=== PATIENT | male | born 1955 | race Caucasian/White ===

== ENCOUNTER 2016-08-28 22:38 | Inpatient (IN) | payer MEDICAID, MEDICARE, OTHER ==
[2016-08-28 22:38] VITALS: BMI 21.5
[2016-08-28] MEDS ORDERED: Sodium Chloride 0.9% 1,000 ML IV STA (23:05)
--- NOTE | 2016-08-28 23:21 | ED PDOC ---
HPI:Nausea, Vomiting, Diarrhea Time Seen by Provider: 08/28/16 22:46 Chief Complaint (Nursing): GI Problem Chief Complaint (Provider): vomiting History Per: Patient History/Exam Limitations: no limitations Onset/Duration Of Symptoms: Hrs Current Symptoms Are (Timing): Still Present Have you had recent travel within the past 21 days to any of the following countries: [place], [place], [place] or [place]?: No Additional Complaint(s): 61yo male with PMHx including liver cirrhosis, alcohol abuse presents to the ED with c/o vomiting since last night that was initially dark in color, but today noticed blood. Patient reports he has had black stools since last week that have increased in last 24 hours. Notes nausea, cold sweats, lightheadedness, and pallor. Patient had similar symptoms last in May 2016 when he had GI bleed and required transfusions. PCP: Dr. Sheikh Past Medical History Reviewed: Historical Data, Nursing Documentation, Vital Signs Vital Signs: Last Vital Signs Temp 97 F L 08/28/16 22:41 Pulse 97 H 08/28/16 22:41 Resp 18 08/28/16 22:41 BP 138/107 H 08/28/16 22:41 Pulse Ox 100 08/28/16 22:41 - Medical History PMH: Anemia, Anxiety, Depression, Fractures (Left Toe fracture, forklift accident), Hepatitis (C), HTN Denies: Alzheimer's Disease, Arthritis, Asthma, Atrial Fibrillation, Bipolar Disorder, Bronchitis, CAD, Cardia Arrhythmia, CHF, COPD, Crohn's Disease, Dementia, Diverticulitis, Emphysema, Gastritis, Gall Bladder Disease, HIV, Hypercholesterolemia, Hyperthyroidism, Hypothyroidism, Kidney Stones, Migraine, Mitral Valve Prolapse, Multiple Sclerosis, Osteoporosis, Pancreatitis, Paranoia , Parkinson's Disease, Peripheral Edema, Pneumonia, Post Traumatic Stress Disorder, Pulmonary Embolism, Chronic Kidney Disease, Rheumatoid Arthritis, Schizophrenia, Sickle Cell Disease, Sexually Transmitted Disease, Sleep Apnea Other PMH: liver cirrhosis - Surgical History Surgical History: Endoscopy (with banding x5 for esophageal varices) Denies: Appendectomy, CABG, Carotid Endarterectomy, Cholecystectomy, Coronary Stent, Pacemaker, Tonsillectomy - Family History Family History: States: Unknown Family Hx, Diabetes - Social History Alcohol: Other (alcohol abuse) - Immunization History Hx Tetanus Toxoid Vaccination: Yes Hx Influenza Vaccination: Yes Hx Pneumococcal Vaccination: Yes - Home Medications Home Medications: Ambulatory Orders Medication Instructions Recorded Furosemide [Lasix] 20 mg PO BID #0 tab 07/31/15 Sucralfate [Carafate Tab] 1 gm PO QID 08/16/15 Cholecalciferol (Vitamin D3) 1,000 unit PO DAILY 01/01/16 [Vitamin D3] Eplerenone 50 mg PO DAILY 02/10/16 - Allergies Allergies/Adverse Reactions: Allergies Allergy/AdvReac Type Severity Reaction Status Date / Time acetaminophen [From Tylenol] Allergy RASH Verified 08/29/16 03:16 oxycodone HCl [From Percocet] Allergy RASH Verified 08/29/16 03:16 Corticosteroids AdvReac bleeding Verified 08/29/16 03:16 (Glucocorticoids) morphine AdvReac VOMITING Verified 08/29/16 03:16 Review of Systems ROS Statement: Except As Marked, All Systems Reviewed And Found Negative Constitutional: Positive for: Sweats, Other (lightheadedness ). Negative for: Fever ENT: Negative for: Nose Discharge Cardiovascular: Negative for: Chest Pain Respiratory: Positive for: Shortness of Breath. Negative for: Cough Gastrointestinal: Positive for: Nausea, Vomiting, Melena, Hematochezia, Hematemesis. Negative for: Abdominal Pain Skin: Positive for: Other (pallor ) Neurological: Positive for: Dizziness Physical Exam - Reviewed Nursing Documentation Reviewed: Yes Vital Signs Reviewed: Yes - Physical Exam Appears: Positive for: No Acute Distress. Negative for: Well (ill appearing, cachectic ) Head Exam: Positive for: ATRAUMATIC, NORMAL INSPECTION, NORMOCEPHALIC Skin: Positive for: Warm, Dry, Pallor Eye Exam: Positive for: Normal appearance, EOMI, PERRL ENT: Positive for: Other (tacky mucous membranes ). Negative for: Pharyngeal Erythema, Tonsillar Exudate, Tonsillar Swelling Neck: Positive for: Normal, Painless ROM, Supple Cardiovascular/Chest: Positive for: Regular Rate, Rhythm. Negative for: Murmur , Tachycardia Respiratory: Positive for: Normal Breath Sounds. Negative for: Wheezing, Respiratory Distress Gastrointestinal/Abdominal: Positive for: Bowel Sounds, Soft, Tenderness ( diffuse mild tenderness to palpation ), Distended, Asicites. Negative for: Mass , Guarding, Rebound Back: Positive for: Normal Inspection. 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 Negative for: Deformity, Swelling Lymphatic: Negative for: Adenopathy, Inguinal Node Tenderness Neurologic/Psych: Positive for: Alert, Oriented. Negative for: Motor/Sensory Deficits - Laboratory Results Result Diagrams: 08/29/16 13:56 08/29/16 08:05 Interpretation Of Abn Labs: PLEASE NOTE: LABS ABOVE ARE NOT THE LAB RESULTS AT THE TIME OF ER EVALUATION AND TREATMENT. - ECG O2 Sat by Pulse Oximetry: 100 Pulse Ox Interpretation: Normal (RA) - Radiology X-Ray: Interpreted by Me X-Ray Interpretation: No Acute Disease - Critical Care Total Time (In Min): 30 Documented Critical Care: Time excludes all time spent performint seperately billable procedures Medical Decision Making Medical Decision Makin: Impression: GI bleed Plan: Labs type and screen EKG IVF, Protonix 80mg IVP, Zofran 8mg IV accucheck CXR Plan for admission pending ED workup Tranfusion ordered for hgb 6.[address] Welsh S GI protonix and octreotide drip ordered as per discussion NETTA Waldrop for ICU placement NETTA Sheikh PMD Scribe Attestation: Documented by Tyree Anne acting as a scribe for Miriam Phelan MD. Provider Scribe Attestation: All medical record entries made by the Scribe were at my direction and personally dictated by me. I have reviewed the chart and agree that the record accurately reflects my personal performance of the history, physical exam, medical decision making, and the department course for this patient. I have also personally directed, reviewed, and agree with the discharge instructions and disposition. Disposition - Clinical Impression Clinical Impression: Anemia, Esophageal varices, Liver cirrhosis, alcoholic, Gastrointestinal hemorrhage - Patient ED Disposition Is Patient to be Admitted: Yes Counseled Patient/Family Regarding: Studies Performed, Diagnosis - Disposition Disposition Time: 23:00 Condition: CRITICAL - Pt Status Changed To: Hospital Disposition Of: Inpatient - Admit Certification Admit to Inpatient:: After my assessment, the patient will require hospitalization for at least two midnights. This is because of the severity of symptoms shown, intensity of services needed, and/or the medical risk in this patient being treated as an outpatient. - POA Present On Arrival: None
[2016-08-28 23:47] LABS: BASO # 0.1 K/uL (0.0-0.2); BASO % 0.6 % (0.0-2.0); EOS # 0.2 K/uL (0.0-0.7); EOS % 2.1 % (0.0-4.0); HEMATOCRIT 20.2 % (35.0-51.0); LYMPH # 1.1 K/uL (1.0-4.3); LYMPH % 12.4 % (20.0-40.0); MEAN CELL VOLUME 82.3 fl (80.0-94.0); MEAN CORPUSCULAR HEMOGLOBIN 25.4 pg (27.0-31.0); MEAN CORPUSCULAR HGB CONC 30.8 g/dL (33.0-37.0); MEAN PLATELET VOLUME 10.5 fl (7.2-11.7); MONO # 0.8 K/uL (0.0-0.8); MONO % 9.2 % (0.0-10.0); NEUT # 6.8 K/uL (1.8-7.0); NEUT % 75.7 % (50.0-75.0); WHITE BLOOD COUNT 8.9 K/uL (4.8-10.8)
[2016-08-28 23:59] LABS: ALCOHOL SERUM < 10 mg/dl (0-10); ALKALINE PHOSPHATASE 101 U/L (38-126); ALT/SGPT 37 U/L (21-72); AST/SGOT 55 U/L (17-59); BILIRUBIN,TOTAL 1.5 mg/dl (0.2-1.3); BLOOD UREA NITROGEN 26 mg/dl (9-20); CALCIUM 8.2 mg/dL (8.4-10.2); CARBON DIOXIDE 19 mmol/L (22-30); CHLORIDE 108 mmol/L (98-107); GFR AFRICAN-AMERICAN > 60; GLUCOSE,RANDOM 125 mg/dL (75-110); LIPASE 58 U/L (23-300); MAGNESIUM 1.9 MG/DL (1.6-2.3); PARTIAL THROMBOPLASTIN TIME 26.4 SECONDS (23.3-32.5); PHOSPHOROUS 3.2 mg/dl (2.5-4.5); POTASSIUM 4.1 MMOL/L (3.6-5.0); SODIUM 142 mmol/l (132-148); TOTAL PROTEIN 5.7 G/DL (6.3-8.2)
[2016-08-29 00:01] LABS: ALB/GLOB RATIO 0.8 (1.0-2.1)
[2016-08-29] MEDS ORDERED: Octreotide 500 mcg/ml Inj IV STA (00:03)
--- NOTE | 2016-08-29 00:35 | CP.PCM.CON ---
History of Present Illness - History of Present Illness History of Present Illness: PCP: Sanford Sheikh MD Reason for Consult: Critical care management Chief complaint: Vomiting of Blood HPI: 61 years old male with hx of Alcohol abuse, Liver Cirrhosis, Esophageal varices, GI bleed, last admitted on 06/13/16 for Gastro Intestinal bleed and having to receive blood transfusion. He Comes with one day of vomiting dark colored fluid initially , which later changed to blood. He was given Naprosyn one day ago for pain and he took one tablet when he began vomiting associated with pain at the back of hei head and neck. Associated with nausea Cold sweats and lightheadedness. He also referred black stool for the previous week along with his chronic LLQ abdominal pain. PMH: Anemia, Anxiety, Depression, Fractures (Left Toe fracture, forklift accident), Hepatitis (C), HTN, Liver cirrhosis, Esophageal Varices, GI Bleed, Ascites, Chronic chest and abdominal pains [facility]: Endoscopy (with banding x5 for esophageal varices), Paracentesis, Colonoscopy SH: Alcohol Abuse;, Substance abuse; No Smoking of Cigarettes FH: Unknown Family Hx Allergies: Acetaminophen; Oxycodone; Morphine; Corticosteroid, Naprosyn Review of Systems - Constitutional Constitutional: Weakness. absent: Anorexia, Chills, Fatigue, Fever, Headache, Lethargy - EENT Eyes: Requires Corrective Lenses. absent: Blurred Vision, Diplopia, Floaters, Photophobia Ears: absent: Decreased Hearing, Ear Pain, Tinnitus, Dizziness Nose/Mouth/Throat: absent: Epistaxis, Nasal Congestion, Sinus Pain, Sinus Pressure, Sore Throat - Cardiovascular Cardiovascular: Chest Pain. absent: Edema, Orthopnea, Palpitations - Respiratory Respiratory: Dyspnea. absent: Cough, Wheezing, Chest Congestion - Gastrointestinal Gastrointestinal: Abdominal Pain, Hematemesis, Melena, Nausea, Vomiting - Musculoskeletal Musculoskeletal: Muscle Cramps, Muscle Weakness. absent: Arthralgias, Back Pain , Joint Swelling - Integumentary Integumentary: absent: Pruritus, Rash, Skin Ulcer, Sores, Striae, Swelling - Neurological Neurological: absent: Confusion, Convulsions, Dizziness, Focal Weakness, Headaches, Memory Loss - Psychiatric Psychiatric: Anxiety. absent: Confusion, Depression, Memory Loss, Panic Attacks - Endocrine Endocrine: absent: Palpitations, Polydipsia, Polyphagia, Polyuria - Hematologic/Lymphatic Hematologic: absent: Easy Bleeding, Easy Bruising Past Patient History - Infectious Disease Hx of Infectious Diseases: None - Past Medical History & Family History Past Medical History?: Yes - Past Social History Smoking Status: Never Smoked Chewing Tobacco Use: No Cigar Use: No Alcohol: > 2 Drinks/Day (alcohol abuse) Drugs: Cocaine Home Situation {Lives}: With Family - CARDIAC Hx Atrial Fibrillation: No Hx Cardia Arrhythmia: No Hx Congestive Heart Failure: No Hx Hypercholesterolemia: No Hx Hypertension: Yes Hx Mitral Valve Prolapse: No Hx Pacemaker: No Hx Peripheral Edema: No - PULMONARY Hx Asthma: No Hx Bronchitis: No Hx Chronic Obstructive Pulmonary Disease (COPD): No Hx Emphysema: No Hx Pneumonia: No Hx Pulmonary Embolism: No Hx Sleep Apnea: No - NEUROLOGICAL Hx Alzheimer's Disease: No Hx Dementia: No Hx Migraine: No Hx Multiple Sclerosis: No Hx Parkinson's Disease: No - HEENT Hx HEENT Problems: No Hx Blind: No Hx Cataracts: No Hx Deafness: No Hx Difficulty Chewing: No Hx Epistaxis: No Hx Glaucoma: No Hx Macular Degeneration: No - RENAL Hx Chronic Kidney Disease: No Hx Kidney Stones: No - ENDOCRINE/METABOLIC Hx Hyperthyroidism: No Hx Hypothyroidism: No - HEMATOLOGICAL/ONCOLOGICAL Hx Anemia: Yes Hx Human Immunodeficiency Virus (HIV): No Hx Sickle Cell Disease: No - INTEGUMENTARY Hx Dermatological Problems: No Hx Basil Cell: No Hx Terrell: No Hx Cellulitis: No Hx Eczema: No Hx Melanoma: No Hx Psoriasis: No Hx Squamous Cell: No - MUSCULOSKELETAL/RHEUMATOLOGICAL Hx Arthritis: No Hx Fractures: Yes (Left Toe fracture, forklift accident) Hx Osteoporosis: No Hx Rheumatoid Arthritis: No - GASTROINTESTINAL Hx Crohn's Disease: No Hx Diverticulitis: No Hx Esophageal Varices: Yes Hx Gall Bladder Disease: No Hx Gastritis: No Hx Liver Failure: Yes Hx Pancreatitis: No Other/Comment: GI Bleed; Ascites - GENITOURINARY/GYNECOLOGICAL Hx Sexually Transmitted Disorders: No - PSYCHIATRIC Hx Anxiety: Yes Hx Bipolar Disorder: No Hx Depression: Yes Hx Paranoia: No Hx Post Traumatic Stress Disorder: No Hx Schizophrenia: No - SURGICAL HISTORY Hx Appendectomy: No Hx Carotid Endarterectomy: No Hx Cholecystectomy: No Hx Coronary Artery Bypass Graft: No Hx Coronary Stent: No Hx Tonsillectomy: No Other/Comment: Paracentesis; Colonoscopy; EGD - ANESTHESIA Hx Anesthesia: Yes Hx Anesthesia Reactions: No Hx Malignant Hyperthermia: No Meds Allergies/Adverse Reactions: Allergies Allergy/AdvReac Type Severity Reaction Status Date / Time acetaminophen [From Tylenol] Allergy RASH Verified 06/19/16 06:33 oxycodone HCl [From Percocet] Allergy RASH Verified 06/19/16 06:33 Corticosteroids AdvReac bleeding Verified 06/19/16 06:33 (Glucocorticoids) morphine AdvReac VOMITING Verified 06/19/16 06:33 - Medications Medications: Current Medications Octreotide Acetate 1,250 mcg/ (Sodium Chloride) 252.5 mls @ 10.1 mls/hr IV .Q24H BEATA; 50 MCG/HR PRN Reason: Protocol Pantoprazole Sodium 40 mg/ (Sodium Chloride) 100 mls @ 20 mls/hr IVPB Q5H BEATA PRN Reason: 8 MG/HR Physical Exam - Constitutional Appears: No Acute Distress - Head Exam Head Exam: ATRAUMATIC, NORMAL INSPECTION, NORMOCEPHALIC - Eye Exam Eye Exam: EOMI, Normal appearance Pupil Exam: NORMAL ACCOMODATION, PERRL - ENT Exam ENT Exam: Mucous Membranes Moist, Normal Exam, Normal External Ear Exam, Normal Oropharynx - Neck Exam Neck exam: Positive for: Full Rom, Normal Inspection. Negative for: Lymphadenopathy, Tenderness - Respiratory Exam Respiratory Exam: Clear to Auscultation Bilateral. absent: Rales, Rhonchi, Wheezes - Cardiovascular Exam Cardiovascular Exam: REGULAR RHYTHM, RRR, +S1, +S2. absent: Gallop, JVD - GI/Abdominal Exam Additional comments: Flat, Soft, tenderness at the LLQ on palpation, no guarding, no rebound tenderness - Rectal Exam Rectal Exam: Deferred - Extremities Exam Extremities exam: Positive for: full ROM, normal inspection. Negative for: calf tenderness, joint swelling, pedal edema - Back Exam Back exam: NORMAL INSPECTION. absent: CVA tenderness (L), CVA tenderness (R) - Neurological Exam Neurological exam: Alert, CN II-XII Intact, Oriented x3, Reflexes Normal - Psychiatric Exam Psychiatric exam: Normal Affect, Normal Mood - Skin Skin Exam: Dry, Intact, Pallor, Warm Results - Vital Signs Recent Vital Signs: Last Vital Signs Temp 97 F L 08/28/16 22:41 Pulse 97 H 08/28/16 22:41 Resp 18 08/28/16 22:41 BP 138/107 H 08/28/16 22:41 Pulse Ox 100 08/29/16 00:23 - Labs Result Diagrams: 08/28/16 23:44 08/28/16 23:44 Labs: Laboratory Results - last 24 hr 08/28/16 08/28/16 23:44 23:49 WBC 8.9 D RBC 2.46 L Hgb 6.2 L* D Hct 20.2 L MCV 82.3 D MCH 25.4 L MCHC 30.8 L RDW 17.0 H Plt Count 143 MPV 10.5 Neut % (Auto) 75.7 H Lymph % (Auto) 12.4 L Pepin % (Auto) 9.2 Eos % (Auto) 2.1 Baso % (Auto) 0.6 Neut # 6.8 Lymph # 1.1 Pepin # 0.8 Eos # 0.2 Baso # 0.1 PT 13.4 H INR 1.29 H APTT 26.4 Sodium 142 Potassium 4.1 Chloride 108 H Carbon Dioxide 19 L Anion Gap 19 BUN 26 H Creatinine 0.8 Est GFR ( Amer) > 60 Est GFR (Non-Af Amer) > 60 Random Glucose 125 H Lactic Acid 4.5 H* Calcium 8.2 L Phosphorus 3.2 Magnesium 1.9 Total Bilirubin 1.5 H AST 55 ALT 37 Alkaline Phosphatase 101 Ammonia < 9 L Troponin I < 0.0120 Total Protein 5.7 L Albumin 2.6 L Globulin 3.1 Albumin/Globulin Ratio 0.8 L Lipase 58 Alcohol, Quantitative < 10 Crossmatch See Detail BBK History Checked Patient has bt - Imaging and Cardiology Chest x-ray Status: Image reviewed by me Additional comment: No Infiltrate. Assessment & Plan - Assessment and Plan (Free Text) Assessment: #. GI Bleed #. Anemia #. Liver Cirrhosis #. Esop[hageal Varices #. Anxiety #. Chronic abdominal Pain Plan: 61 years old male with hx of Alcohol abuse, Liver Cirrhosis, Esophageal varices , GI bleed, last admitted on 06/13/16 for Gastro Intestinal bleed and having to receive blood transfusion. He Comes with one day of vomiting dark colored fluid initially , which later changed to blood. He also referres Melena for one week. #. GI Bleed most likely upper GI and secondary to bleeding varices - Consult Dr Welsh GI - Pantoprazole IV Drip - Octreotide IV Drip #. Anemia due to blood loss - Transfuse 2 units of PRBC - Follow Hb #. Liver Cirrhosis with Esophageal varices - GI on Consult - Pte trying to get new appointment at [facility] liver clinic #. Anxiety - Ativan IV prn #. Chronic abdominal Pain - Patient is allergic to multiple analgesics - Suggest Ultram when Oral via is started #. DVT prophylaxis with SCD - Date & Time Date: 08/29/16 Time: 00:35
[2016-08-29] MEDS: Pantoprazole 40 MG in Sodium Chloride 0.9% 100 ML IVPB SCH ×5 (01:10→19:38)
[2016-08-29] MEDS: HYDROmorphone 0.5 mg/0.5 ml ISec IVP PRN ×3 (04:57→20:51)
--- NOTE | 2016-08-29 08:09 | CARD ---
APPROVED REPORT EKG Measurement Heart [id number] NM [id number] <Conclusion> Sinus tachycardia with premature atrial complexes with aberrant conduction Nonspecific ST abnormality Abnormal ECG
[2016-08-29 08:36] LABS: ALB/GLOB RATIO 0.8 (1.0-2.1); ALKALINE PHOSPHATASE 83 U/L (38-126); ALT/SGPT 43 U/L (21-72); AST/SGOT 69 U/L (17-59); BILIRUBIN,TOTAL 1.8 mg/dl (0.2-1.3); BLOOD UREA NITROGEN 27 mg/dl (9-20); CALCIUM 7.5 mg/dL (8.4-10.2); CARBON DIOXIDE 19 mmol/L (22-30); CHLORIDE 113 mmol/L (98-107); GFR AFRICAN-AMERICAN > 60; GLUCOSE,RANDOM 108 mg/dL (75-110); POTASSIUM 4.7 MMOL/L (3.6-5.0); SODIUM 143 mmol/l (132-148); TOTAL PROTEIN 5.1 G/DL (6.3-8.2)
[2016-08-29] MEDS ORDERED: Thiamine 100 mg/ml Inj IM SCH (09:30)
--- NOTE | 2016-08-29 09:37 | CP.PCM.HP ---
History of Present Illness - History of Present Illness History of Present Illness: Patient is 61 y/o gentleman presented in ER with several episodes of hematemesis , with each episode the ammount of f blood was variable.Patient with hx of liver cirrhosis with ascites, esophageal varices, he had similar episodes in the past. He still drinks alcohol. As per patient he is not c/o with f/u at the liver clinic. On 08/18 he was seen in the office for cervicalgia Naprosyn was prescribed, as per the patient he took only one pill. his last alcoholic beverage was few days ago. At admission his Hb level was around 6 and he is receiving blood transfusion. At present he is in agitated with possible DT. Will start on thiamine and Ativan as needed for EGD today. Will follow with GI. Present on Admission - Present on Admission Any Indicators Present on Admission: No Review of Systems - Constitutional Constitutional: As Per HPI, Anorexia - EENT Eyes: As Per HPI Nose/Mouth/Throat: As Per HPI - Cardiovascular Cardiovascular: As Per HPI - Respiratory Respiratory: As Per HPI - Gastrointestinal Gastrointestinal: As Per HPI - Musculoskeletal Musculoskeletal: As Per HPI - Integumentary Integumentary: Change in Nails - Neurological Neurological: As Per HPI Past Patient History - Infectious Disease Hx of Infectious Diseases: None - Past Medical History & Family History Past Medical History?: Yes - Past Social History Smoking Status: Never Smoked Chewing Tobacco Use: No Cigar Use: No Alcohol: > 2 Drinks/Day (alcohol abuse) Drugs: Cocaine Home Situation {Lives}: With Family - CARDIAC Hx Cardiac Disorders: Yes - PULMONARY Hx Respiratory Disorders: Yes - NEUROLOGICAL Hx Alzheimer's Disease: No Hx Dementia: No Hx Migraine: No Hx Multiple Sclerosis: No Hx Parkinson's Disease: No - HEENT Hx HEENT Problems: No - RENAL Hx Chronic Kidney Disease: No - ENDOCRINE/METABOLIC Hx Hyperthyroidism: No Hx Hypothyroidism: No - HEMATOLOGICAL/ONCOLOGICAL Hx Blood Disorders: Yes - INTEGUMENTARY Hx Dermatological Problems: No - MUSCULOSKELETAL/RHEUMATOLOGICAL Hx Arthritis: No Hx Fractures: Yes (Left Toe fracture, forklift accident) Hx Osteoporosis: No Hx Rheumatoid Arthritis: No - GASTROINTESTINAL Hx Crohn's Disease: No Hx Diverticulitis: No Hx Esophageal Varices: Yes Hx Gall Bladder Disease: No Hx Gastritis: No Hx Liver Failure: Yes Hx Pancreatitis: No Other/Comment: GI Bleed; Ascites - GENITOURINARY/GYNECOLOGICAL Hx Sexually Transmitted Disorders: No - PSYCHIATRIC Hx Anxiety: Yes Hx Bipolar Disorder: No Hx Depression: Yes Hx Paranoia: No Hx Post Traumatic Stress Disorder: No Hx Schizophrenia: No - SURGICAL HISTORY Hx Appendectomy: No Hx Carotid Endarterectomy: No Hx Cholecystectomy: No Hx Coronary Artery Bypass Graft: No Hx Coronary Stent: No Hx Tonsillectomy: No Other/Comment: Paracentesis; Colonoscopy; EGD - ANESTHESIA Hx Anesthesia: Yes Hx Anesthesia Reactions: No Hx Malignant Hyperthermia: No Meds Allergies/Adverse Reactions: Allergies Allergy/AdvReac Type Severity Reaction Status Date / Time acetaminophen [From Tylenol] Allergy RASH Verified 08/29/16 03:16 oxycodone HCl [From Percocet] Allergy RASH Verified 08/29/16 03:16 Corticosteroids AdvReac bleeding Verified 08/29/16 03:16 (Glucocorticoids) morphine AdvReac VOMITING Verified 08/29/16 03:16 Physical Exam - Constitutional Appears: Cachectic, Chronically Ill - Head Exam Head Exam: ATRAUMATIC, NORMAL INSPECTION, NORMOCEPHALIC - Eye Exam Eye Exam: Normal appearance - ENT Exam ENT Exam: Mucous Membranes Dry - Neck Exam Neck exam: Positive for: Full Rom - Respiratory Exam Respiratory Exam: Clear to Auscultation Bilateral - Cardiovascular Exam Cardiovascular Exam: REGULAR RHYTHM, +S1, +S2 - GI/Abdominal Exam GI & Abdominal Exam: Normal Bowel Sounds, Soft Additional comments: ascites - Neurological Exam Neurological exam: Alert, CN II-XII Intact, Oriented x3 - Psychiatric Exam Psychiatric exam: Anxious - Skin Skin Exam: Pallor Results - Vital Signs Recent Vital Signs: Last Vital Signs Temp 98.2 F 08/29/16 08:00 Pulse 87 08/29/16 08:00 Resp 22 08/29/16 08:00 BP 114/63 08/29/16 08:00 Pulse Ox 100 08/29/16 08:00 - Labs Result Diagrams: 08/28/16 23:44 08/29/16 08:05 Labs: Laboratory Results - last 24 hr 08/29/16 08:05 Sodium 143 Potassium 4.7 Chloride 113 H Carbon Dioxide 19 L Anion Gap 16 BUN 27 H Creatinine 0.9 Est GFR ( Amer) > 60 Est GFR (Non-Af Amer) > 60 Random Glucose 108 Lactic Acid 2.4 H Calcium 7.5 L Total Bilirubin 1.8 H AST 69 H D ALT 43 Alkaline Phosphatase 83 Total Protein 5.1 L Albumin 2.3 L Globulin 2.8 Albumin/Globulin Ratio 0.8 L Assessment & Plan (1) Acute blood loss anemia Status: Acute (2) Ascites of liver Status: Acute (3) Chronic abdominal pain Status: Acute (4) Cocaine abuse Status: Acute (5) Gastrointestinal hemorrhage Status: Acute (6) Upper GI bleed Status: Acute (7) Alcohol abuse Status: Chronic (8) Ascites Status: Chronic (9) Ascites due to alcoholic cirrhosis Status: Chronic (10) Cachexia Status: Chronic (11) Coagulopathy Status: Chronic (12) Debility Status: Chronic (13) Esophageal varices determined by endoscopy Status: Chronic (14) Esophageal varices in cirrhosis Status: Chronic (15) Liver cirrhosis Status: Chronic
[2016-08-29] MEDS ORDERED: Phytonadione 10 mg/ml Inj (Adult) IM ONE (09:49)
--- NOTE | 2016-08-29 09:59 | RAD ---
HISTORY: gi bleed COMPARISON: Comparison chest dated 06/19/2016. FINDINGS: LUNGS: Poor inspiration with low lung volumes, crowded bronchovascular markings and mild bibasilar atelectasis. PLEURA: No significant pleural effusion identified, no pneumothorax apparent. CARDIOVASCULAR: Normal. OSSEOUS STRUCTURES: Mild degenerative changes both shoulder girdles right greater than left. VISUALIZED UPPER ABDOMEN: Normal. OTHER FINDINGS: None. IMPRESSION: Poor inspiration with low lung volumes, crowded bronchovascular markings and mild bibasilar atelectasis.
--- NOTE | 2016-08-29 10:05 | CP.CCUPN ---
CCU Subjective - Physician Review Subjective (Free Text): Pt seen and examined at his bedside in the ICU. Earlier in this morning he had been witnessed spitting up bright red blood and producing tar-black stool. However, later during re-examination, he was seen comfortably sleeping. Upon waking up, he stated feeling much improved as he was experiencing only minimal RUQ pain. He denies fevers/chills, lightheadedness, current nausea, vomiting, diarrhea, hemoptysis, melena, or hematochezia. Also denies chest pain, SOB, dyspnea, or other myalgias. CCU Objective - Vital Signs / Intake & Output Vital Signs (Last 4 hours): Vital Signs Temp Pulse Resp BP Pulse Ox 08/29/16 08:00 98.2 F 87 22 114/63 100 Intake and Output (Last 8hrs): Intake & Output 08/28/16 08/29/16 08/29/16 22:59 06:59 14:59 Weight 148 lb Other: # Bowel Movements 1 - Physical Exam Head: Positive for: Atraumatic, Normocephalic. Negative for: Tenderness Pupils: Positive for: PERRL Extroacular Muscles: Positive for: EOMI Mouth: Positive for: Dry Pharnyx: Positive for: Normal Neck: Positive for: Normal Range of Motion. Negative for: MIDLINE TENDERNESS, JVD, Trachea Midline Respiratory/Chest: Positive for: Clear to Auscultation, Good Air Exchange. Negative for: Wheezes Cardiovascular: Positive for: Regular Rate and Rhythm, Normal S1, S2 Abdomen: Positive for: Tenderness, Normal Bowel Sounds, Guarding (voluntary; also examined when asleep and abd is soft). Negative for: McBurney's Point Tender Upper Extremity: Positive for: Normal Inspection, Normal ROM. Negative for: Cyanosis Lower Extremity: Positive for: Normal Inspection. Negative for: Edema, CALF TENDERNESS Neurological: Positive for: GCS=15, CN II-XII Intact, Speech Normal Skin: Positive for: Warm, Dry, Rashes, Normal Color - Medications Active Medications: Active Medications Generic Name Dose Route Start Last Admin Trade Name Freq PRN Reason Stop Dose Admin Hydromorphone HCl 0.5 mg 08/29/16 04:29 08/29/16 04:57 Dilaudid IVP 0.5 mg Q4 PRN Administration Other Octreotide Acetate 1,250 mcg/ 252.5 mls @ 10.1 mls/hr 08/29/16 00:15 08/29/16 01:10 Sodium Chloride IV 10.1 mls/hr .Q24H BEATA Administration Protocol 50 MCG/HR Pantoprazole Sodium 40 mg/ 100 mls @ 20 mls/hr 08/29/16 00:15 08/29/16 09:36 Sodium Chloride IVPB 20 mls/hr Q5H BEATA Administration 8 MG/HR Lorazepam 1 mg 08/29/16 03:12 08/29/16 09:36 Ativan IVP 1 mg Q6 PRN Administration Anxiety Ondansetron HCl 4 mg 08/29/16 03:11 Zofran Inj IVP Q4 PRN Nausea/Vomiting Phytonadione 5 mg 08/29/16 09:49 Vitamin K IM 08/29/16 09:50 ONCE ONE Thiamine HCl 100 mg 08/29/16 09:30 Vitamin B1 Inj IM DAILY BEATA - Patient Studies Lab Studies: Lab Studies 08/29/16 Range/Units 08:05 Sodium 143 (132-148) mmol/l Potassium 4.7 (3.6-5.0) MMOL/L Chloride 113 H (98-107) mmol/L Carbon Dioxide 19 L (22-30) mmol/L Anion Gap 16 (10-20) BUN 27 H (9-20) mg/dl Creatinine 0.9 (0.8-1.5) mg/dL Est GFR ( Amer) > 60 Est GFR (Non-Af Amer) > 60 Random Glucose 108 (75-110) mg/dL Lactic Acid 2.4 H (0.7-2.1) MMOL/L Calcium 7.5 L (8.4-10.2) mg/dL Total Bilirubin 1.8 H (0.2-1.3) mg/dl AST 69 H D (17-59) U/L ALT 43 (21-72) U/L Alkaline Phosphatase 83 (38-126) U/L Total Protein 5.1 L (6.3-8.2) G/DL Albumin 2.3 L (3.5-5.0) g/dL Globulin 2.8 (2.2-3.9) gm/dL Albumin/Globulin Ratio 0.8 L (1.0-2.1) Laboratory Results - last 24 hr 08/29/16 08:05 Sodium 143 Potassium 4.7 Chloride 113 H Carbon Dioxide 19 L Anion Gap 16 BUN 27 H Creatinine 0.9 Est GFR ( Amer) > 60 Est GFR (Non-Af Amer) > 60 Random Glucose 108 Lactic Acid 2.4 H Calcium 7.5 L Total Bilirubin 1.8 H AST 69 H D ALT 43 Alkaline Phosphatase 83 Total Protein 5.1 L Albumin 2.3 L Globulin 2.8 Albumin/Globulin Ratio 0.8 L Review of Systems - Review of Systems Review of Systems: see HPI Critical Care Progress Note - Ventilator Checklist Head of Bed 30 Degrees: Yes PUD Prophalyxis: Yes DVT Prophylaxis: Yes - Nutrition Nutrition: Nutrition Category Date Time Status NPO Diet [DIET] Diets 08/29/16 Breakfast Active Assessment/Plan - Assessment and Plan (Free Text) Plan: 61 yo M w PMHx of GI bleed in may, liver cirrhosis and esophageal varices likely from etoh abuse, is admitted for hemoptysis and h/o melena. 1) Hemoptysis and melena, likely secondary to bleeding varices -Pantoprazole 40mg IVPB Q5H -Octreotide 1250mcg IVPB @ 50mcg/hr -2u FFP -f/u GI Consult 2) Anemia -Likely due to blood loss from active bleed -Has already been transfused w 2u of pRBC --Will transfuse additional 4u pRBC if needed -f/u CBC -f/u BMP -f/u Vitals -f/u Symptoms -f/u GI Consult 3) Liver Cirrhosis with Esophageal varices -Octreotide 1250mcg IVPB @ 50mcg/hr -f/u GI Consult 4) etoh abuse -Pt states last drink was few days prior to visit -Banana Bag 84cc/hr IV Daily -Ativan 1mg IVP Q6H PRN -f/u s/s of etoh withdrawal 5) Anxiety -Ativan 1mg IVP Q6H PRN 5) DVT prophylaxis -SCDs; cannot tolerate medication due to active bleed
[2016-08-29] MEDS ORDERED: Midazolam 2 MG/2 ML VIAL ONE (13:11)
[2016-08-29] MEDS ORDERED: Propofol 10 mg/ml Inj (20 ML) ONE (13:11)
[2016-08-29] MEDS ORDERED: Succinylcholine 200 mg/10 ml Inj IV ONE (13:12)
[2016-08-29] MEDS ORDERED: ePHEDrine 50 mg/ml Inj ONE (13:19)
[2016-08-29] MEDS ORDERED: Multivitamin (MVI) 10 ML, Thiamine 100 MG, Folic Acid 1 MG in Sodium Chloride 0.9% 1,00... IV ONE (13:50)
[2016-08-29 14:10] LABS: MEAN CELL VOLUME 85.5 fl (80.0-94.0); MEAN CORPUSCULAR HEMOGLOBIN 27.6 pg (27.0-31.0); MEAN CORPUSCULAR HGB CONC 32.3 g/dL (33.0-37.0); RED CELL DISTRIBUTION WIDTH 16.1 % (11.5-14.5); WHITE BLOOD COUNT 5.6 K/uL (4.8-10.8)
[2016-08-29] MEDS ORDERED: EPINEPHrine 1 mg/ml (1:1000) Inj ONE (14:15)
[2016-08-29] MEDS ORDERED: Sodium Chloride 0.9% 1,000 ML IV ONE ×2 (14:40→14:43)
[2016-08-29 14:44] LABS: HEMATOCRIT 18.7 % (35.0-51.0)
--- NOTE | 2016-08-29 15:10 | CP.PCM.CON ---
History of Present Illness - History of Present Illness History of Present Illness: 61 yo yo male who continues to drink alcohol heavily despite being aware of his diagnosis of liver cirrhosis admitted for weakness, GI bleed, and anemia. This episode started after taking naprosyn for neck pain. In the past he was found to have varices and had undergone banding. Review of Systems - Constitutional Constitutional: absent: Chills - EENT Eyes: absent: Blurred Vision Ears: absent: Decreased Hearing - Cardiovascular Cardiovascular: absent: Chest Pain - Respiratory Respiratory: absent: Cough - Gastrointestinal Gastrointestinal: absent: Abdominal Pain - Genitourinary Genitourinary: absent: Change in Urinary Stream Past Patient History - Infectious Disease Hx of Infectious Diseases: None - Past Medical History & Family History Past Medical History?: Yes - Past Social History Smoking Status: Never Smoked - CARDIAC Hx Cardiac Disorders: Yes - PULMONARY Hx Respiratory Disorders: Yes - NEUROLOGICAL Hx Alzheimer's Disease: No Hx Dementia: No Hx Migraine: No Hx Multiple Sclerosis: No Hx Parkinson's Disease: No - HEENT Hx HEENT Problems: No - RENAL Hx Chronic Kidney Disease: No - ENDOCRINE/METABOLIC Hx Hyperthyroidism: No Hx Hypothyroidism: No - HEMATOLOGICAL/ONCOLOGICAL Hx Blood Disorders: Yes - INTEGUMENTARY Hx Dermatological Problems: No - MUSCULOSKELETAL/RHEUMATOLOGICAL Hx Arthritis: No Hx Fractures: Yes (Left Toe fracture, forklift accident) Hx Osteoporosis: No Hx Rheumatoid Arthritis: No - GASTROINTESTINAL Hx Crohn's Disease: No Hx Diverticulitis: No Hx Esophageal Varices: Yes Hx Gall Bladder Disease: No Hx Gastritis: No Hx Liver Failure: Yes Hx Pancreatitis: No Other/Comment: GI Bleed; Ascites - GENITOURINARY/GYNECOLOGICAL Hx Sexually Transmitted Disorders: No - PSYCHIATRIC Hx Emotional Abuse: No Hx Physical Abuse: No - SURGICAL HISTORY Hx Appendectomy: No Hx Carotid Endarterectomy: No Hx Cholecystectomy: No Hx Coronary Artery Bypass Graft: No Hx Coronary Stent: No Hx Tonsillectomy: No Other/Comment: Paracentesis; Colonoscopy; EGD - ANESTHESIA Hx Anesthesia: Yes Hx Anesthesia Reactions: No Hx Malignant Hyperthermia: No Meds Allergies/Adverse Reactions: Allergies Allergy/AdvReac Type Severity Reaction Status Date / Time acetaminophen [From Tylenol] Allergy RASH Verified 08/29/16 03:16 oxycodone HCl [From Percocet] Allergy RASH Verified 08/29/16 03:16 Corticosteroids AdvReac bleeding Verified 08/29/16 03:16 (Glucocorticoids) morphine AdvReac VOMITING Verified 08/29/16 03:16 - Medications Medications: Current Medications Hydromorphone HCl (Dilaudid) 0.5 mg IVP Q4 PRN PRN Reason: Other Last Admin: 08/29/16 11:03 Dose: 0.5 mg Octreotide Acetate 1,250 mcg/ (Sodium Chloride) 252.5 mls @ 10.1 mls/hr IV .Q24H BEATA; 50 MCG/HR PRN Reason: Protocol Last Admin: 08/29/16 01:10 Dose: 10.1 mls/hr Pantoprazole Sodium 40 mg/ (Sodium Chloride) 100 mls @ 20 mls/hr IVPB Q5H BEATA PRN Reason: 8 MG/HR Last Admin: 08/29/16 14:50 Dose: 20 mls/hr Multivitamins/Vitamin C 10 ml/Thiamine HCl 100 mg/ Folic Acid 1 mg/ Sodium Chloride 1,011.2 mls @ 84 mls/hr IV .Q12H3M ONE Stop: 08/30/16 01:52 Multivitamins/Vitamin C 10 ml/Thiamine HCl 100 mg/ Folic Acid 1 mg/ Sodium Chloride 1,011.2 mls @ 84 mls/hr IV .Q12H3M ONE Stop: 08/30/16 18:02 Multivitamins/Vitamin C 10 ml/Thiamine HCl 100 mg/ Folic Acid 1 mg/ Sodium Chloride 1,011.2 mls @ 84 mls/hr IV .Q12H3M ONE Stop: 08/31/16 18:02 Lorazepam (Ativan) 1 mg IVP Q6 PRN PRN Reason: Anxiety Last Admin: 08/29/16 09:36 Dose: 1 mg Ondansetron HCl (Zofran Inj) 4 mg IVP Q4 PRN PRN Reason: Nausea/Vomiting Physical Exam - Head Exam Head Exam: ATRAUMATIC - Eye Exam Eye Exam: Normal appearance - ENT Exam ENT Exam: Mucous Membranes Moist - Respiratory Exam Respiratory Exam: Clear to Auscultation Bilateral - Cardiovascular Exam Cardiovascular Exam: REGULAR RHYTHM, +S1, +S2 - GI/Abdominal Exam GI & Abdominal Exam: Normal Bowel Sounds. absent: Tenderness Results - Vital Signs Recent Vital Signs: Last Vital Signs Temp 97.9 F 08/29/16 14:44 Pulse 94 H 08/29/16 14:44 Resp 84 H 08/29/16 14:44 BP 114/68 08/29/16 14:00 Pulse Ox 21 L 08/29/16 14:44 - Labs Result Diagrams: 08/29/16 13:56 08/29/16 08:05 Labs: Laboratory Results - last 24 hr 08/29/16 08/29/16 08:05 13:56 WBC 5.6 RBC 2.19 L Hgb 6.1 L* Hct 18.7 L MCV 85.5 D MCH 27.6 MCHC 32.3 L RDW 16.1 H Plt Count 79 L D Sodium 143 Potassium 4.7 Chloride 113 H Carbon Dioxide 19 L Anion Gap 16 BUN 27 H Creatinine 0.9 Est GFR ( Amer) > 60 Est GFR (Non-Af Amer) > 60 Random Glucose 108 Lactic Acid 2.4 H Calcium 7.5 L Total Bilirubin 1.8 H AST 69 H D ALT 43 Alkaline Phosphatase 83 Total Protein 5.1 L Albumin 2.3 L Globulin 2.8 Albumin/Globulin Ratio 0.8 L Assessment & Plan (1) Acute blood loss anemia Assessment and Plan: Upper GI bleed in patient with cirrhosis. IV pantoprazole, octreotide, and transfuse above 8 . Upper endoscopy. Status: Acute
[2016-08-30] MEDS: Pantoprazole 40 MG in Sodium Chloride 0.9% 100 ML IVPB SCH ×5 (00:20→21:23)
[2016-08-30] MEDS: HYDROmorphone 0.5 mg/0.5 ml ISec IVP PRN ×3 (02:46→18:20)
[2016-08-30] MEDS ORDERED: Multivitamin (MVI) 10 ML, Thiamine 100 MG, Folic Acid 1 MG in Sodium Chloride 0.9% 1,00... IV ONE (06:00)
[2016-08-30 07:17] LABS: HEMATOCRIT 25.2 % (35.0-51.0); MEAN CELL VOLUME 85.2 fl (80.0-94.0); MEAN CORPUSCULAR HEMOGLOBIN 28.9 pg (27.0-31.0); MEAN CORPUSCULAR HGB CONC 33.9 g/dL (33.0-37.0); RED CELL DISTRIBUTION WIDTH 16.2 % (11.5-14.5); WHITE BLOOD COUNT 5.3 K/uL (4.8-10.8)
[2016-08-30 07:25] LABS: ALB/GLOB RATIO 0.9 (1.0-2.1); ALKALINE PHOSPHATASE 79 U/L (38-126); ALT/SGPT 65 U/L (21-72); AST/SGOT 98 U/L (17-59); BILIRUBIN,TOTAL 4.2 mg/dl (0.2-1.3); BLOOD UREA NITROGEN 24 mg/dl (9-20); CALCIUM 7.5 mg/dL (8.4-10.2); CARBON DIOXIDE 24 mmol/L (22-30); CHLORIDE 111 mmol/L (98-107); GFR AFRICAN-AMERICAN > 60; GLUCOSE,RANDOM 82 mg/dL (75-110); POTASSIUM 4.1 MMOL/L (3.6-5.0); SODIUM 144 mmol/l (132-148); TOTAL PROTEIN 5.5 G/DL (6.3-8.2)
--- NOTE | 2016-08-30 14:34 | CP.PCM.CON ---
History of Present Illness - History of Present Illness History of Present Illness: 61 year old male with a history of ETOH induced liver cirrhosis with varices s/ p banding, admitted with GI bleeding. The patient reports to taking NSAIDs for neck pain. Shortly after this, he began to experience hematemesis and hematochezia. He is currently s/p PRBC and FFP transfusions, as well as vitamin K. He has had 2 episodes of hematochezia today and feels weak. Past medical history: ETOH abuse, liver cirrhosis Past surgical history: None Family history: Denies hematologic and oncologic problems Social history: Former tobacco abuse, cont. to drink alcohol, denies illicit drug use. Allergies: Acetaminophen, oxycodone Review of systems: All remaining review of systems including HEENT, cardiovascular, respiratory, gastrointestinal, genitourinary, musculoskeletal, dermatologic, neurologic, and psychiatric are negative unless mentioned in the HPI. Past Patient History - Infectious Disease Hx of Infectious Diseases: None - Past Medical History & Family History Past Medical History?: Yes - Past Social History Alcohol: Other (alcohol abuse) - CARDIAC Hx Atrial Fibrillation: No Hx Cardia Arrhythmia: No Hx Congestive Heart Failure: No Hx Hypercholesterolemia: No Hx Hypertension: Yes Hx Mitral Valve Prolapse: No Hx Pacemaker: No Hx Peripheral Edema: No - PULMONARY Hx Asthma: No Hx Bronchitis: No Hx Chronic Obstructive Pulmonary Disease (COPD): No Hx Emphysema: No Hx Pneumonia: No Hx Pulmonary Embolism: No Hx Sleep Apnea: No - NEUROLOGICAL Hx Alzheimer's Disease: No Hx Dementia: No Hx Migraine: No Hx Multiple Sclerosis: No Hx Parkinson's Disease: No - HEENT Hx HEENT Problems: No - RENAL Hx Chronic Kidney Disease: No Hx Kidney Stones: No - ENDOCRINE/METABOLIC Hx Hyperthyroidism: No Hx Hypothyroidism: No - HEMATOLOGICAL/ONCOLOGICAL Hx Anemia: Yes Hx Human Immunodeficiency Virus (HIV): No Hx Sickle Cell Disease: No - INTEGUMENTARY Hx Dermatological Problems: No - MUSCULOSKELETAL/RHEUMATOLOGICAL Hx Arthritis: No Hx Fractures: Yes (Left Toe fracture, forklift accident) Hx Osteoporosis: No Hx Rheumatoid Arthritis: No - GASTROINTESTINAL Hx Crohn's Disease: No Hx Diverticulitis: No Hx Gall Bladder Disease: No Hx Gastritis: No Hx Pancreatitis: No - GENITOURINARY/GYNECOLOGICAL Hx Sexually Transmitted Disorders: No - PSYCHIATRIC Hx Anxiety: Yes Hx Bipolar Disorder: No Hx Depression: Yes Hx Paranoia: No Hx Post Traumatic Stress Disorder: No Hx Schizophrenia: No - SURGICAL HISTORY Hx Appendectomy: No Hx Carotid Endarterectomy: No Hx Cholecystectomy: No Hx Coronary Artery Bypass Graft: No Hx Coronary Stent: No Hx Tonsillectomy: No - ANESTHESIA Hx Anesthesia: Yes Hx Anesthesia Reactions: No Hx Malignant Hyperthermia: No Meds Allergies/Adverse Reactions: Allergies Allergy/AdvReac Type Severity Reaction Status Date / Time acetaminophen [From Tylenol] Allergy RASH Verified 08/29/16 03:16 oxycodone HCl [From Percocet] Allergy RASH Verified 08/29/16 03:16 Corticosteroids AdvReac bleeding Verified 08/29/16 03:16 (Glucocorticoids) morphine AdvReac VOMITING Verified 08/29/16 03:16 - Medications Medications: Current Medications Hydromorphone HCl (Dilaudid) 0.5 mg IVP Q4 PRN PRN Reason: Other Last Admin: 08/30/16 08:49 Dose: 0.5 mg Octreotide Acetate 1,250 mcg/ (Sodium Chloride) 252.5 mls @ 10.1 mls/hr IV .Q24H BEATA; 50 MCG/HR PRN Reason: Protocol Last Admin: 08/30/16 02:11 Dose: 10.1 mls/hr Pantoprazole Sodium 40 mg/ (Sodium Chloride) 100 mls @ 20 mls/hr IVPB Q5H BEATA PRN Reason: 8 MG/HR Last Admin: 08/30/16 11:07 Dose: 20 mls/hr Multivitamins/Vitamin C 10 ml/Thiamine HCl 100 mg/ Folic Acid 1 mg/ Sodium Chloride 1,011.2 mls @ 84 mls/hr IV .Q12H3M ONE Stop: 08/30/16 18:02 Last Admin: 08/30/16 11:08 Dose: 84 mls/hr Multivitamins/Vitamin C 10 ml/Thiamine HCl 100 mg/ Folic Acid 1 mg/ Sodium Chloride 1,011.2 mls @ 84 mls/hr IV .Q12H3M ONE Stop: 08/31/16 18:02 Lorazepam (Ativan) 1 mg IVP Q6 PRN PRN Reason: Anxiety Last Admin: 08/29/16 09:36 Dose: 1 mg Ondansetron HCl (Zofran Inj) 4 mg IVP Q4 PRN PRN Reason: Nausea/Vomiting Last Admin: 08/30/16 09:09 Dose: 4 mg Physical Exam - Head Exam Head Exam: ATRAUMATIC - Eye Exam Eye Exam: Normal appearance - ENT Exam ENT Exam: Mucous Membranes Dry - Respiratory Exam Respiratory Exam: NORMAL BREATHING PATTERN - Cardiovascular Exam Cardiovascular Exam: +S1, +S2 - GI/Abdominal Exam GI & Abdominal Exam: Normal Bowel Sounds - Extremities Exam Extremities exam: Positive for: normal inspection - Neurological Exam Neurological exam: Oriented x3 - Psychiatric Exam Psychiatric exam: Normal Affect, Normal Mood - Skin Skin Exam: Warm Results - Vital Signs Recent Vital Signs: Last Vital Signs Temp 98.2 F 08/30/16 12:04 Pulse 82 08/30/16 12:04 Resp 14 08/30/16 12:04 BP 105/70 08/30/16 12:04 Pulse Ox 100 08/30/16 12:04 - Labs Result Diagrams: 08/30/16 20:30 08/30/16 05:30 Labs: Laboratory Results - last 24 hr 08/29/16 08/29/16 08/30/16 13:56 22:21 05:30 WBC 5.6 5.3 RBC 2.19 L 2.96 L Hgb 6.1 L* 8.6 L D Hct 18.7 L 25.2 L MCV 85.5 D 85.2 MCH 27.6 28.9 MCHC 32.3 L 33.9 RDW 16.1 H 16.2 H Plt Count 79 L D 69 L Sodium 144 Potassium 4.1 Chloride 111 H Carbon Dioxide 24 Anion Gap 13 BUN 24 H Creatinine 0.9 Est GFR ( Amer) > 60 Est GFR (Non-Af Amer) > 60 Random Glucose 82 Calcium 7.5 L Total Bilirubin 4.2 H AST 98 H D ALT 65 Alkaline Phosphatase 79 Total Protein 5.5 L Albumin 2.6 L Globulin 2.9 Albumin/Globulin Ratio 0.9 L Urine Opiates Screen Positive H Urine Methadone Screen Negative Ur Barbiturates Screen Negative Ur Phencyclidine Scrn Negative Ur Amphetamines Screen Negative U Benzodiazepines Scrn Negative U Oth Cocaine Metabols Positive H U Cannabinoids Screen Negative Assessment & Plan (1) Anemia Assessment and Plan: acute GI blood loss transfusion support GI evaluation will evaluate iron stores and replete if needed Status: Acute (2) Coagulopathy Assessment and Plan: liver disease s/p 2U FFP Status: Chronic (3) Thrombocytopenia Assessment and Plan: liver cirrhosis, splenic sequestration Thank you for this interesting consult. Status: Acute
--- NOTE | 2016-08-30 15:54 | PN ---
DATE: 08/30/2016 The patient in ICU, bed 422. Time spent: 35 minutes. The patient is seen and evaluated at the bed side. A 61-year-old male admitted with hematemesis seco ndary to upper gastrointestinal bleeding, status post EGD, showed esophageal varices, chronic inflamm atory change in the stomach, status post transfusion 4 units of packed red blood cells and 2 units of fresh frozen plasma. Repeat hemoglobin 8.6 this morning. Alert, awake, oriented to name, place and time. No further nausea or vomiting noted. Later on noted to have burgundy colored stool, status p ost Zofran and morphine. Complaining of pain, right side of the neck: PHYSICAL EXAMINATION: VITAL SIGNS: Temperature 97.4, heart rate 77 and regular, respiratory rate 19. Thoracoabdominal blo od pressure 138/86, pulse oximetry 100% on oxygen 2 liters nasal cannula. Intake 4036, output 600, p ositive 3436. Weight 148 pounds. HEAD, EYES, EARS, NOSE AND THROAT: Pupils reactive. Conjunctivae pale. Sclerae mildly icteric. CHEST: Bilateral breath sounds, clear to auscultation. HEART: Rhythm regular. S1, S2 normal. No audible murmur or rub. ABDOMEN: Soft. Bowel sounds present. Mild tenderness in the right upper quadrant as well as in the epigastric area. EXTREMITIES: Without clubbing or cyanosis. Dorsalis pedis palpable, equal in intensity. NEUROLOGIC: Grossly normal. No focal motor or sensory impairment. Plantars are flexor. Deep tendo n reflexes 2+. CURRENT MEDICATIONS: Include Protonix 40 mg in 100 mL at 8 mg per hour, Zofran 4 mg IV q. 4 p.r.n., octreotide acetate 1250 mcg in 10.1 mL at 50 mcg per hour, folic acid 1 mg daily, thiamine 100 mg aroldo ly, multivitamin daily in a banana bag at 84 mL per hour, lorazepam 1 mg IV q. 6 p.r.n. for anxiety a nd for withdrawal, Dilaudid 0.5 IV q. 4 p.r.n. LABORATORY DATA: WBC 5.3, hemoglobin 8.6, hematocrit 25.2, platelet count 69. SMA-7: Sodium 144, p otassium 4.1, chloride 111, CO2 24, blood urea nitrogen 24, creatinine 0.9, calcium 7.5, total biliru bin 4.2, AST 98, ALT 65, alkaline phosphatase 79, total protein 5.5, albumin 2.6, lipase 58. Drug sc reen positive for cocaine. Alcohol level less than 10, opiates positive. IMPRESSION: Hemetemesis and melena, likely secondary to gastrointestinal bleeding, status post endos copy shows esophageal varices without bleeding. Chronic gastritis. Continue Protonix and Sandostati n drip. Anemia, likely due to blood loss, status post transfusion of 4 units of packed red blood [place] ls, 2 units of fresh frozen plasma. Follow further bleeding. Transfuse as needed. Liver cirrhosis with esophageal varices, continue Sandostatin. Appreciate GI consult. History of ETOH dependence on banana bag. Closely monitor for withdrawal symptoms. Deep vein thrombosis and gastrointestinal pro phylaxis. Continue to hold anticoagulation secondary to gastrointestinal bleeding. SCDs in place. Lacho Byrne MD cc: [id number] TT: 08/30/2016 15:53:33 Confirmation # [id number] Dictation # [id number]
[2016-08-30 20:57] LABS: HEMATOCRIT 19.7 % (35.0-51.0); MEAN CELL VOLUME 85.6 fl (80.0-94.0); MEAN CORPUSCULAR HEMOGLOBIN 28.4 pg (27.0-31.0); MEAN CORPUSCULAR HGB CONC 33.1 g/dL (33.0-37.0); RED CELL DISTRIBUTION WIDTH 16.3 % (11.5-14.5); WHITE BLOOD COUNT 5.2 K/uL (4.8-10.8)
--- NOTE | 2016-08-30 22:21 | CP.PCM.PN ---
Subjective - Date & Time of Evaluation Date of Evaluation: 08/30/16 Time of Evaluation: 22:23 - Subjective Subjective: Patient less agitated, Hb drop 2 gm since this morning. Patient actively bleeding . At present receiving transfusion. Mild congestion will give Lasix. Continue present rx. Prognosis guarded. Patient positive for cocaine. The DT resolving but still anxious. Objective - Vital Signs/Intake and Output Vital Signs (last 24 hours): Temp Pulse Resp BP Pulse Ox 97.2 F L 84 18 105/65 98 08/30/16 20:00 08/30/16 20:00 08/30/16 20:00 08/30/16 20:00 08/30/16 20:00 Intake and Output: 08/30/16 08/30/16 11:59 23:59 Intake Total 1942 1464 Output Total 350 600 Balance 1592 864 - Medications Medications: Current Medications Furosemide (Lasix) 20 mg IV ONCE ONE Stop: 08/31/16 09:01 Hydromorphone HCl (Dilaudid) 0.5 mg IVP Q4 PRN PRN Reason: Other Last Admin: 08/30/16 18:20 Dose: 0.5 mg Octreotide Acetate 1,250 mcg/ (Sodium Chloride) 252.5 mls @ 10.1 mls/hr IV .Q24H BEATA; 50 MCG/HR PRN Reason: Protocol Last Admin: 08/30/16 02:11 Dose: 10.1 mls/hr Pantoprazole Sodium 40 mg/ (Sodium Chloride) 100 mls @ 20 mls/hr IVPB Q5H BEATA PRN Reason: 8 MG/HR Last Admin: 08/30/16 21:23 Dose: 20 mls/hr Multivitamins/Vitamin C 10 ml/Thiamine HCl 100 mg/ Folic Acid 1 mg/ Sodium Chloride 1,011.2 mls @ 84 mls/hr IV .Q12H3M ONE Stop: 08/31/16 18:02 Lorazepam (Ativan) 1 mg IVP Q6 PRN PRN Reason: Anxiety Last Admin: 08/29/16 09:36 Dose: 1 mg Ondansetron HCl (Zofran Inj) 4 mg IVP Q4 PRN PRN Reason: Nausea/Vomiting Last Admin: 08/30/16 09:09 Dose: 4 mg - Labs Labs: 08/30/16 20:30 08/30/16 05:30 PT 13.4 SECONDS (9.6-11.2) H 08/28/16 23:44 INR 1.29 (0.92-1.08) H 08/28/16 23:44 APTT 26.4 SECONDS (23.3-32.5) 08/28/16 23:44 - Constitutional Appears: Cachectic, Chronically Ill - Head Exam Head Exam: ATRAUMATIC, NORMAL INSPECTION, NORMOCEPHALIC - Eye Exam Eye Exam: EOMI - ENT Exam ENT Exam: Mucous Membranes Moist - Neck Exam Neck Exam: Full ROM - Respiratory Exam Respiratory Exam: Decreased Breath Sounds, Clear to Ausculation Bilateral - Cardiovascular Exam Cardiovascular Exam: REGULAR RHYTHM, +S1, +S2 - GI/Abdominal Exam Additional comments: ascites - Extremities Exam Extremities Exam: Normal Inspection - Neurological Exam Neurological Exam: Alert, Awake, CN II-XII Intact, Oriented x3 - Psychiatric Exam Psychiatric exam: Anxious Assessment and Plan (1) Acute blood loss anemia Status: Acute (2) Ascites of liver Status: Chronic (3) Chronic abdominal pain Status: Chronic (4) Cocaine abuse Status: Acute (5) Gastrointestinal hemorrhage Status: Acute (6) Upper GI bleed Status: Acute (7) Alcohol abuse Status: Chronic (8) Ascites Status: Chronic (9) Ascites due to alcoholic cirrhosis Status: Chronic (10) Cachexia Status: Chronic (11) Coagulopathy Status: Chronic (12) Debility Status: Chronic (13) Esophageal varices determined by endoscopy Status: Chronic (14) Esophageal varices in cirrhosis Status: Chronic (15) Liver cirrhosis Status: Chronic - Assessment and Plan (Free Text) Plan: Continue present rx.
[2016-08-31] MEDS: Pantoprazole 40 MG in Sodium Chloride 0.9% 100 ML IVPB SCH ×5 (01:25→21:19)
[2016-08-31] MEDS: HYDROmorphone 0.5 mg/0.5 ml ISec IVP PRN ×3 (03:21→21:23)
[2016-08-31] MEDS ORDERED: Multivitamin (MVI) 10 ML, Thiamine 100 MG, Folic Acid 1 MG in Sodium Chloride 0.9% 1,00... IV ONE (06:00)
[2016-08-31 07:03] LABS: MEAN CELL VOLUME 87.9 fl (80.0-94.0); MEAN CORPUSCULAR HEMOGLOBIN 29.1 pg (27.0-31.0); MEAN CORPUSCULAR HGB CONC 33.1 g/dL (33.0-37.0); WHITE BLOOD COUNT 11.3 K/uL (4.8-10.8)
[2016-08-31 07:17] LABS: BLOOD UREA NITROGEN 18 mg/dl (9-20); CALCIUM 7.1 mg/dL (8.4-10.2); CARBON DIOXIDE 24 mmol/L (22-30); CHLORIDE 109 mmol/L (98-107); GFR AFRICAN-AMERICAN > 60; GLUCOSE,RANDOM 111 mg/dL (75-110); SODIUM 141 mmol/l (132-148)
--- NOTE | 2016-08-31 10:45 | CP.PCM.PN ---
Subjective - Date & Time of Evaluation Date of Evaluation: 08/31/16 Time of Evaluation: 10:46 - Subjective Subjective: Still hematochesia, still same tremor less agitated. Patient in DT and positive for cocaine. Discussed the findings with the patient he asks if still can have same beer. Evidently i advice to stop drinking . He c/o same abdominal pain will follow ctscan and cbc. Continue present rx will follow. Objective - Vital Signs/Intake and Output Vital Signs (last 24 hours): Temp Pulse Resp BP Pulse Ox 98.4 F 91 H 19 121/70 99 08/31/16 08:00 08/31/16 08:00 08/31/16 08:00 08/31/16 08:00 08/31/16 08:00 Intake and Output: 08/30/16 08/31/16 23:59 11:59 Intake Total 1724 1265 Output Total 600 1050 Balance 1124 215 - Medications Medications: Current Medications Hydromorphone HCl (Dilaudid) 0.5 mg IVP Q4 PRN PRN Reason: Other Last Admin: 08/31/16 03:21 Dose: 0.5 mg Octreotide Acetate 1,250 mcg/ (Sodium Chloride) 252.5 mls @ 10.1 mls/hr IV .Q24H BEATA; 50 MCG/HR PRN Reason: Protocol Last Admin: 08/31/16 03:28 Dose: 10.1 mls/hr Pantoprazole Sodium 40 mg/ (Sodium Chloride) 100 mls @ 20 mls/hr IVPB Q5H BETAA PRN Reason: 8 MG/HR Last Admin: 08/31/16 05:34 Dose: 20 mls/hr Multivitamins/Vitamin C 10 ml/Thiamine HCl 100 mg/ Folic Acid 1 mg/ Sodium Chloride 1,011.2 mls @ 84 mls/hr IV .Q12H3M ONE Stop: 08/31/16 18:02 Ceftriaxone Sodium 1 gm/ (Sodium Chloride) 100 mls @ 100 mls/hr IVPB DAILY BEATA Lorazepam (Ativan) 1 mg IVP Q6 PRN PRN Reason: Anxiety Last Admin: 08/29/16 09:36 Dose: 1 mg Ondansetron HCl (Zofran Inj) 4 mg IVP Q4 PRN PRN Reason: Nausea/Vomiting Last Admin: 08/30/16 09:09 Dose: 4 mg - Labs Labs: 08/31/16 05:30 08/31/16 05:30 PT 13.4 SECONDS (9.6-11.2) H 08/28/16 23:44 INR 1.29 (0.92-1.08) H 08/28/16 23:44 APTT 26.4 SECONDS (23.3-32.5) 08/28/16 23:44 - Constitutional Appears: Cachectic, Chronically Ill - Head Exam Head Exam: ATRAUMATIC, NORMAL INSPECTION, NORMOCEPHALIC - Eye Exam Eye Exam: Normal appearance - Neck Exam Neck Exam: Full ROM - Respiratory Exam Respiratory Exam: Clear to Ausculation Bilateral - Cardiovascular Exam Cardiovascular Exam: REGULAR RHYTHM, +S1, +S2 - GI/Abdominal Exam GI & Abdominal Exam: Tenderness - Neurological Exam Neurological Exam: Alert, Awake, CN II-XII Intact, Oriented x3 Additional comments: tremors Assessment and Plan (1) Acute blood loss anemia Status: Acute (2) Ascites of liver Status: Chronic (3) Chronic abdominal pain Status: Chronic (4) Cocaine abuse Status: Acute (5) Gastrointestinal hemorrhage Status: Acute (6) Upper GI bleed Status: Acute (7) Alcohol abuse Status: Chronic (8) Ascites Status: Chronic (9) Ascites due to alcoholic cirrhosis Status: Chronic (10) Cachexia Status: Chronic (11) Coagulopathy Status: Chronic (12) Debility Status: Chronic (13) Esophageal varices determined by endoscopy Status: Chronic (14) Esophageal varices in cirrhosis Status: Chronic (15) Liver cirrhosis Status: Chronic
[2016-08-31] MEDS ORDERED: Iohexol 240 (50 ml) PO ONE (10:49)
[2016-08-31 12:33] LABS: HEMATOCRIT 20.5 % (35.0-51.0); MEAN CELL VOLUME 86.6 fl (80.0-94.0); MEAN CORPUSCULAR HGB CONC 33.5 g/dL (33.0-37.0); RED CELL DISTRIBUTION WIDTH 16.1 % (11.5-14.5); WHITE BLOOD COUNT 14.7 K/uL (4.8-10.8)
[2016-08-31 12:39] LABS: BLOOD UREA NITROGEN 18 mg/dl (9-20); CALCIUM 6.9 mg/dL (8.4-10.2); CARBON DIOXIDE 23 mmol/L (22-30); CHLORIDE 109 mmol/L (98-107); GFR AFRICAN-AMERICAN > 60; GLUCOSE,RANDOM 124 mg/dL (75-110); POTASSIUM 4.2 MMOL/L (3.6-5.0); SODIUM 139 mmol/l (132-148)
--- NOTE | 2016-08-31 14:25 | PN ---
DATE: 08/31/2016 The patient in ICU, bed 422. TIME SPENT: 35 minutes. The patient is seen and evaluated at the bedside. Past medical, surgical, social history all reviewed. A 61-year-old male admitted with hemetemesis secondary to upper gastrointestinal bleeding, status post EGD, consistent with esophageal varices, chronic inflammatory change in the stomach secondary to liver cirrhosis, portal hypertension, status post transfusion of 4 units of packed red blood cells and 2 units of fresh frozen plasma. Repeat hemoglobin is 8. Still with burgundy stool, occasional nausea, vomiting, some abdominal discomfort, more towards the right upper quadrant. PHYSICAL EXAMINATION: VITAL SIGNS: Temperature 98.4, heart rate 84, regular, respiratory rate 19, thoracoabdominal, blood pressure 121/76, pulse oximetry 100%. Intake 3709, output 1850, positive 1859. HEENT: Pupils reactive. Conjunctivae pale. Sclerae muddy. NECK: Supple. CHEST: Bilateral breath sounds, diminished intensity. Clear to auscultation. HEART: Rhythm regular. S1, S2 normal. ABDOMEN: Bowel sounds present, soft. Tenderness in the epigastric as well as in the right upper quadrant area. No rebound tenderness. NEUROLOGIC: Oriented to name, place and time. Moves all 4 extremities. No flapping tremor. CURRENT MEDICATIONS: Ceftriaxone 1 gram IV daily, Dilaudid 0.5 mg IV q. 4 p.r.n., lorazepam 1 mg IV q. 6 p.r.n., thiamine, multivitamin, vitamin C in the banana bag at 84 mL per hour, Sandostatin drip at 10.1 mL per hour, Protonix drip. IMPRESSION: Hemetemesis and melena, gastrointestinal bleeding, status post endoscopy, esophageal varices, not bleeding actively, gastritis with gastropathy , liver cirrhosis with ascites and portal hypertension, alcohol dependence, cocaine abuse, anemia secondary to acute blood loss superimposed on chronic disease, thrombocytopenia secondary to alcohol use, improved from baseline of 79 to 90 currently. BUN and creatinine remains stable. Continue current medications. Closely monitor for further hemetemesis or melena., Hemoglobin, hematocrit. Transfuse as needed. Follow up GI consult recommendation. Lacho Byrne MD cc: 170 TT: 08/31/2016 14:24:50 Confirmation # [id number] Dictation # [id number] en MTDD
--- NOTE | 2016-08-31 16:32 | CT ---
PROCEDURE: CT Abdomen and Pelvis without intravenous contrast HISTORY: abd. pain COMPARISON: 06/23/2016. TECHNIQUE: Technique. Contrast Dose: Radiation dose: Total exam DLP = mGy-cm. FINDINGS: LOWER THORAX: Unremarkable. LIVER: Cirrhotic liver. GALLBLADDER AND BILE DUCTS: Cholelithiasis.. PANCREAS: Unremarkable. No gross lesion or ductal dilatation. SPLEEN: Unremarkable. ADRENALS: Unremarkable. No mass. KIDNEYS AND URETERS: Unremarkable. No hydronephrosis. No solid mass. VASCULATURE: Unremarkable. No aortic aneurysm. BOWEL: Unremarkable. No obstruction. No gross mural thickening. APPENDIX: Unremarkable. Normal appendix. PERITONEUM: Abdominal pelvic ascites. LYMPH NODES: Unremarkable. No enlarged lymph nodes. BLADDER: Unremarkable. REPRODUCTIVE: Unremarkable. BONES: No acute fracture. OTHER FINDINGS: Multiple varices particularly in the umbilical region protruding into the anterior abdominal wall subcutaneous fat. IMPRESSION: No significant interval change.
--- NOTE | 2016-08-31 17:37 | CP.PCM.PN ---
Subjective - Date & Time of Evaluation Date of Evaluation: 08/31/16 Time of Evaluation: 17:33 - Subjective Subjective: Patient had small amount vomiting yestereday but not today. Having maroon stool. Hgb was 8 earlier and at noon was 6.9 Objective - Vital Signs/Intake and Output Vital Signs (last 24 hours): Temp Pulse Resp BP Pulse Ox 98.9 F 90 18 132/86 99 08/31/16 15:55 08/31/16 15:55 08/31/16 15:55 08/31/16 15:55 08/31/16 15:55 Intake and Output: 08/31/16 08/31/16 06:59 18:59 Intake Total 1639 1636 Output Total 1000 50 Balance 639 1586 - Medications Medications: Current Medications Hydromorphone HCl (Dilaudid) 0.5 mg IVP Q4 PRN PRN Reason: Other Last Admin: 08/31/16 13:15 Dose: 0.5 mg Octreotide Acetate 1,250 mcg/ (Sodium Chloride) 252.5 mls @ 10.1 mls/hr IV .Q24H BEATA; 50 MCG/HR PRN Reason: Protocol Last Admin: 08/31/16 03:28 Dose: 10.1 mls/hr Pantoprazole Sodium 40 mg/ (Sodium Chloride) 100 mls @ 20 mls/hr IVPB Q5H BEATA PRN Reason: 8 MG/HR Last Admin: 08/31/16 16:41 Dose: 20 mls/hr Multivitamins/Vitamin C 10 ml/Thiamine HCl 100 mg/ Folic Acid 1 mg/ Sodium Chloride 1,011.2 mls @ 84 mls/hr IV .Q12H3M ONE Stop: 08/31/16 18:02 Ceftriaxone Sodium 1 gm/ (Sodium Chloride) 100 mls @ 100 mls/hr IVPB DAILY BEATA Last Admin: 08/31/16 11:04 Dose: 100 mls/hr Lorazepam (Ativan) 1 mg IVP Q6 PRN PRN Reason: Anxiety Last Admin: 08/29/16 09:36 Dose: 1 mg Ondansetron HCl (Zofran Inj) 4 mg IVP Q4 PRN PRN Reason: Nausea/Vomiting Last Admin: 08/30/16 09:09 Dose: 4 mg - Labs Labs: 08/31/16 12:20 08/31/16 12:20 PT 13.4 SECONDS (9.6-11.2) H 08/28/16 23:44 INR 1.29 (0.92-1.08) H 08/28/16 23:44 APTT 26.4 SECONDS (23.3-32.5) 08/28/16 23:44 - Head Exam Head Exam: ATRAUMATIC - Eye Exam Eye Exam: EOMI - ENT Exam ENT Exam: Mucous Membranes Moist - Neck Exam Neck Exam: Normal Inspection - Respiratory Exam Respiratory Exam: Clear to Ausculation Bilateral - Cardiovascular Exam Cardiovascular Exam: REGULAR RHYTHM, +S1, +S2 - GI/Abdominal Exam GI & Abdominal Exam: Distended, Normal Bowel Sounds Assessment and Plan (1) Acute blood loss anemia Assessment & Plan: Still with intermittent bleeding though BP and pulse have remained stable. Abdominal CT shows varices and ascites. Agree with IV antibiotics. Repeat endoscopy . Transfuse to Hgb above 8 prior to repeat endoscopy. Repeat endoscopy Thursday. Continue IV protonix and sandostatin. Status: Acute
--- NOTE | 2016-08-31 18:14 | CP.PCM.PN ---
Subjective - Date & Time of Evaluation Date of Evaluation: 08/31/16 Time of Evaluation: 18:00 - Subjective Subjective: No complaints. s/p 2U PRBC overnight Objective - Vital Signs/Intake and Output Vital Signs (last 24 hours): Temp Pulse Resp BP Pulse Ox 98.9 F 95 H 25 H 119/66 100 08/31/16 15:55 08/31/16 17:58 08/31/16 17:58 08/31/16 17:58 08/31/16 17:58 Intake and Output: 08/31/16 08/31/16 06:59 18:59 Intake Total 1639 1636 Output Total 1000 50 Balance 639 1586 - Medications Medications: Current Medications Hydromorphone HCl (Dilaudid) 0.5 mg IVP Q4 PRN PRN Reason: Other Last Admin: 08/31/16 13:15 Dose: 0.5 mg Octreotide Acetate 1,250 mcg/ (Sodium Chloride) 252.5 mls @ 10.1 mls/hr IV .Q24H BEATA; 50 MCG/HR PRN Reason: Protocol Last Admin: 08/31/16 03:28 Dose: 10.1 mls/hr Pantoprazole Sodium 40 mg/ (Sodium Chloride) 100 mls @ 20 mls/hr IVPB Q5H BEATA PRN Reason: 8 MG/HR Last Admin: 08/31/16 16:41 Dose: 20 mls/hr Ceftriaxone Sodium 1 gm/ (Sodium Chloride) 100 mls @ 100 mls/hr IVPB DAILY BEATA Last Admin: 08/31/16 11:04 Dose: 100 mls/hr Lorazepam (Ativan) 1 mg IVP Q6 PRN PRN Reason: Anxiety Last Admin: 08/29/16 09:36 Dose: 1 mg Ondansetron HCl (Zofran Inj) 4 mg IVP Q4 PRN PRN Reason: Nausea/Vomiting Last Admin: 08/30/16 09:09 Dose: 4 mg - Labs Labs: 08/31/16 12:20 08/31/16 12:20 PT 13.4 SECONDS (9.6-11.2) H 08/28/16 23:44 INR 1.29 (0.92-1.08) H 08/28/16 23:44 APTT 26.4 SECONDS (23.3-32.5) 08/28/16 23:44 - Head Exam Head Exam: ATRAUMATIC - Eye Exam Eye Exam: Normal appearance - ENT Exam ENT Exam: Mucous Membranes Dry - Respiratory Exam Respiratory Exam: NORMAL BREATHING PATTERN - Cardiovascular Exam Cardiovascular Exam: +S1, +S2 - GI/Abdominal Exam GI & Abdominal Exam: Normal Bowel Sounds - Extremities Exam Extremities Exam: Normal Inspection Assessment and Plan (1) Anemia Assessment & Plan: GI blood loss transfusion support repeat endoscopy tomorrow Status: Acute (2) Coagulopathy Assessment & Plan: liver disease repeat coags tomorrow Status: Chronic (3) Thrombocytopenia Assessment & Plan: liver cirrhosis, splenic sequestration Status: Acute
[2016-08-31 20:44] LABS: HEMATOCRIT 26.2 % (35.0-51.0); MEAN CELL VOLUME 87.4 fl (80.0-94.0); MEAN CORPUSCULAR HEMOGLOBIN 28.8 pg (27.0-31.0); MEAN CORPUSCULAR HGB CONC 32.9 g/dL (33.0-37.0); RED CELL DISTRIBUTION WIDTH 15.3 % (11.5-14.5); WHITE BLOOD COUNT 21.3 K/uL (4.8-10.8)
[2016-09-01] MEDS: Pantoprazole 40 MG in Sodium Chloride 0.9% 100 ML IVPB SCH ×4 (02:00→23:16)
[2016-09-01] MEDS: HYDROmorphone 0.5 mg/0.5 ml ISec IVP PRN (04:02)
[2016-09-01 05:41] LABS: PARTIAL THROMBOPLASTIN TIME 29.3 SECONDS (23.3-32.5)
[2016-09-01 05:47] LABS: MEAN CELL VOLUME 86.1 fl (80.0-94.0); MEAN CORPUSCULAR HEMOGLOBIN 29.8 pg (27.0-31.0); MEAN CORPUSCULAR HGB CONC 34.6 g/dL (33.0-37.0); RED CELL DISTRIBUTION WIDTH 15.5 % (11.5-14.5); WHITE BLOOD COUNT 17.7 K/uL (4.8-10.8)
[2016-09-01 06:41] LABS: BLOOD UREA NITROGEN 17 mg/dl (9-20); CALCIUM 7.2 mg/dL (8.4-10.2); CARBON DIOXIDE 23 mmol/L (22-30); CHLORIDE 107 mmol/L (98-107); GFR AFRICAN-AMERICAN > 60; GLUCOSE,RANDOM 100 mg/dL (75-110); POTASSIUM 3.9 MMOL/L (3.6-5.0); SODIUM 137 mmol/l (132-148)
--- NOTE | 2016-09-01 11:19 | CP.PCM.PN ---
Subjective - Date & Time of Evaluation Date of Evaluation: 09/01/16 Time of Evaluation: 11:20 - Subjective Subjective: No new changes. At present no sign of bleeding. Objective - Vital Signs/Intake and Output Vital Signs (last 24 hours): Temp Pulse Resp BP Pulse Ox 98.5 F 67 15 114/72 98 09/01/16 08:00 09/01/16 10:00 09/01/16 10:00 09/01/16 10:00 09/01/16 10:00 Intake and Output: 08/31/16 09/01/16 23:59 11:59 Intake Total 1356 370 Output Total 600 Balance 1356 -230 - Medications Medications: Current Medications Octreotide Acetate 1,250 mcg/ (Sodium Chloride) 252.5 mls @ 10.1 mls/hr IV .Q24H BEATA; 50 MCG/HR PRN Reason: Protocol Last Admin: 09/01/16 02:31 Dose: 10.1 mls/hr Pantoprazole Sodium 40 mg/ (Sodium Chloride) 100 mls @ 20 mls/hr IVPB Q5H BEATA PRN Reason: 8 MG/HR Last Admin: 09/01/16 06:22 Dose: 20 mls/hr Ceftriaxone Sodium 1 gm/ (Sodium Chloride) 100 mls @ 100 mls/hr IVPB DAILY BEATA Last Admin: 09/01/16 08:31 Dose: 100 mls/hr Ondansetron HCl (Zofran Inj) 4 mg IVP Q4 PRN PRN Reason: Nausea/Vomiting Last Admin: 08/30/16 09:09 Dose: 4 mg - Labs Labs: 09/01/16 04:30 09/01/16 04:30 PT 14.0 SECONDS (9.6-11.2) H 09/01/16 04:30 INR 1.35 (0.92-1.08) H 09/01/16 04:30 APTT 29.3 SECONDS (23.3-32.5) 09/01/16 04:30 - Constitutional Appears: Cachectic, Chronically Ill - Head Exam Head Exam: ATRAUMATIC, NORMAL INSPECTION, NORMOCEPHALIC - Eye Exam Eye Exam: Normal appearance - ENT Exam ENT Exam: Mucous Membranes Dry - Neck Exam Neck Exam: Full ROM - Respiratory Exam Respiratory Exam: Clear to Ausculation Bilateral - Cardiovascular Exam Cardiovascular Exam: REGULAR RHYTHM, +S1, +S2 - Extremities Exam Extremities Exam: Normal Inspection - Neurological Exam Neurological Exam: Alert, Awake, CN II-XII Intact, Oriented x3 - Psychiatric Exam Psychiatric exam: Normal Affect - Skin Skin Exam: Pallor Assessment and Plan (1) Acute blood loss anemia Status: Acute (2) Ascites of liver Status: Chronic (3) Chronic abdominal pain Status: Chronic (4) Cocaine abuse Status: Acute (5) Gastrointestinal hemorrhage Status: Acute (6) Upper GI bleed Status: Acute (7) Alcohol abuse Status: Chronic (8) Ascites Status: Chronic (9) Ascites due to alcoholic cirrhosis Status: Chronic (10) Cachexia Status: Chronic (11) Coagulopathy Status: Chronic (12) Debility Status: Chronic (13) Esophageal varices determined by endoscopy Status: Chronic (14) Esophageal varices in cirrhosis Status: Chronic (15) Liver cirrhosis Status: Chronic - Assessment and Plan (Free Text) Plan: Continue present rx . Monitor CBC. Will follow
[2016-09-01 12:23] LABS: MEAN CELL VOLUME 87.3 fl (80.0-94.0); MEAN CORPUSCULAR HEMOGLOBIN 29.8 pg (27.0-31.0); MEAN CORPUSCULAR HGB CONC 34.1 g/dL (33.0-37.0); RED CELL DISTRIBUTION WIDTH 15.8 % (11.5-14.5); WHITE BLOOD COUNT 10.4 K/uL (4.8-10.8)
[2016-09-01] MEDS ORDERED: Lactated Ringer's 500 ML IV ONE (12:46)
[2016-09-01] MEDS ORDERED: Propofol 10 mg/ml Inj (20 ML) ONE (12:47)
[2016-09-01] MEDS ORDERED: Midazolam 2 MG/2 ML VIAL ONE ×2 (13:23→15:24)
--- NOTE | 2016-09-01 13:59 | CARD ---
APPROVED REPORT EKG Measurement Heart [id number] <Conclusion> Normal sinus rhythm Nonspecific ST and T wave abnormality Abnormal ECG
[2016-09-01 14:41] LABS: ABG ALLEN TEST YES; ABG MECHANICAL RATE 12; ARTERIAL BLOOD GAS HCO3 22.7 mmol/L (21-28); ARTERIAL BLOOD GAS O2 CAPACITY 12.3 mL/dL (16-24); ARTERIAL BLOOD GAS O2 CONTENT 12.3 ML/dL (15-23); ARTERIAL BLOOD GAS PH 7.38 (7.35-7.45); ARTERIAL BLOOD GAS PO2 266 mm/Hg (80-100); ARTERIAL BLOOD HGB O2 SAT 97.9 % (95.0-98.0); ATERIAL BLOOD GAS PEEP 5; CARBOXYHEMOGLOBIN 1.9 % (0.5-1.5); HHB -0.4 % (0.0-5.0); METHEMOGLOBIN 0.6 % (0.0-3.0)
--- NOTE | 2016-09-01 14:56 | RAD ---
PROCEDURE: CHEST RADIOGRAPH, 1 VIEW HISTORY: placement COMPARISON: 08/28/2016 FINDINGS: LUNGS: Atelectasis at the lung bases a new finding. PLEURA: No pneumothorax or pleural fluid seen. CARDIOVASCULAR: No radiographic findings to suggest acute or significant cardiovascular disease. OSSEOUS STRUCTURES: No significant abnormalities. VISUALIZED UPPER ABDOMEN: Normal. OTHER FINDINGS: Satisfactory position recently placed endotracheal tube and nasogastric tube. IMPRESSION: New atelectatic changes at the lung bases. Satisfactory position of recently placed support apparatus.
[2016-09-01] MEDS ORDERED: Lorazepam 100 MG in Sodium Chloride 0.9% 50 ML IVPB SCH (15:00)
[2016-09-01] MEDS ORDERED: Midazolam 2 MG/2 ML VIAL IV ONE (15:32)
[2016-09-01] MEDS: Midazolam 5 MG/ML 50 MG in Dextrose 5% In Water 90 ML IV ONE ×2 (16:16→23:57)
[2016-09-01] MEDS: Piperacillin/Tazobact 3.375 GM in Sodium Chloride 0.9% 100 ML IVPB SCH ×2 (16:39→21:02)
--- NOTE | 2016-09-01 18:31 | PN ---
DATE: 09/01/2016 LOCATION: The patient in ICU, bed 42. TIME SPENT: 35 minutes. The patient is seen and evaluated at the bedside. PAST MEDICAL, SURGICAL AND SOCIAL HISTORY: All are reviewed. A 61-year-old male admitted with hemetemesis secondary to upper gastrointestinal bleeding, status pos t EGD consistent with the esophageal varices, gastritis secondary to liver cirrhosis, portal hyperten daryn, status post transfusion initially of 4 units of packed red blood cells and 2 units of fresh fro nayana plasma. Noted to have a large melena yesterday with a drop in hemoglobin, transfused 2 units of packed red blood cells. The patient underwent EGD this morning. Noted to have profuse bleeding in t he esophageal varices, could not be banded as patient was noted to desaturate. Intubated, placed on mechanical ventilation and brought to ICU. Remains intubated, currently on AC/PRVC 12, tidal volume of 500, FiO2 60%, PEEP 5, ____ rate 21, exhaled tidal volume of 520, minute ventilations 6 liters, pe ak airway pressure 29, mean airway pressure ____, remains sedated on midazolam drip, sedated on Dipri van drip, transfusion of packed red blood cells.in progress. PHYSICAL EXAMINATION: VITAL SIGNS: Temperature 98.1, heart rate 83, blood pressure 116/79, respiratory rate 17, oxygen sat uration 100. Intake output 2126/650 with a positive 1476. HEENT: Pupils reactive. Sclerae muddy. Endotracheal tube in place. Blood tinge secretions noted. NECK: No JVD endotracheal tube. CHEST: Bilateral breath sounds diminished intensity. HEART: Rhythm regular. S1, S2 normal. No audible murmur. ABDOMEN: Distended, mild tenderness in the epigastric right upper quadrant, prominent umbilicus. EXTREMITIES: With edema. NEUROLOGIC: Sedated on Versed drip. CURRENT MEDICATIONS: Sandostatin drip, Protonix drip, Zosyn 3.375 grams IV q. 6, Rocephin 1 gram IV daily. IMPRESSION: Upper gastrointestinal bleeding, esophageal varices, chronic gastritis, attempted endosc opy noted visible bleeding. Continue transfusion. Keep hemoglobin close to 8-10. Discussed with GI stable for repeat endoscopy in the morning. Leukocytosis, suspected spontaneous bacterial peritonit is on Rocephin and Zosyn. Continue vent support until patient is hemodynamically stable and when to wean off the ventilator. Lacho Byrne MD cc: 170 TT: 09/01/2016 18:30:41 Confirmation # [id number] Dictation # [id number]
--- NOTE | 2016-09-01 21:04 | CP.PCM.PN ---
Subjective - Date & Time of Evaluation Date of Evaluation: 09/01/16 Time of Evaluation: 18:30 - Subjective Subjective: Vented EGD aborted due to bleeding and hemodynamic decline Objective - Vital Signs/Intake and Output Vital Signs (last 24 hours): Temp Pulse Resp BP Pulse Ox 98.1 F 60 15 86/51 L 100 09/01/16 17:00 09/01/16 18:00 09/01/16 18:00 09/01/16 18:00 09/01/16 18:00 Intake and Output: 09/01/16 09/02/16 18:59 06:59 Intake Total 1020 Balance 1020 - Medications Medications: Current Medications Octreotide Acetate 1,250 mcg/ (Sodium Chloride) 252.5 mls @ 10.1 mls/hr IV .Q24H BEATA; 50 MCG/HR PRN Reason: Protocol Last Admin: 09/01/16 02:31 Dose: 10.1 mls/hr Pantoprazole Sodium 40 mg/ (Sodium Chloride) 100 mls @ 20 mls/hr IVPB Q5H BEATA PRN Reason: 8 MG/HR Last Admin: 09/01/16 12:44 Dose: 20 mls/hr Ceftriaxone Sodium 1 gm/ (Sodium Chloride) 100 mls @ 100 mls/hr IVPB DAILY BEATA Last Admin: 09/01/16 08:31 Dose: 100 mls/hr Midazolam HCl 50 mg/ Dextrose 100 mls @ 4 mls/hr IV .Q24H ONE; 2 MG/HR PRN Reason: Protocol Stop: 09/02/16 15:44 Last Titration: 09/01/16 17:47 Dose: 6 mg/hr Piperacillin Sod/Tazobactam (Sod 3.375 gm/ Sodium Chloride) 100 mls @ 100 mls/ hr IVPB Q6 BEATA Last Admin: 09/01/16 21:02 Dose: 100 mls/hr Ondansetron HCl (Zofran Inj) 4 mg IVP Q4 PRN PRN Reason: Nausea/Vomiting Last Admin: 08/30/16 09:09 Dose: 4 mg - Labs Labs: 09/01/16 12:10 09/01/16 04:30 PT 14.0 SECONDS (9.6-11.2) H 09/01/16 04:30 INR 1.35 (0.92-1.08) H 09/01/16 04:30 APTT 29.3 SECONDS (23.3-32.5) 09/01/16 04:30 - Head Exam Head Exam: ATRAUMATIC - Eye Exam Eye Exam: Scleral icterus - ENT Exam ENT Exam: Mucous Membranes Dry - Respiratory Exam Respiratory Exam: NORMAL BREATHING PATTERN - Cardiovascular Exam Cardiovascular Exam: +S1, +S2 - GI/Abdominal Exam GI & Abdominal Exam: Normal Bowel Sounds - Extremities Exam Extremities Exam: Pedal Edema Assessment and Plan (1) Anemia Assessment & Plan: GI blood loss transfusion support Status: Acute (2) Coagulopathy Assessment & Plan: liver disease s/p FFP Status: Chronic (3) Thrombocytopenia Assessment & Plan: liver cirrhosis and splenic sequestration Status: Acute
[2016-09-01] MEDS ORDERED: Sodium Chloride 0.9% 500 ML IV ONE (23:09)
[2016-09-02] MEDS ORDERED: Dexmedetomidine Hydrochloride 400 MCG in Sodium Chloride 0.9% 96 ML IV ONE (01:13)
--- NOTE | 2016-09-02 01:17 | CP.PCM.PCO ---
Physician Communication Note - Physician Communication Note Physician Communication Note: Precedex iv drip started because the Pte was still agitated with the Versed
[2016-09-02 02:32] LABS: HEMATOCRIT 29.4 % (35.0-51.0); MEAN CELL VOLUME 89.2 fl (80.0-94.0); MEAN CORPUSCULAR HGB CONC 32.5 g/dL (33.0-37.0); RED CELL DISTRIBUTION WIDTH 15.7 % (11.5-14.5); WHITE BLOOD COUNT 13.2 K/uL (4.8-10.8)
[2016-09-02] MEDS: Pantoprazole 40 MG in Sodium Chloride 0.9% 100 ML IVPB SCH ×4 (03:42→21:40)
[2016-09-02] MEDS: Piperacillin/Tazobact 3.375 GM in Sodium Chloride 0.9% 100 ML IVPB SCH ×4 (03:43→21:06)
[2016-09-02 04:52] LABS: ABG ALLEN TEST YES; ABG MECHANICAL RATE 12; ARTERIAL BLOOD GAS HCO3 23.4 mmol/L (21-28); ARTERIAL BLOOD GAS MODE A/C; ARTERIAL BLOOD GAS O2 CAPACITY 13.3 mL/dL (16-24); ARTERIAL BLOOD GAS O2 CONTENT 13.3 ML/dL (15-23); ARTERIAL BLOOD GAS PH 7.42 (7.35-7.45); ARTERIAL BLOOD GAS PO2 147 mm/Hg (80-100); CARBOXYHEMOGLOBIN 1.6 % (0.5-1.5); HHB 0.3 % (0.0-5.0); METHEMOGLOBIN 1.1 % (0.0-3.0)
[2016-09-02] MEDS: Midazolam 5 MG/ML 50 MG in Dextrose 5% In Water 90 ML IV ONE ×3 (06:36→17:46)
[2016-09-02 06:39] LABS: HEMATOCRIT 26.6 % (35.0-51.0); MEAN CELL VOLUME 89.6 fl (80.0-94.0); MEAN CORPUSCULAR HEMOGLOBIN 29.6 pg (27.0-31.0); RED CELL DISTRIBUTION WIDTH 15.9 % (11.5-14.5); WHITE BLOOD COUNT 9.7 K/uL (4.8-10.8)
[2016-09-02 06:50] LABS: BLOOD UREA NITROGEN 16 mg/dl (9-20); CALCIUM 6.6 mg/dL (8.4-10.2); CARBON DIOXIDE 20 mmol/L (22-30); CHLORIDE 109 mmol/L (98-107); GFR AFRICAN-AMERICAN > 60; GLUCOSE,RANDOM 153 mg/dL (75-110); POTASSIUM 3.6 MMOL/L (3.6-5.0); SODIUM 137 mmol/l (132-148)
--- NOTE | 2016-09-02 07:38 | CP.CCUPN ---
CCU Subjective - Physician Review Events Since Last Encounter (Free Text): 09/02/16 07:38 Received another 2U Packed RBC, Hgb dropped again this mornig to 8.8 CCU Objective - Vital Signs / Intake & Output Vital Signs (Last 4 hours): Vital Signs Temp Pulse Resp BP Pulse Ox 09/02/16 06:00 63 13 98/59 L 100 09/02/16 05:00 97.9 F 61 13 100/63 100 09/02/16 04:00 97.7 F 61 12 105/65 100 Intake and Output (Last 8hrs): Intake & Output 09/01/16 09/02/16 09/02/16 22:59 06:59 14:59 Intake Total 1135 700 Output Total 600 Balance 1135 100 Intake: IV 385 600 Intake, Piggyback 100 100 Blood Product 650 Output: Urine 600 Urine, Voided 600 Other: # Bowel Movements 2 - Physical Exam Head: Positive for: Atraumatic, Normocephalic. Negative for: Tenderness Pupils: Positive for: PERRL Extroacular Muscles: Positive for: EOMI Mouth: Positive for: Dry Pharnyx: Positive for: Normal Neck: Positive for: Normal Range of Motion. Negative for: MIDLINE TENDERNESS, JVD, Trachea Midline Respiratory/Chest: Positive for: Clear to Auscultation, Good Air Exchange. Negative for: Wheezes Cardiovascular: Positive for: Regular Rate and Rhythm, Normal S1, S2 Abdomen: Positive for: Tenderness, Normal Bowel Sounds, Guarding (voluntary; also examined when asleep and abd is soft). Negative for: McBurney's Point Tender Upper Extremity: Positive for: Normal Inspection, Normal ROM. Negative for: Cyanosis Lower Extremity: Positive for: Normal Inspection. Negative for: Edema, CALF TENDERNESS Neurological: Positive for: GCS=15, CN II-XII Intact, Speech Normal Skin: Positive for: Warm, Dry, Rashes, Normal Color - Medications Active Medications: Active Medications Generic Name Dose Route Start Last Admin Trade Name Freq PRN Reason Stop Dose Admin Octreotide Acetate 1,250 mcg/ 252.5 mls @ 10.1 mls/hr 08/29/16 00:15 09/02/16 03:41 Sodium Chloride IV 10.1 mls/hr .Q24H BEATA Administration Protocol 50 MCG/HR Pantoprazole Sodium 40 mg/ 100 mls @ 20 mls/hr 08/29/16 00:15 09/02/16 03:42 Sodium Chloride IVPB 20 mls/hr Q5H BEATA Administration 8 MG/HR Ceftriaxone Sodium 1 gm/ 100 mls @ 100 mls/hr 08/31/16 09:45 09/01/16 08:31 Sodium Chloride IVPB 100 mls/hr DAILY BEATA Administration Midazolam HCl 50 mg/ Dextrose 100 mls @ 4 mls/hr 09/01/16 15:45 09/02/16 06:36 IV 09/02/16 15:44 20 mls/hr .Q24H ONE Administration Protocol 2 MG/HR Piperacillin Sod/Tazobactam 100 mls @ 100 mls/hr 09/01/16 16:00 09/02/16 03:43 Sod 3.375 gm/ Sodium Chloride IVPB 100 mls/hr Q6 BEATA Administration Ondansetron HCl 4 mg 08/29/16 03:11 08/30/16 09:09 Zofran Inj IVP 4 mg Q4 PRN Administration Nausea/Vomiting - Patient Studies Lab Studies: Lab Studies 09/02/16 09/02/16 09/02/16 Range/Units 06:00 04:49 01:49 WBC 9.7 13.2 H (4.8-10.8) K/uL RBC 2.97 L 3.30 L (4.40-5.90) Mil/uL Hgb 8.8 L 9.6 L (12.0-18.0) g/dL Hct 26.6 L 29.4 L (35.0-51.0) % MCV 89.6 89.2 (80.0-94.0) fl MCH 29.6 29.0 (27.0-31.0) pg MCHC 33.0 32.5 L (33.0-37.0) g/dL RDW 15.9 H 15.7 H (11.5-14.5) % Plt Count 49 L 54 L (130-400) K/uL pCO2 34 L (35-45) mm/Hg pO2 147 H (80-100) mm/Hg HCO3 23.4 (21-28) mmol/L ABG pH 7.42 (7.35-7.45) ABG Total CO2 23.1 (22-28) mmol/L ABG O2 Saturation 99.7 H (95-98) % ABG O2 Content 13.3 L (15-23) ML/dL ABG Base Excess -2.0 (-2.0-3.0) mmol/L ABG Hemoglobin 9.5 L (11.7-17.4) g/dL ABG Carboxyhemoglobin 1.6 H (0.5-1.5) % POC ABG HHb (Measured) 0.3 (0.0-5.0) % ABG Methemoglobin 1.1 (0.0-3.0) % ABG O2 Capacity 13.3 L (16-24) mL/dL Anil Test Yes A-a O2 Difference 238.0 mm/Hg Hgb O2 Saturation 97.0 (95.0-98.0) % Vent Mode A/c Mechanical Rate 12 FiO2 60.0 % Tidal Volume 500 PEEP Blood Gas Notified Time 500 Sodium 137 (132-148) mmol/l Potassium 3.6 (3.6-5.0) MMOL/L Chloride 109 H (98-107) mmol/L Carbon Dioxide 20 L (22-30) mmol/L Anion Gap 12 (10-20) BUN 16 (9-20) mg/dl Creatinine 0.8 (0.8-1.5) mg/dL Est GFR ( Amer) > 60 Est GFR (Non-Af Amer) > 60 Random Glucose 153 H (75-110) mg/dL Calcium 6.6 L (8.4-10.2) mg/dL Blood Type Antibody Screen Crossmatch BBK History Checked 09/01/16 09/01/16 09/01/16 Range/Units 14:45 13:55 12:10 WBC 10.4 (4.8-10.8) K/uL RBC 2.75 L (4.40-5.90) Mil/uL Hgb 8.2 L (12.0-18.0) g/dL Hct 24.0 L (35.0-51.0) % MCV 87.3 (80.0-94.0) fl MCH 29.8 (27.0-31.0) pg MCHC 34.1 (33.0-37.0) g/dL RDW 15.8 H (11.5-14.5) % Plt Count 66 L (130-400) K/uL pCO2 37 (35-45) mm/Hg pO2 266 H (80-100) mm/Hg HCO3 22.7 (21-28) mmol/L ABG pH 7.38 (7.35-7.45) ABG Total CO2 23.0 (22-28) mmol/L ABG O2 Saturation 100.4 H (95-98) % ABG O2 Content 12.3 L (15-23) ML/dL ABG Base Excess -2.9 L (-2.0-3.0) mmol/L ABG Hemoglobin 8.4 L (11.7-17.4) g/dL ABG Carboxyhemoglobin 1.9 H (0.5-1.5) % POC ABG HHb (Measured) -0.4 L (0.0-5.0) % ABG Methemoglobin 0.6 (0.0-3.0) % ABG O2 Capacity 12.3 L (16-24) mL/dL Anil Test Yes A-a O2 Difference 401.0 mm/Hg Hgb O2 Saturation 97.9 (95.0-98.0) % Vent Mode Mechanical Rate 12 FiO2 100.0 % Tidal Volume 500 PEEP 5 Blood Gas Notified Time Sodium (132-148) mmol/l Potassium (3.6-5.0) MMOL/L Chloride (98-107) mmol/L Carbon Dioxide (22-30) mmol/L Anion Gap (10-20) BUN (9-20) mg/dl Creatinine (0.8-1.5) mg/dL Est GFR ( Amer) Est GFR (Non-Af Amer) Random Glucose (75-110) mg/dL Calcium (8.4-10.2) mg/dL Blood Type A NEGATIVE Antibody Screen Negative Crossmatch See Detail BBK History Checked Patient has bt Laboratory Results - last 24 hr 09/01/16 09/01/16 09/01/16 12:10 13:55 14:45 WBC 10.4 RBC 2.75 L Hgb 8.2 L Hct 24.0 L MCV 87.3 MCH 29.8 MCHC 34.1 RDW 15.8 H Plt Count 66 L pCO2 37 pO2 266 H HCO3 22.7 ABG pH 7.38 ABG Total CO2 23.0 ABG O2 Saturation 100.4 H ABG O2 Content 12.3 L ABG Base Excess -2.9 L ABG Hemoglobin 8.4 L ABG Carboxyhemoglobin 1.9 H POC ABG HHb (Measured) -0.4 L ABG Methemoglobin 0.6 ABG O2 Capacity 12.3 L Anil Test Yes A-a O2 Difference 401.0 Hgb O2 Saturation 97.9 Vent Mode Mechanical Rate 12 FiO2 100.0 Tidal Volume 500 PEEP 5 Blood Gas Notified Time Sodium Potassium Chloride Carbon Dioxide Anion Gap BUN Creatinine Est GFR ( Amer) Est GFR (Non-Af Amer) Random Glucose Calcium Blood Type A NEGATIVE Antibody Screen Negative Crossmatch See Detail BBK History Checked Patient has bt 09/02/16 09/02/16 09/02/16 01:49 04:49 06:00 WBC 13.2 H 9.7 RBC 3.30 L 2.97 L Hgb 9.6 L 8.8 L Hct 29.4 L 26.6 L MCV 89.2 89.6 MCH 29.0 29.6 MCHC 32.5 L 33.0 RDW 15.7 H 15.9 H Plt Count 54 L 49 L pCO2 34 L pO2 147 H HCO3 23.4 ABG pH 7.42 ABG Total CO2 23.1 ABG O2 Saturation 99.7 H ABG O2 Content 13.3 L ABG Base Excess -2.0 ABG Hemoglobin 9.5 L ABG Carboxyhemoglobin 1.6 H POC ABG HHb (Measured) 0.3 ABG Methemoglobin 1.1 ABG O2 Capacity 13.3 L Anil Test Yes A-a O2 Difference 238.0 Hgb O2 Saturation 97.0 Vent Mode A/c Mechanical Rate 12 FiO2 60.0 Tidal Volume 500 PEEP Blood Gas Notified Time 500 Sodium 137 Potassium 3.6 Chloride 109 H Carbon Dioxide 20 L Anion Gap 12 BUN 16 Creatinine 0.8 Est GFR ( Amer) > 60 Est GFR (Non-Af Amer) > 60 Random Glucose 153 H Calcium 6.6 L Blood Type Antibody Screen Crossmatch BBK History Checked EKG/Cardiology Studies: Cardiology / EKG Studies 09/01/16 13:53 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
--- NOTE | 2016-09-02 09:34 | CP.CCUPN ---
<Dmitry Lopez T - Last Filed: 09/02/16 09:35> CCU Subjective - Physician Review Subjective (Free Text): Pt is seen and examined at bedside in the ICU. Pt is intubated following yesterday's code blue and is currently sedated due to agitation. Pt unable to properly answer series of ROS questions. CCU Objective - Vital Signs / Intake & Output Vital Signs (Last 4 hours): Vital Signs Temp Pulse Resp BP Pulse Ox 09/02/16 09:00 64 12 91/57 L 99 09/02/16 08:00 98.9 F 67 12 93/54 L 100 09/02/16 06:00 63 13 98/59 L 100 Intake and Output (Last 8hrs): Intake & Output 09/01/16 09/02/16 09/02/16 22:59 06:59 14:59 Intake Total 1135 700 100 Output Total 600 Balance 1135 100 100 Intake: IV 385 600 Intake, Piggyback 100 100 100 Blood Product 650 Output: Urine 600 Urine, Voided 600 Other: # Bowel Movements 2 - Physical Exam Head: Positive for: Atraumatic, Normocephalic. Negative for: Tenderness Pupils: Positive for: PERRL Extroacular Muscles: Positive for: EOMI Mouth: Positive for: Dry Pharnyx: Positive for: Normal, Other (intubated) Neck: Negative for: MIDLINE TENDERNESS, JVD, Trachea Midline Respiratory/Chest: Positive for: Clear to Auscultation, Good Air Exchange. Negative for: Wheezes Cardiovascular: Positive for: Regular Rate and Rhythm, Normal S1, S2 Abdomen: Positive for: Normal Bowel Sounds. Negative for: Tenderness (sedated) , Guarding (sedated), McBurney's Point Tender Upper Extremity: Positive for: Normal Inspection, Normal ROM. Negative for: Cyanosis Lower Extremity: Positive for: Normal Inspection. Negative for: Edema, CALF TENDERNESS Neurological: Positive for: GCS=15, CN II-XII Intact, Speech Normal Skin: Positive for: Warm, Dry, Rashes, Normal Color - Medications Active Medications: Active Medications Generic Name Dose Route Start Last Admin Trade Name Freq PRN Reason Stop Dose Admin Octreotide Acetate 1,250 mcg/ 252.5 mls @ 10.1 mls/hr 08/29/16 00:15 09/02/16 03:41 Sodium Chloride IV 10.1 mls/hr .Q24H BEATA Administration Protocol 50 MCG/HR Pantoprazole Sodium 40 mg/ 100 mls @ 20 mls/hr 08/29/16 00:15 09/02/16 09:24 Sodium Chloride IVPB 20 mls/hr Q5H BEATA Administration 8 MG/HR Ceftriaxone Sodium 1 gm/ 100 mls @ 100 mls/hr 08/31/16 09:45 09/01/16 08:31 Sodium Chloride IVPB 100 mls/hr DAILY BEATA Administration Midazolam HCl 50 mg/ Dextrose 100 mls @ 4 mls/hr 09/01/16 15:45 09/02/16 09:22 IV 09/02/16 15:44 9 mg/hr .Q24H ONE Titration Protocol 2 MG/HR Piperacillin Sod/Tazobactam 100 mls @ 100 mls/hr 09/01/16 16:00 09/02/16 09:25 Sod 3.375 gm/ Sodium Chloride IVPB 100 mls/hr Q6 BEATA Administration Ondansetron HCl 4 mg 08/29/16 03:11 08/30/16 09:09 Zofran Inj IVP 4 mg Q4 PRN Administration Nausea/Vomiting - Patient Studies Lab Studies: Lab Studies 09/02/16 09/02/16 09/02/16 Range/Units 06:00 04:49 01:49 WBC 9.7 13.2 H (4.8-10.8) K/uL RBC 2.97 L 3.30 L (4.40-5.90) Mil/uL Hgb 8.8 L 9.6 L (12.0-18.0) g/dL Hct 26.6 L 29.4 L (35.0-51.0) % MCV 89.6 89.2 (80.0-94.0) fl MCH 29.6 29.0 (27.0-31.0) pg MCHC 33.0 32.5 L (33.0-37.0) g/dL RDW 15.9 H 15.7 H (11.5-14.5) % Plt Count 49 L 54 L (130-400) K/uL pCO2 34 L (35-45) mm/Hg pO2 147 H (80-100) mm/Hg HCO3 23.4 (21-28) mmol/L ABG pH 7.42 (7.35-7.45) ABG Total CO2 23.1 (22-28) mmol/L ABG O2 Saturation 99.7 H (95-98) % ABG O2 Content 13.3 L (15-23) ML/dL ABG Base Excess -2.0 (-2.0-3.0) mmol/L ABG Hemoglobin 9.5 L (11.7-17.4) g/dL ABG Carboxyhemoglobin 1.6 H (0.5-1.5) % POC ABG HHb (Measured) 0.3 (0.0-5.0) % ABG Methemoglobin 1.1 (0.0-3.0) % ABG O2 Capacity 13.3 L (16-24) mL/dL Anil Test Yes A-a O2 Difference 238.0 mm/Hg Hgb O2 Saturation 97.0 (95.0-98.0) % Vent Mode A/c Mechanical Rate 12 FiO2 60.0 % Tidal Volume 500 PEEP Blood Gas Notified Time 500 Sodium 137 (132-148) mmol/l Potassium 3.6 (3.6-5.0) MMOL/L Chloride 109 H (98-107) mmol/L Carbon Dioxide 20 L (22-30) mmol/L Anion Gap 12 (10-20) BUN 16 (9-20) mg/dl Creatinine 0.8 (0.8-1.5) mg/dL Est GFR ( Amer) > 60 Est GFR (Non-Af Amer) > 60 Random Glucose 153 H (75-110) mg/dL Calcium 6.6 L (8.4-10.2) mg/dL Blood Type Antibody Screen Crossmatch BBK History Checked 09/01/16 09/01/16 09/01/16 Range/Units 14:45 13:55 12:10 WBC 10.4 (4.8-10.8) K/uL RBC 2.75 L (4.40-5.90) Mil/uL Hgb 8.2 L (12.0-18.0) g/dL Hct 24.0 L (35.0-51.0) % MCV 87.3 (80.0-94.0) fl MCH 29.8 (27.0-31.0) pg MCHC 34.1 (33.0-37.0) g/dL RDW 15.8 H (11.5-14.5) % Plt Count 66 L (130-400) K/uL pCO2 37 (35-45) mm/Hg pO2 266 H (80-100) mm/Hg HCO3 22.7 (21-28) mmol/L ABG pH 7.38 (7.35-7.45) ABG Total CO2 23.0 (22-28) mmol/L ABG O2 Saturation 100.4 H (95-98) % ABG O2 Content 12.3 L (15-23) ML/dL ABG Base Excess -2.9 L (-2.0-3.0) mmol/L ABG Hemoglobin 8.4 L (11.7-17.4) g/dL ABG Carboxyhemoglobin 1.9 H (0.5-1.5) % POC ABG HHb (Measured) -0.4 L (0.0-5.0) % ABG Methemoglobin 0.6 (0.0-3.0) % ABG O2 Capacity 12.3 L (16-24) mL/dL Anil Test Yes A-a O2 Difference 401.0 mm/Hg Hgb O2 Saturation 97.9 (95.0-98.0) % Vent Mode Mechanical Rate 12 FiO2 100.0 % Tidal Volume 500 PEEP 5 Blood Gas Notified Time Sodium (132-148) mmol/l Potassium (3.6-5.0) MMOL/L Chloride (98-107) mmol/L Carbon Dioxide (22-30) mmol/L Anion Gap (10-20) BUN (9-20) mg/dl Creatinine (0.8-1.5) mg/dL Est GFR ( Amer) Est GFR (Non-Af Amer) Random Glucose (75-110) mg/dL Calcium (8.4-10.2) mg/dL Blood Type A NEGATIVE Antibody Screen Negative Crossmatch See Detail BBK History Checked Patient has bt Laboratory Results - last 24 hr 09/01/16 09/01/16 09/01/16 12:10 13:55 14:45 WBC 10.4 RBC 2.75 L Hgb 8.2 L Hct 24.0 L MCV 87.3 MCH 29.8 MCHC 34.1 RDW 15.8 H Plt Count 66 L pCO2 37 pO2 266 H HCO3 22.7 ABG pH 7.38 ABG Total CO2 23.0 ABG O2 Saturation 100.4 H ABG O2 Content 12.3 L ABG Base Excess -2.9 L ABG Hemoglobin 8.4 L ABG Carboxyhemoglobin 1.9 H POC ABG HHb (Measured) -0.4 L ABG Methemoglobin 0.6 ABG O2 Capacity 12.3 L Anil Test Yes A-a O2 Difference 401.0 Hgb O2 Saturation 97.9 Vent Mode Mechanical Rate 12 FiO2 100.0 Tidal Volume 500 PEEP 5 Blood Gas Notified Time Sodium Potassium Chloride Carbon Dioxide Anion Gap BUN Creatinine Est GFR ( Amer) Est GFR (Non-Af Amer) Random Glucose Calcium Blood Type A NEGATIVE Antibody Screen Negative Crossmatch See Detail BBK History Checked Patient has bt 09/02/16 09/02/16 09/02/16 01:49 04:49 06:00 WBC 13.2 H 9.7 RBC 3.30 L 2.97 L Hgb 9.6 L 8.8 L Hct 29.4 L 26.6 L MCV 89.2 89.6 MCH 29.0 29.6 MCHC 32.5 L 33.0 RDW 15.7 H 15.9 H Plt Count 54 L 49 L pCO2 34 L pO2 147 H HCO3 23.4 ABG pH 7.42 ABG Total CO2 23.1 ABG O2 Saturation 99.7 H ABG O2 Content 13.3 L ABG Base Excess -2.0 ABG Hemoglobin 9.5 L ABG Carboxyhemoglobin 1.6 H POC ABG HHb (Measured) 0.3 ABG Methemoglobin 1.1 ABG O2 Capacity 13.3 L Anil Test Yes A-a O2 Difference 238.0 Hgb O2 Saturation 97.0 Vent Mode A/c Mechanical Rate 12 FiO2 60.0 Tidal Volume 500 PEEP Blood Gas Notified Time 500 Sodium 137 Potassium 3.6 Chloride 109 H Carbon Dioxide 20 L Anion Gap 12 BUN 16 Creatinine 0.8 Est GFR ( Amer) > 60 Est GFR (Non-Af Amer) > 60 Random Glucose 153 H Calcium 6.6 L Blood Type Antibody Screen Crossmatch BBK History Checked EKG/Cardiology Studies: Cardiology / EKG Studies 09/01/16 13:53 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 - Review of Systems Review of Systems: see HPI Critical Care Progress Note - Ventilator Checklist Head of Bed 30 Degrees: Yes Daily Sedation Vacation: Yes Daily Assessment of Readiness to Learn: Yes Daily Spontaneous Breathing Trial: Yes PUD Prophalyxis: Yes DVT Prophylaxis: Yes Oral Care with Chlorhexidine Gluconate {CHG}: Yes - Vent Settings MODE:: ASSIST CONTROL TIDAL VOLUME:: 500 RESP RATE:: 12 FIO2:: 50 - Nutrition Nutrition: Nutrition Category Date Time Status Liquid Diet [DIET] Diets 08/29/16 Lunch Active Assessment/Plan - Assessment and Plan (Free Text) Plan: 61 yo M w PMHx of GI bleed in may, liver cirrhosis and esophageal varices likely from etoh abuse, is admitted for hemoptysis and h/o melena. 1) Hemoptysis and melena, likely secondary to bleeding varices -Had seemingly resolved, however, Hgb began precipitously dropping previous couple of days requiring 2 additional units yesterday -Hgb was brought to 9.6 and is currently at 8.8 -Pantoprazole 40mg IVPB Q5H -Octreotide 1250mcg IVPB @ 50mcg/hr -Will administer 1u ffp and 1u platelets -GI onboard, is planning on scoping again in order to find possible source of bleeding 2) Anemia -Blood loss likely due to from reactivation of bleed -Has already been transfused w 10u of pRBC -Hgb was brought to 9.6 and is currently at 8.8 -GI onboard -f/u Hgb, Vitals, and GI recommendations 3) Liver Cirrhosis with Esophageal varices -Octreotide 1250mcg IVPB @ 50mcg/hr -GI onboard 4) etoh withdrawal / Agitation -Ativan 1mg IVP Q4H PRN -Precedex d/c'ed -Will begin to wean off of Versed 5) DVT prophylaxis -SCDs; cannot tolerate medication due to active bleed <Raoul Duarte - Last Filed: 09/02/16 11:44> CCU Objective - Vital Signs / Intake & Output Vital Signs (Last 4 hours): Vital Signs Temp Pulse Resp BP Pulse Ox 09/02/16 11:00 58 L 12 97/66 L 100 09/02/16 10:00 64 12 86/47 L 99 09/02/16 09:00 64 12 91/57 L 99 09/02/16 08:00 98.9 F 67 12 93/54 L 100 Intake and Output (Last 8hrs): Intake & Output 09/01/16 09/02/16 09/02/16 22:59 06:59 14:59 Intake Total 1135 700 100 Output Total 600 Balance 1135 100 100 Intake: IV 385 600 Intake, Piggyback 100 100 100 Blood Product 650 Output: Urine 600 Urine, Voided 600 Other: # Bowel Movements 2 - Medications Active Medications: Active Medications Generic Name Dose Route Start Last Admin Trade Name Freq PRN Reason Stop Dose Admin Octreotide Acetate 1,250 mcg/ 252.5 mls @ 10.1 mls/hr 08/29/16 00:15 09/02/16 03:41 Sodium Chloride IV 10.1 mls/hr .Q24H BEATA Administration Protocol 50 MCG/HR Pantoprazole Sodium 40 mg/ 100 mls @ 20 mls/hr 08/29/16 00:15 09/02/16 09:24 Sodium Chloride IVPB 20 mls/hr Q5H BEATA Administration 8 MG/HR Midazolam HCl 50 mg/ Dextrose 100 mls @ 4 mls/hr 09/01/16 15:45 09/02/16 11:01 IV 09/02/16 15:44 8 mg/hr .Q24H ONE Titration Protocol 2 MG/HR Piperacillin Sod/Tazobactam 100 mls @ 100 mls/hr 09/01/16 16:00 09/02/16 09:25 Sod 3.375 gm/ Sodium Chloride IVPB 100 mls/hr Q6 BEATA Administration Lorazepam 1 mg 09/02/16 09:52 09/02/16 11:32 Ativan IVP 1 mg Q4H PRN Administration Agitation Ondansetron HCl 4 mg 08/29/16 03:11 08/30/16 09:09 Zofran Inj IVP 4 mg Q4 PRN Administration Nausea/Vomiting - Patient Studies Lab Studies: Lab Studies 09/02/16 09/02/16 09/02/16 Range/Units 06:00 04:49 01:49 WBC 9.7 13.2 H (4.8-10.8) K/uL RBC 2.97 L 3.30 L (4.40-5.90) Mil/uL Hgb 8.8 L 9.6 L (12.0-18.0) g/dL Hct 26.6 L 29.4 L (35.0-51.0) % MCV 89.6 89.2 (80.0-94.0) fl MCH 29.6 29.0 (27.0-31.0) pg MCHC 33.0 32.5 L (33.0-37.0) g/dL RDW 15.9 H 15.7 H (11.5-14.5) % Plt Count 49 L 54 L (130-400) K/uL pCO2 34 L (35-45) mm/Hg pO2 147 H (80-100) mm/Hg HCO3 23.4 (21-28) mmol/L ABG pH 7.42 (7.35-7.45) ABG Total CO2 23.1 (22-28) mmol/L ABG O2 Saturation 99.7 H (95-98) % ABG O2 Content 13.3 L (15-23) ML/dL ABG Base Excess -2.0 (-2.0-3.0) mmol/L ABG Hemoglobin 9.5 L (11.7-17.4) g/dL ABG Carboxyhemoglobin 1.6 H (0.5-1.5) % POC ABG HHb (Measured) 0.3 (0.0-5.0) % ABG Methemoglobin 1.1 (0.0-3.0) % ABG O2 Capacity 13.3 L (16-24) mL/dL Anil Test Yes A-a O2 Difference 238.0 mm/Hg Hgb O2 Saturation 97.0 (95.0-98.0) % Vent Mode A/c Mechanical Rate 12 FiO2 60.0 % Tidal Volume 500 PEEP Blood Gas Notified Time 500 Sodium 137 (132-148) mmol/l Potassium 3.6 (3.6-5.0) MMOL/L Chloride 109 H (98-107) mmol/L Carbon Dioxide 20 L (22-30) mmol/L Anion Gap 12 (10-20) BUN 16 (9-20) mg/dl Creatinine 0.8 (0.8-1.5) mg/dL Est GFR ( Amer) > 60 Est GFR (Non-Af Amer) > 60 Random Glucose 153 H (75-110) mg/dL Calcium 6.6 L (8.4-10.2) mg/dL Blood Type Antibody Screen Crossmatch BBK History Checked 09/01/16 09/01/16 09/01/16 Range/Units 14:45 13:55 12:10 WBC 10.4 (4.8-10.8) K/uL RBC 2.75 L (4.40-5.90) Mil/uL Hgb 8.2 L (12.0-18.0) g/dL Hct 24.0 L (35.0-51.0) % MCV 87.3 (80.0-94.0) fl MCH 29.8 (27.0-31.0) pg MCHC 34.1 (33.0-37.0) g/dL RDW 15.8 H (11.5-14.5) % Plt Count 66 L (130-400) K/uL pCO2 37 (35-45) mm/Hg pO2 266 H (80-100) mm/Hg HCO3 22.7 (21-28) mmol/L ABG pH 7.38 (7.35-7.45) ABG Total CO2 23.0 (22-28) mmol/L ABG O2 Saturation 100.4 H (95-98) % ABG O2 Content 12.3 L (15-23) ML/dL ABG Base Excess -2.9 L (-2.0-3.0) mmol/L ABG Hemoglobin 8.4 L (11.7-17.4) g/dL ABG Carboxyhemoglobin 1.9 H (0.5-1.5) % POC ABG HHb (Measured) -0.4 L (0.0-5.0) % ABG Methemoglobin 0.6 (0.0-3.0) % ABG O2 Capacity 12.3 L (16-24) mL/dL Anil Test Yes A-a O2 Difference 401.0 mm/Hg Hgb O2 Saturation 97.9 (95.0-98.0) % Vent Mode Mechanical Rate 12 FiO2 100.0 % Tidal Volume 500 PEEP 5 Blood Gas Notified Time Sodium (132-148) mmol/l Potassium (3.6-5.0) MMOL/L Chloride (98-107) mmol/L Carbon Dioxide (22-30) mmol/L Anion Gap (10-20) BUN (9-20) mg/dl Creatinine (0.8-1.5) mg/dL Est GFR ( Amer) Est GFR (Non-Af Amer) Random Glucose (75-110) mg/dL Calcium (8.4-10.2) mg/dL Blood Type A NEGATIVE Antibody Screen Negative Crossmatch See Detail BBK History Checked Patient has bt Laboratory Results - last 24 hr 09/01/16 09/01/16 09/01/16 12:10 13:55 14:45 WBC 10.4 RBC 2.75 L Hgb 8.2 L Hct 24.0 L MCV 87.3 MCH 29.8 MCHC 34.1 RDW 15.8 H Plt Count 66 L pCO2 37 pO2 266 H HCO3 22.7 ABG pH 7.38 ABG Total CO2 23.0 ABG O2 Saturation 100.4 H ABG O2 Content 12.3 L ABG Base Excess -2.9 L ABG Hemoglobin 8.4 L ABG Carboxyhemoglobin 1.9 H POC ABG HHb (Measured) -0.4 L ABG Methemoglobin 0.6 ABG O2 Capacity 12.3 L Anil Test Yes A-a O2 Difference 401.0 Hgb O2 Saturation 97.9 Vent Mode Mechanical Rate 12 FiO2 100.0 Tidal Volume 500 PEEP 5 Blood Gas Notified Time Sodium Potassium Chloride Carbon Dioxide Anion Gap BUN Creatinine Est GFR ( Amer) Est GFR (Non-Af Amer) Random Glucose Calcium Blood Type A NEGATIVE Antibody Screen Negative Crossmatch See Detail BBK History Checked Patient has bt 09/02/16 09/02/16 09/02/16 01:49 04:49 06:00 WBC 13.2 H 9.7 RBC 3.30 L 2.97 L Hgb 9.6 L 8.8 L Hct 29.4 L 26.6 L MCV 89.2 89.6 MCH 29.0 29.6 MCHC 32.5 L 33.0 RDW 15.7 H 15.9 H Plt Count 54 L 49 L pCO2 34 L pO2 147 H HCO3 23.4 ABG pH 7.42 ABG Total CO2 23.1 ABG O2 Saturation 99.7 H ABG O2 Content 13.3 L ABG Base Excess -2.0 ABG Hemoglobin 9.5 L ABG Carboxyhemoglobin 1.6 H POC ABG HHb (Measured) 0.3 ABG Methemoglobin 1.1 ABG O2 Capacity 13.3 L Anil Test Yes A-a O2 Difference 238.0 Hgb O2 Saturation 97.0 Vent Mode A/c Mechanical Rate 12 FiO2 60.0 Tidal Volume 500 PEEP Blood Gas Notified Time 500 Sodium 137 Potassium 3.6 Chloride 109 H Carbon Dioxide 20 L Anion Gap 12 BUN 16 Creatinine 0.8 Est GFR ( Amer) > 60 Est GFR (Non-Af Amer) > 60 Random Glucose 153 H Calcium 6.6 L Blood Type Antibody Screen Crossmatch BBK History Checked EKG/Cardiology Studies: Cardiology / EKG Studies 09/01/16 13:53 ELECTROCARDIOGRAM Routine 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 - Nutrition Nutrition: Nutrition Category Date Time Status Liquid Diet [DIET] Diets 08/29/16 Lunch Active Attending/Attestation - Attestation I have personally seen and examined this patient.: Yes I have fully participated in the care of the patient.: Yes I have reviewed all pertinent clinical information: Yes Notes (Text): 09/02/16 11:44 Today: Friday, September 02, 2016 The Patient was seen and examined at the bedside, Medical records reviewed, all clinical/lab/hemodynamic/radiographic data were reviewed and management issues were discussed and formulated, Pain issues, skin care, head of the bed elevation, GI/DVT prophylaxis, glycemic control were addressed. Agree with above treatment plans as transcribed in Dr. Lopez note
--- NOTE | 2016-09-02 10:39 | RAD ---
PROCEDURE: CHEST RADIOGRAPH, 1 VIEW HISTORY: Respiratory failure COMPARISON: Comparison is made to the previous study dated 09/01/2016 FINDINGS: LUNGS: No significant interval change in the lungs noted since the previous exam. The ET tube is seen at appropriate position. PLEURA: Blunting of the left costophrenic angle is noted. CARDIOVASCULAR: Normal. OSSEOUS STRUCTURES: No significant abnormalities. VISUALIZED UPPER ABDOMEN: Interval removal of the NG tube since the previous exam. OTHER FINDINGS: None. IMPRESSION: No significant interval change since the previous study. Appropriate position of the ETT.
--- NOTE | 2016-09-02 13:46 | CP.PCM.PN ---
Subjective - Date & Time of Evaluation Date of Evaluation: 09/02/16 Time of Evaluation: 13:00 - Subjective Subjective: Vented, family at bedside Objective - Vital Signs/Intake and Output Vital Signs (last 24 hours): Temp Pulse Resp BP Pulse Ox 98.5 F 61 12 87/56 L 100 09/02/16 12:00 09/02/16 13:00 09/02/16 13:00 09/02/16 13:00 09/02/16 13:00 Intake and Output: 09/02/16 09/02/16 06:59 18:59 Intake Total 1025 100 Output Total 600 Balance 425 100 - Medications Medications: Current Medications Octreotide Acetate 1,250 mcg/ (Sodium Chloride) 252.5 mls @ 10.1 mls/hr IV .Q24H BEATA; 50 MCG/HR PRN Reason: Protocol Last Admin: 09/02/16 03:41 Dose: 10.1 mls/hr Pantoprazole Sodium 40 mg/ (Sodium Chloride) 100 mls @ 20 mls/hr IVPB Q5H BEATA PRN Reason: 8 MG/HR Last Admin: 09/02/16 09:24 Dose: 20 mls/hr Midazolam HCl 50 mg/ Dextrose 100 mls @ 4 mls/hr IV .Q24H ONE; 2 MG/HR PRN Reason: Protocol Stop: 09/02/16 15:44 Last Admin: 09/02/16 12:13 Dose: 16 mls/hr Piperacillin Sod/Tazobactam (Sod 3.375 gm/ Sodium Chloride) 100 mls @ 100 mls/ hr IVPB Q6 BEATA Last Admin: 09/02/16 09:25 Dose: 100 mls/hr Lorazepam (Ativan) 1 mg IVP Q4H PRN PRN Reason: Agitation Last Admin: 09/02/16 11:32 Dose: 1 mg Ondansetron HCl (Zofran Inj) 4 mg IVP Q4 PRN PRN Reason: Nausea/Vomiting Last Admin: 08/30/16 09:09 Dose: 4 mg - Labs Labs: 09/02/16 06:00 09/02/16 06:00 PT 14.0 SECONDS (9.6-11.2) H 09/01/16 04:30 INR 1.35 (0.92-1.08) H 09/01/16 04:30 APTT 29.3 SECONDS (23.3-32.5) 09/01/16 04:30 - Head Exam Head Exam: ATRAUMATIC - Eye Exam Eye Exam: Scleral icterus - ENT Exam ENT Exam: Mucous Membranes Dry - Respiratory Exam Respiratory Exam: NORMAL BREATHING PATTERN - Cardiovascular Exam Cardiovascular Exam: +S1, +S2 - GI/Abdominal Exam GI & Abdominal Exam: Normal Bowel Sounds - Extremities Exam Extremities Exam: Pedal Edema Assessment and Plan (1) Anemia Assessment & Plan: GI blood loss transfusion support Status: Acute (2) Coagulopathy Assessment & Plan: liver disease agree with FFP transfusion Status: Chronic (3) Thrombocytopenia Assessment & Plan: secondary to liver disease and splenic sequestration agree with transfusing 1 bag plt Status: Acute
--- NOTE | 2016-09-02 15:36 | CP.PCM.PN ---
Subjective - Date & Time of Evaluation Date of Evaluation: 09/02/16 Time of Evaluation: 15:40 - Subjective Subjective: Patient on ventilator support, still melena. I had a meeting with the family and I explained to them the condition of the patient, his poor prognosis and the present clinical findings. They understand and agree with the present management. They asked questions and I answer. They are aware the alcohol and drug abuse of the patient. I explained that in general, survival is poor in patients with complicated cirrhosis and they should be considered for liver transplantation. Patients with end stage disease have a very poor survival rate. Since the patient still abuse alcohol he is not candidate for liver transplant, this therapeutic option will be the only that can prolog his life. Objective - Vital Signs/Intake and Output Vital Signs (last 24 hours): Temp Pulse Resp BP Pulse Ox 98.5 F 59 L 12 90/56 L 99 09/02/16 12:00 09/02/16 14:00 09/02/16 14:00 09/02/16 14:00 09/02/16 14:00 Intake and Output: 09/02/16 09/02/16 11:59 23:59 Intake Total 800 600 Output Total 600 Balance 200 600 - Medications Medications: Current Medications Octreotide Acetate 1,250 mcg/ (Sodium Chloride) 252.5 mls @ 10.1 mls/hr IV .Q24H BEATA; 50 MCG/HR PRN Reason: Protocol Last Admin: 09/02/16 03:41 Dose: 10.1 mls/hr Pantoprazole Sodium 40 mg/ (Sodium Chloride) 100 mls @ 20 mls/hr IVPB Q5H BEATA PRN Reason: 8 MG/HR Last Admin: 09/02/16 09:24 Dose: 20 mls/hr Midazolam HCl 50 mg/ Dextrose 100 mls @ 4 mls/hr IV .Q24H ONE; 2 MG/HR PRN Reason: Protocol Stop: 09/02/16 15:44 Last Admin: 09/02/16 12:13 Dose: 16 mls/hr Piperacillin Sod/Tazobactam (Sod 3.375 gm/ Sodium Chloride) 100 mls @ 100 mls/ hr IVPB Q6 BEATA Last Admin: 09/02/16 09:25 Dose: 100 mls/hr Lorazepam (Ativan) 1 mg IVP Q4H PRN PRN Reason: Agitation Last Admin: 09/02/16 11:32 Dose: 1 mg Ondansetron HCl (Zofran Inj) 4 mg IVP Q4 PRN PRN Reason: Nausea/Vomiting Last Admin: 08/30/16 09:09 Dose: 4 mg - Labs Labs: 09/02/16 06:00 09/02/16 06:00 PT 14.0 SECONDS (9.6-11.2) H 09/01/16 04:30 INR 1.35 (0.92-1.08) H 09/01/16 04:30 APTT 29.3 SECONDS (23.3-32.5) 09/01/16 04:30 - Head Exam Head Exam: ATRAUMATIC, NORMAL INSPECTION, NORMOCEPHALIC - Eye Exam Eye Exam: Normal appearance - ENT Exam ENT Exam: Mucous Membranes Moist - Respiratory Exam Respiratory Exam: Clear to Ausculation Bilateral - Cardiovascular Exam Cardiovascular Exam: REGULAR RHYTHM, +S1, +S2 - GI/Abdominal Exam Additional comments: ascites - Neurological Exam Additional comments: patient sedated Assessment and Plan (1) Acute blood loss anemia Status: Acute (2) Ascites of liver Status: Chronic (3) Chronic abdominal pain Status: Chronic (4) Cocaine abuse Status: Acute (5) Gastrointestinal hemorrhage Status: Acute (6) Upper GI bleed Status: Acute (7) Alcohol abuse Status: Chronic (8) Ascites Status: Chronic (9) Ascites due to alcoholic cirrhosis Status: Chronic (10) Cachexia Status: Chronic (11) Coagulopathy Status: Chronic (12) Debility Status: Chronic (13) Esophageal varices determined by endoscopy Status: Chronic (14) Esophageal varices in cirrhosis Status: Chronic (15) Liver cirrhosis Status: Chronic - Assessment and Plan (Free Text) Plan: Continue supportive rx For EGD Will follow with ICU attending
[2016-09-02 19:12] LABS: HEMATOCRIT 27.7 % (35.0-51.0); MEAN CELL VOLUME 89.3 fl (80.0-94.0); MEAN CORPUSCULAR HEMOGLOBIN 29.3 pg (27.0-31.0); MEAN CORPUSCULAR HGB CONC 32.8 g/dL (33.0-37.0); RED CELL DISTRIBUTION WIDTH 15.5 % (11.5-14.5); WHITE BLOOD COUNT 8.9 K/uL (4.8-10.8)
[2016-09-03] MEDS: Midazolam 5 MG/ML 50 MG in Dextrose 5% In Water 90 ML IV ONE (01:22)
[2016-09-03] MEDS: Piperacillin/Tazobact 3.375 GM in Sodium Chloride 0.9% 100 ML IVPB SCH ×2 (03:18→09:34)
[2016-09-03] MEDS: Pantoprazole 40 MG in Sodium Chloride 0.9% 100 ML IVPB SCH ×3 (03:18→08:51)
[2016-09-03 04:55] LABS: ABG ALLEN TEST YES; ABG MECHANICAL RATE 12; ARTERIAL BLOOD GAS HCO3 24.9 mmol/L (21-28); ARTERIAL BLOOD GAS MODE PRVC AC; ARTERIAL BLOOD GAS O2 CAPACITY 13.7 mL/dL (16-24); ARTERIAL BLOOD GAS O2 CONTENT 13.6 ML/dL (15-23); ARTERIAL BLOOD GAS PH 7.48 (7.35-7.45); ARTERIAL BLOOD GAS PO2 122 mm/Hg (80-100); ARTERIAL BLOOD HGB O2 SAT 96.8 % (95.0-98.0); CARBOXYHEMOGLOBIN 1.5 % (0.5-1.5); HHB 0.7 % (0.0-5.0); METHEMOGLOBIN 0.9 % (0.0-3.0)
[2016-09-03 05:24] LABS: HEMATOCRIT 29.7 % (35.0-51.0); MEAN CELL VOLUME 90.2 fl (80.0-94.0); MEAN CORPUSCULAR HEMOGLOBIN 29.6 pg (27.0-31.0); MEAN CORPUSCULAR HGB CONC 32.8 g/dL (33.0-37.0); RED CELL DISTRIBUTION WIDTH 16.2 % (11.5-14.5); WHITE BLOOD COUNT 7.4 K/uL (4.8-10.8)
[2016-09-03 05:32] LABS: ALB/GLOB RATIO 0.8 (1.0-2.1); ALKALINE PHOSPHATASE 70 U/L (38-126); ALT/SGPT 40 U/L (21-72); AST/SGOT 34 U/L (17-59); BILIRUBIN,TOTAL 2.6 mg/dl (0.2-1.3); BLOOD UREA NITROGEN 15 mg/dl (9-20); CALCIUM 7.1 mg/dL (8.4-10.2); CARBON DIOXIDE 21 mmol/L (22-30); CHLORIDE 109 mmol/L (98-107); GFR AFRICAN-AMERICAN > 60; GLUCOSE,RANDOM 168 mg/dL (75-110); PARTIAL THROMBOPLASTIN TIME 27.2 SECONDS (23.3-32.5); POTASSIUM 3.5 MMOL/L (3.6-5.0); SODIUM 140 mmol/l (132-148); TOTAL PROTEIN 4.8 G/DL (6.3-8.2)
[2016-09-03] MEDS ORDERED: EPINEPHrine 1 mg/ml (1:1000) Inj ONE (07:16)
[2016-09-03] MEDS ORDERED: Ethanolamine Oleate 50 mg/ml (2ml) Amp IV ONE (07:17)
[2016-09-03] MEDS ORDERED: Propofol 10 mg/ml 0 ML ONE (08:46)
[2016-09-03] MEDS ORDERED: Etomidate 20 mg/10ml Inj IV ONE ×2 (08:48→09:24)
[2016-09-03] MEDS ORDERED: Sodium Chloride 0.9% 250 ML IV ONE (08:56)
--- NOTE | 2016-09-03 11:30 | CP.CCUPN ---
<Dmitry Lopez T - Last Filed: 09/03/16 11:43> CCU Subjective - Physician Review Subjective (Free Text): Pt is seen and examined at bedside in the ICU. No acute events or complications overnight. Pt is intubated and is currently sedated due to agitation. Pt unable to properly answer series of ROS questions. CCU Objective - Vital Signs / Intake & Output Vital Signs (Last 4 hours): Vital Signs Temp Pulse Resp BP Pulse Ox 09/03/16 08:00 99.1 F 68 14 104/68 98 Intake and Output (Last 8hrs): Intake & Output 09/02/16 09/03/16 09/03/16 22:59 06:59 14:59 Intake Total 946 576 50 Output Total 200 500 Balance 746 76 50 Intake: IV 846 576 50 Intake, Piggyback 100 Oral 0 0 Output: Urine 200 500 Urethral (Zhang) 200 500 Other: # Bowel Movements 0 - Physical Exam Physical Exam Limitations: Positive for: Other (sedation while intubated due to agitation) Head: Positive for: Atraumatic, Normocephalic. Negative for: Tenderness Pupils: Positive for: PERRL Extroacular Muscles: Positive for: EOMI Mouth: Positive for: Moist Mucous Membranes Pharnyx: Positive for: Normal, Other (intubated) Neck: Negative for: MIDLINE TENDERNESS, JVD, Trachea Midline Respiratory/Chest: Positive for: Clear to Auscultation, Good Air Exchange. Negative for: Wheezes Cardiovascular: Positive for: Regular Rate and Rhythm, Normal S1, S2 Abdomen: Positive for: Normal Bowel Sounds. Negative for: Tenderness (sedated) , Guarding (sedated), McBurney's Point Tender Upper Extremity: Positive for: Normal Inspection, Normal ROM. Negative for: Cyanosis Lower Extremity: Positive for: Normal Inspection. Negative for: Edema, CALF TENDERNESS Neurological: Positive for: Other (cannot appropriately assess, due to intubation) Skin: Positive for: Warm, Dry, Rashes, Normal Color - Medications Active Medications: Active Medications Generic Name Dose Route Start Last Admin Trade Name Freq PRN Reason Stop Dose Admin Octreotide Acetate 1,250 mcg/ 252.5 mls @ 10.1 mls/hr 08/29/16 00:15 09/03/16 03:20 Sodium Chloride IV 10.1 mls/hr .Q24H BEATA Administration Protocol 50 MCG/HR Pantoprazole Sodium 40 mg/ 100 mls @ 20 mls/hr 08/29/16 00:15 09/03/16 08:51 Sodium Chloride IVPB 20 mls/hr Q5H BEATA Administration 8 MG/HR Piperacillin Sod/Tazobactam 100 mls @ 100 mls/hr 09/01/16 16:00 09/03/16 03:18 Sod 3.375 gm/ Sodium Chloride IVPB 100 mls/hr Q6 BEATA Administration Midazolam HCl 50 mg/ Dextrose 100 mls @ 4 mls/hr 09/02/16 16:36 09/03/16 01:22 IV 09/03/16 16:35 14 mls/hr .Q24H ONE Administration Protocol 2 MG/HR Lorazepam 1 mg 09/02/16 09:52 09/03/16 08:36 Ativan IVP 1 mg Q4H PRN Administration Agitation Ondansetron HCl 4 mg 08/29/16 03:11 08/30/16 09:09 Zofran Inj IVP 4 mg Q4 PRN Administration Nausea/Vomiting - Patient Studies Lab Studies: Lab Studies 09/03/16 09/03/16 09/02/16 Range/Units 04:45 04:40 18:30 WBC 7.4 8.9 (4.8-10.8) K/uL RBC 3.29 L 3.10 L (4.40-5.90) Mil/uL Hgb 9.7 L 9.1 L (12.0-18.0) g/dL Hct 29.7 L 27.7 L (35.0-51.0) % MCV 90.2 89.3 (80.0-94.0) fl MCH 29.6 29.3 (27.0-31.0) pg MCHC 32.8 L 32.8 L (33.0-37.0) g/dL RDW 16.2 H 15.5 H (11.5-14.5) % Plt Count 58 L 60 L (130-400) K/uL PT 12.9 H (9.6-11.2) SECONDS INR 1.24 H (0.92-1.08) APTT 27.2 (23.3-32.5) SECONDS pCO2 31 L (35-45) mm/Hg pO2 122 H (80-100) mm/Hg HCO3 24.9 (21-28) mmol/L ABG pH 7.48 H (7.35-7.45) ABG Total CO2 24.1 (22-28) mmol/L ABG O2 Saturation 99.3 H (95-98) % ABG O2 Content 13.6 L (15-23) ML/dL ABG Base Excess 0 (-2.0-3.0) mmol/L ABG Hemoglobin 9.8 L (11.7-17.4) g/dL ABG Carboxyhemoglobin 1.5 (0.5-1.5) % POC ABG HHb (Measured) 0.7 (0.0-5.0) % ABG Methemoglobin 0.9 (0.0-3.0) % ABG O2 Capacity 13.7 L (16-24) mL/dL Anil Test Yes A-a O2 Difference 196.0 mm/Hg Hgb O2 Saturation 96.8 (95.0-98.0) % Vent Mode Prvc ac Mechanical Rate 12 FiO2 50.0 % Tidal Volume 500 Sodium 140 (132-148) mmol/l Potassium 3.5 L (3.6-5.0) MMOL/L Chloride 109 H (98-107) mmol/L Carbon Dioxide 21 L (22-30) mmol/L Anion Gap 14 (10-20) BUN 15 (9-20) mg/dl Creatinine 0.9 (0.8-1.5) mg/dL Est GFR ( Amer) > 60 Est GFR (Non-Af Amer) > 60 Random Glucose 168 H (75-110) mg/dL Calcium 7.1 L (8.4-10.2) mg/dL Total Bilirubin 2.6 H (0.2-1.3) mg/dl AST 34 (17-59) U/L ALT 40 (21-72) U/L Alkaline Phosphatase 70 (38-126) U/L Total Protein 4.8 L (6.3-8.2) G/DL Albumin 2.1 L (3.5-5.0) g/dL Globulin 2.7 (2.2-3.9) gm/dL Albumin/Globulin Ratio 0.8 L (1.0-2.1) Laboratory Results - last 24 hr 09/02/16 09/03/16 09/03/16 18:30 04:40 04:45 WBC 8.9 7.4 RBC 3.10 L 3.29 L Hgb 9.1 L 9.7 L Hct 27.7 L 29.7 L MCV 89.3 90.2 MCH 29.3 29.6 MCHC 32.8 L 32.8 L RDW 15.5 H 16.2 H Plt Count 60 L 58 L PT 12.9 H INR 1.24 H APTT 27.2 pCO2 31 L pO2 122 H HCO3 24.9 ABG pH 7.48 H ABG Total CO2 24.1 ABG O2 Saturation 99.3 H ABG O2 Content 13.6 L ABG Base Excess 0 ABG Hemoglobin 9.8 L ABG Carboxyhemoglobin 1.5 POC ABG HHb (Measured) 0.7 ABG Methemoglobin 0.9 ABG O2 Capacity 13.7 L Anil Test Yes A-a O2 Difference 196.0 Hgb O2 Saturation 96.8 Vent Mode Prvc ac Mechanical Rate 12 FiO2 50.0 Tidal Volume 500 Sodium 140 Potassium 3.5 L Chloride 109 H Carbon Dioxide 21 L Anion Gap 14 BUN 15 Creatinine 0.9 Est GFR ( Amer) > 60 Est GFR (Non-Af Amer) > 60 Random Glucose 168 H Calcium 7.1 L Total Bilirubin 2.6 H AST 34 ALT 40 Alkaline Phosphatase 70 Total Protein 4.8 L Albumin 2.1 L Globulin 2.7 Albumin/Globulin Ratio 0.8 L Review of Systems - Review of Systems Review of Systems: see HPI Critical Care Progress Note - Ventilator Checklist Head of Bed 30 Degrees: Yes Daily Sedation Vacation: Yes Daily Assessment of Readiness to Learn: Yes Daily Spontaneous Breathing Trial: Yes PUD Prophalyxis: Yes DVT Prophylaxis: Yes Oral Care with Chlorhexidine Gluconate {CHG}: Yes - Vent Settings MODE:: ASSIST CONTROL TIDAL VOLUME:: 500 RESP RATE:: 12 FIO2:: 50 - Nutrition Nutrition: Nutrition Category Date Time Status Liquid Diet [DIET] Diets 08/29/16 Lunch Active Assessment/Plan - Assessment and Plan (Free Text) Plan: 61 yo M w PMHx of GI bleed in may, liver cirrhosis and esophageal varices likely from etoh abuse, is admitted for hemoptysis and h/o melena. 1) Hemoptysis and melena, likely secondary to bleeding varices -Hgb currently at 9.7 -Pantoprazole 40mg IVPB Q5H -Octreotide 1250mcg IVPB @ 50mcg/hr -Received 1u ffp and 1u platelets yesterday -GI onboard, is planning on scoping again today in order to find possible source of bleeding 2) Anemia -Blood loss likely due to from reactivation of bleed -Has already been transfused w 10u of pRBC -H/H 9.7/29.7 -GI onboard -f/u Hgb, Vitals, and GI recommendations 3) Liver Cirrhosis with Esophageal varices -Octreotide 1250mcg IVPB @ 50mcg/hr -Rocephin 2g IVPB Daily for SBP ppx -GI onboard 4) etoh withdrawal / Agitation -Precedex 400mcg IV 0.2mcg/kg/hr -d/c Versed due to prolonged effects in cirrhotic patients -Ativan d/c'ed; if additional sedation needed, would consider narcotic 5) DVT prophylaxis -SCDs; cannot tolerate medication due to active bleed <Gasper Rodriguez - Last Filed: 09/03/16 16:36> CCU Subjective - Physician Review Subjective (Free Text): Attestation: Patient seen and examined at the bedside with Resident Dr. Anthony Lopez; and I agree with his outline of plans and management documented below as discussed on AM rounds reflecting my review of all applicable clinical data, and participation in the care of the patient throughout the day in ICU; today, September 03, 2016.
[2016-09-03] MEDS ORDERED: Dexmedetomidine Hydrochloride 400 MCG in Sodium Chloride 0.9% 96 ML IV ONE ×2 (12:07→12:30)
--- NOTE | 2016-09-03 13:29 | RAD ---
PROCEDURE: CHEST RADIOGRAPH, 1 VIEW HISTORY: intubated COMPARISON: Comparison is made to the previous study dated 09/02/2016 FINDINGS: LUNGS: The ET tube is seen at somewhat low position pointing to the right. Suspicious for partial atelectasis of the left lower lung. Otherwise no interval change. PLEURA: No pneumothorax or pleural fluid seen. CARDIOVASCULAR: Normal. OSSEOUS STRUCTURES: No significant abnormalities. VISUALIZED UPPER ABDOMEN: Normal. OTHER FINDINGS: None. IMPRESSION: Low position of the ETT pointing to the right main bronchus. Suspicious for partial atelectasis at the left lower lung.
[2016-09-03] MEDS ORDERED: Sodium Chloride 0.9% 500 ML IV ONE (13:45)
--- NOTE | 2016-09-03 14:48 | CP.CCUPN ---
CCU Subjective - Physician Review Subjective (Free Text): Environmental Services Director Procedure Note EXTUBATION: S/p EGD today and variceal banding, no anticipated re-loof for at least another week, decison made to start MV weans and extubation. Versed drip stopped and Precedex infusion started, but developed mild hypotension and relative bradycardia ( HR 66 to 59). He tolerated brief SBT on CPAP 10 PS 5, with RR 24, Ve= 9.3, and SPo2 95% on 50% oxygen. Not fully awake as I would have preferred, but decision made to extubate patient before he awakens further and self-extubates with potential to cause airway and laryngeal damage. He has already self-pulled out OGT despite 2 point wrist restraints. ETT removed without difficulty and no immediate stridor nor distress noted, SPo2 noted to be 90% on RA, subsequently placed on HFNC at 40% oxygen , 20 LPM with SPO2 95%, and RR 22 / min. Will monitor resp status closely, after Precedex stopped, HR increased back to 64/min and BP now 113/68 from 92/56 earlier.
[2016-09-03] MEDS: cefTRIAXone 2 GM in Sodium Chloride 0.9% 100 ML IVPB SCH (15:00)
[2016-09-03] MEDS ORDERED: Potassium CL 10mEq/100ml 100 ML IVPB ONE ×2 (17:12→18:15)
--- NOTE | 2016-09-03 17:15 | CP.PCM.PN ---
Subjective - Date & Time of Evaluation Date of Evaluation: 09/03/16 Time of Evaluation: 11:30 - Subjective Subjective: On vent , sedated. S/P EGD. Objective - Vital Signs/Intake and Output Vital Signs (last 24 hours): Temp Pulse Resp BP Pulse Ox 97.5 F L 52 L 23 89/63 L 97 09/03/16 16:00 09/03/16 16:00 09/03/16 16:00 09/03/16 16:00 09/03/16 16:00 Intake and Output: 09/03/16 09/03/16 11:59 23:59 Intake Total 498 600 Output Total 500 Balance -2 600 - Medications Medications: Current Medications Octreotide Acetate 1,250 mcg/ (Sodium Chloride) 252.5 mls @ 10.1 mls/hr IV .Q24H BEATA; 50 MCG/HR PRN Reason: Protocol Last Admin: 09/03/16 03:20 Dose: 10.1 mls/hr Ceftriaxone Sodium 2 gm/ (Sodium Chloride) 100 mls @ 100 mls/hr IVPB DAILY EBATA Last Admin: 09/03/16 15:00 Dose: 100 mls/hr Dexmedetomidine HCl 400 mcg/ (Sodium Chloride) 100 mls @ 3.35 mls/hr IV .Q24H ONE; 0.2 MCG/KG/HR PRN Reason: Protocol Stop: 09/04/16 12:29 Last Admin: 09/03/16 12:39 Dose: 3.35 mls/hr Ondansetron HCl (Zofran Inj) 4 mg IVP Q4 PRN PRN Reason: Nausea/Vomiting Last Admin: 08/30/16 09:09 Dose: 4 mg Pantoprazole Sodium (Protonix Inj) 20 mg IVP Q12H BEATA - Labs Labs: 09/03/16 04:40 09/03/16 04:40 PT 12.9 SECONDS (9.6-11.2) H 09/03/16 04:40 INR 1.24 (0.92-1.08) H 09/03/16 04:40 APTT 27.2 SECONDS (23.3-32.5) 09/03/16 04:40 - Head Exam Head Exam: ATRAUMATIC, NORMOCEPHALIC - Eye Exam Eye Exam: Normal appearance - ENT Exam ENT Exam: Mucous Membranes Moist - Respiratory Exam Respiratory Exam: Clear to Ausculation Bilateral - Cardiovascular Exam Cardiovascular Exam: REGULAR RHYTHM, +S1, +S2 - GI/Abdominal Exam Additional comments: ascites - Neurological Exam Additional comments: sedated Assessment and Plan (1) Acute blood loss anemia Status: Acute (2) Ascites of liver Status: Chronic (3) Chronic abdominal pain Status: Chronic (4) Cocaine abuse Status: Acute (5) Gastrointestinal hemorrhage Status: Acute (6) Upper GI bleed Status: Acute (7) Alcohol abuse Status: Chronic (8) Ascites Status: Chronic (9) Ascites due to alcoholic cirrhosis Status: Chronic (10) Cachexia Status: Chronic (11) Coagulopathy Status: Chronic (12) Debility Status: Chronic (13) Esophageal varices determined by endoscopy Status: Chronic (14) Esophageal varices in cirrhosis Status: Chronic (15) Liver cirrhosis Status: Chronic - Assessment and Plan (Free Text) Plan: Continue present rx as per ICU attending. Will follow
--- NOTE | 2016-09-03 20:41 | CP.PCM.PN ---
Subjective - Date & Time of Evaluation Date of Evaluation: 09/03/16 Time of Evaluation: 18:00 - Subjective Subjective: Extubated today, confused s/p bedside EGD with banding Objective - Vital Signs/Intake and Output Vital Signs (last 24 hours): Temp Pulse Resp BP Pulse Ox 97.5 F L 53 L 24 92/61 L 97 09/03/16 16:00 09/03/16 18:00 09/03/16 20:25 09/03/16 18:00 09/03/16 18:00 Intake and Output: 09/03/16 09/04/16 18:59 06:59 Intake Total 980 Output Total 400 Balance 580 - Medications Medications: Current Medications Octreotide Acetate 1,250 mcg/ (Sodium Chloride) 252.5 mls @ 10.1 mls/hr IV .Q24H BEATA; 50 MCG/HR PRN Reason: Protocol Last Admin: 09/03/16 03:20 Dose: 10.1 mls/hr Ceftriaxone Sodium 2 gm/ (Sodium Chloride) 100 mls @ 100 mls/hr IVPB DAILY BEATA Last Admin: 09/03/16 15:00 Dose: 100 mls/hr Dexmedetomidine HCl 400 mcg/ (Sodium Chloride) 100 mls @ 3.35 mls/hr IV .Q24H ONE; 0.2 MCG/KG/HR PRN Reason: Protocol Stop: 09/04/16 12:29 Last Titration: 09/03/16 14:00 Dose: 0 mcg/kg/hr Ondansetron HCl (Zofran Inj) 4 mg IVP Q4 PRN PRN Reason: Nausea/Vomiting Last Admin: 08/30/16 09:09 Dose: 4 mg Pantoprazole Sodium (Protonix Inj) 20 mg IVP Q12H BEATA - Labs Labs: 09/03/16 04:40 09/03/16 04:40 PT 12.9 SECONDS (9.6-11.2) H 09/03/16 04:40 INR 1.24 (0.92-1.08) H 09/03/16 04:40 APTT 27.2 SECONDS (23.3-32.5) 09/03/16 04:40 - Head Exam Head Exam: ATRAUMATIC - Eye Exam Eye Exam: Scleral icterus - ENT Exam ENT Exam: Mucous Membranes Dry - Respiratory Exam Respiratory Exam: NORMAL BREATHING PATTERN - Cardiovascular Exam Cardiovascular Exam: +S1, +S2 - GI/Abdominal Exam GI & Abdominal Exam: Normal Bowel Sounds - Extremities Exam Extremities Exam: Normal Inspection Assessment and Plan (1) Anemia Assessment & Plan: GI blood loss s/p EGD and banding transfusion support PRN Status: Acute (2) Coagulopathy Assessment & Plan: liver disease s/p FFP Status: Chronic (3) Thrombocytopenia Assessment & Plan: liver disease s/p platelet transfusion Status: Acute
[2016-09-04] MEDS ORDERED: HYDROmorphone 0.5 mg/0.5 ml ISec IVP STA (03:02)
[2016-09-04 05:35] LABS: BLOOD UREA NITROGEN 14 mg/dl (9-20); CALCIUM 7.4 mg/dL (8.4-10.2); CARBON DIOXIDE 22 mmol/L (22-30); CHLORIDE 113 mmol/L (98-107); GFR AFRICAN-AMERICAN > 60; GLUCOSE,RANDOM 83 mg/dL (75-110); POTASSIUM 3.5 MMOL/L (3.6-5.0); SODIUM 143 mmol/l (132-148)
[2016-09-04 05:39] LABS: HEMATOCRIT 29.4 % (35.0-51.0); MEAN CELL VOLUME 88.2 fl (80.0-94.0); MEAN CORPUSCULAR HEMOGLOBIN 29.8 pg (27.0-31.0); MEAN CORPUSCULAR HGB CONC 33.8 g/dL (33.0-37.0); WHITE BLOOD COUNT 6.5 K/uL (4.8-10.8)
[2016-09-04 08:44] LABS: ABG ALLEN TEST YES; ARTERIAL BLOOD GAS HCO3 24.3 mmol/L (21-28); ARTERIAL BLOOD GAS O2 CAPACITY 13.9 mL/dL (16-24); ARTERIAL BLOOD GAS O2 CONTENT 13.7 ML/dL (15-23); ARTERIAL BLOOD GAS PH 7.43 (7.35-7.45); ARTERIAL BLOOD GAS PO2 87 mm/Hg (80-100); ARTERIAL BLOOD HGB O2 SAT 95.7 % (95.0-98.0); CARBOXYHEMOGLOBIN 1.9 % (0.5-1.5); HHB 1.4 % (0.0-5.0)
[2016-09-04] MEDS: cefTRIAXone 2 GM in Sodium Chloride 0.9% 100 ML IVPB SCH (09:32)
--- NOTE | 2016-09-04 10:54 | CP.CCUPN ---
<Dmitry Lopez T - Last Filed: 09/04/16 11:07> CCU Subjective - Physician Review Subjective (Free Text): Pt is seen and examined at bedside in the ICU. Pt is arousable but oriented, as his sedation is continuing to wear off. He denies any acute event or problem overnight. He denies any f/c/n/v/d/c, chest pain, sob, dyspnea, abd pain, or other myalgias. CCU Objective - Vital Signs / Intake & Output Vital Signs (Last 4 hours): Vital Signs Temp Pulse Resp BP Pulse Ox 09/04/16 10:00 71 21 122/78 98 09/04/16 08:46 18 09/04/16 08:00 98.8 F 62 18 101/67 97 Intake and Output (Last 8hrs): Intake & Output 09/03/16 09/04/16 09/04/16 22:59 06:59 14:59 Intake Total 330 140 Output Total 400 300 Balance -70 -300 140 Intake: IV 280 40 Intake, Piggyback 50 100 Output: Urine 400 300 Urethral (Zhang) 400 300 Other: # Bowel Movements 0 - Physical Exam Head: Positive for: Atraumatic, Normocephalic. Negative for: Tenderness Pupils: Positive for: PERRL Extroacular Muscles: Positive for: EOMI Mouth: Positive for: Dry Pharnyx: Positive for: Normal, Other (intubated) Neck: Negative for: MIDLINE TENDERNESS, JVD, Trachea Midline Respiratory/Chest: Positive for: Clear to Auscultation, Good Air Exchange. Negative for: Wheezes Cardiovascular: Positive for: Regular Rate and Rhythm, Normal S1, S2 Abdomen: Positive for: Normal Bowel Sounds. Negative for: Tenderness (sedated) , Guarding (sedated), McBurney's Point Tender Upper Extremity: Positive for: Normal Inspection, Normal ROM. Negative for: Cyanosis Lower Extremity: Positive for: Normal Inspection. Negative for: Edema, CALF TENDERNESS Neurological: Positive for: Other (cannot appropriately assess, due to intubation) Skin: Positive for: Warm, Dry, Rashes, Normal Color - Medications Active Medications: Active Medications Generic Name Dose Route Start Last Admin Trade Name Freq PRN Reason Stop Dose Admin Octreotide Acetate 1,250 mcg/ 252.5 mls @ 10.1 mls/hr 08/29/16 00:15 09/04/16 04:25 Sodium Chloride IV 10.1 mls/hr .Q24H BEATA Administration Protocol 50 MCG/HR Ceftriaxone Sodium 2 gm/ 100 mls @ 100 mls/hr 09/03/16 12:00 09/04/16 09:32 Sodium Chloride IVPB 100 mls/hr DAILY [facility] Administration Dexmedetomidine HCl 400 mcg/ 100 mls @ 3.35 mls/hr 09/03/16 12:30 09/03/16 14: 00 Sodium Chloride IV 09/04/16 12:29 0 mcg/kg/hr .Q24H ONE Titration Protocol 0.2 MCG/KG/HR Potassium Chloride 50 mls @ 50 mls/hr 09/04/16 11:00 Potassium Cl 10meq/50ml Sterile Water IVPB 09/04/16 12:59 Q1 BEATA Ondansetron HCl 4 mg 08/29/16 03:11 08/30/16 09:09 Zofran Inj IVP 4 mg Q4 PRN Administration Nausea/Vomiting Pantoprazole Sodium 20 mg 09/03/16 21:00 09/04/16 09:31 Protonix Inj IVP 20 mg Q12H BEATA Administration - Patient Studies Lab Studies: Lab Studies 09/04/16 09/04/16 Range/Units 08:40 04:30 WBC 6.5 (4.8-10.8) K/uL RBC 3.33 L (4.40-5.90) Mil/uL Hgb 9.9 L (12.0-18.0) g/dL Hct 29.4 L (35.0-51.0) % MCV 88.2 D (80.0-94.0) fl MCH 29.8 (27.0-31.0) pg MCHC 33.8 (33.0-37.0) g/dL RDW 16.0 H (11.5-14.5) % Plt Count 63 L (130-400) K/uL pCO2 35 (35-45) mm/Hg pO2 87 (80-100) mm/Hg HCO3 24.3 (21-28) mmol/L ABG pH 7.43 (7.35-7.45) ABG Total CO2 24.3 (22-28) mmol/L ABG O2 Saturation 98.6 H (95-98) % ABG O2 Content 13.7 L (15-23) ML/dL ABG Base Excess -0.8 (-2.0-3.0) mmol/L ABG Hemoglobin 10.1 L (11.7-17.4) g/dL ABG Carboxyhemoglobin 1.9 H (0.5-1.5) % POC ABG HHb (Measured) 1.4 (0.0-5.0) % ABG Methemoglobin 1.0 (0.0-3.0) % ABG O2 Capacity 13.9 L (16-24) mL/dL Anil Test Yes A-a O2 Difference 154.0 mm/Hg Hgb O2 Saturation 95.7 (95.0-98.0) % FiO2 40.0 % Crit Value Read Back y Sodium 143 (132-148) mmol/l Potassium 3.5 L (3.6-5.0) MMOL/L Chloride 113 H (98-107) mmol/L Carbon Dioxide 22 (22-30) mmol/L Anion Gap 12 (10-20) BUN 14 (9-20) mg/dl Creatinine 0.8 (0.8-1.5) mg/dL Est GFR ( Amer) > 60 Est GFR (Non-Af Amer) > 60 Random Glucose 83 (75-110) mg/dL Calcium 7.4 L (8.4-10.2) mg/dL Laboratory Results - last 24 hr 09/04/16 09/04/16 04:30 08:40 WBC 6.5 RBC 3.33 L Hgb 9.9 L Hct 29.4 L MCV 88.2 D MCH 29.8 MCHC 33.8 RDW 16.0 H Plt Count 63 L pCO2 35 pO2 87 HCO3 24.3 ABG pH 7.43 ABG Total CO2 24.3 ABG O2 Saturation 98.6 H ABG O2 Content 13.7 L ABG Base Excess -0.8 ABG Hemoglobin 10.1 L ABG Carboxyhemoglobin 1.9 H POC ABG HHb (Measured) 1.4 ABG Methemoglobin 1.0 ABG O2 Capacity 13.9 L Anil Test Yes A-a O2 Difference 154.0 Hgb O2 Saturation 95.7 FiO2 40.0 Crit Value Read Back y Sodium 143 Potassium 3.5 L Chloride 113 H Carbon Dioxide 22 Anion Gap 12 BUN 14 Creatinine 0.8 Est GFR ( Amer) > 60 Est GFR (Non-Af Amer) > 60 Random Glucose 83 Calcium 7.4 L Review of Systems - Review of Systems Review of Systems: see HPI Critical Care Progress Note - Nutrition Nutrition: Nutrition Category Date Time Status Liquid Diet [DIET] Diets 09/04/16 Breakfast Active Assessment/Plan - Assessment and Plan (Free Text) Plan: 61 yo M w PMHx of GI bleed in may, liver cirrhosis and esophageal varices likely from etoh abuse, is admitted for hemoptysis and h/o melena. 1) Hemoptysis and melena, likely secondary to bleeding varices -Not actively bleeding at this current moment -h/h is currently 9.9/29.4 -Pantoprazole 40mg IVPB Q5H -Octreotide 1250mcg IVPB @ 50mcg/hr -GI onboard, plans to scope again next weak to band additional varices 2) Anemia -Improving slowly -Blood loss likely due to from reactivation of bleed -h/h is currently 9.9/29.4 -high flow o2 d/c'ed --NC @ 4lpm -GI onboard, plans to scope again next weak to band additional varices -f/u Hgb, Vitals, and GI recommendations -f/u cognition, respiratory effort, and will plan to re evaluate pt status tomorrow 3) Liver Cirrhosis with Esophageal varices -Octreotide 1250mcg IVPB @ 50mcg/hr -Rocephin 2g IVPB Daily for SBP ppx -GI onboard 4) etoh withdrawal -Ativan 1mg PO Q6H PRN -Precedex d/greg 5) DVT prophylaxis -SCDs; cannot tolerate medication due to active bleed <Gasper Rodriguez - Last Filed: 09/04/16 16:23> CCU Subjective - Physician Review Subjective (Free Text): Attestation: Patient seen and examined at the bedside with Resident Dr. Anthony Lopez; and I agree with his outline of plans and management documented below as discussed on AM rounds reflecting my review of all applicable clinical data, and participation in the care of the patient throughout the day in ICU; today, September 04, 2016.
[2016-09-04] MEDS: Potassium CL 10 MEQ/50 ML 50 ML IVPB SCH ×2 (11:05→12:47)
[2016-09-04] MEDS ORDERED: Phytonadione 1 mg/0.5 ml Inj (Neonatal) IM ONE (11:49)
--- NOTE | 2016-09-04 11:55 | CP.PCM.PN ---
Subjective - Date & Time of Evaluation Date of Evaluation: 09/04/16 Time of Evaluation: 11:56 - Subjective Subjective: Patient agitated at times. No new changes. Objective - Vital Signs/Intake and Output Vital Signs (last 24 hours): Temp Pulse Resp BP Pulse Ox 98.8 F 71 21 122/78 98 09/04/16 08:00 09/04/16 10:00 09/04/16 10:00 09/04/16 10:00 09/04/16 10:00 Intake and Output: 09/03/16 09/04/16 23:59 11:59 Intake Total 930 140 Output Total 400 300 Balance 530 -160 - Medications Medications: Current Medications Octreotide Acetate 1,250 mcg/ (Sodium Chloride) 252.5 mls @ 10.1 mls/hr IV .Q24H [facility]; 50 MCG/HR PRN Reason: Protocol Last Admin: 09/04/16 04:25 Dose: 10.1 mls/hr Ceftriaxone Sodium 2 gm/ (Sodium Chloride) 100 mls @ 100 mls/hr IVPB DAILY [facility] Last Admin: 09/04/16 09:32 Dose: 100 mls/hr Potassium Chloride (Potassium Cl 10meq/50ml Sterile Water) 50 mls @ 50 mls/hr IVPB Q1 BEATA Stop: 09/04/16 12:59 Last Admin: 09/04/16 11:05 Dose: 50 mls/hr Potassium Chloride (Potassium Chloride 10 Meq/100 Ml) 100 mls @ 100 mls/hr IVPB Q1 BEATA Stop: 09/04/16 13:59 Lorazepam (Ativan) 1 mg PO Q6H PRN PRN Reason: Symptoms of alcohol withdrawl Lorazepam (Ativan) 1 mg IVP Q6 PRN PRN Reason: Agitation Ondansetron HCl (Zofran Inj) 4 mg IVP Q4 PRN PRN Reason: Nausea/Vomiting Last Admin: 08/30/16 09:09 Dose: 4 mg Pantoprazole Sodium (Protonix Inj) 20 mg IVP Q12H [facility]ATA Last Admin: 09/04/16 09:31 Dose: 20 mg Phytonadione (Vitamin K) 10 mg IM ONCE ONE Stop: 09/04/16 11:50 Thiamine HCl (Vitamin B1 Inj) 100 mg IM DAILY [facility]ATA - Labs Labs: 09/04/16 04:30 09/04/16 04:30 PT 12.9 SECONDS (9.6-11.2) H 09/03/16 04:40 INR 1.24 (0.92-1.08) H 09/03/16 04:40 APTT 27.2 SECONDS (23.3-32.5) 09/03/16 04:40 - Constitutional Appears: Agitated, Cachectic, Chronically Ill - Head Exam Head Exam: ATRAUMATIC, NORMAL INSPECTION, NORMOCEPHALIC - Eye Exam Eye Exam: Normal appearance - ENT Exam ENT Exam: Mucous Membranes Moist - Neck Exam Neck Exam: Full ROM - Respiratory Exam Respiratory Exam: Clear to Ausculation Bilateral - Cardiovascular Exam Cardiovascular Exam: REGULAR RHYTHM, +S1, +S2 - GI/Abdominal Exam Additional comments: Ascites - Extremities Exam Extremities Exam: Normal Inspection - Neurological Exam Neurological Exam: Alert, Awake, Oriented x3 - Psychiatric Exam Psychiatric exam: Agitated, Anxious Assessment and Plan (1) Acute blood loss anemia Assessment & Plan: PRESENT AT ADMISSION Status: Acute (2) Ascites of liver Status: Chronic (3) Chronic abdominal pain Status: Chronic (4) Cocaine abuse Status: Acute (5) Gastrointestinal hemorrhage Status: Acute (6) Upper GI bleed Status: Acute (7) Alcohol abuse Status: Chronic (8) Ascites Status: Chronic (9) Ascites due to alcoholic cirrhosis Status: Chronic (10) Cachexia Status: Chronic (11) Coagulopathy Status: Chronic (12) Debility Status: Chronic (13) Esophageal varices determined by endoscopy Status: Chronic (14) Esophageal varices in cirrhosis Status: Chronic (15) Liver cirrhosis Status: Chronic - Assessment and Plan (Free Text) Plan: As per orders
[2016-09-04] MEDS ORDERED: DEXTROSE 5% IV ONE (12:15)
[2016-09-04] MEDS ORDERED: PHYTONADIONE IV ONE (12:15)
[2016-09-04] MEDS ORDERED: WATER IV ONE (12:15)
[2016-09-04] MEDS: Thiamine 100 mg/ml Inj IM SCH (13:34)
[2016-09-04 17:16] LABS: POTASSIUM 4.1 MMOL/L (3.6-5.0)
[2016-09-04] MEDS: Potassium CL 10mEq/100ml 100 ML IVPB SCH ×2 (17:22→17:24)
--- NOTE | 2016-09-04 23:29 | CP.PCM.PN ---
Subjective - Date & Time of Evaluation Date of Evaluation: 09/04/16 Time of Evaluation: 17:00 - Subjective Subjective: Patient appears calm genrally. Objective - Vital Signs/Intake and Output Vital Signs (last 24 hours): Temp Pulse Resp BP Pulse Ox 97.6 F 72 24 143/85 100 09/04/16 16:00 09/04/16 18:00 09/04/16 18:00 09/04/16 18:00 09/04/16 18:00 Intake and Output: 09/04/16 09/05/16 18:59 06:59 Intake Total 850 Output Total 350 Balance 500 - Medications Medications: Current Medications Octreotide Acetate 1,250 mcg/ (Sodium Chloride) 252.5 mls @ 10.1 mls/hr IV .Q24H [facility]; 50 MCG/HR PRN Reason: Protocol Last Admin: 09/04/16 04:25 Dose: 10.1 mls/hr Ceftriaxone Sodium 2 gm/ (Sodium Chloride) 100 mls @ 100 mls/hr IVPB DAILY [facility] Last Admin: 09/04/16 09:32 Dose: 100 mls/hr Lorazepam (Ativan) 1 mg PO Q6H PRN PRN Reason: Symptoms of alcohol withdrawl Lorazepam (Ativan) 1 mg IVP Q6 PRN PRN Reason: Agitation Last Admin: 09/04/16 20:44 Dose: 1 mg Ondansetron HCl (Zofran Inj) 4 mg IVP Q4 PRN PRN Reason: Nausea/Vomiting Last Admin: 08/30/16 09:09 Dose: 4 mg Pantoprazole Sodium (Protonix Inj) 20 mg IVP Q12H [facility]ATA Last Admin: 09/04/16 21:34 Dose: 20 mg Thiamine HCl (Vitamin B1 Inj) 100 mg IM DAILY [facility] Last Admin: 09/04/16 13:34 Dose: 100 mg - Labs Labs: 09/04/16 04:30 09/04/16 16:30 PT 12.9 SECONDS (9.6-11.2) H 09/03/16 04:40 INR 1.24 (0.92-1.08) H 09/03/16 04:40 APTT 27.2 SECONDS (23.3-32.5) 09/03/16 04:40 - Head Exam Head Exam: ATRAUMATIC - Eye Exam Eye Exam: Normal appearance - ENT Exam ENT Exam: Normal Exam - Neck Exam Neck Exam: Full ROM - Respiratory Exam Respiratory Exam: NORMAL BREATHING PATTERN - Cardiovascular Exam Cardiovascular Exam: +S1, +S2 - GI/Abdominal Exam GI & Abdominal Exam: Distended, Normal Bowel Sounds Assessment and Plan (1) Acute blood loss anemia Assessment & Plan: Has been doing well with no clinical evidence of active bleed since Thursday. Banding performed yesterday. Will stop Octreotide. Continue pantoprazole. May advance diet as tolerated. No liver or renal decompensation so far evident in labs. Status: Acute
[2016-09-05] MEDS ORDERED: HYDROmorphone 0.5 mg/0.5 ml ISec IVP ONE (00:30)
--- NOTE | 2016-09-05 01:59 | CP.PCM.PN ---
Subjective - Date & Time of Evaluation Date of Evaluation: 09/04/16 Time of Evaluation: 15:35 - Subjective Subjective: Confused Objective - Vital Signs/Intake and Output Vital Signs (last 24 hours): Temp Pulse Resp BP Pulse Ox 98.5 F 75 21 129/79 100 09/05/16 00:00 09/05/16 00:00 09/05/16 00:00 09/05/16 00:00 09/04/16 22:00 Intake and Output: 09/04/16 09/05/16 18:59 06:59 Intake Total 850 Output Total 350 Balance 500 - Medications Medications: Current Medications Ceftriaxone Sodium 2 gm/ (Sodium Chloride) 100 mls @ 100 mls/hr IVPB DAILY [facility] Last Admin: 09/04/16 09:32 Dose: 100 mls/hr Lorazepam (Ativan) 1 mg PO Q6H PRN PRN Reason: Symptoms of alcohol withdrawl Lorazepam (Ativan) 1 mg IVP Q6 PRN PRN Reason: Agitation Last Admin: 09/04/16 20:44 Dose: 1 mg Ondansetron HCl (Zofran Inj) 4 mg IVP Q4 PRN PRN Reason: Nausea/Vomiting Last Admin: 08/30/16 09:09 Dose: 4 mg Pantoprazole Sodium (Protonix Inj) 20 mg IVP Q12H [facility] Last Admin: 09/04/16 21:34 Dose: 20 mg Thiamine HCl (Vitamin B1 Inj) 100 mg IM DAILY [facility] Last Admin: 09/04/16 13:34 Dose: 100 mg - Labs Labs: 09/04/16 04:30 09/04/16 16:30 PT 12.9 SECONDS (9.6-11.2) H 09/03/16 04:40 INR 1.24 (0.92-1.08) H 09/03/16 04:40 APTT 27.2 SECONDS (23.3-32.5) 09/03/16 04:40 - Head Exam Head Exam: ATRAUMATIC - Eye Exam Eye Exam: Scleral icterus - ENT Exam ENT Exam: Mucous Membranes Dry - Respiratory Exam Respiratory Exam: NORMAL BREATHING PATTERN - Cardiovascular Exam Cardiovascular Exam: +S1, +S2 - GI/Abdominal Exam GI & Abdominal Exam: Normal Bowel Sounds - Extremities Exam Extremities Exam: Pedal Edema Assessment and Plan (1) Anemia Assessment & Plan: H/H stable Status: Acute (2) Coagulopathy Assessment & Plan: liver disease Status: Chronic (3) Thrombocytopenia Assessment & Plan: liver disease Status: Acute
[2016-09-05 05:23] LABS: HEMATOCRIT 34.4 % (35.0-51.0); MEAN CELL VOLUME 88.1 fl (80.0-94.0); MEAN CORPUSCULAR HEMOGLOBIN 29.5 pg (27.0-31.0); MEAN CORPUSCULAR HGB CONC 33.5 g/dL (33.0-37.0); WHITE BLOOD COUNT 7.7 K/uL (4.8-10.8)
[2016-09-05 05:39] LABS: BLOOD UREA NITROGEN 11 mg/dl (9-20); CALCIUM 7.9 mg/dL (8.4-10.2); CARBON DIOXIDE 23 mmol/L (22-30); CHLORIDE 111 mmol/L (98-107); GFR AFRICAN-AMERICAN > 60; GLUCOSE,RANDOM 108 mg/dL (75-110); POTASSIUM 3.9 MMOL/L (3.6-5.0); SODIUM 145 mmol/l (132-148)
--- NOTE | 2016-09-05 07:40 | CP.CCUPN ---
<Dmitry Lopez T - Last Filed: 09/05/16 11:05> CCU Subjective - Physician Review Subjective (Free Text): Pt is seen and examined at bedside in the ICU. Pt is arousable to spoken words, but his sedation has warn off. He denies any acute event or problem overnight, the the RN reports several black BMs overnight. He denies any f/c/n/v/d/c, chest pain, sob, dyspnea, abd pain, or other myalgias. CCU Objective - Vital Signs / Intake & Output Vital Signs (Last 4 hours): Vital Signs Temp Pulse Resp BP 09/05/16 07:27 98.5 F 09/05/16 06:00 77 21 136/82 09/05/16 04:00 99.2 F 80 16 155/86 H Intake and Output (Last 8hrs): Intake & Output 09/04/16 09/05/16 09/05/16 22:59 06:59 14:59 Intake Total 470 Output Total 350 Balance 120 Intake: IV 20 Intake, Piggyback 200 Oral 250 Output: Urine 350 Urethral (Zhang) 350 Other: # Bowel Movements 1 - Physical Exam Head: Positive for: Atraumatic, Normocephalic. Negative for: Tenderness Pupils: Positive for: PERRL Extroacular Muscles: Positive for: EOMI Mouth: Positive for: Dry Pharnyx: Positive for: Normal Neck: Positive for: Normal Range of Motion. Negative for: MIDLINE TENDERNESS, JVD, Trachea Midline Respiratory/Chest: Positive for: Clear to Auscultation, Good Air Exchange. Negative for: Wheezes Cardiovascular: Positive for: Regular Rate and Rhythm, Normal S1, S2 Abdomen: Positive for: Normal Bowel Sounds. Negative for: Tenderness, Guarding , McBurney's Point Tender Upper Extremity: Positive for: Normal Inspection, Normal ROM. Negative for: Cyanosis Lower Extremity: Positive for: Normal Inspection. Negative for: Edema, CALF TENDERNESS Neurological: Positive for: Other (cannot appropriately assess, due to intubation) Skin: Positive for: Warm, Dry, Rashes, Normal Color - Medications Active Medications: Active Medications Generic Name Dose Route Start Last Admin Trade Name Freq PRN Reason Stop Dose Admin Ceftriaxone Sodium 2 gm/ 100 mls @ 100 mls/hr 09/03/16 12:00 09/04/16 09:32 Sodium Chloride IVPB 100 mls/hr DAILY BEATA Administration Lorazepam 1 mg 09/04/16 11:16 Ativan PO Q6H PRN Symptoms of alcohol withdrawl Lorazepam 1 mg 09/04/16 11:39 09/05/16 04:51 Ativan IVP 1 mg Q6 PRN Administration Agitation Ondansetron HCl 4 mg 08/29/16 03:11 08/30/16 09:09 Zofran Inj IVP 4 mg Q4 PRN Administration Nausea/Vomiting Pantoprazole Sodium 20 mg 09/03/16 21:00 09/04/16 21:34 Protonix Inj IVP 20 mg Q12H BEATA Administration Thiamine HCl 100 mg 09/04/16 12:00 09/04/16 13:34 Vitamin B1 Inj IM 100 mg DAILY BEATA Administration - Patient Studies Lab Studies: Lab Studies 09/05/16 09/04/16 09/04/16 Range/Units 04:40 16:30 12:10 WBC 7.7 (4.8-10.8) K/uL RBC 3.91 L (4.40-5.90) Mil/uL Hgb 11.5 L (12.0-18.0) g/dL Hct 34.4 L (35.0-51.0) % MCV 88.1 (80.0-94.0) fl MCH 29.5 (27.0-31.0) pg MCHC 33.5 (33.0-37.0) g/dL RDW 16.0 H (11.5-14.5) % Plt Count 82 L (130-400) K/uL pCO2 (35-45) mm/Hg pO2 (80-100) mm/Hg HCO3 (21-28) mmol/L ABG pH (7.35-7.45) ABG Total CO2 (22-28) mmol/L ABG O2 Saturation (95-98) % ABG O2 Content (15-23) ML/dL ABG Base Excess (-2.0-3.0) mmol/L ABG Hemoglobin (11.7-17.4) g/dL ABG Carboxyhemoglobin (0.5-1.5) % POC ABG HHb (Measured) (0.0-5.0) % ABG Methemoglobin (0.0-3.0) % ABG O2 Capacity (16-24) mL/dL Anil Test A-a O2 Difference mm/Hg Hgb O2 Saturation (95.0-98.0) % FiO2 % Crit Value Read Back Sodium 145 139 (132-148) mmol/l Potassium 3.9 4.1 (3.6-5.0) MMOL/L Chloride 111 H (98-107) mmol/L Carbon Dioxide 23 (22-30) mmol/L Anion Gap 15 (10-20) BUN 11 (9-20) mg/dl Creatinine 0.7 L (0.8-1.5) mg/dL Est GFR ( Amer) > 60 Est GFR (Non-Af Amer) > 60 Random Glucose 108 (75-110) mg/dL Calcium 7.9 L (8.4-10.2) mg/dL Ammonia < 9 L (16-60) umo/L 09/04/16 Range/Units 08:40 WBC (4.8-10.8) K/uL RBC (4.40-5.90) Mil/uL Hgb (12.0-18.0) g/dL Hct (35.0-51.0) % MCV (80.0-94.0) fl MCH (27.0-31.0) pg MCHC (33.0-37.0) g/dL RDW (11.5-14.5) % Plt Count (130-400) K/uL pCO2 35 (35-45) mm/Hg pO2 87 (80-100) mm/Hg HCO3 24.3 (21-28) mmol/L ABG pH 7.43 (7.35-7.45) ABG Total CO2 24.3 (22-28) mmol/L ABG O2 Saturation 98.6 H (95-98) % ABG O2 Content 13.7 L (15-23) ML/dL ABG Base Excess -0.8 (-2.0-3.0) mmol/L ABG Hemoglobin 10.1 L (11.7-17.4) g/dL ABG Carboxyhemoglobin 1.9 H (0.5-1.5) % POC ABG HHb (Measured) 1.4 (0.0-5.0) % ABG Methemoglobin 1.0 (0.0-3.0) % ABG O2 Capacity 13.9 L (16-24) mL/dL Anil Test Yes A-a O2 Difference 154.0 mm/Hg Hgb O2 Saturation 95.7 (95.0-98.0) % FiO2 40.0 % Crit Value Read Back y Sodium (132-148) mmol/l Potassium (3.6-5.0) MMOL/L Chloride (98-107) mmol/L Carbon Dioxide (22-30) mmol/L Anion Gap (10-20) BUN (9-20) mg/dl Creatinine (0.8-1.5) mg/dL Est GFR ( Amer) Est GFR (Non-Af Amer) Random Glucose (75-110) mg/dL Calcium (8.4-10.2) mg/dL Ammonia (16-60) umo/L Laboratory Results - last 24 hr 09/04/16 09/04/16 09/04/16 08:40 12:10 16:30 WBC RBC Hgb Hct MCV MCH MCHC RDW Plt Count pCO2 35 pO2 87 HCO3 24.3 ABG pH 7.43 ABG Total CO2 24.3 ABG O2 Saturation 98.6 H ABG O2 Content 13.7 L ABG Base Excess -0.8 ABG Hemoglobin 10.1 L ABG Carboxyhemoglobin 1.9 H POC ABG HHb (Measured) 1.4 ABG Methemoglobin 1.0 ABG O2 Capacity 13.9 L Anil Test Yes A-a O2 Difference 154.0 Hgb O2 Saturation 95.7 FiO2 40.0 Crit Value Read Back y Sodium 139 Potassium 4.1 Chloride Carbon Dioxide Anion Gap BUN Creatinine Est GFR ( Amer) Est GFR (Non-Af Amer) Random Glucose Calcium Ammonia < 9 L 09/05/16 04:40 WBC 7.7 RBC 3.91 L Hgb 11.5 L Hct 34.4 L MCV 88.1 MCH 29.5 MCHC 33.5 RDW 16.0 H Plt Count 82 L pCO2 pO2 HCO3 ABG pH ABG Total CO2 ABG O2 Saturation ABG O2 Content ABG Base Excess ABG Hemoglobin ABG Carboxyhemoglobin POC ABG HHb (Measured) ABG Methemoglobin ABG O2 Capacity Anil Test A-a O2 Difference Hgb O2 Saturation FiO2 Crit Value Read Back Sodium 145 Potassium 3.9 Chloride 111 H Carbon Dioxide 23 Anion Gap 15 BUN 11 Creatinine 0.7 L Est GFR ( Amer) > 60 Est GFR (Non-Af Amer) > 60 Random Glucose 108 Calcium 7.9 L Ammonia Review of Systems - Review of Systems Review of Systems: see HPI Critical Care Progress Note - Nutrition Nutrition: Nutrition Category Date Time Status Liquid Diet [DIET] Diets 09/04/16 Breakfast Active Assessment/Plan - Assessment and Plan (Free Text) Plan: 61 yo M w PMHx of GI bleed in May, liver cirrhosis and esophageal varices likely from etoh abuse, is admitted for hemoptysis and h/o melena. 1) Hemoptysis and melena, likely secondary to bleeding varices -Not actively bleeding at this current moment -h/h is currently 11.5/34.4 -Pantoprazole 40mg IVPB Q5H -Octreotide 1250mcg IVPB @ 50mcg/hr -GI onboard, plans to scope again next weak to band additional varices 2) Anemia -Improving slowly -Blood loss likely due to from reactivation of bleed -h/h is currently 11.5/34.4 -high flow o2 d/c'ed --NC @ 4lpm -GI onboard, plans to scope again next weak to band additional varices -f/u Hgb, Vitals, and GI recommendations 3) Liver Cirrhosis with Esophageal varices -Octreotide 1250mcg IVPB @ 50mcg/hr -Rocephin 2g IVPB Daily for SBP ppx -GI onboard -f/u abd XR for distension 4) etoh withdrawal -Ativan 1mg PO Q6H PRN 5) DVT prophylaxis -SCDs; cannot tolerate medication due to active bleed <Gasper Rodriguez - Last Filed: 09/05/16 13:56> CCU Subjective - Physician Review Subjective (Free Text): Attestation: Patient seen and examined at the bedside with Resident Dr. Anthony Lopez; and I agree with his outline of plans and management documented below as discussed on AM rounds reflecting my review of all applicable clinical data, and participation in the care of the patient throughout the day in ICU; today, September 05, 2016.
[2016-09-05] MEDS: Thiamine 100 mg/ml Inj IM SCH (09:00)
[2016-09-05] MEDS: cefTRIAXone 2 GM in Sodium Chloride 0.9% 100 ML IVPB SCH (09:00)
--- NOTE | 2016-09-05 12:35 | CP.PCM.PN ---
Subjective - Date & Time of Evaluation Date of Evaluation: 09/05/16 Time of Evaluation: 12:35 - Subjective Subjective: Patient still confuse, + melena, same abdominal discomfort and tension. Objective - Vital Signs/Intake and Output Vital Signs (last 24 hours): Temp Pulse Resp BP Pulse Ox 98.4 F 77 21 136/82 100 09/05/16 12:01 09/05/16 06:00 09/05/16 06:00 09/05/16 06:00 09/04/16 22:00 - Medications Medications: Current Medications Folic Acid (Folic Acid) 1 mg PO DAILY [facility] Ceftriaxone Sodium 2 gm/ (Sodium Chloride) 100 mls @ 100 mls/hr IVPB DAILY [facility] Last Admin: 09/05/16 09:00 Dose: 100 mls/hr Lorazepam (Ativan) 1 mg IVP Q6 PRN PRN Reason: Agitation Last Admin: 09/05/16 04:51 Dose: 1 mg Ondansetron HCl (Zofran Inj) 4 mg IVP Q4 PRN PRN Reason: Nausea/Vomiting Last Admin: 08/30/16 09:09 Dose: 4 mg Pantoprazole Sodium (Protonix Inj) 20 mg IVP Q12H [facility] Last Admin: 09/05/16 09:00 Dose: 20 mg Thiamine HCl (Vitamin B1 Tab) 100 mg PO DAILY [facility] - Labs Labs: 09/05/16 04:40 09/05/16 04:40 PT 12.9 SECONDS (9.6-11.2) H 09/03/16 04:40 INR 1.24 (0.92-1.08) H 09/03/16 04:40 APTT 27.2 SECONDS (23.3-32.5) 09/03/16 04:40 - Constitutional Appears: Confused, Cachectic, Chronically Ill - Head Exam Head Exam: ATRAUMATIC, NORMAL INSPECTION, NORMOCEPHALIC - Eye Exam Eye Exam: Normal appearance - ENT Exam ENT Exam: Mucous Membranes Moist - Neck Exam Neck Exam: Full ROM - Respiratory Exam Respiratory Exam: Clear to Ausculation Bilateral - Cardiovascular Exam Cardiovascular Exam: REGULAR RHYTHM, +S1, +S2 - GI/Abdominal Exam GI & Abdominal Exam: Distended Additional comments: Ascites - Extremities Exam Extremities Exam: Normal Inspection - Neurological Exam Neurological Exam: Altered, Awake - Psychiatric Exam Psychiatric exam: Anxious Assessment and Plan (1) Acute blood loss anemia Status: Acute (2) Ascites of liver Status: Chronic (3) Chronic abdominal pain Status: Chronic (4) Cocaine abuse Status: Acute (5) Gastrointestinal hemorrhage Status: Acute (6) Upper GI bleed Status: Acute (7) Alcohol abuse Status: Chronic (8) Ascites Status: Chronic (9) Ascites due to alcoholic cirrhosis Status: Chronic (10) Cachexia Status: Chronic (11) Coagulopathy Status: Chronic (12) Debility Status: Chronic (13) Esophageal varices determined by endoscopy Status: Chronic (14) Esophageal varices in cirrhosis Status: Chronic (15) Liver cirrhosis Status: Chronic - Assessment and Plan (Free Text) Plan: Will follow xray, continue present rx.
--- NOTE | 2016-09-05 17:05 | RAD ---
HISTORY: r/o ileus COMPARISON: 01/04/2016 FINDINGS: BOWEL: Single AP radiograph of the abdomen demonstrates mildly dilated small bowel loops. These likely reflect a mild ileus. However, cannot rule out early mechanical small-bowel obstruction and followup is advised. There are 2 rounded calcifications in the right upper quadrant likely reflecting gallstones as demonstrated on CT examination of 08/31/2016. . BONES: Normal. OTHER FINDINGS: None. IMPRESSION: Probable mild ileus. Followup advised.
--- NOTE | 2016-09-05 19:40 | CP.PCM.PN ---
Subjective - Date & Time of Evaluation Date of Evaluation: 09/05/16 Time of Evaluation: 12:00 - Subjective Subjective: Dark stool noted overnight Objective - Vital Signs/Intake and Output Vital Signs (last 24 hours): Temp Pulse Resp BP Pulse Ox 98.4 F 76 27 H 119/73 95 09/05/16 16:00 09/05/16 18:00 09/05/16 18:00 09/05/16 18:00 09/05/16 18:00 Intake and Output: 09/05/16 09/06/16 18:59 06:59 Intake Total 600 Output Total 300 Balance 300 - Medications Medications: Current Medications Folic Acid (Folic Acid) 1 mg PO DAILY [facility] Last Admin: 09/05/16 16:05 Dose: 1 mg Ceftriaxone Sodium 2 gm/ (Sodium Chloride) 100 mls @ 100 mls/hr IVPB DAILY [facility] Last Admin: 09/05/16 09:00 Dose: 100 mls/hr Lorazepam (Ativan) 1 mg IVP Q6 PRN PRN Reason: Agitation Last Admin: 09/05/16 04:51 Dose: 1 mg Ondansetron HCl (Zofran Inj) 4 mg IVP Q4 PRN PRN Reason: Nausea/Vomiting Last Admin: 08/30/16 09:09 Dose: 4 mg Pantoprazole Sodium (Protonix Inj) 20 mg IVP Q12H [facility] Last Admin: 09/05/16 09:00 Dose: 20 mg Thiamine HCl (Vitamin B1 Tab) 100 mg PO DAILY [facility] Last Admin: 09/05/16 16:05 Dose: 100 mg - Labs Labs: 09/05/16 04:40 09/05/16 04:40 PT 12.9 SECONDS (9.6-11.2) H 09/03/16 04:40 INR 1.24 (0.92-1.08) H 09/03/16 04:40 APTT 27.2 SECONDS (23.3-32.5) 09/03/16 04:40 - Head Exam Head Exam: ATRAUMATIC - Eye Exam Eye Exam: Scleral icterus - ENT Exam ENT Exam: Mucous Membranes Dry - Respiratory Exam Respiratory Exam: NORMAL BREATHING PATTERN - Cardiovascular Exam Cardiovascular Exam: +S1, +S2 - GI/Abdominal Exam GI & Abdominal Exam: Normal Bowel Sounds - Extremities Exam Extremities Exam: Normal Inspection - Neurological Exam Neurological Exam: Altered - Psychiatric Exam Psychiatric exam: Normal Affect - Skin Skin Exam: Warm Assessment and Plan (1) Anemia Assessment & Plan: GI blood loss appears to be resolving as H/H improved repeat EGD per GI for further banding s/p PRBC transfusion Status: Acute (2) Coagulopathy Assessment & Plan: liver disease s/p FFP Status: Chronic (3) Thrombocytopenia Assessment & Plan: liver disease s/p plt transfusion Status: Acute
[2016-09-05] MEDS ORDERED: Albuterol-Ipratrop 3 mg / 0.5 (3 ml) UD INH PRN (21:45)
[2016-09-06 07:14] LABS: HEMATOCRIT 36.6 % (35.0-51.0); MEAN CORPUSCULAR HEMOGLOBIN 29.6 pg (27.0-31.0); MEAN CORPUSCULAR HGB CONC 33.3 g/dL (33.0-37.0); RED CELL DISTRIBUTION WIDTH 15.3 % (11.5-14.5)
[2016-09-06 07:25] LABS: BLOOD UREA NITROGEN 9 mg/dl (9-20); CARBON DIOXIDE 21 mmol/L (22-30); CHLORIDE 110 mmol/L (98-107); GFR AFRICAN-AMERICAN > 60; GLUCOSE,RANDOM 86 mg/dL (75-110); POTASSIUM 3.7 MMOL/L (3.6-5.0); SODIUM 139 mmol/l (132-148)
[2016-09-06] MEDS: cefTRIAXone 2 GM in Sodium Chloride 0.9% 100 ML IVPB SCH (08:08)
--- NOTE | 2016-09-06 10:08 | RAD ---
HISTORY: f/u Ileus COMPARISON: Comparison made with prior abdominal radiographs and CT scan of the abdomen dated 09/05/2016 and 08/31/2016 respectively. FINDINGS: BOWEL: Multiple minimally distended air-filled loops of small bowel again noted. Findings could represent ileus pattern. Small bowel appears centralized in location presumably due to abdominal ascites. BONES: Normal. OTHER FINDINGS: None. IMPRESSION: Mild ileus with additional findings consistent with ascites.
[2016-09-06] MEDS ORDERED: HYDROmorphone 0.5 mg/0.5 ml ISec ONE (11:17)
[2016-09-06] MEDS: HYDROmorphone 0.5 mg/0.5 ml ISec IVP PRN (11:27)
--- NOTE | 2016-09-06 11:43 | CP.CCUPN ---
CCU Subjective - Physician Review Events Since Last Encounter (Free Text): 09/06/16 11:40 Awake, oriented, c/o increased abdominal pain, Xray flat plate abdomen ordered, reviewed, has possible ileus , abdomen is more distended, BP has been stable and also H&H, ammonia level was low yesterday. Will do CT abdomen without contrast and if herrera large ascites suspected to cases abdominal HTN, might need urgent paracentesis. CCU Objective - Vital Signs / Intake & Output Vital Signs (Last 4 hours): Vital Signs Temp Pulse Resp BP Pulse Ox 09/06/16 10:00 79 35 H 129/82 97 09/06/16 08:00 98.3 F 69 27 H 126/70 97 Intake and Output (Last 8hrs): Intake & Output 09/05/16 09/06/16 09/06/16 22:59 06:59 14:59 Intake Total 210 110 280 Output Total 100 Balance 210 10 280 Intake: IV 10 10 Intake, Piggyback 100 Oral 200 100 180 Output: Urine 100 Urine, Voided 100 Other: # Voids Urine, Voided 1 # Bowel Movements 1 2 - Physical Exam Narrative Physical Exam (Free Text): 09/06/16 11:43 P/E Neck; No JVD Lungs: decreased breath sounds, bases Abdomen: distended, BS feeble, no tenderness Ext: no edema heart: no gallop. Head: Positive for: Atraumatic, Normocephalic. Negative for: Tenderness Pupils: Positive for: PERRL Extroacular Muscles: Positive for: EOMI Mouth: Positive for: Dry Pharnyx: Positive for: Normal Neck: Positive for: Normal Range of Motion. Negative for: MIDLINE TENDERNESS, JVD, Trachea Midline Respiratory/Chest: Positive for: Clear to Auscultation, Good Air Exchange. Negative for: Wheezes Cardiovascular: Positive for: Regular Rate and Rhythm, Normal S1, S2 Abdomen: Positive for: Normal Bowel Sounds. Negative for: Tenderness, Guarding , McBurney's Point Tender Upper Extremity: Positive for: Normal Inspection, Normal ROM. Negative for: Cyanosis Lower Extremity: Positive for: Normal Inspection. Negative for: Edema, CALF TENDERNESS Neurological: Positive for: Other (cannot appropriately assess, due to intubation) Skin: Positive for: Warm, Dry, Rashes, Normal Color - Medications Active Medications: Active Medications Generic Name Dose Route Start Last Admin Trade Name Freq PRN Reason Stop Dose Admin Albuterol/Ipratropium 3 ml 09/05/16 21:45 09/05/16 21:59 Duoneb 3 Mg/0.5 Mg (3 Ml) Ud INH 3 ml RQ6 PRN Administration Wheezing Folic Acid 1 mg 09/05/16 11:00 09/06/16 08:08 Folic Acid PO 1 mg DAILY [facility] Administration Hydromorphone HCl 0.5 mg 09/06/16 11:19 09/06/16 11:27 Dilaudid IVP 09/08/16 11:19 0.5 mg Q6 PRN Administration Pain, severe (8-10) Ceftriaxone Sodium 2 gm/ 100 mls @ 100 mls/hr 09/03/16 12:00 09/06/16 08:08 Sodium Chloride IVPB 100 mls/hr DAILY [facility] Administration Lorazepam 1 mg 09/04/16 11:39 09/06/16 07:34 Ativan IVP 1 mg Q6 PRN Administration Agitation Ondansetron HCl 4 mg 08/29/16 03:11 09/05/16 21:04 Zofran Inj IVP 4 mg Q4 PRN Administration Nausea/Vomiting Pantoprazole Sodium 20 mg 09/03/16 21:00 09/06/16 08:08 Protonix Inj IVP 20 mg Q12H [facility] Administration Thiamine HCl 100 mg 09/05/16 11:00 09/06/16 08:08 Vitamin B1 Tab PO 100 mg DAILY [facility] Administration - Patient Studies Lab Studies: Lab Studies 09/06/16 Range/Units 06:00 WBC 7.0 (4.8-10.8) K/uL RBC 4.11 L (4.40-5.90) Mil/uL Hgb 12.2 (12.0-18.0) g/dL Hct 36.6 (35.0-51.0) % MCV 89.0 (80.0-94.0) fl MCH 29.6 (27.0-31.0) pg MCHC 33.3 (33.0-37.0) g/dL RDW 15.3 H (11.5-14.5) % Plt Count 84 L (130-400) K/uL Sodium 139 (132-148) mmol/l Potassium 3.7 (3.6-5.0) MMOL/L Chloride 110 H (98-107) mmol/L Carbon Dioxide 21 L (22-30) mmol/L Anion Gap 12 (10-20) BUN 9 (9-20) mg/dl Creatinine 0.7 L (0.8-1.5) mg/dL Est GFR ( Amer) > 60 Est GFR (Non-Af Amer) > 60 Random Glucose 86 (75-110) mg/dL Calcium 8.0 L (8.4-10.2) mg/dL Laboratory Results - last 24 hr 09/06/16 06:00 WBC 7.0 RBC 4.11 L Hgb 12.2 Hct 36.6 MCV 89.0 MCH 29.6 MCHC 33.3 RDW 15.3 H Plt Count 84 L Sodium 139 Potassium 3.7 Chloride 110 H Carbon Dioxide 21 L Anion Gap 12 BUN 9 Creatinine 0.7 L Est GFR ( Amer) > 60 Est GFR (Non-Af Amer) > 60 Random Glucose 86 Calcium 8.0 L Critical Care Progress Note - Nutrition Nutrition: Nutrition Category Date Time Status Heart Healthy Diet [DIET] Diets 09/05/16 Breakfast Active Assessment/Plan - Assessment and Plan (Free Text) Assessment: 1) recent h/o Hemoptysis and melena, likely secondary to bleeding varices, no active bleeding at the moment, H&H stable -Pantoprazole 40mg IVPB Q5H -Octreotide 1250mcg IVPB @ 50mcg/hr -GI onboard, 2) Anemia -Improving slowly -f/u Hgb, Vitals, and GI recommendations 3) Liver Cirrhosis with Esophageal varices -Octreotide 1250mcg IVPB @ 50mcg/hr -Rocephin 2g IVPB Daily for SBP ppx Abdomen is distended, will do CT abdomen without contrast, might need paracentesis. 4) etoh withdrawal -Ativan 1mg PO Q6H PRN 5) DVT prophylaxis -SCDs; cannot tolerate medication due to active bleed
--- NOTE | 2016-09-06 13:57 | CT ---
PROCEDURE: CT Abdomen and Pelvis dated 09/06/2016 HISTORY: r/o obstruction COMPARISON: Comparison made with prior CT scan abdomen pelvis 08/31/2016. TECHNIQUE: Contiguous axial images of the abdomen and pelvis performed without oral or intravenous contrast material. Coronal and Sagittal reformats generated. Radiation dose: Total exam DLP = 951.64 mGy-cm. FINDINGS: LOWER THORAX: Small bilateral effusions and mild bibasilar atelectasis right greater than left. Heart is enlarged. No significant pericardial effusion. LIVER: Liver is diminutive in size with nodular surface and heterogeneous parenchyma consistent with hepatic cirrhosis. There are vague areas of low attenuation seen in the superior margins of the right and left lobes of the liver - nonspecific. . There is a large amount of abdominal and pelvic ascites. GALLBLADDER AND BILE DUCTS: Gallbladder is physiologically distended. 2 calculi seen in the gallbladder neck region unchanged. PANCREAS: Visualized portions of the pancreas appears somewhat atrophic and fatty replaced. SPLEEN: The spleen is mildly enlarged measuring nearly 15 cm in AP dimension. No splenic mass or collection. ADRENALS: Left adrenal and exhibits slight nodular appearance. KIDNEYS AND URETERS: The kidneys exhibit relatively symmetric size. No evidence of nephrolithiasis or hydronephrosis. BLADDER: Urinary bladder appears incompletely distended which may account for slight thick-walled appearance. Muscular hypertrophy may contribute. REPRODUCTIVE: Prostatic calcifications also unchanged. APPENDIX: Evaluation of the bowel is limited due to abdominal ascites and the lack of oral contrast material. The appendix is not seen with complete certainty on this study. BOWEL: Evaluation of the bowel is limited due to the lack of oral contrast material and the presence of a large amount of abdominal and pelvic ascites. . No evidence of acute mechanical small bowel obstruction however several on loops of small bowel are slightly prominent in caliber is consistent with ileus. Most of the small bowel loops are centralized location due to ascites. Moderately large amount of stool seen throughout the cecum and proximal ascending colon suggesting mild fecal retention. There is also mild wall thickening of the the distal at ascending as well as transverse and to a lesser degree proximal descending colon which could be due to abdominal ascites and hypoalbuminemia however possibility of a mild colitis cannot be excluded. PERITONEUM: No gross free intraperitoneal air. Large amount of abdominal and pelvic ascites. LYMPH NODES: Evaluation for adenopathy is limited due to the lack of oral contrast material and the presence of ascites. No significant/ bulky adenopathy. VASCULATURE: Unremarkable. No aortic aneurysm. BONES: Multilevel degenerative spondylosis of the lower thoracic and lumbar spine. Minor chronic anterior wedge deformities of a few thoracic segments likely degenerative in origin. OTHER FINDINGS: None. IMPRESSION: Findings consistent with hepatic cirrhosis with a large amount of abdominal and pelvic ascites. Heterogeneous hepatic parenchyma as above nonspecific. . . Mild splenomegaly. Cholelithiasis. Wall thickening of the ascending transverse and to a lesser degree proximal descending colon could be due to ascites and hypoalbuminemia however colitis not excluded. Small bilateral effusions and bibasilar atelectasis right greater than left
[2016-09-06] MEDS ORDERED: Dextrose 5%/0.45% NS 1,000 ML IV SCH (18:45)
--- NOTE | 2016-09-06 20:44 | CP.PCM.PN ---
Subjective - Date & Time of Evaluation Date of Evaluation: 09/06/16 Time of Evaluation: 20:44 - Subjective Subjective: Patient general condition improving Objective - Vital Signs/Intake and Output Vital Signs (last 24 hours): Temp Pulse Resp BP Pulse Ox 98.1 F 64 19 105/66 98 09/06/16 16:00 09/06/16 18:00 09/06/16 18:00 09/06/16 18:00 09/06/16 18:00 Intake and Output: 09/06/16 09/06/16 11:59 23:59 Intake Total 390 Output Total 100 300 Balance 290 -300 - Medications Medications: Current Medications Albuterol/Ipratropium (Duoneb 3 Mg/0.5 Mg (3 Ml) Ud) 3 ml INH RQ6 PRN PRN Reason: Wheezing Last Admin: 09/05/16 21:59 Dose: 3 ml Folic Acid (Folic Acid) 1 mg PO DAILY [facility] Last Admin: 09/06/16 08:08 Dose: 1 mg Hydromorphone HCl (Dilaudid) 0.5 mg IVP Q6 PRN PRN Reason: Pain, severe (8-10) Stop: 09/08/16 11:19 Last Admin: 09/06/16 11:27 Dose: 0.5 mg Ceftriaxone Sodium 2 gm/ (Sodium Chloride) 100 mls @ 100 mls/hr IVPB DAILY [facility] Last Admin: 09/06/16 08:08 Dose: 100 mls/hr Dextrose/Sodium Chloride (Dextrose 5%/0.45% Ns 1000 Ml) 1,000 mls @ 50 mls/hr IV .Q20H [facility] Stop: 09/07/16 18:46 Lorazepam (Ativan) 1 mg IVP Q6 PRN PRN Reason: Agitation Last Admin: 09/06/16 07:34 Dose: 1 mg Ondansetron HCl (Zofran Inj) 4 mg IVP Q4 PRN PRN Reason: Nausea/Vomiting Last Admin: 09/05/16 21:04 Dose: 4 mg Pantoprazole Sodium (Protonix Inj) 20 mg IVP Q12H [facility] Last Admin: 09/06/16 08:08 Dose: 20 mg Thiamine HCl (Vitamin B1 Tab) 100 mg PO DAILY [facility] Last Admin: 09/06/16 08:08 Dose: 100 mg - Labs Labs: 09/06/16 06:00 03/11/17 06:00 PT 12.9 SECONDS (9.6-11.2) H 09/03/16 04:40 INR 1.24 (0.92-1.08) H 09/03/16 04:40 APTT 27.2 SECONDS (23.3-32.5) 09/03/16 04:40 - Constitutional Appears: Cachectic, Chronically Ill - Head Exam Head Exam: ATRAUMATIC, NORMAL INSPECTION, NORMOCEPHALIC - Eye Exam Eye Exam: EOMI, Normal appearance - ENT Exam ENT Exam: Mucous Membranes Moist - Neck Exam Neck Exam: Full ROM - Respiratory Exam Respiratory Exam: Clear to Ausculation Bilateral - Cardiovascular Exam Cardiovascular Exam: REGULAR RHYTHM, +S1, +S2 - GI/Abdominal Exam Additional comments: + ascites - Neurological Exam Neurological Exam: Alert, Awake, CN II-XII Intact, Oriented x3 Assessment and Plan (1) Acute blood loss anemia Status: Acute (2) Ascites of liver Status: Chronic (3) Chronic abdominal pain Status: Chronic (4) Cocaine abuse Status: Acute (5) Gastrointestinal hemorrhage Status: Acute (6) Upper GI bleed Status: Acute (7) Alcohol abuse Status: Chronic (8) Ascites Status: Chronic (9) Ascites due to alcoholic cirrhosis Status: Chronic (10) Cachexia Status: Chronic (11) Coagulopathy Status: Chronic (12) Debility Status: Chronic (13) Esophageal varices determined by endoscopy Status: Chronic (14) Esophageal varices in cirrhosis Status: Chronic (15) Liver cirrhosis Status: Chronic
[2016-09-07] MEDS: HYDROmorphone 0.5 mg/0.5 ml ISec IVP PRN ×3 (00:27→19:17)
--- NOTE | 2016-09-07 03:11 | CP.PCM.PN ---
Subjective - Date & Time of Evaluation Date of Evaluation: 09/06/16 Time of Evaluation: 19:00 - Subjective Subjective: More oriented Objective - Vital Signs/Intake and Output Vital Signs (last 24 hours): Temp Pulse Resp BP Pulse Ox 98.4 F 71 16 126/85 98 09/07/16 00:00 09/07/16 00:00 09/07/16 00:00 09/07/16 00:00 09/07/16 00:00 Intake and Output: 09/06/16 09/07/16 18:59 07:59 Intake Total 280 300 Output Total 300 Balance -20 300 - Medications Medications: Current Medications Albuterol/Ipratropium (Duoneb 3 Mg/0.5 Mg (3 Ml) Ud) 3 ml INH RQ6 PRN PRN Reason: Wheezing Last Admin: 09/05/16 21:59 Dose: 3 ml Folic Acid (Folic Acid) 1 mg PO DAILY [facility] Last Admin: 09/06/16 08:08 Dose: 1 mg Hydromorphone HCl (Dilaudid) 0.5 mg IVP Q6 PRN PRN Reason: Pain, severe (8-10) Stop: 09/08/16 11:19 Last Admin: 09/07/16 00:27 Dose: 0.5 mg Ceftriaxone Sodium 2 gm/ (Sodium Chloride) 100 mls @ 100 mls/hr IVPB DAILY [facility] Last Admin: 09/06/16 08:08 Dose: 100 mls/hr Dextrose/Sodium Chloride (Dextrose 5%/0.45% Ns 1000 Ml) 1,000 mls @ 50 mls/hr IV .Q20H [facility] Stop: 09/07/16 18:46 Lorazepam (Ativan) 1 mg IVP Q6 PRN PRN Reason: Agitation Last Admin: 09/06/16 07:34 Dose: 1 mg Ondansetron HCl (Zofran Inj) 4 mg IVP Q4 PRN PRN Reason: Nausea/Vomiting Last Admin: 09/07/16 00:20 Dose: 4 mg Pantoprazole Sodium (Protonix Inj) 20 mg IVP Q12H [facility] Last Admin: 09/06/16 21:00 Dose: 20 mg Thiamine HCl (Vitamin B1 Tab) 100 mg PO DAILY [facility] Last Admin: 09/06/16 08:08 Dose: 100 mg - Labs Labs: 09/06/16 06:00 09/06/16 06:00 PT 12.9 SECONDS (9.6-11.2) H 09/03/16 04:40 INR 1.24 (0.92-1.08) H 09/03/16 04:40 APTT 27.2 SECONDS (23.3-32.5) 09/03/16 04:40 - Head Exam Head Exam: ATRAUMATIC - Eye Exam Eye Exam: Scleral icterus - ENT Exam ENT Exam: Mucous Membranes Dry - Respiratory Exam Respiratory Exam: NORMAL BREATHING PATTERN - Cardiovascular Exam Cardiovascular Exam: +S1, +S2 - GI/Abdominal Exam GI & Abdominal Exam: Normal Bowel Sounds - Extremities Exam Extremities Exam: Normal Inspection Assessment and Plan (1) Anemia Assessment & Plan: H/H improved with banding Status: Acute (2) Coagulopathy Assessment & Plan: liver disease Status: Chronic (3) Thrombocytopenia Assessment & Plan: improved liver disease Status: Acute
[2016-09-07 06:33] LABS: BASO % 0.8 % (0.0-2.0); EOS # 0.9 K/uL (0.0-0.7); EOS % 14.6 % (0.0-4.0); HEMATOCRIT 30.4 % (35.0-51.0); LYMPH # 0.8 K/uL (1.0-4.3); LYMPH % 12.8 % (20.0-40.0); MEAN CELL VOLUME 88.1 fl (80.0-94.0); MEAN CORPUSCULAR HEMOGLOBIN 29.3 pg (27.0-31.0); MEAN CORPUSCULAR HGB CONC 33.2 g/dL (33.0-37.0); MEAN PLATELET VOLUME 9.6 fl (7.2-11.7); MONO # 0.5 K/uL (0.0-0.8); MONO % 8.2 % (0.0-10.0); NEUT # 3.9 K/uL (1.8-7.0); NEUT % 63.6 % (50.0-75.0); RED CELL DISTRIBUTION WIDTH 15.7 % (11.5-14.5); WHITE BLOOD COUNT 6.1 K/uL (4.8-10.8)
[2016-09-07 06:41] LABS: ALB/GLOB RATIO 0.7 (1.0-2.1); ALKALINE PHOSPHATASE 71 U/L (38-126); ALT/SGPT 45 U/L (21-72); AST/SGOT 46 U/L (17-59); BILIRUBIN,TOTAL 0.9 mg/dl (0.2-1.3); BLOOD UREA NITROGEN 10 mg/dl (9-20); CALCIUM 7.6 mg/dL (8.4-10.2); CARBON DIOXIDE 24 mmol/L (22-30); CHLORIDE 111 mmol/L (98-107); GFR AFRICAN-AMERICAN > 60; GLUCOSE,RANDOM 99 mg/dL (75-110); POTASSIUM 3.6 MMOL/L (3.6-5.0); SODIUM 137 mmol/l (132-148)
[2016-09-07] MEDS: cefTRIAXone 2 GM in Sodium Chloride 0.9% 100 ML IVPB SCH (08:36)
--- NOTE | 2016-09-07 09:34 | CP.CCUPN ---
CCU Subjective - Physician Review Events Since Last Encounter (Free Text): 09/07/16 09:31 alert and oriented, no c;o abdominal pain, but abdomen is still distended and firm, due to ascites and ileus. electrolytes are stable, has been NPO due to ileus with slow IVF with D5w to avoid hypoglycemia. CCU Objective - Vital Signs / Intake & Output Vital Signs (Last 4 hours): Vital Signs Temp Pulse Resp BP Pulse Ox 09/07/16 08:00 98.7 F 62 19 122/60 99 09/07/16 06:37 63 23 115/71 98 P/E: No jvd Lungs: decreased breath sounds in bases Abdomen: distended and firm, feeble BS Ext; No edema Heart: velma gallop Intake and Output (Last 8hrs): Intake & Output 09/06/16 09/07/16 09/07/16 21:59 06:59 14:59 Intake Total Output Total Balance Intake: IV Oral Output: Urine Urine, Voided Other: # Bowel Movements - Physical Exam Head: Positive for: Atraumatic, Normocephalic. Negative for: Tenderness Pupils: Positive for: PERRL Extroacular Muscles: Positive for: EOMI Mouth: Positive for: Dry Pharnyx: Positive for: Normal Neck: Positive for: Normal Range of Motion. Negative for: MIDLINE TENDERNESS, JVD, Trachea Midline Respiratory/Chest: Positive for: Clear to Auscultation, Good Air Exchange. Negative for: Wheezes Cardiovascular: Positive for: Regular Rate and Rhythm, Normal S1, S2 Abdomen: Positive for: Normal Bowel Sounds. Negative for: Tenderness, Guarding , McBurney's Point Tender Upper Extremity: Positive for: Normal Inspection, Normal ROM. Negative for: Cyanosis Lower Extremity: Positive for: Normal Inspection. Negative for: Edema, CALF TENDERNESS Neurological: Positive for: Other (cannot appropriately assess, due to intubation) Skin: Positive for: Warm, Dry, Rashes, Normal Color - Medications Active Medications: Active Medications Generic Name Dose Route Start Last Admin Trade Name Freq PRN Reason Stop Dose Admin Albuterol/Ipratropium 3 ml 09/05/16 21:45 09/05/16 21:59 Duoneb 3 Mg/0.5 Mg (3 Ml) Ud INH 3 ml RQ6 PRN Administration Wheezing Folic Acid 1 mg 09/05/16 11:00 09/07/16 08:55 Folic Acid PO Not Given DAILY [facility] Hydromorphone HCl 0.5 mg 09/06/16 11:19 09/07/16 00:27 Dilaudid IVP 09/08/16 11:19 0.5 mg Q6 PRN Administration Pain, severe (8-10) Ceftriaxone Sodium 2 gm/ 100 mls @ 100 mls/hr 09/03/16 12:00 09/07/16 08:36 Sodium Chloride IVPB 100 mls/hr DAILY [facility] Administration Dextrose/Sodium Chloride 1,000 mls @ 50 mls/hr 09/06/16 18:45 Dextrose 5%/0.45% Ns 1000 Ml IV 09/07/16 18:46 .Q20H [facility] Lorazepam 1 mg 09/04/16 11:39 09/06/16 07:34 Ativan IVP 1 mg Q6 PRN Administration Agitation Ondansetron HCl 4 mg 08/29/16 03:11 09/07/16 00:20 Zofran Inj IVP 4 mg Q4 PRN Administration Nausea/Vomiting Pantoprazole Sodium 20 mg 09/03/16 21:00 09/07/16 08:35 Protonix Inj IVP 20 mg Q12H [facility] Administration Thiamine HCl 100 mg 09/05/16 11:00 09/07/16 08:54 Vitamin B1 Tab PO Not Given DAILY [facility] - Patient Studies Lab Studies: Lab Studies 09/07/16 Range/Units 05:20 WBC 6.1 (4.8-10.8) K/uL RBC 3.45 L (4.40-5.90) Mil/uL Hgb 10.1 L D (12.0-18.0) g/dL Hct 30.4 L (35.0-51.0) % MCV 88.1 (80.0-94.0) fl MCH 29.3 (27.0-31.0) pg MCHC 33.2 (33.0-37.0) g/dL RDW 15.7 H (11.5-14.5) % Plt Count 73 L (130-400) K/uL MPV 9.6 (7.2-11.7) fl Neut % (Auto) 63.6 (50.0-75.0) % Lymph % (Auto) 12.8 L (20.0-40.0) % [place] % (Auto) 8.2 (0.0-10.0) % Eos % (Auto) 14.6 H (0.0-4.0) % Baso % (Auto) 0.8 (0.0-2.0) % Neut # 3.9 (1.8-7.0) K/uL Lymph # 0.8 L (1.0-4.3) K/uL [place] # 0.5 (0.0-0.8) K/uL Eos # 0.9 H (0.0-0.7) K/uL Baso # 0.0 (0.0-0.2) K/uL Sodium 137 (132-148) mmol/l Potassium 3.6 (3.6-5.0) MMOL/L Chloride 111 H (98-107) mmol/L Carbon Dioxide 24 (22-30) mmol/L Anion Gap 6 L (10-20) BUN 10 (9-20) mg/dl Creatinine 0.8 (0.8-1.5) mg/dL Est GFR ( Amer) > 60 Est GFR (Non-Af Amer) > 60 Random Glucose 99 (75-110) mg/dL Calcium 7.6 L (8.4-10.2) mg/dL Total Bilirubin 0.9 (0.2-1.3) mg/dl AST 46 (17-59) U/L ALT 45 (21-72) U/L Alkaline Phosphatase 71 (38-126) U/L Total Protein 5.0 L (6.3-8.2) G/DL Albumin 2.1 L (3.5-5.0) g/dL Globulin 2.9 (2.2-3.9) gm/dL Albumin/Globulin Ratio 0.7 L (1.0-2.1) Laboratory Results - last 24 hr 09/07/16 05:20 WBC 6.1 RBC 3.45 L Hgb 10.1 L D Hct 30.4 L MCV 88.1 MCH 29.3 MCHC 33.2 RDW 15.7 H Plt Count 73 L MPV 9.6 Neut % (Auto) 63.6 Lymph % (Auto) 12.8 L [place] % (Auto) 8.2 Eos % (Auto) 14.6 H Baso % (Auto) 0.8 Neut # 3.9 Lymph # 0.8 L [place] # 0.5 Eos # 0.9 H Baso # 0.0 Sodium 137 Potassium 3.6 Chloride 111 H Carbon Dioxide 24 Anion Gap 6 L BUN 10 Creatinine 0.8 Est GFR ( Amer) > 60 Est GFR (Non-Af Amer) > 60 Random Glucose 99 Calcium 7.6 L Total Bilirubin 0.9 AST 46 ALT 45 Alkaline Phosphatase 71 Total Protein 5.0 L Albumin 2.1 L Globulin 2.9 Albumin/Globulin Ratio 0.7 L Critical Care Progress Note - Nutrition Nutrition: Nutrition Category Date Time Status NPO Diet [DIET] Diets 09/06/16 Dinner Active Assessment/Plan - Assessment and Plan (Free Text) Assessment: 1) recent h/o Hemoptysis and melena, likely secondary to bleeding varices, no active bleeding at the moment, H&H stable -Pantoprazole 40mg IVPB Q5H -Octreotide 1250mcg IVPB @ 50mcg/hr -GI onboard, 2) Anemia -Improving slowly -f/u Hgb, Vitals, and GI recommendations 3) Liver Cirrhosis with Esophageal varices -Octreotide 1250mcg IVPB @ 50mcg/hr -Rocephin 2g IVPB Daily for SBP ppx Abdomen is distended, will do CT abdomen without contrast, might need paracentesis. 4) etoh withdrawal -Ativan 1mg PO Q6H PRN 5) DVT prophylaxis -SCDs; cannot tolerate medication due to active bleed 6: Distended abdoman: ascite and ileus, Will need therapeutic paracentesis, probably tomorrow or day after, pt has probably abdominal HTN velma signs of Abdominal compartment syndrome. NPO GI f/u D51/2 NS at 50 cc/h
--- NOTE | 2016-09-07 15:28 | CP.PCM.PN ---
Subjective - Date & Time of Evaluation Date of Evaluation: 09/07/16 Time of Evaluation: 15:31 - Subjective Subjective: Distend abdomen secondary to ascites, H/H to 10 from 12. Objective - Vital Signs/Intake and Output Vital Signs (last 24 hours): Temp Pulse Resp BP Pulse Ox 98.8 F 65 16 111/76 100 09/07/16 12:00 09/07/16 14:00 09/07/16 14:00 09/07/16 14:00 09/07/16 14:00 Intake and Output: 09/07/16 09/07/16 11:59 23:59 Intake Total 200 Balance 200 - Medications Medications: Current Medications Albuterol/Ipratropium (Duoneb 3 Mg/0.5 Mg (3 Ml) Ud) 3 ml INH RQ6 PRN PRN Reason: Wheezing Last Admin: 09/05/16 21:59 Dose: 3 ml Folic Acid (Folic Acid) 1 mg PO DAILY [facility] Last Admin: 09/07/16 08:55 Dose: Not Given Hydromorphone HCl (Dilaudid) 0.5 mg IVP Q6 PRN PRN Reason: Pain, severe (8-10) Stop: 09/08/16 11:19 Last Admin: 09/07/16 12:28 Dose: 0.5 mg Ceftriaxone Sodium 2 gm/ (Sodium Chloride) 100 mls @ 100 mls/hr IVPB DAILY [facility] Last Admin: 09/07/16 08:36 Dose: 100 mls/hr Dextrose/Sodium Chloride (Dextrose 5%/0.45% Ns 1000 Ml) 1,000 mls @ 50 mls/hr IV .Q20H [facility] Stop: 09/07/16 18:46 Lorazepam (Ativan) 1 mg IVP Q6 PRN PRN Reason: Agitation Last Admin: 09/06/16 07:34 Dose: 1 mg Ondansetron HCl (Zofran Inj) 4 mg IVP Q4 PRN PRN Reason: Nausea/Vomiting Last Admin: 09/07/16 00:20 Dose: 4 mg Pantoprazole Sodium (Protonix Inj) 20 mg IVP Q12H [facility] Last Admin: 09/07/16 08:35 Dose: 20 mg Thiamine HCl (Vitamin B1 Tab) 100 mg PO DAILY [facility] Last Admin: 09/07/16 08:54 Dose: Not Given - Labs Labs: 09/07/16 05:20 09/07/16 05:20 PT 12.9 SECONDS (9.6-11.2) H 09/03/16 04:40 INR 1.24 (0.92-1.08) H 09/03/16 04:40 APTT 27.2 SECONDS (23.3-32.5) 09/03/16 04:40 - Constitutional Appears: Cachectic, Chronically Ill - Head Exam Head Exam: ATRAUMATIC, NORMAL INSPECTION, NORMOCEPHALIC - Eye Exam Eye Exam: Normal appearance - Neck Exam Neck Exam: Full ROM - Respiratory Exam Respiratory Exam: Clear to Ausculation Bilateral - Cardiovascular Exam Cardiovascular Exam: REGULAR RHYTHM, +S1, +S2 - GI/Abdominal Exam GI & Abdominal Exam: Distended - Neurological Exam Neurological Exam: Alert, Awake, CN II-XII Intact, Oriented x3 Assessment and Plan (1) Acute blood loss anemia Status: Acute (2) Ascites of liver Status: Chronic (3) Chronic abdominal pain Status: Chronic (4) Cocaine abuse Status: Acute (5) Gastrointestinal hemorrhage Status: Acute (6) Upper GI bleed Status: Acute (7) Alcohol abuse Status: Chronic (8) Ascites Status: Chronic (9) Ascites due to alcoholic cirrhosis Status: Chronic (10) Cachexia Status: Chronic (11) Coagulopathy Status: Chronic (12) Debility Status: Chronic (13) Esophageal varices determined by endoscopy Status: Chronic (14) Esophageal varices in cirrhosis Status: Chronic (15) Liver cirrhosis Status: Chronic - Assessment and Plan (Free Text) Plan: Continue present rx Follow H/H for paracenthisis
--- NOTE | 2016-09-07 20:49 | CP.PCM.PN ---
Subjective - Date & Time of Evaluation Date of Evaluation: 09/07/16 Time of Evaluation: 14:05 - Subjective Subjective: Patient with marked abdominal distention. No evidence of active bleeding. Objective - Vital Signs/Intake and Output Vital Signs (last 24 hours): Temp Pulse Resp BP Pulse Ox 98.3 F 63 14 99/59 L 96 09/07/16 20:35 09/07/16 20:35 09/07/16 20:35 09/07/16 20:35 09/07/16 20:35 Intake and Output: 09/07/16 09/08/16 18:59 06:59 Intake Total 700 100 Output Total 220 Balance 480 100 - Medications Medications: Current Medications Albuterol/Ipratropium (Duoneb 3 Mg/0.5 Mg (3 Ml) Ud) 3 ml INH RQ6 PRN PRN Reason: Wheezing Last Admin: 09/05/16 21:59 Dose: 3 ml Folic Acid (Folic Acid) 1 mg PO DAILY [facility] Last Admin: 09/07/16 08:55 Dose: Not Given Hydromorphone HCl (Dilaudid) 0.5 mg IVP Q6 PRN PRN Reason: Pain, severe (8-10) Stop: 09/08/16 11:19 Last Admin: 09/07/16 19:17 Dose: 0.5 mg Ceftriaxone Sodium 2 gm/ (Sodium Chloride) 100 mls @ 100 mls/hr IVPB DAILY [facility] Last Admin: 09/07/16 08:36 Dose: 100 mls/hr Lorazepam (Ativan) 1 mg IVP Q6 PRN PRN Reason: Agitation Last Admin: 09/06/16 07:34 Dose: 1 mg Ondansetron HCl (Zofran Inj) 4 mg IVP Q4 PRN PRN Reason: Nausea/Vomiting Last Admin: 09/07/16 00:20 Dose: 4 mg Pantoprazole Sodium (Protonix Inj) 20 mg IVP Q12H [facility] Last Admin: 09/07/16 08:35 Dose: 20 mg Thiamine HCl (Vitamin B1 Tab) 100 mg PO DAILY [facility] Last Admin: 09/07/16 08:54 Dose: Not Given - Labs Labs: 09/07/16 05:20 09/07/16 05:20 PT 12.9 SECONDS (9.6-11.2) H 09/03/16 04:40 INR 1.24 (0.92-1.08) H 09/03/16 04:40 APTT 27.2 SECONDS (23.3-32.5) 09/03/16 04:40 - Head Exam Head Exam: ATRAUMATIC - Eye Exam Eye Exam: EOMI - Respiratory Exam Respiratory Exam: Clear to Ausculation Bilateral - Cardiovascular Exam Cardiovascular Exam: REGULAR RHYTHM - GI/Abdominal Exam GI & Abdominal Exam: Distended, Firm, Normal Bowel Sounds Assessment and Plan (1) Acute blood loss anemia Assessment & Plan: No further overt bleeding Status: Acute (2) Ascites due to alcoholic cirrhosis Assessment & Plan: For therapeautic parascentesis by IR. Will give IV albumin when parascentesis is done. Status: Chronic
--- NOTE | 2016-09-08 00:46 | CP.PCM.PN ---
Subjective - Date & Time of Evaluation Date of Evaluation: 09/07/16 Time of Evaluation: 17:00 - Subjective Subjective: Abdominal distention Objective - Vital Signs/Intake and Output Vital Signs (last 24 hours): Temp Pulse Resp BP Pulse Ox 98.3 F 62 16 101/62 99 09/07/16 20:35 09/07/16 23:00 09/07/16 23:00 09/07/16 23:00 09/07/16 23:00 Intake and Output: 09/07/16 09/08/16 18:59 06:59 Intake Total 700 200 Output Total 220 Balance 480 200 - Medications Medications: Current Medications Albuterol/Ipratropium (Duoneb 3 Mg/0.5 Mg (3 Ml) Ud) 3 ml INH RQ6 PRN PRN Reason: Wheezing Last Admin: 09/05/16 21:59 Dose: 3 ml Folic Acid (Folic Acid) 1 mg PO DAILY [facility] Last Admin: 09/07/16 08:55 Dose: Not Given Hydromorphone HCl (Dilaudid) 0.5 mg IVP Q6 PRN PRN Reason: Pain, severe (8-10) Stop: 09/08/16 11:19 Last Admin: 09/07/16 19:17 Dose: 0.5 mg Ceftriaxone Sodium 2 gm/ (Sodium Chloride) 100 mls @ 100 mls/hr IVPB DAILY [facility] Last Admin: 09/07/16 08:36 Dose: 100 mls/hr Lorazepam (Ativan) 1 mg IVP Q6 PRN PRN Reason: Agitation Last Admin: 09/06/16 07:34 Dose: 1 mg Ondansetron HCl (Zofran Inj) 4 mg IVP Q4 PRN PRN Reason: Nausea/Vomiting Last Admin: 09/07/16 00:20 Dose: 4 mg Pantoprazole Sodium (Protonix Inj) 20 mg IVP Q12H [facility] Last Admin: 09/07/16 21:00 Dose: 20 mg Thiamine HCl (Vitamin B1 Tab) 100 mg PO DAILY [facility] Last Admin: 09/07/16 08:54 Dose: Not Given - Labs Labs: 09/07/16 05:20 09/07/16 05:20 PT 12.9 SECONDS (9.6-11.2) H 09/03/16 04:40 INR 1.24 (0.92-1.08) H 09/03/16 04:40 APTT 27.2 SECONDS (23.3-32.5) 09/03/16 04:40 - Head Exam Head Exam: ATRAUMATIC - Eye Exam Eye Exam: Scleral icterus - ENT Exam ENT Exam: Mucous Membranes Dry - Respiratory Exam Respiratory Exam: NORMAL BREATHING PATTERN - Cardiovascular Exam Cardiovascular Exam: +S1, +S2 - GI/Abdominal Exam GI & Abdominal Exam: Distended - Extremities Exam Extremities Exam: Pedal Edema Assessment and Plan (1) Anemia Assessment & Plan: GI blood loss s/p banding H/H declined today repeat CBC in AM Status: Acute (2) Coagulopathy Assessment & Plan: liver disease Status: Chronic (3) Thrombocytopenia Assessment & Plan: liver disease Status: Acute
[2016-09-08] MEDS: HYDROmorphone 0.5 mg/0.5 ml ISec IVP PRN ×3 (03:43→21:07)
[2016-09-08 07:36] LABS: HEMATOCRIT 32.2 % (35.0-51.0); MEAN CELL VOLUME 88.5 fl (80.0-94.0); MEAN CORPUSCULAR HEMOGLOBIN 29.3 pg (27.0-31.0); MEAN CORPUSCULAR HGB CONC 33.1 g/dL (33.0-37.0); WHITE BLOOD COUNT 6.1 K/uL (4.8-10.8)
[2016-09-08] MEDS: cefTRIAXone 2 GM in Sodium Chloride 0.9% 100 ML IVPB SCH (09:05)
--- NOTE | 2016-09-08 12:00 | CP.CCUPN ---
CCU Subjective - Physician Review Events Since Last Encounter (Free Text): 09/08/16 11:56 The Patient was seen and examined at the bedside, Medical records reviewed, all clinical/lab/hemodynamic/radiographic data were reviewed and management issues were discussed and formulated, Events reviewed Patient with Alcohol abuse, Liver Cirrhosis with Esophageal varices Admitted with Acute respiratory failure, intubated for airway protection and acute Upper GI bleed, S/p EJD with banding S/p Pantoprazole IVPB drip and Octreotide IVPB drip Doing better, No evidence of active bleeding, no hematemesis/ dark BM Pt alert and oriented, no c/o abdominal pain, but abdomen is still distended and firm, due to ascites and ileus. electrolytes are stable, Pt has been NPO due to ileus with slow IVF with D5w to avoid hypoglycemia. CCU Objective - Vital Signs / Intake & Output Vital Signs (Last 4 hours): Vital Signs Temp Pulse Resp BP Pulse Ox 09/08/16 11:00 66 17 121/77 99 09/08/16 10:00 64 12 153/75 H 100 09/08/16 08:00 98.8 F 63 21 124/84 97 Intake and Output (Last 8hrs): Intake & Output 09/07/16 09/08/16 09/08/16 22:59 06:59 14:59 Intake Total 450 400 250 Output Total 220 320 Balance 230 80 250 Intake: IV 450 400 150 Intake, Piggyback 100 Output: Urine 220 320 Urine, Voided 220 320 - Physical Exam Head: Positive for: Atraumatic, Normocephalic. Negative for: Tenderness Pupils: Positive for: PERRL Extroacular Muscles: Positive for: EOMI Mouth: Positive for: Dry Pharnyx: Positive for: Normal Neck: Positive for: Normal Range of Motion. Negative for: MIDLINE TENDERNESS, JVD, Trachea Midline Respiratory/Chest: Positive for: Clear to Auscultation, Good Air Exchange. Negative for: Wheezes Cardiovascular: Positive for: Regular Rate and Rhythm, Normal S1, S2 Abdomen: Positive for: Normal Bowel Sounds. Negative for: Tenderness, Guarding , McBurney's Point Tender Upper Extremity: Positive for: Normal Inspection, Normal ROM. Negative for: Cyanosis Lower Extremity: Positive for: Normal Inspection. Negative for: Edema, CALF TENDERNESS Neurological: Positive for: Other (cannot appropriately assess, due to intubation) Skin: Positive for: Warm, Dry, Rashes, Normal Color Psychiatric: Positive for: Alert, Oriented x 3 - Medications Active Medications: Active Medications Generic Name Dose Route Start Last Admin Trade Name Freq PRN Reason Stop Dose Admin Albuterol/Ipratropium 3 ml 09/05/16 21:45 09/05/16 21:59 Duoneb 3 Mg/0.5 Mg (3 Ml) Ud INH 3 ml RQ6 PRN Administration Wheezing Folic Acid 1 mg 09/05/16 11:00 09/08/16 09:06 Folic Acid PO Not Given DAILY [facility] Ceftriaxone Sodium 2 gm/ 100 mls @ 100 mls/hr 09/03/16 12:00 09/08/16 09:05 Sodium Chloride IVPB 100 mls/hr DAILY [facility] Administration Lorazepam 1 mg 09/04/16 11:39 09/06/16 07:34 Ativan IVP 1 mg Q6 PRN Administration Agitation Ondansetron HCl 4 mg 08/29/16 03:11 09/07/16 00:20 Zofran Inj IVP 4 mg Q4 PRN Administration Nausea/Vomiting Pantoprazole Sodium 20 mg 09/03/16 21:00 09/08/16 08:56 Protonix Inj IVP 20 mg Q12H [facility] Administration Thiamine HCl 100 mg 09/05/16 11:00 09/08/16 09:06 Vitamin B1 Tab PO Not Given DAILY [facility] - Patient Studies Lab Studies: Lab Studies 09/08/16 09/08/16 Range/Units 07:15 07:00 WBC 6.1 (4.8-10.8) K/uL RBC 3.64 L (4.40-5.90) Mil/uL Hgb 10.7 L (12.0-18.0) g/dL Hct 32.2 L (35.0-51.0) % MCV 88.5 (80.0-94.0) fl MCH 29.3 (27.0-31.0) pg MCHC 33.1 (33.0-37.0) g/dL RDW 16.0 H (11.5-14.5) % Plt Count 85 L (130-400) K/uL PT 13.0 H (9.6-11.2) SECONDS INR 1.25 H (0.92-1.08) Laboratory Results - last 24 hr 09/08/16 09/08/16 07:00 07:15 WBC 6.1 RBC 3.64 L Hgb 10.7 L Hct 32.2 L MCV 88.5 MCH 29.3 MCHC 33.1 RDW 16.0 H Plt Count 85 L PT 13.0 H INR 1.25 H Review of Systems - Cardiovascular Cardiovascular: absent: Chest Pain, Chest Pain at Rest, Chest Pain with Activity - Respiratory Respiratory: absent: Cough, Dyspnea, Hemoptysis - Gastrointestinal Gastrointestinal: absent: Abdominal Pain, Change in Bowel Habits, Coffee Ground Emesis, Hematemesis, Hematochezia Critical Care Progress Note - Extremities/Vascular Does the Patient have a Central Venous Catheter?: No Does the Patient need a Central Venous Catheter?: No Does the Patient have a Zhang Catheter?: No Does the Patient need a Zhang Catheter?: No - Nutrition Nutrition: Nutrition Category Date Time Status NPO Diet [DIET] Diets 09/06/16 Dinner Active Assessment/Plan (1) Gastrointestinal hemorrhage Current Visit: Yes Status: Acute Comment: - Pantoprazole 20mg IVPB Q 12H - Off Octreotide drip - GI onboard - S/p total of 10U Packed RBC and 3U FFP (2) Acute blood loss anemia Current Visit: No Status: Acute Comment: - Improving slowly - S/p total of 10U Packed RBC and 3U FFP (3) Esophageal varices Current Visit: Yes Status: Acute (4) Thrombocytopenia Current Visit: Yes Status: Acute (5) Liver cirrhosis, alcoholic Current Visit: Yes Status: Chronic (6) Abdominal pain Current Visit: No Status: Acute Comment: Abdomen is distended and firm due to ascites and ileus. (7) Alcohol abuse Current Visit: No Status: Chronic Comment: Folic Acid 1 mg DAILY [facility] Thiamine 100 mg DAILY [facility] (8) Ascites due to alcoholic cirrhosis Current Visit: No Status: Chronic Comment: Scheduled for therapeutic paracentesis
--- NOTE | 2016-09-08 13:25 | CP.PCM.PN ---
Subjective - Date & Time of Evaluation Date of Evaluation: 09/08/16 Time of Evaluation: 13:25 - Subjective Subjective: Patient at times agitated Objective - Vital Signs/Intake and Output Vital Signs (last 24 hours): Temp Pulse Resp BP Pulse Ox 99.3 F 70 21 125/87 99 09/08/16 12:00 09/08/16 12:00 09/08/16 12:00 09/08/16 12:00 09/08/16 12:00 Intake and Output: 09/08/16 09/08/16 11:59 23:59 Intake Total 650 100 Output Total 320 200 Balance 330 -100 - Medications Medications: Current Medications Albuterol/Ipratropium (Duoneb 3 Mg/0.5 Mg (3 Ml) Ud) 3 ml INH RQ6 PRN PRN Reason: Wheezing Last Admin: 09/05/16 21:59 Dose: 3 ml Folic Acid (Folic Acid) 1 mg PO DAILY [facility] Last Admin: 09/08/16 09:06 Dose: Not Given Hydromorphone HCl (Dilaudid) 0.5 mg IVP Q6 PRN PRN Reason: Pain, severe (8-10) Last Admin: 09/08/16 12:59 Dose: 0.5 mg Lorazepam (Ativan) 1 mg IVP Q6 PRN PRN Reason: Agitation Last Admin: 09/06/16 07:34 Dose: 1 mg Ondansetron HCl (Zofran Inj) 4 mg IVP Q4 PRN PRN Reason: Nausea/Vomiting Last Admin: 09/07/16 00:20 Dose: 4 mg Pantoprazole Sodium (Protonix Inj) 20 mg IVP Q12H [facility] Last Admin: 09/08/16 08:56 Dose: 20 mg Thiamine HCl (Vitamin B1 Tab) 100 mg PO DAILY [facility] Last Admin: 09/08/16 09:06 Dose: Not Given - Labs Labs: 09/08/16 07:15 09/07/16 05:20 PT 13.0 SECONDS (9.6-11.2) H 09/08/16 07:00 INR 1.25 (0.92-1.08) H 09/08/16 07:00 APTT 27.2 SECONDS (23.3-32.5) 09/03/16 04:40 - Constitutional Appears: Agitated, Cachectic, Chronically Ill - Head Exam Head Exam: ATRAUMATIC, NORMAL INSPECTION, NORMOCEPHALIC - ENT Exam ENT Exam: Mucous Membranes Moist - Respiratory Exam Respiratory Exam: Clear to Ausculation Bilateral - Cardiovascular Exam Cardiovascular Exam: REGULAR RHYTHM, +S1, +S2 - GI/Abdominal Exam GI & Abdominal Exam: Distended - Extremities Exam Extremities Exam: Normal Inspection - Neurological Exam Neurological Exam: Alert, Awake, Oriented x3 - Psychiatric Exam Psychiatric exam: Anxious Assessment and Plan (1) Acute blood loss anemia Status: Acute (2) Ascites of liver Status: Chronic (3) Chronic abdominal pain Status: Chronic (4) Cocaine abuse Status: Acute (5) Gastrointestinal hemorrhage Status: Acute (6) Upper GI bleed Status: Acute (7) Alcohol abuse Status: Chronic (8) Ascites Status: Chronic (9) Ascites due to alcoholic cirrhosis Status: Chronic (10) Cachexia Status: Chronic (11) Coagulopathy Status: Chronic (12) Debility Status: Chronic (13) Esophageal varices determined by endoscopy Status: Chronic (14) Esophageal varices in cirrhosis Status: Chronic (15) Liver cirrhosis Status: Chronic (16) Ileus Status: Acute - Assessment and Plan (Free Text) Plan: Continue present rx.
[2016-09-08] MEDS ORDERED: Lidocaine 1% Inj (20ml) ONE (13:33)
[2016-09-08] MEDS ORDERED: Albumin Human 25% (12.5 gm/50 ml) IV ONE (15:21)
--- NOTE | 2016-09-08 15:22 | PCM.SURG1 ---
Surgeon's Initial Post Op Note - Surgeon's Notes Surgeon: Roxy Diffusion Furnace Operator: None Type of Anesthesia: Local Pre-Operative Diagnosis: Ascites Operative Findings: Ascites Post-Operative Diagnosis: Ascites Operation Performed: Paracentesis Specimen/Specimens Removed: None Estimated Blood Loss: EBL {In ML}: 1 Date of Surgery/Procedure: 09/08/16 Time of Surgery/Procedure: 13:30
--- NOTE | 2016-09-08 15:40 | US ---
Ultrasound guided paracentesis. Clinical History: Ascites with abdominal pain and distension. Technique: The relative risks and indications for the procedure were explained to the patient and informed written consent obtained. Sonography of the abdomen was performed in a supine position. This revealed a small amount of non-loculated ascites, greatest in the right lower quadrant. A puncture site was selected and the area was prepped and draped in the usual sterile fashion. 1% lidocaine was used to anesthetize the skin and soft tissues. A 5 Tristanian paracentesis catheter was trocared into the right lower quadrant under real time ultrasound guidance. A permanent image was stored. Approximately 4500 cc of nehemias fluid aspirated. Impression: Ultrasound-guided paracentesis in the right lower quadrant. Approximately 4500 cc of nehemias colored fluid was aspirated.
[2016-09-09] MEDS: HYDROmorphone 0.5 mg/0.5 ml ISec IVP PRN ×2 (06:44→15:41)
--- NOTE | 2016-09-09 10:05 | CP.CCUPN ---
CCU Subjective - Physician Review Events Since Last Encounter (Free Text): 09/09/16 10:28 The Patient was seen and examined at the bedside, Medical records reviewed, all clinical/lab/hemodynamic/radiographic data were reviewed and management issues were discussed and formulated, Events reviewed Patient with Alcohol abuse, Liver Cirrhosis with Esophageal varices Admitted with Acute respiratory failure, intubated for airway protection and acute Upper GI bleed, S/p EJD with banding S/p Pantoprazole IVPB drip and Octreotide IVPB drip Patient received total 10U Packed RBC and 3U FFP Doing better, No evidence of active bleeding, no hematemesis/ dark BM Pt alert and oriented, still c/o abdominal pain, but less today Abdomen is still distended and firm, but less today, due to ascites and ileus. Remains NPO due to ileus with slow IVF with D5w to avoid hypoglycemia. Afebrile, electrolytes are stable S/p therapeutic paracentesis yesterday with 4.5L removed 09/09/16 12:24 ABD XR: 09/09/2016 BOWEL: Unremarkable bowel gas pattern. Two rounded calculi in right upper quadrant consistent with gallstones identified on CT examination of 09/06/2016. No other abnormal intra-abdominal calcifications. BONES: Normal. OTHER FINDINGS: None. IMPRESSION: Normal abdominal bowel gas pattern. CCU Objective - Vital Signs / Intake & Output Intake and Output (Last 8hrs): Intake & Output 09/08/16 09/09/16 09/09/16 22:59 06:59 14:59 Intake Total 350 400 Output Total 500 Balance 350 -100 Weight 158 lb Intake: IV 300 400 Albumin 50 Output: Urine 500 Urine, Voided 500 - Physical Exam Head: Positive for: Atraumatic, Normocephalic. Negative for: Tenderness Pupils: Positive for: PERRL Extroacular Muscles: Positive for: EOMI Conjunctiva: Positive for: Normal. Negative for: Injected, Icteric Mouth: Positive for: Dry Pharnyx: Positive for: Normal Neck: Positive for: Normal Range of Motion. Negative for: MIDLINE TENDERNESS, JVD, Trachea Midline Respiratory/Chest: Positive for: Clear to Auscultation, Good Air Exchange. Negative for: Wheezes Cardiovascular: Positive for: Regular Rate and Rhythm, Normal S1, S2 Abdomen: Positive for: Distention, Normal Bowel Sounds. Negative for: Tenderness, Guarding, McBurney's Point Tender Upper Extremity: Positive for: Normal Inspection, Normal ROM. Negative for: Cyanosis Lower Extremity: Positive for: Normal Inspection. Negative for: Edema, CALF TENDERNESS Neurological: Positive for: GCS=15, CN II-XII Intact, Speech Normal, Motor Func Grossly Intact, Normal Sensory Function, Other (cannot appropriately assess, due to intubation) Skin: Positive for: Warm, Dry, Rashes, Normal Color Psychiatric: Positive for: Alert, Oriented x 3 - Medications Active Medications: Active Medications Generic Name Dose Route Start Last Admin Trade Name Freq PRN Reason Stop Dose Admin Albuterol/Ipratropium 3 ml 09/05/16 21:45 09/05/16 21:59 Duoneb 3 Mg/0.5 Mg (3 Ml) Ud INH 3 ml RQ6 PRN Administration Wheezing Folic Acid 1 mg 09/05/16 11:00 09/08/16 09:06 Folic Acid PO Not Given DAILY [facility] Hydromorphone HCl 0.5 mg 09/08/16 12:55 09/09/16 06:44 Dilaudid IVP 0.5 mg Q6 PRN Administration Pain, severe (8-10) Ondansetron HCl 4 mg 08/29/16 03:11 09/07/16 00:20 Zofran Inj IVP 4 mg Q4 PRN Administration Nausea/Vomiting Pantoprazole Sodium 20 mg 09/03/16 21:00 09/08/16 21:12 Protonix Inj IVP 20 mg Q12H [facility] Administration Thiamine HCl 100 mg 09/05/16 11:00 09/08/16 09:06 Vitamin B1 Tab PO Not Given DAILY [facility] Review of Systems - Gastrointestinal Gastrointestinal: Abdominal Pain, Bloating, Heartburn. absent: Change in Bowel Habits, Change in Stool Character, Coffee Ground Emesis, Constipation, Diarrhea , Dyspepsia, Dysphagia, Vomiting Critical Care Progress Note - Nutrition Nutrition: Nutrition Category Date Time Status NPO Diet [DIET] Diets 09/06/16 Dinner Active Assessment/Plan (1) Ileus Current Visit: Yes Status: Acute Comment: 09/09: KUB: Normal abdominal bowel gas pattern Will start cleAR LIQUID (2) Gastrointestinal hemorrhage Current Visit: Yes Status: Acute Comment: - Pantoprazole 20mg IVPB Q 12H - Off Octreotide drip - GI onboard - S/p total of 10U Packed RBC and 3U FFP (3) Acute blood loss anemia Current Visit: No Status: Acute Comment: - Improving slowly - S/p total of 10U Packed RBC and 3U FFP (4) Esophageal varices Current Visit: Yes Status: Acute (5) Thrombocytopenia Current Visit: Yes Status: Acute (6) Abdominal pain Current Visit: No Status: Acute Comment: Abdomen is distended and firm due to ascites and ileus. (7) Alcohol abuse Current Visit: No Status: Chronic Comment: Folic Acid 1 mg DAILY [facility] Thiamine 100 mg DAILY [facility] (8) Ascites due to alcoholic cirrhosis Current Visit: No Status: Chronic Comment: S/p therapeutic paracentesis yesterday with 4.5L removed (9) Liver cirrhosis, alcoholic Current Visit: Yes Status: Chronic
[2016-09-09 10:11] LABS: HEMATOCRIT 32.4 % (35.0-51.0); MEAN CELL VOLUME 87.4 fl (80.0-94.0); MEAN CORPUSCULAR HEMOGLOBIN 29.2 pg (27.0-31.0); MEAN CORPUSCULAR HGB CONC 33.4 g/dL (33.0-37.0); WHITE BLOOD COUNT 5.7 K/uL (4.8-10.8)
[2016-09-09 10:25] LABS: BLOOD UREA NITROGEN 6 mg/dl (9-20); CALCIUM 7.7 mg/dL (8.4-10.2); CARBON DIOXIDE 24 mmol/L (22-30); CHLORIDE 107 mmol/L (98-107); GFR AFRICAN-AMERICAN > 60; GLUCOSE,RANDOM 91 mg/dL (75-110); POTASSIUM 4.3 MMOL/L (3.6-5.0); SODIUM 135 mmol/l (132-148)
--- NOTE | 2016-09-09 10:44 | RAD ---
HISTORY: Ileus COMPARISON: 09/06/2016 FINDINGS: BOWEL: Unremarkable bowel gas pattern. Two rounded calculi in right upper quadrant consistent with gallstones identified on CT examination of 09/06/2016. No other abnormal intra-abdominal calcifications. BONES: Normal. OTHER FINDINGS: None. IMPRESSION: Normal abdominal bowel gas pattern.
--- NOTE | 2016-09-09 11:59 | CP.PCM.PN ---
Subjective - Date & Time of Evaluation Date of Evaluation: 09/09/16 Time of Evaluation: 11:59 - Subjective Subjective: Patient not in distress Objective - Vital Signs/Intake and Output Vital Signs (last 24 hours): Temp Pulse Resp BP Pulse Ox 99 F 57 L 14 153/80 H 98 09/09/16 05:00 09/09/16 05:00 09/09/16 05:00 09/09/16 05:00 09/09/16 05:00 Intake and Output: 09/08/16 09/09/16 23:59 11:59 Intake Total 550 400 Output Total 300 500 Balance 250 -100 - Medications Medications: Current Medications Albuterol/Ipratropium (Duoneb 3 Mg/0.5 Mg (3 Ml) Ud) 3 ml INH RQ6 PRN PRN Reason: Wheezing Last Admin: 09/05/16 21:59 Dose: 3 ml Folic Acid (Folic Acid) 1 mg PO DAILY [facility] Last Admin: 09/08/16 09:06 Dose: Not Given Hydromorphone HCl (Dilaudid) 0.5 mg IVP Q6 PRN PRN Reason: Pain, severe (8-10) Last Admin: 09/09/16 06:44 Dose: 0.5 mg Ondansetron HCl (Zofran Inj) 4 mg IVP Q4 PRN PRN Reason: Nausea/Vomiting Last Admin: 09/07/16 00:20 Dose: 4 mg Pantoprazole Sodium (Protonix Inj) 20 mg IVP Q12H [facility] Last Admin: 09/09/16 10:11 Dose: 20 mg Thiamine HCl (Vitamin B1 Tab) 100 mg PO DAILY [facility] Last Admin: 09/08/16 09:06 Dose: Not Given - Labs Labs: 09/09/16 09:45 09/09/16 09:45 PT 13.0 SECONDS (9.6-11.2) H 09/08/16 07:00 INR 1.25 (0.92-1.08) H 09/08/16 07:00 APTT 27.2 SECONDS (23.3-32.5) 09/03/16 04:40 - Constitutional Appears: Cachectic, Chronically Ill - Head Exam Head Exam: ATRAUMATIC, NORMAL INSPECTION, NORMOCEPHALIC - Eye Exam Eye Exam: Normal appearance - ENT Exam ENT Exam: Mucous Membranes Moist - Neck Exam Neck Exam: Full ROM - Respiratory Exam Respiratory Exam: Decreased Breath Sounds - Cardiovascular Exam Cardiovascular Exam: REGULAR RHYTHM, +S1, +S2 - GI/Abdominal Exam GI & Abdominal Exam: Distended - Neurological Exam Neurological Exam: Alert, Awake, Oriented x3 Assessment and Plan (1) Acute blood loss anemia Status: Acute (2) Ascites of liver Status: Chronic (3) Chronic abdominal pain Status: Chronic (4) Cocaine abuse Status: Acute (5) Gastrointestinal hemorrhage Status: Acute (6) Upper GI bleed Status: Acute (7) Alcohol abuse Status: Chronic (8) Ascites Status: Chronic (9) Ascites due to alcoholic cirrhosis Status: Chronic (10) Cachexia Status: Chronic (11) Coagulopathy Status: Chronic (12) Debility Status: Chronic (13) Esophageal varices determined by endoscopy Status: Chronic (14) Esophageal varices in cirrhosis Status: Chronic (15) Liver cirrhosis Status: Chronic (16) Ileus Status: Acute - Assessment and Plan (Free Text) Assessment: Continue present rx For snf evaluation
--- NOTE | 2016-09-09 16:38 | CP.PCM.PN ---
Subjective - Date & Time of Evaluation Date of Evaluation: 09/08/16 Time of Evaluation: 11:00 - Subjective Subjective: More alert, mental status improved Objective - Vital Signs/Intake and Output Vital Signs (last 24 hours): Temp Pulse Resp BP Pulse Ox 97.3 F L 72 11 L 148/85 97 09/09/16 13:00 09/09/16 13:00 09/09/16 13:00 09/09/16 13:00 09/09/16 13:00 Intake and Output: 09/09/16 09/09/16 06:59 18:59 Intake Total 600 200 Output Total 500 400 Balance 100 -200 - Medications Medications: Current Medications Albuterol/Ipratropium (Duoneb 3 Mg/0.5 Mg (3 Ml) Ud) 3 ml INH RQ6 PRN PRN Reason: Wheezing Last Admin: 09/05/16 21:59 Dose: 3 ml Folic Acid (Folic Acid) 1 mg PO DAILY [facility] Last Admin: 09/09/16 13:12 Dose: 1 mg Hydromorphone HCl (Dilaudid) 0.5 mg IVP Q6 PRN PRN Reason: Pain, severe (8-10) Last Admin: 09/09/16 15:41 Dose: 0.5 mg Ondansetron HCl (Zofran Inj) 4 mg IVP Q4 PRN PRN Reason: Nausea/Vomiting Last Admin: 09/07/16 00:20 Dose: 4 mg Pantoprazole Sodium (Protonix Inj) 20 mg IVP Q12H [facility] Last Admin: 09/09/16 10:11 Dose: 20 mg Thiamine HCl (Vitamin B1 Tab) 100 mg PO DAILY [facility] Last Admin: 09/09/16 13:11 Dose: 100 mg - Labs Labs: 09/09/16 09:45 09/09/16 09:45 PT 13.0 SECONDS (9.6-11.2) H 09/08/16 07:00 INR 1.25 (0.92-1.08) H 09/08/16 07:00 APTT 27.2 SECONDS (23.3-32.5) 09/03/16 04:40 - Head Exam Head Exam: ATRAUMATIC - Eye Exam Eye Exam: Scleral icterus - ENT Exam ENT Exam: Mucous Membranes Dry - Respiratory Exam Respiratory Exam: NORMAL BREATHING PATTERN - Cardiovascular Exam Cardiovascular Exam: +S1, +S2 - GI/Abdominal Exam GI & Abdominal Exam: Normal Bowel Sounds - Extremities Exam Extremities Exam: Pedal Edema Assessment and Plan (1) Anemia Assessment & Plan: H/H stab resolving GI bleeding s/p banding Status: Acute (2) Coagulopathy Assessment & Plan: liver disease Status: Chronic (3) Thrombocytopenia Assessment & Plan: liver disease, splenic sequestration Status: Acute
--- NOTE | 2016-09-09 21:55 | CP.PCM.PN ---
Subjective - Date & Time of Evaluation Date of Evaluation: 09/09/16 Time of Evaluation: 21:53 - Subjective Subjective: Patient still distended but appears more alert Objective - Vital Signs/Intake and Output Vital Signs (last 24 hours): Temp Pulse Resp BP Pulse Ox 98.7 F 61 18 113/69 95 09/09/16 19:54 09/09/16 19:54 09/09/16 19:54 09/09/16 19:54 09/09/16 19:54 Intake and Output: 09/09/16 09/10/16 18:59 06:59 Intake Total 200 Output Total 400 Balance -200 - Medications Medications: Current Medications Albuterol/Ipratropium (Duoneb 3 Mg/0.5 Mg (3 Ml) Ud) 3 ml INH RQ6 PRN PRN Reason: Wheezing Last Admin: 09/05/16 21:59 Dose: 3 ml Folic Acid (Folic Acid) 1 mg PO DAILY [facility] Last Admin: 09/09/16 13:12 Dose: 1 mg Hydromorphone HCl (Dilaudid) 0.5 mg IVP Q6 PRN PRN Reason: Pain, severe (8-10) Last Admin: 09/09/16 15:41 Dose: 0.5 mg Ondansetron HCl (Zofran Inj) 4 mg IVP Q4 PRN PRN Reason: Nausea/Vomiting Last Admin: 09/07/16 00:20 Dose: 4 mg Pantoprazole Sodium (Protonix Inj) 20 mg IVP Q12H [facility] Last Admin: 09/09/16 20:27 Dose: 20 mg Spironolactone (Aldactone) 50 mg PO DAILY [facility] Thiamine HCl (Vitamin B1 Tab) 100 mg PO DAILY [facility] Last Admin: 09/09/16 13:11 Dose: 100 mg - Labs Labs: 09/09/16 09:45 09/09/16 09:45 PT 13.0 SECONDS (9.6-11.2) H 09/08/16 07:00 INR 1.25 (0.92-1.08) H 09/08/16 07:00 APTT 27.2 SECONDS (23.3-32.5) 09/03/16 04:40 - Head Exam Head Exam: ATRAUMATIC - ENT Exam ENT Exam: Mucous Membranes Moist - Neck Exam Neck Exam: Normal Inspection - Respiratory Exam Respiratory Exam: Clear to Ausculation Bilateral - Cardiovascular Exam Cardiovascular Exam: REGULAR RHYTHM - GI/Abdominal Exam GI & Abdominal Exam: Distended Assessment and Plan (1) Acute blood loss anemia Status: Acute (2) Ascites due to alcoholic cirrhosis Assessment & Plan: Will add Aldactone 50 mg in AM and restrict salt and fluid intake. Diet advanced. Status: Chronic
[2016-09-10] MEDS: HYDROmorphone 0.5 mg/0.5 ml ISec IVP PRN ×2 (09:06→18:14)
--- NOTE | 2016-09-10 11:26 | CP.PCM.PN ---
Subjective - Date & Time of Evaluation Date of Evaluation: 09/10/16 Time of Evaluation: 11:26 - Subjective Subjective: Abdomen more distended. Objective - Vital Signs/Intake and Output Vital Signs (last 24 hours): Temp Pulse Resp BP Pulse Ox 98.5 F 60 18 144/83 97 09/10/16 08:00 09/10/16 09:00 09/10/16 08:00 09/10/16 08:00 09/10/16 08:00 Intake and Output: 09/09/16 09/10/16 23:59 11:59 Intake Total 200 Output Total 400 Balance -200 - Medications Medications: Current Medications Albuterol/Ipratropium (Duoneb 3 Mg/0.5 Mg (3 Ml) Ud) 3 ml INH RQ6 PRN PRN Reason: Wheezing Last Admin: 09/05/16 21:59 Dose: 3 ml Folic Acid (Folic Acid) 1 mg PO DAILY [facility] Last Admin: 09/10/16 08:55 Dose: 1 mg Furosemide (Lasix) 40 mg PO DAILY [facility] Hydromorphone HCl (Dilaudid) 0.5 mg IVP Q6 PRN PRN Reason: Pain, severe (8-10) Last Admin: 09/10/16 09:06 Dose: 0.5 mg Ondansetron HCl (Zofran Inj) 4 mg IVP Q4 PRN PRN Reason: Nausea/Vomiting Last Admin: 09/10/16 04:37 Dose: 4 mg Pantoprazole Sodium (Protonix Inj) 20 mg IVP Q12H [facility] Last Admin: 09/10/16 08:56 Dose: 20 mg Spironolactone (Aldactone) 50 mg PO DAILY [facility] Last Admin: 09/10/16 08:55 Dose: 50 mg Thiamine HCl (Vitamin B1 Tab) 100 mg PO DAILY [facility] Last Admin: 09/10/16 08:56 Dose: 100 mg - Labs Labs: 09/09/16 09:45 09/09/16 09:45 PT 13.0 SECONDS (9.6-11.2) H 09/08/16 07:00 INR 1.25 (0.92-1.08) H 09/08/16 07:00 APTT 27.2 SECONDS (23.3-32.5) 09/03/16 04:40 - Constitutional Appears: Cachectic, Chronically Ill - Head Exam Head Exam: ATRAUMATIC, NORMAL INSPECTION, NORMOCEPHALIC - Eye Exam Eye Exam: Normal appearance - ENT Exam ENT Exam: Mucous Membranes Moist - Neck Exam Neck Exam: Full ROM - Respiratory Exam Respiratory Exam: Decreased Breath Sounds, Clear to Ausculation Bilateral - Cardiovascular Exam Cardiovascular Exam: REGULAR RHYTHM, +S1, +S2 - GI/Abdominal Exam GI & Abdominal Exam: Distended - Extremities Exam Extremities Exam: Normal Inspection - Neurological Exam Neurological Exam: Alert, Awake, CN II-XII Intact, Oriented x3 - Psychiatric Exam Psychiatric exam: Anxious Assessment and Plan (1) Acute blood loss anemia Status: Acute (2) Ascites of liver Status: Chronic (3) Chronic abdominal pain Status: Chronic (4) Cocaine abuse Status: Acute (5) Gastrointestinal hemorrhage Status: Acute (6) Upper GI bleed Status: Acute (7) Alcohol abuse Status: Chronic (8) Ascites Status: Chronic (9) Ascites due to alcoholic cirrhosis Status: Chronic (10) Cachexia Status: Chronic (11) Coagulopathy Status: Chronic (12) Debility Status: Chronic (13) Esophageal varices determined by endoscopy Status: Chronic (14) Esophageal varices in cirrhosis Status: Chronic (15) Liver cirrhosis Status: Chronic (16) Ileus Status: Acute - Assessment and Plan (Free Text) Plan: For paracentisis. Will follow PT evaluation for SNF when stable.
[2016-09-11] MEDS: HYDROmorphone 0.5 mg/0.5 ml ISec IVP PRN ×2 (02:24→19:00)
[2016-09-11 07:01] LABS: HEMATOCRIT 35.2 % (35.0-51.0); MEAN CELL VOLUME 88.2 fl (80.0-94.0); MEAN CORPUSCULAR HEMOGLOBIN 28.4 pg (27.0-31.0); MEAN CORPUSCULAR HGB CONC 32.2 g/dL (33.0-37.0); RED CELL DISTRIBUTION WIDTH 15.9 % (11.5-14.5); WHITE BLOOD COUNT 5.4 K/uL (4.8-10.8)
[2016-09-11 08:17] LABS: BLOOD UREA NITROGEN 7 mg/dl (9-20); CALCIUM 7.9 mg/dL (8.4-10.2); CARBON DIOXIDE 25 mmol/L (22-30); CHLORIDE 106 mmol/L (98-107); GFR AFRICAN-AMERICAN > 60; GLUCOSE,RANDOM 99 mg/dL (75-110); POTASSIUM 4.3 MMOL/L (3.6-5.0); SODIUM 141 mmol/l (132-148)
--- NOTE | 2016-09-11 11:45 | CP.PCM.PN ---
Subjective - Date & Time of Evaluation Date of Evaluation: 09/11/16 Time of Evaluation: 11:46 - Subjective Subjective: Patietn still distended, for paracentesis Bleeding esophageal varices due to alcoholic liver cirrhosis causing GI Bleed. ACUTE. Objective - Vital Signs/Intake and Output Vital Signs (last 24 hours): Temp Pulse Resp BP Pulse Ox 98.7 F 57 L 18 111/63 97 09/11/16 08:00 09/11/16 08:00 09/11/16 08:00 09/11/16 10:06 09/11/16 08:00 - Medications Medications: Current Medications Albuterol/Ipratropium (Duoneb 3 Mg/0.5 Mg (3 Ml) Ud) 3 ml INH RQ6 PRN PRN Reason: Wheezing Last Admin: 09/05/16 21:59 Dose: 3 ml Folic Acid (Folic Acid) 1 mg PO DAILY [facility] Last Admin: 09/11/16 10:06 Dose: 1 mg Furosemide (Lasix) 40 mg PO DAILY [facility] Last Admin: 09/11/16 10:06 Dose: 40 mg Hydromorphone HCl (Dilaudid) 0.5 mg IVP Q6 PRN PRN Reason: Pain, severe (8-10) Last Admin: 09/11/16 02:24 Dose: 0.5 mg Ondansetron HCl (Zofran Inj) 4 mg IVP Q4 PRN PRN Reason: Nausea/Vomiting Last Admin: 09/10/16 04:37 Dose: 4 mg Spironolactone (Aldactone) 50 mg PO DAILY [facility] Last Admin: 09/11/16 10:06 Dose: 50 mg Thiamine HCl (Vitamin B1 Tab) 100 mg PO DAILY [facility] Last Admin: 09/11/16 10:06 Dose: 100 mg - Labs Labs: 09/11/16 05:50 09/11/16 05:50 PT 13.0 SECONDS (9.6-11.2) H 09/08/16 07:00 INR 1.25 (0.92-1.08) H 09/08/16 07:00 APTT 27.2 SECONDS (23.3-32.5) 09/03/16 04:40 - Constitutional Appears: Cachectic, Chronically Ill - Eye Exam Eye Exam: Normal appearance - ENT Exam ENT Exam: Mucous Membranes Moist - Neck Exam Neck Exam: Full ROM - Respiratory Exam Respiratory Exam: Decreased Breath Sounds - Cardiovascular Exam Cardiovascular Exam: REGULAR RHYTHM, +S1, +S2 - GI/Abdominal Exam GI & Abdominal Exam: Distended - Neurological Exam Neurological Exam: Alert, Awake, Oriented x3 Assessment and Plan (1) Acute blood loss anemia Status: Acute (2) Ascites of liver Status: Chronic (3) Chronic abdominal pain Status: Chronic (4) Cocaine abuse Status: Acute (5) Gastrointestinal hemorrhage Status: Acute (6) Upper GI bleed Status: Acute (7) Alcohol abuse Status: Chronic (8) Ascites Status: Chronic (9) Ascites due to alcoholic cirrhosis Status: Chronic (10) Cachexia Status: Chronic (11) Coagulopathy Status: Chronic (12) Debility Status: Chronic (13) Esophageal varices determined by endoscopy Status: Chronic (14) Esophageal varices in cirrhosis Status: Chronic (15) Liver cirrhosis Status: Chronic (16) Ileus Status: Acute - Assessment and Plan (Free Text) Plan: For paracentesis
[2016-09-11 12:50] LABS: HEMATOCRIT 37.9 % (35.0-51.0); MEAN CELL VOLUME 86.4 fl (80.0-94.0); MEAN CORPUSCULAR HEMOGLOBIN 29.1 pg (27.0-31.0); MEAN CORPUSCULAR HGB CONC 33.7 g/dL (33.0-37.0); RED CELL DISTRIBUTION WIDTH 15.8 % (11.5-14.5); WHITE BLOOD COUNT 7.5 K/uL (4.8-10.8)
[2016-09-11] MEDS ORDERED: Lidocaine 1% Inj (20ml) ONE (15:11)
--- NOTE | 2016-09-11 15:55 | PCM.SURG1 ---
Surgeon's Initial Post Op Note - Surgeon's Notes Surgeon: Roxy Candy Puller: None Type of Anesthesia: Local Pre-Operative Diagnosis: Ascites Operative Findings: Ascites Post-Operative Diagnosis: Ascites Operation Performed: Paracentesis. Specimen/Specimens Removed: Approximately 3.5L of clear pale yellow fluid aspirated. Estimated Blood Loss: EBL {In ML}: 1 Date of Surgery/Procedure: 09/11/16 Time of Surgery/Procedure: 15:40
--- NOTE | 2016-09-11 20:28 | CP.PCM.PN ---
Subjective - Date & Time of Evaluation Date of Evaluation: 09/11/16 Time of Evaluation: 19:00 - Subjective Subjective: S/p paracentesis Objective - Vital Signs/Intake and Output Vital Signs (last 24 hours): Temp Pulse Resp BP Pulse Ox 98.3 F 65 18 121/76 96 09/11/16 19:13 09/11/16 20:12 09/11/16 19:13 09/11/16 19:13 09/11/16 19:13 - Medications Medications: Current Medications Albuterol/Ipratropium (Duoneb 3 Mg/0.5 Mg (3 Ml) Ud) 3 ml INH RQ6 PRN PRN Reason: Wheezing Last Admin: 09/05/16 21:59 Dose: 3 ml Folic Acid (Folic Acid) 1 mg PO DAILY [facility] Last Admin: 09/11/16 10:06 Dose: 1 mg Furosemide (Lasix) 40 mg PO DAILY [facility] Last Admin: 09/11/16 10:06 Dose: 40 mg Hydromorphone HCl (Dilaudid) 0.5 mg IVP Q6 PRN PRN Reason: Pain, severe (8-10) Last Admin: 09/11/16 19:00 Dose: 0.5 mg Ondansetron HCl (Zofran Inj) 4 mg IVP Q4 PRN PRN Reason: Nausea/Vomiting Last Admin: 09/10/16 04:37 Dose: 4 mg Pantoprazole Sodium (Protonix Inj) 40 mg IVP DAILY [facility] Last Admin: 09/11/16 13:43 Dose: 40 mg Spironolactone (Aldactone) 50 mg PO DAILY [facility] Last Admin: 09/11/16 10:06 Dose: 50 mg Thiamine HCl (Vitamin B1 Tab) 100 mg PO DAILY [facility] Last Admin: 09/11/16 10:06 Dose: 100 mg - Labs Labs: 09/11/16 12:42 09/11/16 05:50 PT 13.0 SECONDS (9.6-11.2) H 09/08/16 07:00 INR 1.25 (0.92-1.08) H 09/08/16 07:00 APTT 27.2 SECONDS (23.3-32.5) 09/03/16 04:40 - Head Exam Head Exam: ATRAUMATIC - Eye Exam Eye Exam: Normal appearance - ENT Exam ENT Exam: Mucous Membranes Dry - Respiratory Exam Respiratory Exam: NORMAL BREATHING PATTERN - Cardiovascular Exam Cardiovascular Exam: +S1, +S2 - GI/Abdominal Exam GI & Abdominal Exam: Normal Bowel Sounds - Extremities Exam Extremities Exam: Pedal Edema Assessment and Plan (1) Anemia Assessment & Plan: H/H improving daily upper GI bleeding appears resolved Status: Acute (2) Coagulopathy Assessment & Plan: liver disease Status: Chronic (3) Thrombocytopenia Assessment & Plan: liver disease, splenic sequestration Status: Acute
[2016-09-12] MEDS: HYDROmorphone 0.5 mg/0.5 ml ISec IVP PRN (01:39)
[2016-09-12 08:12] VITALS: RESP 18
[2016-09-12 12:17] VITALS: BP 118/74; PULSE 62; TEMP 98.4; O2SAT 98
--- NOTE | 2016-09-12 12:39 | CP.PCM.DIS ---
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 Eval Time Spent in preparation of Discharge (in minutes): 30 Diagnosis - Discharge Diagnosis (1) Acute blood loss anemia Status: Acute (2) Ascites of liver Status: Chronic (3) Chronic abdominal pain Status: Chronic (4) Cocaine abuse Status: Acute (5) Gastrointestinal hemorrhage Status: Acute (6) Upper GI bleed Status: Acute (7) Alcohol abuse Status: Chronic (8) Ascites Status: Chronic (9) Ascites due to alcoholic cirrhosis Status: Chronic (10) Cachexia Status: Chronic (11) Coagulopathy Status: Chronic (12) Debility Status: Chronic (13) Esophageal varices determined by endoscopy Status: Chronic (14) Esophageal varices in cirrhosis Status: Chronic (15) Liver cirrhosis Status: Chronic (16) Ileus Status: Resolved Hospital Course - Lab Results Lab Results: Micro Results 09/09/16 02:39 Nose MRSA Culture (Admit) - Final MRSA NOT DETECTED Most Recent Lab Values WBC 7.5 K/uL (4.8-10.8) 09/11/16 12:42 RBC 4.38 Mil/uL (4.40-5.90) L 09/11/16 12:42 Hgb 12.8 g/dL (12.0-18.0) 09/11/16 12:42 Hct 37.9 % (35.0-51.0) 09/11/16 12:42 MCV 86.4 fl (80.0-94.0) 09/11/16 12:42 MCH 29.1 pg (27.0-31.0) 09/11/16 12:42 MCHC 33.7 g/dL (33.0-37.0) 09/11/16 12:42 RDW 15.8 % (11.5-14.5) H 09/11/16 12:42 Plt Count 127 K/uL (130-400) L D 09/11/16 12:42 MPV 9.6 fl (7.2-11.7) 09/07/16 05:20 Neut % (Auto) 63.6 % (50.0-75.0) 09/07/16 05:20 Lymph % (Auto) 12.8 % (20.0-40.0) L 09/07/16 05:20 [place] % (Auto) 8.2 % (0.0-10.0) 09/07/16 05:20 Eos % (Auto) 14.6 % (0.0-4.0) H 09/07/16 05:20 Baso % (Auto) 0.8 % (0.0-2.0) 09/07/16 05:20 Neut # 3.9 K/uL (1.8-7.0) 09/07/16 05:20 Lymph # 0.8 K/uL (1.0-4.3) L 09/07/16 05:20 [place] # 0.5 K/uL (0.0-0.8) 09/07/16 05:20 Eos # 0.9 K/uL (0.0-0.7) H 09/07/16 05:20 Baso # 0.0 K/uL (0.0-0.2) 09/07/16 05:20 PT 13.0 SECONDS (9.6-11.2) H 09/08/16 07:00 INR 1.25 (0.92-1.08) H 09/08/16 07:00 APTT 27.2 SECONDS (23.3-32.5) 09/03/16 04:40 pCO2 35 mm/Hg (35-45) 09/04/16 08:40 pO2 87 mm/Hg (80-100) 09/04/16 08:40 HCO3 24.3 mmol/L (21-28) 09/04/16 08:40 ABG pH 7.43 (7.35-7.45) 09/04/16 08:40 ABG Total CO2 24.3 mmol/L (22-28) 09/04/16 08:40 ABG O2 Saturation 98.6 % (95-98) H 09/04/16 08:40 ABG O2 Content 13.7 ML/dL (15-23) L 09/04/16 08:40 ABG Base Excess -0.8 mmol/L (-2.0-3.0) 09/04/16 08:40 ABG Hemoglobin 10.1 g/dL (11.7-17.4) L 09/04/16 08:40 ABG Carboxyhemoglobin 1.9 % (0.5-1.5) H 09/04/16 08:40 POC ABG HHb (Measured) 1.4 % (0.0-5.0) 09/04/16 08:40 ABG Methemoglobin 1.0 % (0.0-3.0) 09/04/16 08:40 ABG O2 Capacity 13.9 mL/dL (16-24) L 09/04/16 08:40 Anil Test Yes 09/04/16 08:40 A-a O2 Difference 154.0 mm/Hg 09/04/16 08:40 Hgb O2 Saturation 95.7 % (95.0-98.0) 09/04/16 08:40 Vent Mode Prvc ac 09/03/16 04:45 Mechanical Rate 12 09/03/16 04:45 FiO2 40.0 % 09/04/16 08:40 Tidal Volume 500 09/03/16 04:45 PEEP 5 09/01/16 13:55 Crit Value Read Back y 09/04/16 08:40 Blood Gas Notified Time 500 09/02/16 04:49 Sodium 141 mmol/l (132-148) 09/11/16 05:50 Potassium 4.3 MMOL/L (3.6-5.0) 09/11/16 05:50 Chloride 106 mmol/L (98-107) 09/11/16 05:50 Carbon Dioxide 25 mmol/L (22-30) 09/11/16 05:50 Anion Gap 14 (10-20) 09/11/16 05:50 BUN 7 mg/dl (9-20) L 09/11/16 05:50 Creatinine 0.9 mg/dL (0.8-1.5) 09/11/16 05:50 Est GFR ( Amer) > 60 09/11/16 05:50 Est GFR (Non-Af Amer) > 60 09/11/16 05:50 Random Glucose 99 mg/dL (75-110) 09/11/16 05:50 Lactic Acid 2.4 MMOL/L (0.7-2.1) H 08/29/16 08:05 Calcium 7.9 mg/dL (8.4-10.2) L 09/11/16 05:50 Phosphorus 3.2 mg/dl (2.5-4.5) 08/28/16 23:44 Magnesium 1.9 MG/DL (1.6-2.3) 08/28/16 23:44 Total Bilirubin 0.9 mg/dl (0.2-1.3) 09/07/16 05:20 AST 46 U/L (17-59) 09/07/16 05:20 ALT 45 U/L (21-72) 09/07/16 05:20 Alkaline Phosphatase 71 U/L (38-126) 09/07/16 05:20 Ammonia < 9 umo/L (16-60) L 09/04/16 12:10 Troponin I < 0.0120 ng/mL (0.00-0.120) 08/28/16 23:44 Total Protein 5.0 G/DL (6.3-8.2) L 09/07/16 05:20 Albumin 2.1 g/dL (3.5-5.0) L 09/07/16 05:20 Globulin 2.9 gm/dL (2.2-3.9) 09/07/16 05:20 Albumin/Globulin Ratio 0.7 (1.0-2.1) L 09/07/16 05:20 Lipase 58 U/L (23-300) 08/28/16 23:44 Urine Opiates Screen Positive (NEGATIVE) H 08/29/16 22:21 Urine Methadone Screen Negative (NEGATIVE) 08/29/16 22:21 Ur Barbiturates Screen Negative (NEGATIVE) 08/29/16 22:21 Ur Phencyclidine Scrn Negative (NEGATIVE) 08/29/16 22:21 Ur Amphetamines Screen Negative (NEGATIVE) 08/29/16 22:21 U Benzodiazepines Scrn Negative (NEGATIVE) 08/29/16 22:21 U Oth Cocaine Metabols Positive (NEGATIVE) H 08/29/16 22:21 U Cannabinoids Screen Negative (NEGATIVE) 08/29/16 22:21 Alcohol, Quantitative < 10 mg/dl (0-10) 08/28/16 23:44 Blood Type A NEGATIVE 09/01/16 14:45 Antibody Screen Negative 09/01/16 14:45 Crossmatch See Detail 09/01/16 14:45 BBK History Checked Patient has bt 09/01/16 14:45 - Hospital Course Hospital Course: Patient presented with severe anemia secondary to acute bleeding from esophageal varices, he was in alcohol withdrawal. Patient was politrasfuse. He was underwent to two EGD to control the bleeding and was on respiratory support to protect the airways. He received two paracentesis to control the severe ascites. At present stable H/H stable able to walk with assistance of a walker. He deferred snf care. Will dc on home care with PT. Patient was educated about his alcohol and drug habit. He is aware that his condition is terminal and he does not change is is life still his length of survival will decrees. This was discussed with the family in details the patient and the family members and the asked question and I answered. The are aware that the prognosis is poor. Discharge Exam - Head Exam Head Exam: ATRAUMATIC, NORMAL INSPECTION, NORMOCEPHALIC - Eye Exam Eye Exam: Normal appearance - Neck Exam Neck exam: Full Rom - Respiratory Exam Respiratory Exam: Clear to PA & Lateral - Cardiovascular Exam Cardiovascular Exam: REGULAR RHYTHM, +S1, +S2 - GI/Abdominal Exam GI & Abdominal Exam: Normal Bowel Sounds - Extremities Exam Extremities exam: normal inspection - Neurological Exam Neurological exam: Alert, CN II-XII Intact, Oriented x3, Reflexes Normal - Psychiatric Exam Psychiatric exam: Normal Affect Discharge Plan - Discharge Medications Prescriptions: Spironolactone [Aldactone] 50 mg PO DAILY #30 tablet Folic Acid 1 mg PO DAILY #30 tab Thiamine [Vitamin B1 Inj] 100 mg IJ DAILY #30 vial - Follow Up Plan Condition: CRITICAL Disposition: HOME/ ROUTINE Instructions: Gastrointestinal Bleeding (DC), Gastrointestinal Bleeding (GEN) Referrals: Sanford Sheikh MD [Primary Care Provider] -
--- NOTE | 2016-09-15 16:34 | US ---
Ultrasound guided paracentesis. Clinical History: Ascites with abdominal pain and distension. Technique: The relative risks and indications for the procedure were explained to the patient and informed written consent obtained. Sonography of the abdomen was performed in a supine position. This revealed a small amount of non-loculated ascites, greatest in the right lower quadrant. A puncture site was selected and the area was prepped and draped in the usual sterile fashion. 1% lidocaine was used to anesthetize the skin and soft tissues. A 5 Guamanian paracentesis catheter was trocared into the right lower quadrant under real time ultrasound guidance. A permanent image was stored. Approximately 3500 cc of nehemias fluid aspirated. Impression: Ultrasound-guided paracentesis in the right lower quadrant. Approximately 3500 cc of nehemias colored fluid was aspirated.
== END 2016-09-12 15:00 | disposition home or self-care (01) | DRG 432 ==
LOC: H.ER 22:38 → H.ERHOLD 08-29 00:19 → H.ICU/CCU 08-29 02:01 → H.TEL 09-09 18:19
PROVIDERS: ADMIT Internal Medicine; ATTEND Internal Medicine
PROC: 30233N1 Transfusion of Nonautologous Red Blood Cells into Peripheral Vein, Percutaneous Approach (ICD-10-PCS; 2016-08-29)
PROC: 0DJ08ZZ Inspection of Upper Intestinal Tract, Via Natural or Artificial Opening Endoscopic (ICD-10-PCS; 2016-08-29)
PROC: 30233K1 Transfusion of Nonautologous Frozen Plasma into Peripheral Vein, Percutaneous Approach (ICD-10-PCS; principal; 2016-08-29 14:00)
PROC: 0DB68ZX Excision of Stomach, Via Natural or Artificial Opening Endoscopic, Diagnostic (ICD-10-PCS; 2016-09-01)
PROC: 5A1945Z Respiratory Ventilation, 24-96 Consecutive Hours (ICD-10-PCS; 2016-09-01)
PROC: 06L34CZ Occlusion of Esophageal Vein with Extraluminal Device, Percutaneous Endoscopic Approach (ICD-10-PCS; 2016-09-03)
PROC: 0W9G3ZZ Drainage of Peritoneal Cavity, Percutaneous Approach (ICD-10-PCS; 2016-09-08)
PROC: 0W9G3ZZ Drainage of Peritoneal Cavity, Percutaneous Approach (ICD-10-PCS; 2016-09-11)
DX: K70.31 Alcoholic cirrhosis of liver with ascites (principal); J96.00 Acute respiratory failure, unspecified whether with hypoxia or hypercapnia; I85.11 Secondary esophageal varices with bleeding; R64 Cachexia; F10.231 Alcohol dependence with withdrawal delirium; K76.6 Portal hypertension; D68.4 Acquired coagulation factor deficiency; D62 Acute posthemorrhagic anemia; K56.7 Ileus, unspecified; I10 Essential (primary) hypertension; F14.10 Cocaine abuse, uncomplicated; F41.9 Anxiety disorder, unspecified; G89.29 Other chronic pain; K29.50 Unspecified chronic gastritis without bleeding; D69.59 Other secondary thrombocytopenia; F32.9 Major depressive disorder, single episode, unspecified; B18.2 Chronic viral hepatitis C; Y90.0 Blood alcohol level of less than 20 mg/100 ml; R53.81 Other malaise; K31.9 Disease of stomach and duodenum, unspecified; Z88.6 Allergy status to analgesic agent; Z88.5 Allergy status to narcotic agent

== ENCOUNTER 2016-09-12 22:15 | Observation (INO) | payer MEDICARE ==
[2016-09-12 22:15] VITALS: BMI 21.5
[2016-09-12] MEDS ORDERED: Sodium Chloride 0.9% 1,000 ML IV STA (23:12)
--- NOTE | 2016-09-12 23:40 | ED PDOC ---
HPI: General Adult Time Seen by Provider: 09/12/16 22:45 Chief Complaint (Nursing): Chest Pain Chief Complaint (Provider): Vomiting and PO Intolerance History Per: Patient History/Exam Limitations: no limitations Onset/Duration Of Symptoms: Hrs Additional Complaint(s): 22:45 Beni Vegas is a 61 year old male with a history of esophageal varices , liver cirrhosis, and alcoholism that presents to the ED with a chief complaint of vomiting and weakness that he began experiencing almost immediately after he was discharged from this facility post-lengthy admission due to a gastrointestinal bleed caused by esophageal varices. Patient's PMD, Dr. Sanford Sheikh, encouraged the patient to be transferred to a detention facility, but the patient refused. Patient states that after he went home, he began vomiting, and has not been able to tolerate fluids or take his medication. He also reports feeling generally deconditioned. PMD: Dr. Sanford Sheikh Past Medical History Reviewed: Historical Data, Nursing Documentation, Vital Signs Vital Signs: Last Vital Signs Temp 97.7 F 09/12/16 22:18 Pulse 68 09/12/16 22:18 Resp 16 09/12/16 22:18 BP 121/81 09/12/16 22:18 Pulse Ox 99 09/12/16 23:49 - Medical History PMH: Anemia, Anxiety, Depression, Fractures (Left Toe fracture, forklift accident), Hepatitis (C), HTN Denies: Alzheimer's Disease, Arthritis, Asthma, Atrial Fibrillation, Bipolar Disorder, Bronchitis, CAD, Cardia Arrhythmia, CHF, COPD, Crohn's Disease, Dementia, Diverticulitis, Emphysema, Gastritis, Gall Bladder Disease, HIV, Hypercholesterolemia, Hyperthyroidism, Hypothyroidism, Kidney Stones, Migraine, Mitral Valve Prolapse, Multiple Sclerosis, Osteoporosis, Pancreatitis, Paranoia , Parkinson's Disease, Peripheral Edema, Pneumonia, Post Traumatic Stress Disorder, Pulmonary Embolism, Chronic Kidney Disease, Rheumatoid Arthritis, Schizophrenia, Sickle Cell Disease, Sexually Transmitted Disease, Sleep Apnea - Surgical History Surgical History: Endoscopy (with banding x5 for esophageal varices) Denies: Appendectomy, CABG, Carotid Endarterectomy, Cholecystectomy, Coronary Stent, Pacemaker, Tonsillectomy - Family History Family History: States: Unknown Family Hx, Diabetes - Immunization History Hx Tetanus Toxoid Vaccination: Yes Hx Influenza Vaccination: Yes Hx Pneumococcal Vaccination: Yes - Home Medications Home Medications: Ambulatory Orders Medication Instructions Recorded No Known Home Med 09/12/16 - Allergies Allergies/Adverse Reactions: Allergies Allergy/AdvReac Type Severity Reaction Status Date / Time acetaminophen [From Tylenol] Allergy RASH Verified 08/29/16 03:16 oxycodone HCl [From Percocet] Allergy RASH Verified 08/29/16 03:16 Corticosteroids AdvReac bleeding Verified 08/29/16 03:16 (Glucocorticoids) morphine AdvReac VOMITING Verified 08/29/16 03:16 Review of Systems Constitutional: Positive for: Weakness Gastrointestinal: Positive for: Nausea, Vomiting Physical Exam - Reviewed Nursing Documentation Reviewed: Yes Vital Signs Reviewed: Yes - Physical Exam Appears: Positive for: Non-toxic, No Acute Distress Head Exam: Positive for: ATRAUMATIC, NORMOCEPHALIC Skin: Positive for: Warm, Dry, Pallor (slight) ENT: Positive for: Normal ENT Inspection Cardiovascular/Chest: Positive for: Regular Rate, Rhythm. Negative for: Murmur Respiratory: Positive for: Normal Breath Sounds. Negative for: Respiratory Distress Gastrointestinal/Abdominal: Positive for: Tenderness (epigastric tenderness) Extremity: Positive for: Normal ROM Neurologic/Psych: Positive for: Alert, Oriented - ECG O2 Sat by Pulse Oximetry: 99 (RA) Pulse Ox Interpretation: Normal Medical Decision Making Medical Decision Makin:50 Initial Impression: Nausea, Vomiting, PO Intolerance following recent discharge for GI Bleed and Esophageal Varices Initial Plan: * CMP * CBC * PTT * PT * Lipase * Troponin * Alcohol Serum * EKG * Sodium Chloride 1000 mL at 100 mLs/hr * Protonix 40 mg IV * Reevaluation 23:05 Case was discussed with Dr. Sheikh, who asked for patient to be placed on observation status. Clinical Diagnosis: Gastritis, PO Intolerance, Esophageal Varices. Scribe Attestation: Documented by Jennifer Meier, acting as a scribe for Jerman Forde MD. Provider Scribe Attestation: All medical record entries made by the Scribe were at my direction and personally dictated by me. I have reviewed the chart and agree that the record accurately reflects my personal performance of the history, physical exam, medical decision making, and the department course for this patient. I have also personally directed, reviewed, and agree with the discharge instructions and disposition. ED OBSERVATION Date of observation admission: 09/12/16 Time of observation admission: 23:05 - Progress Note Progress Note: 23:05 Patient placed in ED Observation secondary to request by PMD. Disposition - Clinical Impression Clinical Impression: Gastritis, Esophageal varices - Patient ED Disposition Is Patient to be Admitted: Yes Discussed With : Sanford Sheikh Counseled Patient/Family Regarding: Studies Performed, Diagnosis - Disposition Disposition Time: 23:05 Condition: FAIR
[2016-09-12 23:55] LABS: BASO # 0.1 K/uL (0.0-0.2); BASO % 1.1 % (0.0-2.0); EOS # 0.8 K/uL (0.0-0.7); EOS % 12.6 % (0.0-4.0); HEMATOCRIT 35.4 % (35.0-51.0); LYMPH # 0.6 K/uL (1.0-4.3); LYMPH % 10.7 % (20.0-40.0); MEAN CELL VOLUME 86.7 fl (80.0-94.0); MEAN CORPUSCULAR HEMOGLOBIN 28.3 pg (27.0-31.0); MEAN CORPUSCULAR HGB CONC 32.6 g/dL (33.0-37.0); MEAN PLATELET VOLUME 10.1 fl (7.2-11.7); MONO # 0.6 K/uL (0.0-0.8); MONO % 9.5 % (0.0-10.0); NEUT % 66.1 % (50.0-75.0); RED CELL DISTRIBUTION WIDTH 16.2 % (11.5-14.5)
[2016-09-13 00:04] LABS: ALB/GLOB RATIO 0.8 (1.0-2.1); ALCOHOL SERUM < 10 mg/dl (0-10); ALKALINE PHOSPHATASE 109 U/L (38-126); ALT/SGPT 42 U/L (21-72); AST/SGOT 52 U/L (17-59); BLOOD UREA NITROGEN 10 mg/dl (9-20); CALCIUM 7.8 mg/dL (8.4-10.2); CARBON DIOXIDE 22 mmol/L (22-30); CHLORIDE 104 mmol/L (98-107); GFR AFRICAN-AMERICAN > 60; GLUCOSE,RANDOM 97 mg/dL (75-110); LIPASE 150 U/L (23-300); POTASSIUM 3.6 MMOL/L (3.6-5.0); SODIUM 133 mmol/l (132-148); TOTAL PROTEIN 6.2 G/DL (6.3-8.2)
[2016-09-13 00:21] LABS: PARTIAL THROMBOPLASTIN TIME 27.8 SECONDS (23.3-32.5)
[2016-09-13] MEDS ORDERED: Dextrose 5%/0.45% NS 1,000 ML IV SCH (00:45)
[2016-09-13 12:05] LABS: HEMATOCRIT 35.4 % (35.0-51.0); MEAN CELL VOLUME 88.1 fl (80.0-94.0); MEAN CORPUSCULAR HEMOGLOBIN 28.3 pg (27.0-31.0); MEAN CORPUSCULAR HGB CONC 32.1 g/dL (33.0-37.0); RED CELL DISTRIBUTION WIDTH 15.9 % (11.5-14.5); WHITE BLOOD COUNT 5.3 K/uL (4.8-10.8)
[2016-09-13 12:13] LABS: BLOOD UREA NITROGEN 7 mg/dl (9-20); CALCIUM 7.9 mg/dL (8.4-10.2); CARBON DIOXIDE 25 mmol/L (22-30); CHLORIDE 105 mmol/L (98-107); GFR AFRICAN-AMERICAN > 60; GLUCOSE,RANDOM 61 mg/dL (75-110); POTASSIUM 4.4 MMOL/L (3.6-5.0); SODIUM 135 mmol/l (132-148)
--- NOTE | 2016-09-13 13:27 | CP.PCM.HP ---
History of Present Illness - History of Present Illness History of Present Illness: Beni Vegas is a 61 year old male with a history of esophageal varices , liver cirrhosis, and alcoholism that presents to the ED with a chief complaint of vomiting and weakness that he began experiencing almost immediately after he was discharged from this facility post-lengthy admission due to a gastrointestinal bleed caused by esophageal varices. I encouraged the patient to be transferred to a detention facility, but the patient refused. Patient states that after he went home, he began vomiting, and has not been able to tolerate fluids or take his medication. He also reports feeling generally weak. Present on Admission - Present on Admission Any Indicators Present on Admission: No Review of Systems - Constitutional Constitutional: As Per HPI - EENT Eyes: As Per HPI - Cardiovascular Cardiovascular: As Per HPI - Gastrointestinal Gastrointestinal: As Per HPI - Musculoskeletal Musculoskeletal: As Per HPI - Neurological Neurological: As Per HPI - Psychiatric Psychiatric: As Per HPI Past Patient History - Infectious Disease Hx of Infectious Diseases: None - Past Medical History & Family History Past Medical History?: Yes - Past Social History Smoking Status: Never Smoked - CARDIAC Hx Cardiac Disorders: Yes - PULMONARY Hx Asthma: No Hx Bronchitis: No Hx Chronic Obstructive Pulmonary Disease (COPD): No Hx Emphysema: No Hx Pneumonia: No Hx Pulmonary Embolism: No Hx Sleep Apnea: No - NEUROLOGICAL Hx Alzheimer's Disease: No Hx Dementia: No Hx Migraine: No Hx Multiple Sclerosis: No Hx Parkinson's Disease: No - HEENT Hx HEENT Problems: No - RENAL Hx Chronic Kidney Disease: No - ENDOCRINE/METABOLIC Hx Hyperthyroidism: No Hx Hypothyroidism: No - HEMATOLOGICAL/ONCOLOGICAL Hx Blood Disorders: Yes - INTEGUMENTARY Hx Dermatological Problems: No - MUSCULOSKELETAL/RHEUMATOLOGICAL Hx Musculoskeletal Disorders: Yes - GASTROINTESTINAL Hx Crohn's Disease: No Hx Diverticulitis: No Hx Esophageal Varices: Yes Hx Gall Bladder Disease: No Hx Gastritis: No Hx Pancreatitis: No - GENITOURINARY/GYNECOLOGICAL Hx Sexually Transmitted Disorders: No - PSYCHIATRIC Hx Psychophysiologic Disorder: Yes - SURGICAL HISTORY Hx Appendectomy: No Hx Carotid Endarterectomy: No Hx Cholecystectomy: No Hx Coronary Artery Bypass Graft: No Hx Coronary Stent: No Hx Tonsillectomy: No - ANESTHESIA Hx Anesthesia: Yes Hx Anesthesia Reactions: No Hx Malignant Hyperthermia: No Meds Allergies/Adverse Reactions: Allergies Allergy/AdvReac Type Severity Reaction Status Date / Time acetaminophen [From Tylenol] Allergy RASH Verified 08/29/16 03:16 oxycodone HCl [From Percocet] Allergy RASH Verified 08/29/16 03:16 Corticosteroids AdvReac bleeding Verified 08/29/16 03:16 (Glucocorticoids) morphine AdvReac VOMITING Verified 08/29/16 03:16 Physical Exam - Constitutional Appears: Cachectic, Chronically Ill - Head Exam Head Exam: ATRAUMATIC, NORMAL INSPECTION - Eye Exam Eye Exam: Normal appearance - ENT Exam ENT Exam: Mucous Membranes Moist - Respiratory Exam Respiratory Exam: Clear to Auscultation Bilateral - Cardiovascular Exam Cardiovascular Exam: REGULAR RHYTHM, +S1, +S2 - GI/Abdominal Exam GI & Abdominal Exam: Normal Bowel Sounds - Extremities Exam Extremities exam: Positive for: normal inspection - Neurological Exam Neurological exam: Alert, CN II-XII Intact, Oriented x3 - Psychiatric Exam Psychiatric exam: Normal Affect - Skin Skin Exam: Normal Color Results - Vital Signs Recent Vital Signs: Last Vital Signs Temp 98.2 F 09/13/16 08:28 Pulse 52 L 09/13/16 08:28 Resp 18 09/13/16 08:28 BP 124/79 09/13/16 08:28 Pulse Ox 99 09/13/16 08:28 - Labs Result Diagrams: 09/13/16 11:30 09/13/16 11:30 Labs: Laboratory Results - last 24 hr 09/12/16 09/13/16 23:35 11:30 WBC 6.0 5.3 RBC 4.08 L 4.02 L Hgb 11.5 L 11.4 L Hct 35.4 35.4 MCV 86.7 88.1 MCH 28.3 28.3 MCHC 32.6 L 32.1 L RDW 16.2 H 15.9 H Plt Count 104 L D 101 L MPV 10.1 Neut % (Auto) 66.1 Lymph % (Auto) 10.7 L Dare % (Auto) 9.5 Eos % (Auto) 12.6 H Baso % (Auto) 1.1 Neut # 4.0 Lymph # 0.6 L Dare # 0.6 Eos # 0.8 H Baso # 0.1 PT 12.6 H INR 1.21 H APTT 27.8 Sodium 133 135 Potassium 3.6 4.4 Chloride 104 105 Carbon Dioxide 22 25 Anion Gap 11 9 L BUN 10 7 L Creatinine 0.8 0.8 Est GFR ( Amer) > 60 > 60 Est GFR (Non-Af Amer) > 60 > 60 Random Glucose 97 61 L Calcium 7.8 L 7.9 L Total Bilirubin 1.0 AST 52 ALT 42 Alkaline Phosphatase 109 Troponin I < 0.0120 Total Protein 6.2 L Albumin 2.7 L D Globulin 3.5 Albumin/Globulin Ratio 0.8 L Lipase 150 Alcohol, Quantitative < 10 Assessment & Plan (1) Esophageal varices Status: Chronic (2) Gastritis Status: Chronic (3) Cocaine abuse Status: Chronic (4) Gastrointestinal hemorrhage Status: Resolved (5) Upper GI bleed Status: Resolved (6) Alcohol abuse Status: Chronic (7) Ascites Status: Chronic (8) 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
[2016-09-13] MEDS: Sucralfate 1 gm/10 ml Oral Susp UD PO SCH ×2 (17:30→21:23)
[2016-09-14 07:58] LABS: HEMATOCRIT 34.1 % (35.0-51.0); MEAN CELL VOLUME 87.8 fl (80.0-94.0); MEAN CORPUSCULAR HEMOGLOBIN 28.5 pg (27.0-31.0); MEAN CORPUSCULAR HGB CONC 32.5 g/dL (33.0-37.0); RED CELL DISTRIBUTION WIDTH 16.1 % (11.5-14.5); WHITE BLOOD COUNT 4.7 K/uL (4.8-10.8)
[2016-09-14 08:24] LABS: BLOOD UREA NITROGEN 11 mg/dl (9-20); CALCIUM 7.9 mg/dL (8.4-10.2); CARBON DIOXIDE 28 mmol/L (22-30); CHLORIDE 104 mmol/L (98-107); GFR AFRICAN-AMERICAN > 60; GLUCOSE,RANDOM 90 mg/dL (75-110); POTASSIUM 4.2 MMOL/L (3.6-5.0); SODIUM 135 mmol/l (132-148)
[2016-09-14] MEDS: Sucralfate 1 gm/10 ml Oral Susp UD PO SCH ×4 (08:51→21:50)
--- NOTE | 2016-09-14 16:16 | CP.PCM.PN ---
Subjective - Date & Time of Evaluation Date of Evaluation: 09/14/16 Time of Evaluation: 16:18 - Subjective Subjective: Patient looks comfortable, vital are stable. He still presences with severe debility Objective - Vital Signs/Intake and Output Vital Signs (last 24 hours): Temp Pulse Resp BP Pulse Ox 98.7 F 63 18 100/67 96 09/14/16 08:06 09/14/16 08:06 09/14/16 08:06 09/14/16 08:50 09/14/16 08:06 - Medications Medications: Current Medications Folic Acid (Folic Acid) 1 mg PO DAILY [facility] Last Admin: 09/14/16 08:52 Dose: 1 mg Furosemide (Lasix) 20 mg PO DAILY [facility] Last Admin: 09/14/16 08:50 Dose: 20 mg Hydromorphone HCl (Dilaudid) 0.25 mg IVP Q6 PRN PRN Reason: Pain, severe (8-10) Last Admin: 09/13/16 22:50 Dose: 0.25 mg Pantoprazole Sodium (Protonix Inj) 40 mg IV Q12 [facility] Last Admin: 09/14/16 08:51 Dose: 40 mg Spironolactone (Aldactone) 50 mg PO DAILY [facility] Last Admin: 09/14/16 08:51 Dose: 50 mg Sucralfate (Carafate Oral Susp) 1 gm PO QID [facility] Last Admin: 09/14/16 14:00 Dose: 1 gm Thiamine HCl (Vitamin B1 Tab) 100 mg PO DAILY [facility] Last Admin: 09/14/16 08:51 Dose: 100 mg - Labs Labs: 09/14/16 05:30 09/14/16 05:30 PT 12.6 SECONDS (9.6-11.2) H 09/12/16 23:35 INR 1.21 (0.92-1.08) H 09/12/16 23:35 APTT 27.8 SECONDS (23.3-32.5) 09/12/16 23:35 - Constitutional Appears: Cachectic, Chronically Ill - Head Exam Head Exam: ATRAUMATIC, NORMAL INSPECTION, NORMOCEPHALIC - Eye Exam Eye Exam: EOMI, Normal appearance, PERRL - ENT Exam ENT Exam: Mucous Membranes Moist - Neck Exam Neck Exam: Full ROM - Respiratory Exam Respiratory Exam: Clear to Ausculation Bilateral - Cardiovascular Exam Cardiovascular Exam: REGULAR RHYTHM, +S1, +S2 - GI/Abdominal Exam GI & Abdominal Exam: Normal Bowel Sounds Additional comments: + ascites - Neurological Exam Neurological Exam: Alert, Awake, CN II-XII Intact, Oriented x3 Assessment and Plan (1) Esophageal varices Status: Chronic (2) Gastritis Status: Chronic (3) Cocaine abuse Status: Chronic (4) Gastrointestinal hemorrhage Status: Resolved (5) Upper GI bleed Status: Resolved (6) Alcohol abuse Status: Chronic (7) Ascites Status: Chronic (8) 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 Will DC to [facility] when bed available.
[2016-09-15] MEDS: Sucralfate 1 gm/10 ml Oral Susp UD PO SCH ×3 (08:45→17:13)
--- NOTE | 2016-09-15 09:55 | CARD ---
APPROVED REPORT EKG Measurement Heart [id number] <Conclusion> Sinus rhythm with short DE Nonspecific ST and T wave abnormality Abnormal ECG
--- NOTE | 2016-09-15 12:12 | CP.PCM.PN ---
Subjective - Date & Time of Evaluation Date of Evaluation: 09/15/16 Time of Evaluation: 12:18 - Subjective Subjective: Patient with end stage liver cirrhosis, severe debility and alcohol and cocaine addiction He was placed on biometrics technician obs waiting for acceptance in a snf facility. Patient was discharged the same day of admission. He returned to ER c/o severe weakness and abdominal discomfort. The patient was in need of close obs because of severity of his illness and for his presentation in the ED. Historically he presented in ER with severe bleeding. His social conditions with not possibility of maximize his home support and because of his addictions, his severe co-morbidities and debilities and risk factors that affected my the decision to keep the patient in a "safe" environment to prevent any catastrophic outcome. Now will DC to SNF for further PT, RX and w/u for his conditions. Objective - Vital Signs/Intake and Output Vital Signs (last 24 hours): Temp Pulse Resp BP Pulse Ox 97.9 F 60 20 104/65 97 09/15/16 07:54 09/15/16 07:54 09/15/16 07:54 09/15/16 08:45 09/15/16 07:54 - Medications Medications: Current Medications Folic Acid (Folic Acid) 1 mg PO DAILY [facility] Last Admin: 09/15/16 08:45 Dose: 1 mg Furosemide (Lasix) 20 mg PO DAILY [facility] Last Admin: 09/15/16 08:45 Dose: 20 mg Hydromorphone HCl (Dilaudid) 0.25 mg IVP Q6 PRN PRN Reason: Pain, severe (8-10) Last Admin: 09/15/16 04:40 Dose: 0.25 mg Pantoprazole Sodium (Protonix Inj) 40 mg IV Q12 [facility] Last Admin: 09/15/16 08:46 Dose: 40 mg Spironolactone (Aldactone) 50 mg PO DAILY [facility] Last Admin: 09/15/16 08:45 Dose: 50 mg Sucralfate (Carafate Oral Susp) 1 gm PO QID [facility] Last Admin: 09/15/16 08:45 Dose: 1 gm Thiamine HCl (Vitamin B1 Tab) 100 mg PO DAILY [facility] Last Admin: 09/15/16 08:45 Dose: 100 mg - Labs Labs: 09/14/16 05:30 09/14/16 05:30 PT 12.6 SECONDS (9.6-11.2) H 09/12/16 23:35 INR 1.21 (0.92-1.08) H 09/12/16 23:35 APTT 27.8 SECONDS (23.3-32.5) 09/12/16 23:35 - Constitutional Appears: Cachectic, Chronically Ill - Head Exam Head Exam: ATRAUMATIC, NORMAL INSPECTION, NORMOCEPHALIC - Eye Exam Eye Exam: Normal appearance - ENT Exam ENT Exam: Mucous Membranes Moist - Neck Exam Neck Exam: Full ROM - Respiratory Exam Respiratory Exam: Clear to Ausculation Bilateral - Cardiovascular Exam Cardiovascular Exam: REGULAR RHYTHM, +S1, +S2 - GI/Abdominal Exam GI & Abdominal Exam: Soft, Normal Bowel Sounds - Extremities Exam Extremities Exam: Normal Inspection - Neurological Exam Neurological Exam: Alert, Awake, CN II-XII Intact, Normal Gait, Oriented x3 - Psychiatric Exam Psychiatric exam: Normal Affect Assessment and Plan (1) Esophageal varices Status: Chronic (2) Gastritis Status: Chronic (3) Cocaine abuse Status: Chronic (4) Gastrointestinal hemorrhage Status: Resolved (5) Upper GI bleed Status: Resolved (6) Alcohol abuse Status: Chronic (7) Ascites Status: Chronic (8) 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
[2016-09-15 17:42] VITALS: BP 111/73; PULSE 66; RESP 18; TEMP 98.6; O2SAT 99
== END 2016-09-15 20:30 ==
LOC: H.ER 22:15 → H.ERHOLD 23:05 → H.MEDSURG1 09-13 01:02
PROVIDERS: ADMIT Internal Medicine; ATTEND Internal Medicine
DX: I85.00 Esophageal varices without bleeding (principal); K70.31 Alcoholic cirrhosis of liver with ascites; F10.20 Alcohol dependence, uncomplicated; K29.70 Gastritis, unspecified, without bleeding; D68.9 Coagulation defect, unspecified; K92.2 Gastrointestinal hemorrhage, unspecified; R64 Cachexia; F14.20 Cocaine dependence, uncomplicated; I10 Essential (primary) hypertension
CPT/HCPCS: 36415; 80048; 80053; 83690; 84484; 85025; 85027; 85610; 85730; 93005; 99281; C9113; G0378; G0480; J1170; J7040; J7042

== ENCOUNTER 2017-08-05 15:28 | Inpatient (IN) | payer MEDICARE, OTHER ==
[2017-08-05 15:28] VITALS: BMI 25.2
[2017-08-05] MEDS ORDERED: Sodium Chloride 0.9% 1,000 ML IV STA (16:16)
--- NOTE | 2017-08-05 16:19 | ED PDOC ---
HPI:Nausea, Vomiting, Diarrhea Time Seen by Provider: 08/05/17 15:55 Chief Complaint (Nursing): Flu-like Symptoms Chief Complaint (Provider): Diarrhea History Per: Patient History/Exam Limitations: no limitations Onset/Duration Of Symptoms: Days (x 1) Current Symptoms Are (Timing): Still Present Additional Complaint(s): Beni is a 62 y/o male who was brought to the ED via EMS complaining of more than 30 episodes of diarrhea since yesterday with associated nausea, vomiting, and chills. Patient was at [facility] a week ago where he had blood work and CT done but is unsure of the results. Since leaving, he has not taken any medications. He also complains of tingling in both his hands since New Years. PMD: Sanford Sheikh Past Medical History Reviewed: Historical Data, Nursing Documentation, Vital Signs Vital Signs: Last Vital Signs Temp 97.2 F L 08/05/17 15:33 Pulse 103 H 08/05/17 15:33 Resp 18 08/05/17 15:33 BP 134/82 08/05/17 15:33 Pulse Ox 99 08/05/17 15:33 - Medical History PMH: Anemia, Anxiety, Depression, Fractures (Left Toe fracture, forklift accident), Hepatitis (C), HTN Denies: Alzheimer's Disease, Arthritis, Asthma, Atrial Fibrillation, Bipolar Disorder, Bronchitis, CAD, Cardia Arrhythmia, CHF, COPD, Crohn's Disease, Dementia, Diverticulitis, Emphysema, Gastritis, Gall Bladder Disease, HIV, Hypercholesterolemia, Hyperthyroidism, Hypothyroidism, Kidney Stones, Migraine, Mitral Valve Prolapse, Multiple Sclerosis, Osteoporosis, Pancreatitis, Paranoia , Parkinson's Disease, Peripheral Edema, Pneumonia, Post Traumatic Stress Disorder, Pulmonary Embolism, Chronic Kidney Disease, Rheumatoid Arthritis, Schizophrenia, Sickle Cell Disease, Sexually Transmitted Disease, Sleep Apnea - Surgical History Surgical History: Endoscopy Denies: Appendectomy, CABG, Carotid Endarterectomy, Cholecystectomy, Coronary Stent, Pacemaker, Tonsillectomy - Family History Family History: States: Unknown Family Hx, Diabetes - Immunization History Hx Tetanus Toxoid Vaccination: Yes Hx Influenza Vaccination: Yes Hx Pneumococcal Vaccination: Yes - Home Medications Home Medications: Ambulatory Orders Medication Instructions Recorded Folic Acid 1 mg PO DAILY #30 tab 09/14/16 Furosemide [Lasix] 20 mg PO DAILY #30 tab 03/19/17 Spironolactone [Aldactone] 50 mg PO DAILY #30 tab 09/14/16 Sucralfate [Carafate Oral Susp] 1 gm PO QID #90 [facility] 09/14/16 Thiamine [Vitamin B1 Tab] 100 mg PO DAILY #30 tab 09/14/16 Carvedilol [Coreg] 3.125 mg PO DAILY 08/05/17 Eplerenone 50 mg PO DAILY 08/05/17 Furosemide [Lasix] 40 mg PO DAILY 08/05/17 Gabapentin [Neurontin] 400 mg PO TID 08/05/17 Lactulose [Generlac] 30 gm PO DAILY 08/05/17 Omeprazole 40 mg PO DAILY 08/05/17 Sofosbuvir/Velpatasvir [Epclusa 100 - 400 mg PO 08/05/17 400 mg-100 mg Tablet] - Allergies Allergies/Adverse Reactions: Allergies Allergy/AdvReac Type Severity Reaction Status Date / Time acetaminophen [From Tylenol] Allergy RASH Verified 08/29/16 03:16 oxycodone HCl [From Percocet] Allergy RASH Verified 08/29/16 03:16 Corticosteroids AdvReac bleeding Verified 08/29/16 03:16 (Glucocorticoids) morphine AdvReac VOMITING Verified 08/29/16 03:16 Review of Systems ROS Statement: Except As Marked, All Systems Reviewed And Found Negative Constitutional: Positive for: Chills Gastrointestinal: Positive for: Nausea, Vomiting, Diarrhea Neurological: Positive for: Other (tingling in hands) Physical Exam - Reviewed Nursing Documentation Reviewed: Yes Vital Signs Reviewed: Yes - Physical Exam Appears: Positive for: Non-toxic, In Acute Distress (mild) Head Exam: Positive for: ATRAUMATIC, NORMAL INSPECTION, NORMOCEPHALIC Skin: Positive for: Normal Color, Warm, Dry Eye Exam: Positive for: EOMI, Normal appearance, PERRL ENT: Positive for: Normal ENT Inspection Neck: Positive for: Normal, Painless ROM, Supple Cardiovascular/Chest: Positive for: Regular Rate, Rhythm. Negative for: Murmur Respiratory: Positive for: Normal Breath Sounds. Negative for: Respiratory Distress Gastrointestinal/Abdominal: Positive for: Normal Exam, Bowel Sounds, Soft. Negative for: Tenderness, Distended Back: Positive for: Normal Inspection Rectal: Positive for: Normal Exam. Negative for: Black Stool, Blood Streaked Stool, Hemorrhoids, Mass, Tenderness Extremity: Positive for: Normal ROM Neurologic/Psych: Positive for: Alert, Oriented - Laboratory Results Result Diagrams: 08/07/17 09:40 08/07/17 09:40 - ECG O2 Sat by Pulse Oximetry: 99 (RA) Pulse Ox Interpretation: Normal Medical Decision Making Medical Decision Making: Time: 16:15 Initial Impression: Gastroenteritis, Viral Syndrome Initial Plan: --CT Abdomen & Pelvis --EKG --CMP --Lipase --Urine Dip --CBC --PTT --Prothrombin Time --Chest XR --Dilaudid --Zofran --Flu Swab --Urinalysis Flu Swab: Negative Time: 17:00 --Patient signed out to Dr. Gutierres pending CT. Scribe Attestation: Documented by Damion Chiang, acting as a scribe for Dr. Kayla Ravi MD. Provider Scribe Attestation: All medical record entries made by the Scribe were at my direction and personally dictated by me. I have reviewed the chart and agree that the record accurately reflects my personal performance of the history, physical exam, medical decision making, and the department course for this patient. I have also personally directed, reviewed, and agree with the discharge instructions and disposition. Disposition - Clinical Impression Clinical Impression: Colitis - Patient ED Disposition Is Patient to be Admitted: Transfer of Care - Disposition Disposition: Transfer of Care Disposition Time: 17:00 Condition: STABLE Patient Signed Over To: Eulalio Gutierres
[2017-08-05 16:35] LABS: BASO % 0.3 % (0.0-2.0); EOS # 0.1 K/uL (0.0-0.7); EOS % 0.7 % (0.0-4.0); HEMOGLOBIN 9.6 g/dL (12.0-18.0); LYMPH # 0.8 K/uL (1.0-4.3); LYMPH % 10.8 % (20.0-40.0); MEAN CELL VOLUME 94.2 fl (80.0-94.0); MEAN CORPUSCULAR HEMOGLOBIN 30.3 pg (27.0-31.0); MEAN CORPUSCULAR HGB CONC 32.2 g/dL (33.0-37.0); MEAN PLATELET VOLUME 10.5 fl (7.2-11.7); MONO # 0.8 K/uL (0.0-0.8); MONO % 9.6 % (0.0-10.0); NEUT # 6.2 K/uL (1.8-7.0); NEUT % 78.6 % (50.0-75.0); RBC 3.16 Mil/uL (4.40-5.90); RED CELL DISTRIBUTION WIDTH 15.7 % (11.5-14.5); WHITE BLOOD COUNT 7.9 K/uL (4.8-10.8)
[2017-08-05 16:43] LABS: INR 1.3 (0.9-1.2); PROTHROMBIN TIME 14.3 Seconds (9.8-13.1)
[2017-08-05 16:46] LABS: ALB/GLOB RATIO 1.1 (1.0-2.1); ALBUMIN 3.8 g/dL (3.5-5.0); ALT/SGPT 35 U/L (21-72); AST/SGOT 32 U/L (17-59); BLOOD UREA NITROGEN 19 mg/dl (9-20); GFR AFRICAN-AMERICAN > 60; GFR NON-AFRICAN AMERICAN > 60; LIPASE 39 U/L (23-300)
[2017-08-05] MEDS ORDERED: Iohexol 300 100 ML IJ ONE (16:55)
[2017-08-05] MEDS ORDERED: Sodium Chloride 0.9% 50 ML IV ONE (16:55)
--- NOTE | 2017-08-05 17:35 | CT ---
PROCEDURE: CT Abdomen and Pelvis with contrast HISTORY: Diarrhea COMPARISON: Comparison is made to the previous study dated 09/06/2016 TECHNIQUE: Contrast dose: 95 cc of Omnipaque 300 Radiation dose: Total exam DLP = 793.96 mGy-cm. This CT exam was performed using one or more of the following dose reduction techniques: Automated exposure control, adjustment of the mA and/or kV according to patient size, and/or use of iterative reconstruction technique. FINDINGS: LOWER THORAX: No evidence of acute pathology at the lung bases. No evidence of pleural effusion. The heart is normal in size. LIVER: Advanced cirrhotic changes are again noted. There is heterogeneous enhancement of the liver noted without evidence of discrete mass lesion. GALLBLADDER AND BILE DUCTS: The gallbladder is mildly distended contains gallstones. No definite CT evidence of acute cholecystitis. The common bile duct is normal in caliber. PANCREAS: Unremarkable. No gross lesion or ductal dilatation. SPLEEN: Mild splenomegaly is noted. ADRENALS: Unremarkable. No mass. KIDNEYS AND URETERS: Unremarkable. No hydronephrosis. No solid mass. VASCULATURE: Multiple collateral vessels seen in the upper abdomen and in the anterior abdominal wall suggestive of portal systemic shunts due to portal hypertension and liver cirrhosis. . No aortic aneurysm. BOWEL: There is focal wall thickening noted at the hepatic flexure and distal ascending colon surrounding with inflammatory changes. The differential considerations include colitis diverticulitis or neoplasm. Mildly dilated thick wall cecum and proximal ascending colon is also noted. No evidence of bowel obstruction. Mildly dilated small bowel loops demonstrate mild wall thickening suggestive of enteritis. APPENDIX: No evidence of appendicitis. PERITONEUM: Interval resolving of the previously seen ascites. No evidence of free air in the abdomen. LYMPH NODES: Unremarkable. No enlarged lymph nodes. BLADDER: Unremarkable. REPRODUCTIVE: Unremarkable. BONES: No acute fracture. OTHER FINDINGS: There is moderate amount of fluid in the visualized portion of the scrotum shows chest if of moderate to large hydrocele. IMPRESSION: Focal thickening in the distal ascending colon and hepatic flexure surrounding with fat stranding. The differential consideration includes colitis diverticulitis or neoplasm. Diffuse wall thickening of the cecum and ascending colon also surrounding with mild inflammatory changes. The possibility of colitis and enteritis should be considered. Further assessment of the large bowel after the acute phase is recommended. Gallstones without evidence of acute cholecystitis. Advanced cirrhosis with findings suggestive of portal hypertension.
--- NOTE | 2017-08-05 17:49 | RAD ---
HISTORY: Abd pain COMPARISON: Comparison is made with 09/03/2016 FINDINGS: LUNGS: No evidence of new infiltrate or consolidation in the lungs. PLEURA: No significant pleural effusion identified, no pneumothorax apparent. CARDIOVASCULAR: Normal. OSSEOUS STRUCTURES: No significant abnormalities. VISUALIZED UPPER ABDOMEN: Normal. OTHER FINDINGS: None. IMPRESSION: No active disease. No evidence of subdiaphragmatic free air.
[2017-08-05] MEDS ORDERED: metroNIDAZOLE 500mg/100ml NS 100 ML IVPB STA (18:38)
--- NOTE | 2017-08-05 18:41 | ED PDOC ---
- Laboratory Results Result Diagrams: 08/05/17 16:25 08/05/17 16:25 - ECG O2 Sat by Pulse Oximetry: 99 (RA) Disposition - Clinical Impression Clinical Impression: Colitis - POA Present On Arrival: None - Disposition Disposition: Hospitalized as Observation Patient Disposition Time: 18:40 Condition: FAIR Forms: [facility] (Kinyarwanda)
[2017-08-06 00:24] LABS: SQUAMOUS EPITHIAL < 1 /hpf (0-5); URINE BILIRUBIN NEGATIVE (NEGATIVE); URINE BLOOD NEGATIVE (NEGATIVE); URINE CLARITY CLEAR (Clear); URINE COLOR YELLOW (YELLOW); URINE GLUCOSE (UA) NEG (Normal); URINE LEUKOCYTE ESTERASE NEG Leu/uL (Negative); URINE NITRATE NEGATIVE (NEGATIVE); URINE PROTEIN NEGATIVE (NEGATIVE); URINE UROBILINOGEN 0.2-1.0 mg/dL (0.2-1.0)
[2017-08-06] MEDS: Dextrose 5%/0.9% NS 1,000 ML IV SCH ×4 (00:51→23:38)
[2017-08-06 06:38] LABS: HEMOGLOBIN 7.9 g/dL (12.0-18.0); MEAN CORPUSCULAR HEMOGLOBIN 30.7 pg (27.0-31.0); MEAN CORPUSCULAR HGB CONC 32.6 g/dL (33.0-37.0); RBC 2.57 Mil/uL (4.40-5.90); RED CELL DISTRIBUTION WIDTH 15.6 % (11.5-14.5); WHITE BLOOD COUNT 3.6 K/uL (4.8-10.8)
[2017-08-06] MEDS: metroNIDAZOLE 500mg/100ml NS 100 ML IVPB SCH ×2 (08:10→17:41)
[2017-08-06 08:19] LABS: ALT/SGPT 30 U/L (21-72); AST/SGOT 26 U/L (17-59); BLOOD UREA NITROGEN 16 mg/dl (9-20); GFR AFRICAN-AMERICAN > 60; GFR NON-AFRICAN AMERICAN > 60
[2017-08-06] MEDS ORDERED: Enoxaparin 40 mg Syringe SC SCH (09:00)
[2017-08-06] MEDS ORDERED: metroNIDAZOLE 500mg/100ml NS IVPB SCH (09:00)
[2017-08-06] MEDS: Ciprofloxacin 400mg/200ml D5W 400 MG/200 ML BAG IVPB SCH ×2 (09:40→20:49)
--- NOTE | 2017-08-06 11:09 | CP.PCM.HP ---
History of Present Illness - History of Present Illness History of Present Illness: Mrs Virgilio Vegas is a 61 year old male with a history of esophageal varices, liver cirrhosis, and alcoholism, HCV that presents to the ED with a chief complaint of abdominal pain and weakness. Patient was seen last in my office 9 months ago since than he attending the hepatic clinic at the [facility]. Recently he had an EGD and was discharged with the recommendation of f/u on 08/03. Patient recently stopped all medications. In ER was placed under obs. During several hrs after admission the Hb dropped from 9.6 to 7.9, the guiac was positive and the CT scan reveled diverticulitis. The source of the bedding can be related to bleeding esophageal varices end /or diverticulitis. Will regular admit the patient, will transfuse, follow ammonia level, and continue iv antbx and vif. Until the cause of bedding is not identified will continue NPO. Present on Admission - Present on Admission Any Indicators Present on Admission: No Review of Systems - Constitutional Constitutional: As Per HPI - Cardiovascular Cardiovascular: As Per HPI - Respiratory Respiratory: As Per HPI - Gastrointestinal Gastrointestinal: As Per HPI - Musculoskeletal Musculoskeletal: As Per HPI - Integumentary Integumentary: As Per HPI - Neurological Neurological: As Per HPI - Psychiatric Psychiatric: As Per HPI - Endocrine Endocrine: As Per HPI - Hematologic/Lymphatic Hematologic: As Per HPI Past Patient History - Infectious Disease Hx of Infectious Diseases: None - Past Medical History & Family History Past Medical History?: Yes - Past Social History Smoking Status: Current Some Days Smoker - CARDIAC Hx Atrial Fibrillation: No Hx Cardia Arrhythmia: No Hx Congestive Heart Failure: No Hx Hypercholesterolemia: No Hx Hypertension: Yes Hx Mitral Valve Prolapse: No Hx Pacemaker: No Hx Peripheral Edema: No - PULMONARY Hx Asthma: No Hx Bronchitis: No Hx Chronic Obstructive Pulmonary Disease (COPD): No Hx Emphysema: No Hx Pneumonia: No Hx Pulmonary Embolism: No Hx Sleep Apnea: No - NEUROLOGICAL Hx Alzheimer's Disease: No Hx Dementia: No Hx Migraine: No Hx Multiple Sclerosis: No Hx Parkinson's Disease: No - HEENT Hx HEENT Problems: No - RENAL Hx Chronic Kidney Disease: No Hx Kidney Stones: No - ENDOCRINE/METABOLIC Hx Hyperthyroidism: No Hx Hypothyroidism: No - HEMATOLOGICAL/ONCOLOGICAL Hx Anemia: Yes Hx Human Immunodeficiency Virus (HIV): No Hx Sickle Cell Disease: No - INTEGUMENTARY Hx Dermatological Problems: No - MUSCULOSKELETAL/RHEUMATOLOGICAL Hx Falls: Yes - GASTROINTESTINAL Hx Crohn's Disease: No Hx Diverticulitis: No Hx Gall Bladder Disease: No Hx Gastritis: No Hx Pancreatitis: No - GENITOURINARY/GYNECOLOGICAL Hx Sexually Transmitted Disorders: No - PSYCHIATRIC Hx Substance Use: No - SURGICAL HISTORY Hx Appendectomy: No Hx Carotid Endarterectomy: No Hx Cholecystectomy: No Hx Coronary Artery Bypass Graft: No Hx Coronary Stent: No Hx Tonsillectomy: No - ANESTHESIA Hx Anesthesia: Yes Hx Anesthesia Reactions: No Hx Malignant Hyperthermia: No Meds Allergies/Adverse Reactions: Allergies Allergy/AdvReac Type Severity Reaction Status Date / Time acetaminophen [From Tylenol] Allergy RASH Verified 08/29/16 03:16 oxycodone HCl [From Percocet] Allergy RASH Verified 08/29/16 03:16 Corticosteroids AdvReac bleeding Verified 08/29/16 03:16 (Glucocorticoids) morphine AdvReac VOMITING Verified 08/29/16 03:16 Physical Exam - Constitutional Appears: Chronically Ill - Head Exam Head Exam: ATRAUMATIC, NORMAL INSPECTION, NORMOCEPHALIC - Eye Exam Eye Exam: Normal appearance - ENT Exam ENT Exam: Mucous Membranes Dry - Neck Exam Neck exam: Positive for: Full Rom - Respiratory Exam Respiratory Exam: Clear to Auscultation Bilateral - Cardiovascular Exam Cardiovascular Exam: REGULAR RHYTHM, +S1, +S2 - GI/Abdominal Exam GI & Abdominal Exam: Tenderness - Extremities Exam Extremities exam: Positive for: normal inspection - Neurological Exam Neurological exam: Alert, CN II-XII Intact, Oriented x3 - Psychiatric Exam Psychiatric exam: Anxious - Skin Skin Exam: Pallor Results - Vital Signs Recent Vital Signs: Last Vital Signs Temp 98.2 F 08/06/17 08:04 Pulse 91 H 08/06/17 08:04 Resp 20 08/06/17 08:04 BP 118/63 08/06/17 08:04 Pulse Ox 100 08/06/17 08:04 - Labs Result Diagrams: 08/06/17 06:05 08/06/17 06:05 Labs: Laboratory Results - last 24 hr 08/05/17 08/05/17 08/05/17 16:25 16:25 16:25 WBC 7.9 D RBC 3.16 L Hgb 9.6 L Hct 29.8 L MCV 94.2 H D MCH 30.3 MCHC 32.2 L RDW 15.7 H Plt Count 78 L D MPV 10.5 Neut % (Auto) 78.6 H Lymph % (Auto) 10.8 L Con[place] % (Auto) 9.6 Eos % (Auto) 0.7 Baso % (Auto) 0.3 Neut # (Auto) 6.2 Lymph # (Auto) 0.8 L [place] # (Auto) 0.8 Eos # (Auto) 0.1 Baso # (Auto) 0.0 PT INR APTT Sodium 142 Potassium 4.0 Chloride 109 H Carbon Dioxide 23 Anion Gap 14 BUN 19 Creatinine 0.9 Est GFR ( Amer) > 60 Est GFR (Non-Af Amer) > 60 Random Glucose 130 H Calcium 9.0 Total Bilirubin 1.2 AST 32 ALT 35 Alkaline Phosphatase 70 Total Protein 7.3 Albumin 3.8 Globulin 3.5 Albumin/Globulin Ratio 1.1 Lipase 39 Urine Color Urine Clarity Urine pH Ur Specific Gaston Urine Protein Urine Glucose (UA) Urine Ketones Urine Blood Urine Nitrate Urine Bilirubin Urine Urobilinogen Ur Leukocyte Esterase Urine RBC (Auto) Urine Microscopic WBC Ur Squamous Epith Cells Stool Occult Blood C. difficile Ag & Toxin Influenza Typ A,B (EIA) Negative for flu a/b 08/05/17 08/05/17 08/05/17 16:25 17:32 23:56 WBC RBC Hgb Hct MCV MCH MCHC RDW Plt Count MPV Neut % (Auto) Lymph % (Auto) [place] % (Auto) Eos % (Auto) Baso % (Auto) Neut # (Auto) Lymph # (Auto) [place] # (Auto) Eos # (Auto) Baso # (Auto) PT 14.3 H INR 1.3 H APTT 32.0 Sodium Potassium Chloride Carbon Dioxide Anion Gap BUN Creatinine Est GFR ( Amer) Est GFR (Non-Af Amer) Random Glucose Calcium Total Bilirubin AST ALT Alkaline Phosphatase Total Protein Albumin Globulin Albumin/Globulin Ratio Lipase Urine Color Yellow Urine Clarity Clear Urine pH 5.0 Ur Specific Gaston 1.010 Urine Protein Negative Urine Glucose (UA) Neg Urine Ketones Negative Urine Blood Negative Urine Nitrate Negative Urine Bilirubin Negative Urine Urobilinogen 0.2-1.0 Ur Leukocyte Esterase Neg Urine RBC (Auto) 1 Urine Microscopic WBC 1 Ur Squamous Epith Cells < 1 Stool Occult Blood Positive H C. difficile Ag & Toxin Influenza Typ A,B (EIA) 08/06/17 08/06/17 08/06/17 00:13 06:05 06:05 WBC 3.6 L D RBC 2.57 L Hgb 7.9 L Hct 24.1 L MCV 94.0 MCH 30.7 MCHC 32.6 L RDW 15.6 H Plt Count 55 L D MPV Neut % (Auto) Lymph % (Auto) [place] % (Auto) Eos % (Auto) Baso % (Auto) Neut # (Auto) Lymph # (Auto) [place] # (Auto) Eos # (Auto) Baso # (Auto) PT INR APTT Sodium 141 Potassium 3.7 Chloride 113 H Carbon Dioxide 20 L Anion Gap 12 BUN 16 Creatinine 0.9 Est GFR ( Amer) > 60 Est GFR (Non-Af Amer) > 60 Random Glucose 117 H Calcium 8.0 L Total Bilirubin 1.0 AST 26 ALT 30 Alkaline Phosphatase 58 Total Protein 6.2 L Albumin 3.0 L D Globulin 3.2 Albumin/Globulin Ratio 1.0 Lipase Urine Color Urine Clarity Urine pH Ur Specific Gaston Urine Protein Urine Glucose (UA) Urine Ketones Urine Blood Urine Nitrate Urine Bilirubin Urine Urobilinogen Ur Leukocyte Esterase Urine RBC (Auto) Urine Microscopic WBC Ur Squamous Epith Cells Stool Occult Blood C. difficile Ag & Toxin Negative Influenza Typ A,B (EIA) Assessment & Plan (1) Abdominal pain Status: Acute (2) Acute blood loss anemia Status: Acute (3) Anemia Status: Acute (4) Hypoalbuminemia due to protein-calorie malnutrition Status: Chronic (5) Ascites Status: Chronic (6) Ascites due to alcoholic cirrhosis Status: Chronic (7) Esophageal varices Status: Chronic (8) Liver cirrhosis Status: Chronic (9) Liver cirrhosis, alcoholic Status: Chronic (10) Physical debility Status: Chronic - Assessment and Plan (Free Text) Plan: As per orders.
--- NOTE | 2017-08-06 11:25 | CARD ---
APPROVED REPORT EKG Measurement Heart [id number] ID [id number] <Conclusion> Sinus rhythm with short ID Otherwise normal ECG
[2017-08-06 15:35] LABS: BASO % 0.8 % (0.0-2.0); EOS # 0.1 K/uL (0.0-0.7); HEMOGLOBIN 7.9 g/dL (12.0-18.0); LYMPH # 0.7 K/uL (1.0-4.3); LYMPH % 21.5 % (20.0-40.0); MEAN CELL VOLUME 94.3 fl (80.0-94.0); MEAN CORPUSCULAR HEMOGLOBIN 30.5 pg (27.0-31.0); MEAN CORPUSCULAR HGB CONC 32.3 g/dL (33.0-37.0); MEAN PLATELET VOLUME 10.3 fl (7.2-11.7); MONO # 0.5 K/uL (0.0-0.8); MONO % 13.9 % (0.0-10.0); NEUT # 2.1 K/uL (1.8-7.0); NEUT % 59.8 % (50.0-75.0); NRBC % 0.1 % (0.0-0.0); RBC 2.61 Mil/uL (4.40-5.90); RED CELL DISTRIBUTION WIDTH 15.7 % (11.5-14.5); WHITE BLOOD COUNT 3.4 K/uL (4.8-10.8)
[2017-08-06 15:56] LABS: ALB/GLOB RATIO 1.1 (1.0-2.1); ALBUMIN 3.2 g/dL (3.5-5.0); ALT/SGPT 41 U/L (21-72); AST/SGOT 28 U/L (17-59); BLOOD UREA NITROGEN 12 mg/dl (9-20); CALCIUM 8.1 mg/dL (8.4-10.2); GFR AFRICAN-AMERICAN > 60; GFR NON-AFRICAN AMERICAN > 60
--- NOTE | 2017-08-06 16:28 | PCM.RRT ---
<Julio Cesar Tovar - Last Filed: 08/06/17 16:18> FARM OWNER OPERATOR Nurse Assessment - Situation Location: [facility] Room Number: 664 FARM OWNER OPERATOR Reason for Call: Chest Pain FARM OWNER OPERATOR Called By: RN, Physician - IV IV Inserted during FARM OWNER OPERATOR?: No - Respiratory Oxygen Delivery Method: Room Air Received Nebulizer Treatments: No Was the Patient Ventilated with Bag/Mask 100% O2?: No Secretions Suctioned?: No Was the Patient Intubated?: No Was the Patient Placed on a Ventilator?: No - Ventilator Settings Ventilator Respiratory Rate Settin Ventilator Tidal Volume Settin Peak Flow: 1 - Medication Medications Administered During FARM OWNER OPERATOR: Dilaudid - Diagnostic Test Ordered EKG: Yes Chest X-Ray: No CT Scan: No - Stat Labs Ordered FARM OWNER OPERATOR Stat Labs Ordered: CBC, BMP, PT/PTT, TROPONIN, LACTIC ACID CPR started during FARM OWNER OPERATOR?: No - Vital Signs Vital Signs: Rapid Response Vital Sign Blood Pressure 159/81 Pulse Rate 97 Respiratory Rate 22 Temperature 98.4 F Oxygen Saturation 100 - Time FARM OWNER OPERATOR Ended Time FARM OWNER OPERATOR Ended: 15:05 - Recommendations FARM OWNER OPERATOR Level of Care Recommendations: Remain in current setting I.Reason for FARM OWNER OPERATOR - A) Acute Change in Patient: (Select all that apply): Chest Pain Subjective: FARM OWNER OPERATOR Time Call: 14:57 FARM OWNER OPERATOR Team Arrival: 14:57 FARM OWNER OPERATOR Location: [facility]- S: FARM OWNER OPERATOR was called by RN on a 62 y/o M due to sudden chest pain. Pt was in clear discomfort lying on bed, complaining of sub-sternal chest pain, sharp, non- radiating and severe. Pt denied SOB, dizziness, sweats, chills, headache or parasthesia. O: -Vital Signs: BP 159/81, Sat O2 100%, HR 97, RR 19 -Physical exam; > GEN: Pt in discomfort due to pain, verbally responsive in Iranian and oriented, followed commands. > CV: S1 and S2 present, RRR. > Lungs: CTAB > EXT: No cyanosis or edema. FARM OWNER OPERATOR Interventions: - EKG ordered. - Hydromorphone administered. - Troponin ordered. - CBC, CMP, Lactic acid, Ammonia, coagulation profile ordered. - Pt reported relief after Hydromorphone administration. Repeat Vital Signs: BP 110/70, Sat O2 100% on RA, HR 83, Temp 98.4 degF. A/P: 62 y/o M with a PMHx of alcoholic cirrhosis and HCV admitted for anemia, positive guaiac test and diverticulitis on CT scan, presented severe substernal chest pain. - No changes in EKG - Continue monitoring - F/U blood analysis. - Report and notice PCP about FARM OWNER OPERATOR. FARM OWNER OPERATOR End: 15:05 FARM OWNER OPERATOR Leader: Dr Francis Scott. FARM OWNER OPERATOR Residents: Dr Nelson PGY-1, Dr Tovar PGY-1, Dr Fisher PGY-1. <Leslie Blanco - Last Filed: 08/08/17 19:14> FARM OWNER OPERATOR Nurse Assessment - Vital Signs Vital Signs: Rapid Response Vital Sign Blood Pressure 159/81 Pulse Rate 97 Respiratory Rate 22 Temperature 98.4 F Oxygen Saturation 100 Attending/Attestation - Attestation I have personally seen and examined this patient.: Yes I have fully participated in the care of the patient.: Yes I have reviewed all pertinent clinical information, including history, physical exam and plan: Yes Notes (Text): 08/08/17 19:14 Seen, examined, and discussed with resident Dr. Tovar, agree with findings and plan as above.
[2017-08-06 16:39] LABS: PROTHROMBIN TIME 14.7 Seconds (9.8-13.1)
[2017-08-06 16:40] LABS: INR 1.3 (0.9-1.2); PARTIAL THROMBOPLASTIN TIME 32.4 Seconds (25.6-37.1)
--- NOTE | 2017-08-06 17:33 | CARD ---
APPROVED REPORT EKG Measurement Heart [id number] <Conclusion> Sinus rhythm with short MT Otherwise normal ECG
--- NOTE | 2017-08-06 20:17 | CP.PCM.CON ---
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 In ER found to have dark liquid stool which was positive for occult blood. Had recent EGD and is unaware of the results. Hgb has dropped from 9.6 to 7.9. Review of Systems - Constitutional Constitutional: absent: Chills - EENT Eyes: absent: Blurred Vision Ears: absent: Decreased Hearing Nose/Mouth/Throat: absent: Epistaxis - Cardiovascular Cardiovascular: absent: Chest Pain - Respiratory Respiratory: absent: Dyspnea - Gastrointestinal Gastrointestinal: Abdominal Pain - Genitourinary Genitourinary: absent: Change in Urinary Stream Past Patient History - Infectious Disease Hx of Infectious Diseases: None - Past Medical History & Family History Past Medical History?: Yes - Past Social History Smoking Status: Current Some Days Smoker - CARDIAC Hx Atrial Fibrillation: No Hx Cardia Arrhythmia: No Hx Congestive Heart Failure: No Hx Hypercholesterolemia: No Hx Hypertension: Yes Hx Mitral Valve Prolapse: No Hx Pacemaker: No Hx Peripheral Edema: No - PULMONARY Hx Asthma: No Hx Bronchitis: No Hx Chronic Obstructive Pulmonary Disease (COPD): No Hx Emphysema: No Hx Pneumonia: No Hx Pulmonary Embolism: No Hx Sleep Apnea: No - NEUROLOGICAL Hx Alzheimer's Disease: No Hx Dementia: No Hx Migraine: No Hx Multiple Sclerosis: No Hx Parkinson's Disease: No - HEENT Hx HEENT Problems: No - RENAL Hx Chronic Kidney Disease: No Hx Kidney Stones: No - ENDOCRINE/METABOLIC Hx Hyperthyroidism: No Hx Hypothyroidism: No - HEMATOLOGICAL/ONCOLOGICAL Hx Anemia: Yes Hx Human Immunodeficiency Virus (HIV): No Hx Sickle Cell Disease: No - INTEGUMENTARY Hx Dermatological Problems: No - MUSCULOSKELETAL/RHEUMATOLOGICAL Hx Falls: Yes - GASTROINTESTINAL Hx Crohn's Disease: No Hx Diverticulitis: No Hx Gall Bladder Disease: No Hx Gastritis: No Hx Pancreatitis: No - GENITOURINARY/GYNECOLOGICAL Hx Sexually Transmitted Disorders: No - PSYCHIATRIC Hx Substance Use: No - SURGICAL HISTORY Hx Appendectomy: No Hx Carotid Endarterectomy: No Hx Cholecystectomy: No Hx Coronary Artery Bypass Graft: No Hx Coronary Stent: No Hx Tonsillectomy: No - ANESTHESIA Hx Anesthesia: Yes Hx Anesthesia Reactions: No Hx Malignant Hyperthermia: No Meds Allergies/Adverse Reactions: Allergies Allergy/AdvReac Type Severity Reaction Status Date / Time acetaminophen [From Tylenol] Allergy RASH Verified 08/29/16 03:16 oxycodone HCl [From Percocet] Allergy RASH Verified 08/29/16 03:16 Corticosteroids AdvReac bleeding Verified 08/29/16 03:16 (Glucocorticoids) morphine AdvReac VOMITING Verified 08/29/16 03:16 - Medications Medications: Current Medications Furosemide (Lasix) 40 mg PO DAILY [facility] Last Admin: 08/06/17 17:39 Dose: 40 mg Hydromorphone HCl (Dilaudid) 0.5 mg IVP Q6 PRN PRN Reason: PAIN SCALE 6-10 Stop: 08/07/17 00:47 Last Admin: 08/06/17 15:00 Dose: 0.5 mg Ciprofloxacin (Cipro 400mg/200ml Dsw) 400 mg in 200 mls @ 200 mls/hr IVPB Q12 [facility] PRN Reason: Protocol Last Admin: 08/06/17 09:40 Dose: 200 mls/hr Metronidazole (Flagyl 500mg/100ml Ns) 100 mls @ 100 mls/hr IVPB Q8 [facility] Last Admin: 08/06/17 17:41 Dose: 100 mls/hr Dextrose/Sodium Chloride (Dextrose 5%/0.9% Ns 1000 Ml) 1,000 mls @ 85 mls/hr IV .[id number] [facility] Stop: 08/06/17 22:55 Last Admin: 08/06/17 10:08 Dose: Not Given Ondansetron HCl (Zofran Inj) 4 mg IVP Q6 PRN PRN Reason: Nausea/Vomiting Spironolactone (Aldactone) 50 mg PO DAILY [facility] Last Admin: 08/06/17 17:41 Dose: 50 mg Physical Exam - Constitutional Appears: Chronically Ill - Head Exam Head Exam: NORMAL INSPECTION - Eye Exam Eye Exam: Normal appearance - ENT Exam ENT Exam: Mucous Membranes Moist - Neck Exam Neck exam: Positive for: Normal Inspection - Respiratory Exam Respiratory Exam: Clear to Auscultation Bilateral - Cardiovascular Exam Cardiovascular Exam: REGULAR RHYTHM, +S1, +S2 - GI/Abdominal Exam GI & Abdominal Exam: Distended, Firm, Normal Bowel Sounds Results - Vital Signs Recent Vital Signs: Last Vital Signs Temp 98.4 F 08/06/17 16:26 Pulse 88 08/06/17 16:26 Resp 18 08/06/17 16:26 BP 126/83 08/06/17 17:39 Pulse Ox 100 08/06/17 16:26 - Labs Result Diagrams: 08/06/17 15:12 08/06/17 15:12 Labs: Laboratory Results - last 24 hr 08/05/17 08/06/17 08/06/17 23:56 00:13 06:05 WBC 3.6 L D RBC 2.57 L Hgb 7.9 L Hct 24.1 L MCV 94.0 MCH 30.7 MCHC 32.6 L RDW 15.6 H Plt Count 55 L D MPV Neut % (Auto) Lymph % (Auto) Russell % (Auto) Eos % (Auto) Baso % (Auto) Neut # (Auto) Lymph # (Auto) Russell # (Auto) Eos # (Auto) Baso # (Auto) PT INR APTT Sodium Potassium Chloride Carbon Dioxide Anion Gap BUN Creatinine Est GFR ( Amer) Est GFR (Non-Af Amer) POC Glucose (mg/dL) Random Glucose Lactic Acid Calcium Total Bilirubin AST ALT Alkaline Phosphatase Ammonia Troponin I Total Protein Albumin Globulin Albumin/Globulin Ratio Urine Color Yellow Urine Clarity Clear Urine pH 5.0 Ur Specific Hydro 1.010 Urine Protein Negative Urine Glucose (UA) Neg Urine Ketones Negative Urine Blood Negative Urine Nitrate Negative Urine Bilirubin Negative Urine Urobilinogen 0.2-1.0 Ur Leukocyte Esterase Neg Urine RBC (Auto) 1 Urine Microscopic WBC 1 Ur Squamous Epith Cells < 1 C. difficile Ag & Toxin Negative Blood Type Antibody Screen Crossmatch BBK History Checked 08/06/17 08/06/17 08/06/17 06:05 10:20 10:20 WBC RBC Hgb Hct MCV MCH MCHC RDW Plt Count MPV Neut % (Auto) Lymph % (Auto) Russell % (Auto) Eos % (Auto) Baso % (Auto) Neut # (Auto) Lymph # (Auto) Russell # (Auto) Eos # (Auto) Baso # (Auto) PT INR APTT Sodium 141 Potassium 3.7 Chloride 113 H Carbon Dioxide 20 L Anion Gap 12 BUN 16 Creatinine 0.9 Est GFR ( Amer) > 60 Est GFR (Non-Af Amer) > 60 POC Glucose (mg/dL) Random Glucose 117 H Lactic Acid Calcium 8.0 L Total Bilirubin 1.0 AST 26 ALT 30 Alkaline Phosphatase 58 Ammonia 12 L D Troponin I Total Protein 6.2 L Albumin 3.0 L D Globulin 3.2 Albumin/Globulin Ratio 1.0 Urine Color Urine Clarity Urine pH Ur Specific Hydro Urine Protein Urine Glucose (UA) Urine Ketones Urine Blood Urine Nitrate Urine Bilirubin Urine Urobilinogen Ur Leukocyte Esterase Urine RBC (Auto) Urine Microscopic WBC Ur Squamous Epith Cells C. difficile Ag & Toxin Blood Type A NEGATIVE Antibody Screen Negative Crossmatch See Detail BBK History Checked Patient has bt 08/06/17 08/06/17 08/06/17 14:59 15:01 15:12 WBC 3.4 L RBC 2.61 L Hgb 7.9 L Hct 24.6 L MCV 94.3 H MCH 30.5 MCHC 32.3 L RDW 15.7 H Plt Count 61 L MPV 10.3 Neut % (Auto) 59.8 Lymph % (Auto) 21.5 Russell % (Auto) 13.9 H Eos % (Auto) 4.0 Baso % (Auto) 0.8 Neut # (Auto) 2.1 Lymph # (Auto) 0.7 L Russell # (Auto) 0.5 Eos # (Auto) 0.1 Baso # (Auto) 0.0 PT INR APTT Sodium Potassium Chloride Carbon Dioxide Anion Gap BUN Creatinine Est GFR ( Amer) Est GFR (Non-Af Amer) POC Glucose (mg/dL) 112 H Random Glucose Lactic Acid Calcium Total Bilirubin AST ALT Alkaline Phosphatase Ammonia Troponin I < 0.0120 Total Protein Albumin Globulin Albumin/Globulin Ratio Urine Color Urine Clarity Urine pH Ur Specific Hydro Urine Protein Urine Glucose (UA) Urine Ketones Urine Blood Urine Nitrate Urine Bilirubin Urine Urobilinogen Ur Leukocyte Esterase Urine RBC (Auto) Urine Microscopic WBC Ur Squamous Epith Cells C. difficile Ag & Toxin Blood Type Antibody Screen Crossmatch BBK History Checked 08/06/17 08/06/17 08/06/17 15:12 15:12 15:12 WBC RBC Hgb Hct MCV MCH MCHC RDW Plt Count MPV Neut % (Auto) Lymph % (Auto) Russell % (Auto) Eos % (Auto) Baso % (Auto) Neut # (Auto) Lymph # (Auto) Russell # (Auto) Eos # (Auto) Baso # (Auto) PT 14.7 H INR 1.3 H APTT 32.4 Sodium 142 Potassium 4.1 Chloride 112 H Carbon Dioxide 21 L Anion Gap 13 BUN 12 Creatinine 0.9 Est GFR ( Amer) > 60 Est GFR (Non-Af Amer) > 60 POC Glucose (mg/dL) Random Glucose 114 H Lactic Acid Calcium 8.1 L Total Bilirubin 1.0 AST 28 ALT 41 Alkaline Phosphatase 54 Ammonia 29 D Troponin I Total Protein 6.1 L Albumin 3.2 L Globulin 3.0 Albumin/Globulin Ratio 1.1 Urine Color Urine Clarity Urine pH Ur Specific Hydro Urine Protein Urine Glucose (UA) Urine Ketones Urine Blood Urine Nitrate Urine Bilirubin Urine Urobilinogen Ur Leukocyte Esterase Urine RBC (Auto) Urine Microscopic WBC Ur Squamous Epith Cells C. difficile Ag & Toxin Blood Type Antibody Screen Crossmatch BBK History Checked 08/06/17 15:12 WBC RBC Hgb Hct MCV MCH MCHC RDW Plt Count MPV Neut % (Auto) Lymph % (Auto) Russell % (Auto) Eos % (Auto) Baso % (Auto) Neut # (Auto) Lymph # (Auto) Russell # (Auto) Eos # (Auto) Baso # (Auto) PT INR APTT Sodium Potassium Chloride Carbon Dioxide Anion Gap BUN Creatinine Est GFR ( Amer) Est GFR (Non-Af Amer) POC Glucose (mg/dL) Random Glucose Lactic Acid 1.8 Calcium Total Bilirubin AST ALT Alkaline Phosphatase Ammonia Troponin I Total Protein Albumin Globulin Albumin/Globulin Ratio Urine Color Urine Clarity Urine pH Ur Specific Hydro Urine Protein Urine Glucose (UA) Urine Ketones Urine Blood Urine Nitrate Urine Bilirubin Urine Urobilinogen Ur Leukocyte Esterase Urine RBC (Auto) Urine Microscopic WBC Ur Squamous Epith Cells C. difficile Ag & Toxin Blood Type Antibody Screen Crossmatch BBK History Checked Assessment & Plan (1) Acute blood loss anemia Assessment and Plan: GI bleed in patient with cirrhosis. A year ago had esophageal banding performed. No gross blood seen so bleeding more likely from an upper source. Colon wall thickening is nonspecific and can be evaluated later. Will first due upper endoscopy to rule out varices, ulcer, or portal gastropathy Status: Acute (2) Ascites due to alcoholic cirrhosis Assessment and Plan: Furosemide and spirinolactone started Status: Chronic
[2017-08-07] MEDS: metroNIDAZOLE 500mg/100ml NS 100 ML IVPB SCH ×5 (01:00→18:16)
[2017-08-07] MEDS ORDERED: Sodium Chloride 0.9% 500 ML IV ONE (07:51)
[2017-08-07] MEDS ORDERED: Propofol 10 mg/ml Inj (20 ML) ONE ×2 (08:31→09:00)
[2017-08-07] MEDS ORDERED: Lidocaine 2% MPF (5 ml) Inj ONE (08:31)
[2017-08-07] MEDS ORDERED: Etomidate 20 mg/10ml Inj IV ONE (08:31)
[2017-08-07] MEDS: Ciprofloxacin 400mg/200ml D5W 400 MG/200 ML BAG IVPB SCH ×3 (08:59→21:00)
[2017-08-07] MEDS ORDERED: Sodium Chloride 0.9% 1,000 ML IV SCH (09:30)
[2017-08-07 10:24] LABS: HEMOGLOBIN 9.6 g/dL (12.0-18.0); MEAN CELL VOLUME 92.2 fl (80.0-94.0); MEAN CORPUSCULAR HGB CONC 32.6 g/dL (33.0-37.0); RBC 3.19 Mil/uL (4.40-5.90); RED CELL DISTRIBUTION WIDTH 16.3 % (11.5-14.5); WHITE BLOOD COUNT 3.5 K/uL (4.8-10.8)
[2017-08-07 10:43] LABS: BLOOD UREA NITROGEN 10 mg/dl (9-20); CALCIUM 7.9 mg/dL (8.4-10.2); GFR AFRICAN-AMERICAN > 60; GFR NON-AFRICAN AMERICAN > 60
--- NOTE | 2017-08-07 12:01 | CP.PCM.PN ---
Subjective - Date & Time of Evaluation Date of Evaluation: 08/07/17 Time of Evaluation: 12:04 - Subjective Subjective: Patient still with active bleeding from varices as per EGD. Patient with severe liver cirrhosis. Feels weak, c/o CP and abdominal pain. Still on NPO. Will transfer to ICU. Objective - Vital Signs/Intake and Output Vital Signs (last 24 hours): Temp Pulse Resp BP Pulse Ox 97.8 F 66 18 143/82 99 08/07/17 11:15 08/07/17 11:15 08/07/17 11:15 08/07/17 11:15 08/07/17 11:25 Intake and Output: 08/06/17 08/07/17 23:59 11:59 Intake Total 200 Balance 200 - Medications Medications: Current Medications Furosemide (Lasix) 40 mg PO DAILY [facility] Last Admin: 08/06/17 17:39 Dose: 40 mg Ciprofloxacin (Cipro 400mg/200ml Dsw) 400 mg in 200 mls @ 200 mls/hr IVPB Q12 [facility] PRN Reason: Protocol Last Admin: 08/07/17 11:52 Dose: 0 mls Metronidazole (Flagyl 500mg/100ml Ns) 100 mls @ 100 mls/hr IVPB Q8 [facility] Last Admin: 08/07/17 10:00 Dose: 0 mls Sodium Chloride (Sodium Chloride 0.9%) 1,000 mls @ 100 mls/hr IV .Q10H [facility] Last Admin: 08/07/17 11:35 Dose: 0 mls Octreotide Acetate 1,250 mcg/ (Sodium Chloride) 252.5 mls @ 10.1 mls/hr IV .Q24H [facility] PRN Reason: 50 MCG/HR Last Admin: 08/07/17 11:30 Dose: 0 mls Ondansetron HCl (Zofran Inj) 4 mg IVP Q6 PRN PRN Reason: Nausea/Vomiting Spironolactone (Aldactone) 50 mg PO DAILY [facility] Last Admin: 08/06/17 17:41 Dose: 50 mg - Labs Labs: 08/07/17 09:40 08/07/17 09:40 PT 14.7 Seconds (9.8-13.1) H 08/06/17 15:12 INR 1.3 (0.9-1.2) H 08/06/17 15:12 APTT 32.4 Seconds (25.6-37.1) 08/06/17 15:12 - Constitutional Appears: Chronically Ill - Head Exam Head Exam: ATRAUMATIC, NORMAL INSPECTION, NORMOCEPHALIC - Eye Exam Eye Exam: Normal appearance - ENT Exam ENT Exam: Mucous Membranes Moist - Neck Exam Neck Exam: Full ROM - Respiratory Exam Respiratory Exam: Clear to Ausculation Bilateral - Cardiovascular Exam Cardiovascular Exam: REGULAR RHYTHM, +S1, +S2 - GI/Abdominal Exam GI & Abdominal Exam: Tenderness - Extremities Exam Extremities Exam: Normal Inspection - Neurological Exam Neurological Exam: Alert, Awake - Psychiatric Exam Psychiatric exam: Anxious - Skin Skin Exam: Normal Color Assessment and Plan (1) Abdominal pain Status: Acute (2) Acute blood loss anemia Status: Acute (3) Anemia Status: Acute (4) Hypoalbuminemia due to protein-calorie malnutrition Status: Chronic (5) Ascites Status: Chronic (6) Ascites due to alcoholic cirrhosis Status: Chronic (7) Esophageal varices Status: Chronic (8) Liver cirrhosis Status: Chronic (9) Liver cirrhosis, alcoholic Status: Chronic (10) Physical debility Status: Chronic (11) Chest pain Status: Acute (12) Esophageal varices with bleeding Status: Acute - Assessment and Plan (Free Text) Plan: Continue present rx.
[2017-08-07 12:07] LABS: HEMOGLOBIN 9.6 g/dL (12.0-18.0); MEAN CELL VOLUME 92.5 fl (80.0-94.0); MEAN CORPUSCULAR HEMOGLOBIN 30.2 pg (27.0-31.0); MEAN CORPUSCULAR HGB CONC 32.6 g/dL (33.0-37.0); RBC 3.18 Mil/uL (4.40-5.90); RED CELL DISTRIBUTION WIDTH 16.1 % (11.5-14.5); WHITE BLOOD COUNT 3.6 K/uL (4.8-10.8)
[2017-08-07] MEDS: Potassium CL 10 MEQ/50 ML 50 ML IVPB SCH ×2 (15:05→15:46)
[2017-08-07] MEDS: Dextrose 5%/0.9% NS 1,000 ML IV SCH ×2 (18:19→23:30)
--- NOTE | 2017-08-07 18:37 | CP.PCM.CON ---
<Олег Cagle - Last Filed: 08/07/17 18:39> History of Present Illness - History of Present Illness History of Present Illness: Cardiology consult note for Dr. Ryan Cagle DO, PGY - 1 Reason For Consult: Shortness of breath HPI: 62 year old male with a past medical history of cirrhosis, alcoholism, esophageal varices, and Hep C presented to [facility] emergency room complaining of abdominal pain. Cardiology was consulted because patient apparently told the primary physician that he was experiencing chest pain. However, on my exam, patient stated that he was having symptoms that were more consistent with dyspnea on exertion with chest pressure rather than chest pain. Patient states that up til about 4 months ago he was able to walk several blocks (he stated "I could walk fast like the people in [facility]") without fatigue or shortness of breath, but now he is unable to even walk around his apartment without getting short of breath. He further states that when he gets short of breath, he also has an element of chest tightness. Patient states that he cannot lay flat in bed at night either. Patient states that he recently had a lexiscan stress test and echocardiogram performed at [facility], but upon chart review we found that he had not. Past Surgical History: Patient states he has had variceal banding Past Medical History: Esophageal varices, Hep C, Cirrhosis Allergies: ACEP, Oxycodone Social History: Patient admits to alcohol abuse, tobacco use, denies illicits Family History: Non-contributory Medications: See MAR, cardiology related drugs are Aldactone and Lasix, used for portal hypertension Review of Systems: Constitutional: patient denies fever, chills, generalized weakness ENT: patient denies dysphagia, otalgia, hearing deficit, rhinorrhea Eyes: patient denies sudden loss of vision, diplopia, blurred vision MSK: patient denies muscle stiffness, joint pain, extremity cramping Cardio: +See hpi Pulm: patient denies cough, hemoptysis, wheeze Gastrointestinal: +Abdominal pain; patient denies loss of appetite, constipation, melena, nausea, vomiting Genitourinary: patient denies burning on urination, urinary frequency, hematuria, urinary urgency Neuro: patient denies paresis, paresthesia, dizziness, headache, numbness , tingling Derm: patient denies skin changes, lesions, nail changes Endo: patient denies intolerance to heat/cold, diaphoresis, night sweats, polydipsia Psych: patient denies anxiety, depression, mood changes Past Patient History - Infectious Disease Hx of Infectious Diseases: None - Past Medical History & Family History Past Medical History?: Yes - Past Social History Smoking Status: Current Some Days Smoker - CARDIAC Hx Atrial Fibrillation: No Hx Cardia Arrhythmia: No Hx Congestive Heart Failure: No Hx Hypercholesterolemia: No Hx Hypertension: Yes Hx Mitral Valve Prolapse: No Hx Pacemaker: No Hx Peripheral Edema: No - PULMONARY Hx Asthma: No Hx Bronchitis: No Hx Chronic Obstructive Pulmonary Disease (COPD): No Hx Emphysema: No Hx Pneumonia: No Hx Pulmonary Embolism: No Hx Sleep Apnea: No - NEUROLOGICAL Hx Alzheimer's Disease: No Hx Dementia: No Hx Migraine: No Hx Multiple Sclerosis: No Hx Parkinson's Disease: No - HEENT Hx HEENT Problems: No - RENAL Hx Chronic Kidney Disease: No Hx Kidney Stones: No - ENDOCRINE/METABOLIC Hx Hyperthyroidism: No Hx Hypothyroidism: No - HEMATOLOGICAL/ONCOLOGICAL Hx Anemia: Yes Hx Human Immunodeficiency Virus (HIV): No Hx Sickle Cell Disease: No - INTEGUMENTARY Hx Dermatological Problems: No - MUSCULOSKELETAL/RHEUMATOLOGICAL Hx Arthritis: No Hx Fractures: Yes (Left Toe fracture, forklift accident) Hx Osteoporosis: No Hx Rheumatoid Arthritis: No - GASTROINTESTINAL Hx Crohn's Disease: No Hx Diverticulitis: No Hx Gall Bladder Disease: No Hx Gastritis: No Hx Pancreatitis: No - GENITOURINARY/GYNECOLOGICAL Hx Sexually Transmitted Disorders: No - PSYCHIATRIC Hx Anxiety: Yes Hx Bipolar Disorder: No Hx Depression: Yes Hx Paranoia: No Hx Post Traumatic Stress Disorder: No Hx Schizophrenia: No - SURGICAL HISTORY Hx Appendectomy: No Hx Carotid Endarterectomy: No Hx Cholecystectomy: No Hx Coronary Artery Bypass Graft: No Hx Coronary Stent: No Hx Tonsillectomy: No - ANESTHESIA Hx Anesthesia: Yes Hx Anesthesia Reactions: No Hx Malignant Hyperthermia: No Meds Allergies/Adverse Reactions: Allergies Allergy/AdvReac Type Severity Reaction Status Date / Time acetaminophen [From Tylenol] Allergy RASH Verified 08/29/16 03:16 oxycodone HCl [From Percocet] Allergy RASH Verified 08/29/16 03:16 Corticosteroids AdvReac bleeding Verified 08/29/16 03:16 (Glucocorticoids) morphine AdvReac VOMITING Verified 08/29/16 03:16 - Medications Medications: Current Medications Furosemide (Lasix) 40 mg PO DAILY [facility] Last Admin: 08/06/17 17:39 Dose: 40 mg Ciprofloxacin (Cipro 400mg/200ml Dsw) 400 mg in 200 mls @ 200 mls/hr IVPB Q12 [facility] PRN Reason: Protocol Last Admin: 08/07/17 11:52 Dose: 200 mls Metronidazole (Flagyl 500mg/100ml Ns) 100 mls @ 100 mls/hr IVPB Q8 [facility] Last Admin: 08/07/17 18:16 Dose: 100 mls/hr Octreotide Acetate 1,250 mcg/ (Sodium Chloride) 252.5 mls @ 10.1 mls/hr IV .Q24H [facility] PRN Reason: 50 MCG/HR Last Admin: 08/07/17 11:30 Dose: 0 mls Dextrose/Sodium Chloride (Dextrose 5%/0.9% Ns 1000 Ml) 1,000 mls @ 100 mls/hr IV .Q10H [facility] Stop: 08/08/17 13:19 Last Admin: 08/07/17 18:19 Dose: 100 mls/hr Ondansetron HCl (Zofran Inj) 4 mg IVP Q6 PRN PRN Reason: Nausea/Vomiting Spironolactone (Aldactone) 50 mg PO DAILY [facility] Last Admin: 08/06/17 17:41 Dose: 50 mg Physical Exam - Additional Findings Additional findings: Physical Exam: Vital Signs as below Const'l: awake alert & oriented x 4, no acute distress Head/Neck: neck supple, no jvd, trachea midline, carotid midline, no cervical/head mass Eyes: pupils equally reactive to light and accommodation, nonicteric sclera, extraocular intact ENT: auditory acuity grossly intact, throat not congested, no nasal deformity Cardio: regular rate, regular rhythm, no murmurs rubs gallops, no carotid bruit, normal s1, s2 Pulm: no accessory muscle use, equal normal breath sounds bilaterally, clear to ausculation bilaterally Abd: soft non tender non-distended, normal bowel sounds x 4 quadrants, no palpable masses Derm: no rashes, no ulcers, no lesions Extr: no edema, no cyanosis, no calf tenderness, no lesions, no varicosities Neuro: cranial nerves II-XII grossly intact, upper extremity and lower extremity 5/5 muscle strength bilaterally, no loss of sensation in upper extremities, lower extremities bilaterally Results - Vital Signs Recent Vital Signs: Last Vital Signs Temp 98.6 F 08/07/17 16:16 Pulse 66 08/07/17 16:16 Resp 19 08/07/17 16:16 BP 120/83 08/07/17 16:16 Pulse Ox 97 08/07/17 16:16 - Labs Result Diagrams: 08/07/17 12:03 08/07/17 09:40 Labs: Laboratory Results - last 24 hr 08/06/17 08/07/17 08/07/17 10:20 09:40 09:40 WBC 3.5 L RBC 3.19 L Hgb 9.6 L Hct 29.4 L MCV 92.2 D MCH 30.0 MCHC 32.6 L RDW 16.3 H Plt Count 63 L Sodium 140 Potassium 3.4 L Chloride 107 Carbon Dioxide 22 Anion Gap 14 BUN 10 Creatinine 0.9 Est GFR ( Amer) > 60 Est GFR (Non-Af Amer) > 60 Random Glucose 106 Calcium 7.9 L Troponin I Blood Type A NEGATIVE Antibody Screen Negative Crossmatch See Detail BBK History Checked Patient has bt 08/07/17 08/07/17 12:03 15:54 WBC 3.6 L RBC 3.18 L Hgb 9.6 L Hct 29.4 L MCV 92.5 MCH 30.2 MCHC 32.6 L RDW 16.1 H Plt Count 59 L Sodium Potassium Chloride Carbon Dioxide Anion Gap BUN Creatinine Est GFR ( Amer) Est GFR (Non-Af Amer) Random Glucose Calcium Troponin I < 0.0120 Blood Type Antibody Screen Crossmatch BBK History Checked Assessment & Plan - Assessment and Plan (Free Text) Assessment: Assessment and Plan 62 year old male with past medical history of Cirrhosis, Esophageal varices, Hep C, and alcohol abuse was referred to cardiology for evaluation of shortness of breath and chest pain. Patient is showing several signs indicative of cardiac disease including exertional dyspnea and exertional angina. Patient has a complicated history of Cirrhosis. Exertional Dyspnea - Lipid panel ordered. - Cannot calculate patient's ASCVD score at this time, but patient has clear cut symptoms of exertional angina and atypical/unstable angina - Per ACC/AHA Guidelines, patient needs a myocardial perfusion stress study - ECHO ordered Atypical Angina - See above Cirrhosis - Mgmt per primary Esophageal Varices likely 2/2 Portal HTN - Continue Aldactone and Lasix Alcohol Abuse - As per primary Dispo: Patient needs a stress test and ECHO. Pending lipid panel and myocardial perfusion results, patient should be started on a Statin, GABRIELA-I, B- laureano, ASA; Patient is already on Aldactone <Elie Davis - Last Filed: 08/10/17 06:40> Meds - Medications Medications: Current Medications Folic Acid (Folic Acid) 1 mg PO DAILY [facility] Last Admin: 08/09/17 09:33 Dose: 1 mg Furosemide (Lasix) 40 mg PO DAILY [facility] Last Admin: 08/09/17 09:33 Dose: 40 mg Ciprofloxacin (Cipro 400mg/200ml Dsw) 400 mg in 200 mls @ 200 mls/hr IVPB Q12 [facility] PRN Reason: Protocol Last Admin: 08/09/17 21:42 Dose: 200 mls/hr Metronidazole (Flagyl 500mg/100ml Ns) 100 mls @ 100 mls/hr IVPB Q8 [facility] Last Admin: 08/10/17 00:19 Dose: 100 mls/hr Ondansetron HCl (Zofran Inj) 4 mg IVP Q6 PRN PRN Reason: Nausea/Vomiting Last Admin: 08/09/17 23:46 Dose: 4 mg Pantoprazole Sodium (Protonix Ec Tab) 40 mg PO DAILY [facility] Last Admin: 08/09/17 17:45 Dose: 40 mg Spironolactone (Aldactone) 50 mg PO BID [facility] Last Admin: 08/09/17 16:20 Dose: 50 mg Thiamine HCl (Vitamin B1 Tab) 100 mg PO DAILY [facility] Last Admin: 08/09/17 09:33 Dose: 100 mg Results - Vital Signs Recent Vital Signs: Last Vital Signs Temp 98.5 F 08/10/17 05:12 Pulse 62 08/10/17 05:12 Resp 18 08/10/17 05:12 BP 137/79 08/10/17 05:12 Pulse Ox 98 08/10/17 05:12 - Labs Result Diagrams: 08/10/17 04:20 08/10/17 04:20 Labs: Laboratory Results - last 24 hr 08/06/17 08/09/17 08/09/17 10:20 07:00 07:00 WBC 3.1 L RBC 3.29 L Hgb 9.9 L Hct 30.1 L MCV 91.4 MCH 30.1 MCHC 32.9 L RDW 15.4 H Plt Count 66 L Sodium 140 Potassium 3.6 Chloride 103 Carbon Dioxide 28 Anion Gap 13 BUN 6 L Creatinine 0.9 Est GFR ( Amer) > 60 Est GFR (Non-Af Amer) > 60 Random Glucose 125 H Calcium 7.6 L Total Bilirubin AST ALT Alkaline Phosphatase Total Protein Albumin Globulin Albumin/Globulin Ratio Crossmatch See Detail 08/10/17 08/10/17 04:20 04:20 WBC 3.4 L RBC 3.69 L Hgb 11.3 L Hct 33.0 L MCV 89.5 MCH 30.7 MCHC 34.3 RDW 15.1 H Plt Count 79 L Sodium 140 Potassium 3.3 L Chloride 103 Carbon Dioxide 25 Anion Gap 15 BUN 7 L Creatinine 1.0 Est GFR ( Amer) > 60 Est GFR (Non-Af Amer) > 60 Random Glucose 86 Calcium 8.5 Total Bilirubin 1.4 H AST 33 ALT 35 Alkaline Phosphatase 72 Total Protein 7.2 Albumin 3.6 Globulin 3.5 Albumin/Globulin Ratio 1.0 Crossmatch Attending/Attestation - Attestation I have personally seen and examined this patient.: Yes I have fully participated in the care of the patient.: Yes I have reviewed all pertinent clinical information: Yes Notes (Text): 08/10/17 06:39 62 year old with atypical CP plan for stress test on thursday
[2017-08-07 20:55] LABS: HDL CHOLESTEROL 31 MG/DL (30-70)
[2017-08-07 21:08] LABS: LDL CHOLESTEROL 62 mg/dL (0-129)
[2017-08-08 07:59] LABS: BLOOD UREA NITROGEN 8 mg/dl (9-20); CALCIUM 7.8 mg/dL (8.4-10.2); GFR AFRICAN-AMERICAN > 60; GFR NON-AFRICAN AMERICAN > 60
[2017-08-08 08:00] LABS: BASO % 1.2 % (0.0-2.0); EOS # 0.2 K/uL (0.0-0.7); EOS % 6.4 % (0.0-4.0); HEMOGLOBIN 9.6 g/dL (12.0-18.0); LYMPH # 0.6 K/uL (1.0-4.3); MEAN CELL VOLUME 91.8 fl (80.0-94.0); MEAN CORPUSCULAR HGB CONC 32.7 g/dL (33.0-37.0); MEAN PLATELET VOLUME 10.6 fl (7.2-11.7); MONO # 0.3 K/uL (0.0-0.8); MONO % 11.9 % (0.0-10.0); NEUT # 1.5 K/uL (1.8-7.0); NEUT % 58.5 % (50.0-75.0); NRBC % 0.3 % (0.0-0.0); RBC 3.19 Mil/uL (4.40-5.90); RED CELL DISTRIBUTION WIDTH 15.9 % (11.5-14.5); WHITE BLOOD COUNT 2.6 K/uL (4.8-10.8)
--- NOTE | 2017-08-08 10:24 | CARD ---
APPROVED REPORT EXAM: Two-dimensional and M-mode echocardiogram with Doppler and color Doppler. Other Information Quality : GoodRhythm : NSR INDICATION Dyspnea 2D DIMENSIONS IVSd0.78 (0.7-1.1cm)LVDd4.45 (3.9-5.9cm) LVOT Diameter1.91 (1.8-2.4cm)PWd0.57 (0.7-1.1cm) IVSs1.29 (0.8-1.2cm)LVDs3.22 (2.5-4.0cm) FS (%) 27.7 %PWs1.31 (0.8-1.2cm) M-Mode DIMENSIONS Left Atrium (MM)4.55 (2.5-4.0cm)IVSd0.80 (0.7-1.1cm) Aortic Root3.39 (2.2-3.7cm)LVDd5.38 (4.0-5.6cm) Aortic Cusp Exc.1.96 (1.5-2.0cm)PWd0.88 (0.7-1.1cm) IVSs1.24 cmFS (%) 41 % LVDs3.17 (2.0-3.8cm)PWs1.71 cm Mitral Valve MV E Dfbsdgao50.5cm/sMV DECEL [id number] A Xbktyxto70.8cm/s MV [id number]/A ratio1.2MVA (PHT)4.02cm2 TDI Lateral E' Peak V13.77cm/sMedial E' Peak V9.21cm/sE/Lateral E'6.5 E/Medial E'9.7 Pulmonary Valve PV Peak Razwbgnp897.2cm/s Tricuspid Valve TR Peak Pkxoafmh042go/sRAP [id number] Peak Gr.26mmHg [id number] LEFT VENTRICLE The left ventricle is normal size. The left ventricular function is normal. The left ventricular ejection fraction is within the normal range. The Ejection Fraction is 65-70%. There is normal LV segmental wall motion. The left ventricular diastolic function is normal. RIGHT VENTRICLE The right ventricle is normal size. The right ventricular systolic function is normal. ATRIA The left atrium size is normal. The right atrium size is normal. AORTIC VALVE The aortic valve is normal in structure. No aortic regurgitation is present. There is no aortic valvular stenosis. MITRAL VALVE The mitral valve is calcified but opens well. There is no mitral valve stenosis. There is no mitral valve regurgitation noted. TRICUSPID VALVE The tricuspid valve is normal in structure. There is no tricuspid valve regurgitation noted. PULMONIC VALVE The pulmonary valve is normal in structure. There is no pulmonic valvular regurgitation. GREAT VESSELS The aortic root is normal in size. The IVC is normal in size and collapses >50% with inspiration. PERICARDIAL EFFUSION The pericardium appears normal. <Conclusion> The left ventricle is normal size. The left ventricular function is normal. The left ventricular ejection fraction is within the normal range. The Ejection Fraction is 65-70%.
[2017-08-08] MEDS: Ciprofloxacin 400mg/200ml D5W 400 MG/200 ML BAG IVPB SCH ×2 (10:48→20:52)
--- NOTE | 2017-08-08 12:13 | CP.PCM.PN ---
Subjective - Date & Time of Evaluation Date of Evaluation: 08/08/17 Time of Evaluation: 10:00 - Subjective Subjective: No fever no BM today dark urine no CP no SOB no abd pain Objective - Vital Signs/Intake and Output Vital Signs (last 24 hours): Temp Pulse Resp BP Pulse Ox 98.3 F 69 18 146/84 97 08/08/17 07:55 08/08/17 07:55 08/08/17 07:55 08/08/17 10:50 08/08/17 07:55 Intake and Output: 08/08/17 08/08/17 06:59 18:59 Intake Total 1421 Output Total 700 Balance 721 - Medications Medications: Current Medications Furosemide (Lasix) 40 mg PO DAILY [facility] Last Admin: 08/08/17 10:50 Dose: 40 mg Ciprofloxacin (Cipro 400mg/200ml Dsw) 400 mg in 200 mls @ 200 mls/hr IVPB Q12 BEATA PRN Reason: Protocol Last Admin: 08/08/17 10:48 Dose: 200 mls/hr Metronidazole (Flagyl 500mg/100ml Ns) 100 mls @ 100 mls/hr IVPB Q8 [facility] Last Admin: 08/08/17 00:00 Dose: 100 mls/hr Octreotide Acetate 1,250 mcg/ (Sodium Chloride) 252.5 mls @ 10.1 mls/hr IV .Q24H BEATA PRN Reason: 50 MCG/HR Last Admin: 08/07/17 11:30 Dose: 0 mls Dextrose/Sodium Chloride (Dextrose 5%/0.9% Ns 1000 Ml) 1,000 mls @ 100 mls/hr IV .Q10H [facility] Stop: 08/08/17 13:19 Last Admin: 08/07/17 23:30 Dose: Not Given Ondansetron HCl (Zofran Inj) 4 mg IVP Q6 PRN PRN Reason: Nausea/Vomiting Spironolactone (Aldactone) 50 mg PO DAILY [facility] Last Admin: 08/08/17 10:47 Dose: 50 mg - Labs Labs: 08/08/17 06:37 08/08/17 06:37 PT 14.7 Seconds (9.8-13.1) H 08/06/17 15:12 INR 1.3 (0.9-1.2) H 08/06/17 15:12 APTT 32.4 Seconds (25.6-37.1) 08/06/17 15:12 - Constitutional Appears: No Acute Distress, Chronically Ill - Head Exam Head Exam: NORMAL INSPECTION, NORMOCEPHALIC - Eye Exam Eye Exam: EOMI, Normal appearance, PERRL Pupil Exam: NORMAL ACCOMODATION - ENT Exam ENT Exam: Mucous Membranes Moist, Normal External Ear Exam - Neck Exam Neck Exam: Full ROM. absent: Meningismus - Respiratory Exam Respiratory Exam: NORMAL BREATHING PATTERN. absent: Respiratory Distress - Cardiovascular Exam Cardiovascular Exam: REGULAR RHYTHM, +S1, +S2 - GI/Abdominal Exam GI & Abdominal Exam: Soft, Normal Bowel Sounds. absent: Tenderness - Extremities Exam Extremities Exam: Full ROM, Normal Capillary Refill. absent: Calf Tenderness - Back Exam Back Exam: Full ROM. absent: CVA tenderness (L), CVA tenderness (R) - Neurological Exam Neurological Exam: Alert, Awake, CN II-XII Intact, Oriented x3 Neuro motor strength exam: Left Upper Extremity: 5, Right Upper Extremity: 5, Left Lower Extremity: 5, Right Lower Extremity: 5 - Psychiatric Exam Psychiatric exam: Normal Affect, Normal Mood - Skin Skin Exam: Dry, Normal Color, Warm Assessment and Plan (1) Upper gastrointestinal bleeding Status: Acute (2) Esophageal varices with bleeding Status: Acute (3) Chest pain Status: Acute (4) Anemia Status: Chronic (5) Liver cirrhosis, alcoholic Status: Chronic (6) Hepatitis C Status: Chronic - Assessment and Plan (Free Text) Assessment: 62 y/o gent with hx of Liver Cirrhosis sec to ETOH and HCV , came in bec of diarrhea with dark stools and weakness. Also complained of CP and FLOREZ. (1) Upper gastrointestinal bleeding Status: Acute sec to Bleeding Esoph Varices s/p EGD with banding done by Dr Welsh cont Octreotide Drip cont IV Cipro and Flagyl (2) Esophageal varices with bleeding Status: Acute as above (3) Chest pain Status: Acute work up in progress Cardio : Dr albright consulted - rec Stress test Trop :negative ECHO : normal EF (4) Anemia, acute from GIB , on chronic Status: Chronic Hgb dropped to 7.9 - 9.9 post transfusion will cont to monitor received 2 units PRBC this admission (5) Liver cirrhosis, alcoholic with cogulopathy and Thrombocytopenia Status: Chronic sec to ETOH and Hep C need to ff up with Liver specialist as outpt cont Lasix and Aldactone (6) Hepatitis C Status: Chronic DVT proph - no anticoag sec to low platelet
[2017-08-08] MEDS: metroNIDAZOLE 500mg/100ml NS 100 ML IVPB SCH ×3 (12:18→18:04)
[2017-08-08] MEDS: Dextrose 5%/0.9% NS 1,000 ML IV SCH (18:04)
[2017-08-09] MEDS: metroNIDAZOLE 500mg/100ml NS 100 ML IVPB SCH ×3 (00:42→17:52)
[2017-08-09 08:08] LABS: HEMOGLOBIN 9.9 g/dL (12.0-18.0); MEAN CELL VOLUME 91.4 fl (80.0-94.0); MEAN CORPUSCULAR HEMOGLOBIN 30.1 pg (27.0-31.0); MEAN CORPUSCULAR HGB CONC 32.9 g/dL (33.0-37.0); RBC 3.29 Mil/uL (4.40-5.90); RED CELL DISTRIBUTION WIDTH 15.4 % (11.5-14.5); WHITE BLOOD COUNT 3.1 K/uL (4.8-10.8)
[2017-08-09 08:15] LABS: BLOOD UREA NITROGEN 6 mg/dl (9-20); CALCIUM 7.6 mg/dL (8.4-10.2); GFR AFRICAN-AMERICAN > 60; GFR NON-AFRICAN AMERICAN > 60
[2017-08-09] MEDS: Ciprofloxacin 400mg/200ml D5W 400 MG/200 ML BAG IVPB SCH ×2 (09:34→21:42)
--- NOTE | 2017-08-09 12:33 | CP.PCM.PN ---
Subjective - Date & Time of Evaluation Date of Evaluation: 08/09/17 Time of Evaluation: 11:00 - Subjective Subjective: no further GI bleed Pt still on Octreotide drip Hgb stable CP resolved- plan for Stress test in am no SOB no abd pain Objective - Vital Signs/Intake and Output Vital Signs (last 24 hours): Temp Pulse Resp BP Pulse Ox 98 F 62 20 118/75 100 08/09/17 08:00 08/09/17 08:00 08/09/17 08:00 08/09/17 09:33 08/09/17 08:00 Intake and Output: 08/09/17 08/09/17 06:59 18:59 Intake Total 2580 Output Total 1 Balance 2579 - Medications Medications: Current Medications Folic Acid (Folic Acid) 1 mg PO DAILY [facility] Last Admin: 08/09/17 09:33 Dose: 1 mg Furosemide (Lasix) 40 mg PO DAILY [facility] Last Admin: 08/09/17 09:33 Dose: 40 mg Ciprofloxacin (Cipro 400mg/200ml Dsw) 400 mg in 200 mls @ 200 mls/hr IVPB Q12 [facility] PRN Reason: Protocol Last Admin: 08/09/17 09:34 Dose: 200 mls/hr Metronidazole (Flagyl 500mg/100ml Ns) 100 mls @ 100 mls/hr IVPB Q8 [facility] Last Admin: 08/09/17 09:29 Dose: 100 mls/hr Ondansetron HCl (Zofran Inj) 4 mg IVP Q6 PRN PRN Reason: Nausea/Vomiting Last Admin: 08/09/17 05:10 Dose: 4 mg Spironolactone (Aldactone) 50 mg PO DAILY [facility] Last Admin: 08/09/17 09:32 Dose: 50 mg Thiamine HCl (Vitamin B1 Tab) 100 mg PO DAILY [facility] Last Admin: 08/09/17 09:33 Dose: 100 mg - Labs Labs: 08/09/17 07:00 08/09/17 07:00 PT 14.7 Seconds (9.8-13.1) H 08/06/17 15:12 INR 1.3 (0.9-1.2) H 08/06/17 15:12 APTT 32.4 Seconds (25.6-37.1) 08/06/17 15:12 - Constitutional Appears: No Acute Distress, Chronically Ill - Head Exam Head Exam: NORMAL INSPECTION, NORMOCEPHALIC - Eye Exam Eye Exam: EOMI, Normal appearance, PERRL Pupil Exam: NORMAL ACCOMODATION - ENT Exam ENT Exam: Mucous Membranes Moist, Normal External Ear Exam - Neck Exam Neck Exam: Full ROM. absent: Meningismus - Respiratory Exam Respiratory Exam: NORMAL BREATHING PATTERN. absent: Respiratory Distress - Cardiovascular Exam Cardiovascular Exam: REGULAR RHYTHM, +S1, +S2 - GI/Abdominal Exam GI & Abdominal Exam: Soft, Normal Bowel Sounds. absent: Tenderness - Extremities Exam Extremities Exam: Full ROM, Normal Capillary Refill. absent: Calf Tenderness - Back Exam Back Exam: Full ROM. absent: CVA tenderness (L), CVA tenderness (R) - Neurological Exam Neurological Exam: Alert, Awake, CN II-XII Intact, Oriented x3 Neuro motor strength exam: Left Upper Extremity: 5, Right Upper Extremity: 5, Left Lower Extremity: 5, Right Lower Extremity: 5 - Psychiatric Exam Psychiatric exam: Normal Affect, Normal Mood - Skin Skin Exam: Dry, Normal Color, Warm Assessment and Plan (1) Upper gastrointestinal bleeding Status: Acute (2) Esophageal varices with bleeding Status: Acute (3) Chest pain Status: Acute (4) Anemia Status: Chronic (5) Liver cirrhosis, alcoholic Status: Chronic (6) Hepatitis C Status: Chronic - Assessment and Plan (Free Text) Assessment: 62 y/o gent with hx of Liver Cirrhosis sec to ETOH and HCV , came in bec of diarrhea with dark stools and weakness. Also complained of CP and FLOREZ. (1) Upper gastrointestinal bleeding Status: Acute sec to Bleeding Esoph Varices s/p EGD with banding done by Dr Welsh cont Octreotide Drip cont IV Cipro and Flagyl start PO Protonix (2) Esophageal varices with bleeding Status: Acute as above (3) Chest pain Status: Acute work up in progress Cardio : Dr albright consulted - rec Stress test Trop :negative ECHO : normal EF (4) Anemia, acute from GIB , on chronic Status: Chronic Hgb dropped to 7.9 Hgb- 9.9 post transfusion will cont to monitor received 2 units PRBC this admission (5) Liver cirrhosis, alcoholic with cogulopathy and Thrombocytopenia Status: Chronic sec to ETOH and Hep C need to ff up with Liver specialist as outpt- pt states he ff up at [facility] Liver clinic cont Lasix and Aldactone (6) Hepatitis C Status: Chronic DVT proph - no anticoag sec to low platelet
[2017-08-09] MEDS: Pantoprazole 40 mg EC Tab PO SCH (17:45)
--- NOTE | 2017-08-09 20:05 | CP.PCM.PN ---
Subjective - Date & Time of Evaluation Date of Evaluation: 08/09/17 Time of Evaluation: 17:00 - Subjective Subjective: Clinically stable since variceal bleeding 2 days ago. Hgb has been stable and no overt GI bleeding. Objective - Vital Signs/Intake and Output Vital Signs (last 24 hours): Temp Pulse Resp BP Pulse Ox 98.2 F 58 L 20 125/81 100 08/09/17 15:55 08/09/17 15:55 08/09/17 15:55 08/09/17 15:55 08/09/17 15:55 Intake and Output: 08/09/17 08/10/17 18:59 06:59 Intake Total 1140 Output Total 1050 Balance 90 - Medications Medications: Current Medications Folic Acid (Folic Acid) 1 mg PO DAILY [facility] Last Admin: 08/09/17 09:33 Dose: 1 mg Furosemide (Lasix) 40 mg PO DAILY [facility] Last Admin: 08/09/17 09:33 Dose: 40 mg Ciprofloxacin (Cipro 400mg/200ml Dsw) 400 mg in 200 mls @ 200 mls/hr IVPB Q12 [facility] PRN Reason: Protocol Last Admin: 08/09/17 09:34 Dose: 200 mls/hr Metronidazole (Flagyl 500mg/100ml Ns) 100 mls @ 100 mls/hr IVPB Q8 [facility] Last Admin: 08/09/17 17:52 Dose: 100 mls/hr Ondansetron HCl (Zofran Inj) 4 mg IVP Q6 PRN PRN Reason: Nausea/Vomiting Last Admin: 08/09/17 16:14 Dose: 4 mg Pantoprazole Sodium (Protonix Ec Tab) 40 mg PO DAILY [facility] Last Admin: 08/09/17 17:45 Dose: 40 mg Spironolactone (Aldactone) 50 mg PO BID [facility] Last Admin: 08/09/17 16:20 Dose: 50 mg Thiamine HCl (Vitamin B1 Tab) 100 mg PO DAILY [facility] Last Admin: 08/09/17 09:33 Dose: 100 mg - Labs Labs: 08/09/17 07:00 08/09/17 07:00 PT 14.7 Seconds (9.8-13.1) H 08/06/17 15:12 INR 1.3 (0.9-1.2) H 08/06/17 15:12 APTT 32.4 Seconds (25.6-37.1) 08/06/17 15:12 - Constitutional Appears: Chronically Ill - Head Exam Head Exam: ATRAUMATIC - Eye Exam Eye Exam: PERRL Pupil Exam: PERRL - ENT Exam ENT Exam: Normal Exam - Cardiovascular Exam Cardiovascular Exam: REGULAR RHYTHM, +S1, +S2 - GI/Abdominal Exam GI & Abdominal Exam: Distended Assessment and Plan (1) Acute blood loss anemia Assessment & Plan: Bleeding has stopped. Will d/c Octreotide and advance diet. Status: Acute (2) Ascites due to alcoholic cirrhosis Assessment & Plan: Increase spirinolacone to BID. Fluid and salt restriction . Daily weights. Status: Chronic
[2017-08-10] MEDS: metroNIDAZOLE 500mg/100ml NS 100 ML IVPB SCH ×3 (00:19→17:29)
[2017-08-10 06:05] LABS: ALBUMIN 3.6 g/dL (3.5-5.0); ALT/SGPT 35 U/L (21-72); AST/SGOT 33 U/L (17-59); BLOOD UREA NITROGEN 7 mg/dl (9-20); CALCIUM 8.5 mg/dL (8.4-10.2); GFR AFRICAN-AMERICAN > 60; GFR NON-AFRICAN AMERICAN > 60
[2017-08-10 06:10] LABS: HEMOGLOBIN 11.3 g/dL (12.0-18.0); MEAN CELL VOLUME 89.5 fl (80.0-94.0); MEAN CORPUSCULAR HEMOGLOBIN 30.7 pg (27.0-31.0); MEAN CORPUSCULAR HGB CONC 34.3 g/dL (33.0-37.0); RBC 3.69 Mil/uL (4.40-5.90); RED CELL DISTRIBUTION WIDTH 15.1 % (11.5-14.5); WHITE BLOOD COUNT 3.4 K/uL (4.8-10.8)
--- NOTE | 2017-08-10 06:44 | CP.PCM.PN ---
Subjective - Date & Time of Evaluation Date of Evaluation: 08/08/17 Time of Evaluation: 17:00 - Subjective Subjective: feeling fine Hgb 9.9 post transfusion on lasix and aldactone no more CP Objective - Vital Signs/Intake and Output Vital Signs (last 24 hours): Temp Pulse Resp BP Pulse Ox 98.5 F 62 18 137/79 98 08/10/17 05:12 08/10/17 05:12 08/10/17 05:12 08/10/17 05:12 08/10/17 05:12 Intake and Output: 08/09/17 08/10/17 18:59 06:59 Intake Total 1140 Output Total 1050 Balance 90 - Medications Medications: Current Medications Folic Acid (Folic Acid) 1 mg PO DAILY [facility] Last Admin: 08/09/17 09:33 Dose: 1 mg Furosemide (Lasix) 40 mg PO DAILY [facility] Last Admin: 08/09/17 09:33 Dose: 40 mg Ciprofloxacin (Cipro 400mg/200ml Dsw) 400 mg in 200 mls @ 200 mls/hr IVPB Q12 [facility] PRN Reason: Protocol Last Admin: 08/09/17 21:42 Dose: 200 mls/hr Metronidazole (Flagyl 500mg/100ml Ns) 100 mls @ 100 mls/hr IVPB Q8 [facility] Last Admin: 08/10/17 00:19 Dose: 100 mls/hr Ondansetron HCl (Zofran Inj) 4 mg IVP Q6 PRN PRN Reason: Nausea/Vomiting Last Admin: 08/09/17 23:46 Dose: 4 mg Pantoprazole Sodium (Protonix Ec Tab) 40 mg PO DAILY [facility] Last Admin: 08/09/17 17:45 Dose: 40 mg Spironolactone (Aldactone) 50 mg PO BID [facility] Last Admin: 08/09/17 16:20 Dose: 50 mg Thiamine HCl (Vitamin B1 Tab) 100 mg PO DAILY [facility] Last Admin: 08/09/17 09:33 Dose: 100 mg - Labs Labs: 08/10/17 04:20 08/10/17 04:20 PT 14.7 Seconds (9.8-13.1) H 08/06/17 15:12 INR 1.3 (0.9-1.2) H 08/06/17 15:12 APTT 32.4 Seconds (25.6-37.1) 08/06/17 15:12 - Constitutional Appears: Well - Head Exam Head Exam: ATRAUMATIC, NORMAL INSPECTION, NORMOCEPHALIC - Eye Exam Eye Exam: EOMI, Normal appearance, PERRL Pupil Exam: NORMAL ACCOMODATION, PERRL - ENT Exam ENT Exam: Mucous Membranes Moist, Normal Exam - Neck Exam Neck Exam: Full ROM, Normal Inspection. absent: Lymphadenopathy - Respiratory Exam Respiratory Exam: Clear to Ausculation Bilateral, NORMAL BREATHING PATTERN - Cardiovascular Exam Cardiovascular Exam: REGULAR RHYTHM, +S1, +S2. absent: Murmur - GI/Abdominal Exam GI & Abdominal Exam: Soft, Normal Bowel Sounds. absent: Tenderness - Extremities Exam Extremities Exam: Full ROM, Normal Capillary Refill, Normal Inspection. absent : Joint Swelling, Pedal Edema - Back Exam Back Exam: NORMAL INSPECTION - Neurological Exam Neurological Exam: Alert, Awake, CN II-XII Intact, Normal Gait, Oriented x3 - Psychiatric Exam Psychiatric exam: Normal Affect, Normal Mood - Skin Skin Exam: Dry, Intact, Normal Color, Warm Assessment and Plan (1) Chest pain Status: Acute (2) Esophageal varices with bleeding Status: Acute (3) Abdominal pain Status: Acute (4) Acute blood loss anemia Status: Acute (5) Thrombocytopenia Status: Acute (6) Alcohol abuse Status: Chronic
--- NOTE | 2017-08-10 06:45 | CP.PCM.PN ---
Subjective - Date & Time of Evaluation Date of Evaluation: 08/10/17 Time of Evaluation: 06:44 - Subjective Subjective: H&H stable plan for stress later today Objective - Vital Signs/Intake and Output Vital Signs (last 24 hours): Temp Pulse Resp BP Pulse Ox 98.5 F 62 18 137/79 98 08/10/17 05:12 08/10/17 05:12 08/10/17 05:12 08/10/17 05:12 08/10/17 05:12 Intake and Output: 08/09/17 08/10/17 18:59 06:59 Intake Total 1140 Output Total 1050 Balance 90 - Medications Medications: Current Medications Folic Acid (Folic Acid) 1 mg PO DAILY [facility] Last Admin: 08/09/17 09:33 Dose: 1 mg Furosemide (Lasix) 40 mg PO DAILY [facility] Last Admin: 08/09/17 09:33 Dose: 40 mg Ciprofloxacin (Cipro 400mg/200ml Dsw) 400 mg in 200 mls @ 200 mls/hr IVPB Q12 [facility] PRN Reason: Protocol Last Admin: 08/09/17 21:42 Dose: 200 mls/hr Metronidazole (Flagyl 500mg/100ml Ns) 100 mls @ 100 mls/hr IVPB Q8 [facility] Last Admin: 08/10/17 00:19 Dose: 100 mls/hr Ondansetron HCl (Zofran Inj) 4 mg IVP Q6 PRN PRN Reason: Nausea/Vomiting Last Admin: 08/09/17 23:46 Dose: 4 mg Pantoprazole Sodium (Protonix Ec Tab) 40 mg PO DAILY [facility] Last Admin: 08/09/17 17:45 Dose: 40 mg Spironolactone (Aldactone) 50 mg PO BID [facility] Last Admin: 08/09/17 16:20 Dose: 50 mg Thiamine HCl (Vitamin B1 Tab) 100 mg PO DAILY [facility] Last Admin: 08/09/17 09:33 Dose: 100 mg - Labs Labs: 08/10/17 04:20 08/10/17 04:20 PT 14.7 Seconds (9.8-13.1) H 08/06/17 15:12 INR 1.3 (0.9-1.2) H 08/06/17 15:12 APTT 32.4 Seconds (25.6-37.1) 08/06/17 15:12 - Constitutional Appears: Well - Head Exam Head Exam: ATRAUMATIC, NORMAL INSPECTION, NORMOCEPHALIC - Eye Exam Eye Exam: EOMI, Normal appearance, PERRL Pupil Exam: NORMAL ACCOMODATION, PERRL - ENT Exam ENT Exam: Mucous Membranes Moist, Normal Exam - Neck Exam Neck Exam: Full ROM, Normal Inspection. absent: Lymphadenopathy - Respiratory Exam Respiratory Exam: Clear to Ausculation Bilateral, NORMAL BREATHING PATTERN - Cardiovascular Exam Cardiovascular Exam: REGULAR RHYTHM, +S1, +S2. absent: Murmur - GI/Abdominal Exam GI & Abdominal Exam: Soft, Normal Bowel Sounds. absent: Tenderness - Extremities Exam Extremities Exam: Full ROM, Normal Capillary Refill, Normal Inspection. absent : Joint Swelling, Pedal Edema - Back Exam Back Exam: NORMAL INSPECTION - Neurological Exam Neurological Exam: Alert, Awake, CN II-XII Intact, Normal Gait, Oriented x3 - Psychiatric Exam Psychiatric exam: Normal Affect, Normal Mood - Skin Skin Exam: Dry, Intact, Normal Color, Warm Assessment and Plan (1) Chest pain Status: Acute (2) FLOREZ (dyspnea on exertion) Status: Acute (3) Esophageal varices with bleeding Status: Acute (4) Abdominal pain Status: Acute (5) Acute blood loss anemia Status: Acute (6) Thrombocytopenia Status: Acute (7) Alcohol abuse Status: Chronic
[2017-08-10] MEDS ORDERED: Potassium Chloride 20 mEq ER Tab PO ONE (07:15)
[2017-08-10] MEDS: Ciprofloxacin 400mg/200ml D5W 400 MG/200 ML BAG IVPB SCH (09:55)
[2017-08-10] MEDS ORDERED: Ergocalciferol 50,000 Intl Units Cap PO SCH (11:45)
[2017-08-10] MEDS: Pantoprazole 40 mg EC Tab PO SCH (15:31)
[2017-08-10 16:26] VITALS: O2SAT 100
--- NOTE | 2017-08-10 17:28 | CP.PCM.DIS ---
Provider - Provider Date of Admission: 08/07/17 09:05 Attending physician: Sanford Sheikh MD Time Spent in preparation of Discharge (in minutes): 30 Diagnosis - Discharge Diagnosis (1) Abdominal pain Status: Acute (2) Acute blood loss anemia Status: Acute (3) Anemia Status: Chronic (4) Hypoalbuminemia due to protein-calorie malnutrition Status: Chronic (5) Ascites Status: Chronic (6) Ascites due to alcoholic cirrhosis Status: Chronic (7) Esophageal varices Status: Chronic (8) Liver cirrhosis Status: Chronic (9) Liver cirrhosis, alcoholic Status: Chronic (10) Physical debility Status: Chronic (11) Chest pain Status: Acute (12) Esophageal varices with bleeding Status: Acute Hospital Course - Lab Results Lab Results: Micro Results 08/06/17 00:13 Stool Stool Culture - Final NO SALMONELLA, SHIGELLA OR CAMPYLOBACTER ISOLATED. Most Recent Lab Values WBC 3.4 K/uL (4.8-10.8) L 08/10/17 04:20 RBC 3.69 Mil/uL (4.40-5.90) L 08/10/17 04:20 Hgb 11.3 g/dL (12.0-18.0) L 08/10/17 04:20 Hct 33.0 % (35.0-51.0) L 08/10/17 04:20 MCV 89.5 fl (80.0-94.0) 08/10/17 04:20 MCH 30.7 pg (27.0-31.0) 08/10/17 04:20 MCHC 34.3 g/dL (33.0-37.0) 08/10/17 04:20 RDW 15.1 % (11.5-14.5) H 08/10/17 04:20 Plt Count 79 K/uL (130-400) L 08/10/17 04:20 MPV 10.6 fl (7.2-11.7) 08/08/17 06:37 Neut % (Auto) 58.5 % (50.0-75.0) 08/08/17 06:37 Lymph % (Auto) 22.0 % (20.0-40.0) 08/08/17 06:37 [place] % (Auto) 11.9 % (0.0-10.0) H 08/08/17 06:37 Eos % (Auto) 6.4 % (0.0-4.0) H 08/08/17 06:37 Baso % (Auto) 1.2 % (0.0-2.0) 08/08/17 06:37 Neut # (Auto) 1.5 K/uL (1.8-7.0) L 08/08/17 06:37 Lymph # (Auto) 0.6 K/uL (1.0-4.3) L 08/08/17 06:37 [place] # (Auto) 0.3 K/uL (0.0-0.8) 08/08/17 06:37 Eos # (Auto) 0.2 K/uL (0.0-0.7) 08/08/17 06:37 Baso # (Auto) 0.0 K/uL (0.0-0.2) 08/08/17 06:37 PT 14.7 Seconds (9.8-13.1) H 08/06/17 15:12 INR 1.3 (0.9-1.2) H 08/06/17 15:12 APTT 32.4 Seconds (25.6-37.1) 08/06/17 15:12 Sodium 140 mmol/l (132-148) 08/10/17 04:20 Potassium 3.3 MMOL/L (3.6-5.0) L 08/10/17 04:20 Chloride 103 mmol/L (98-107) 08/10/17 04:20 Carbon Dioxide 25 mmol/L (22-30) 08/10/17 04:20 Anion Gap 15 (10-20) 08/10/17 04:20 BUN 7 mg/dl (9-20) L 08/10/17 04:20 Creatinine 1.0 mg/dl (0.8-1.5) 08/10/17 04:20 Est GFR ( Amer) > 60 08/10/17 04:20 Est GFR (Non-Af Amer) > 60 08/10/17 04:20 POC Glucose (mg/dL) 112 mg/dL (65-110) H 08/06/17 14:59 Random Glucose 86 mg/dL (75-110) 08/10/17 04:20 Lactic Acid 1.8 MMOL/L (0.7-2.1) 08/06/17 15:12 Calcium 8.5 mg/dL (8.4-10.2) 08/10/17 04:20 Total Bilirubin 1.4 mg/dl (0.2-1.3) H 08/10/17 04:20 AST 33 U/L (17-59) 08/10/17 04:20 ALT 35 U/L (21-72) 08/10/17 04:20 Alkaline Phosphatase 72 U/L (38-126) 08/10/17 04:20 Ammonia 29 umo/L (16-60) D 08/06/17 15:12 Troponin I < 0.0120 ng/mL (0.00-0.120) 08/07/17 20:41 Total Protein 7.2 G/DL (6.3-8.2) 08/10/17 04:20 Albumin 3.6 g/dL (3.5-5.0) 08/10/17 04:20 Globulin 3.5 gm/dL (2.2-3.9) 08/10/17 04:20 Albumin/Globulin Ratio 1.0 (1.0-2.1) 08/10/17 04:20 Triglycerides 51 mg/DL (0-149) 08/07/17 20:41 Cholesterol 114 mg/dL (0-199) 08/07/17 20:41 LDL Cholesterol Direct 62 mg/dL (0-129) 08/07/17 20:41 HDL Cholesterol 31 MG/DL (30-70) 08/07/17 20:41 Lipase 39 U/L (23-300) 08/05/17 16:25 Urine Color Yellow (YELLOW) 08/05/17 23:56 Urine Clarity Clear (Clear) 08/05/17 23:56 Urine pH 5.0 (5.0-8.0) 08/05/17 23:56 Ur Specific [place] 1.010 (1.003-1.030) 08/05/17 23:56 Urine Protein Negative mg/dL (NEGATIVE) 08/05/17 23:56 Urine Glucose (UA) Neg mg/dL (Normal) 08/05/17 23:56 Urine Ketones Negative mg/dL (NEGATIVE) 08/05/17 23:56 Urine Blood Negative (NEGATIVE) 08/05/17 23:56 Urine Nitrate Negative (NEGATIVE) 08/05/17 23:56 Urine Bilirubin Negative (NEGATIVE) 08/05/17 23:56 Urine Urobilinogen 0.2-1.0 mg/dL (0.2-1.0) 08/05/17 23:56 Ur Leukocyte Esterase Neg Effie/uL (Negative) 08/05/17 23:56 Urine RBC (Auto) 1 /hpf (0-3) 08/05/17 23:56 Urine Microscopic WBC 1 /hpf (0-5) 08/05/17 23:56 Ur Squamous Epith Cells < 1 /hpf (0-5) 08/05/17 23:56 Stool Occult Blood Positive (NEGATIVE) H 08/05/17 17:32 C. difficile Ag & Toxin Negative (NEGATIVE) 08/06/17 00:13 Influenza Typ A,B (EIA) Negative for flu a/b (NEGATIVE) 08/05/17 16:25 Blood Type A NEGATIVE 08/06/17 10:20 Antibody Screen Negative 08/06/17 10:20 Crossmatch See Detail 08/06/17 10:20 BBK History Checked Patient has bt 08/06/17 10:20 - Hospital Course Hospital Course: Patient presented with n active upper GI bleed secondary to esophageal varices. He was poly transfuse. The dx was confirmed by EGD and a bend was placed in the bedding varices. During his stay in the hospital he c/o chest pain precordial and a stress test was performed. Discharge Exam - Head Exam Head Exam: ATRAUMATIC, NORMAL INSPECTION, NORMOCEPHALIC - Eye Exam Eye Exam: EOMI, Normal appearance, PERRL - ENT Exam ENT Exam: Mucous Membranes Dry - Neck Exam Neck exam: Full Rom - Respiratory Exam Respiratory Exam: Clear to PA & Lateral - Cardiovascular Exam Cardiovascular Exam: REGULAR RHYTHM, +S1, +S2 - GI/Abdominal Exam GI & Abdominal Exam: Normal Bowel Sounds, Unremarkable - Neurological Exam Neurological exam: Alert, CN II-XII Intact, Oriented x3, Reflexes Normal - Psychiatric Exam Psychiatric exam: Normal Affect - Skin Skin Exam: Pallor Discharge Plan - Follow Up Plan Condition: STABLE Disposition: HOME/ ROUTINE Instructions: Upper Endoscopy (DC), Infectious Colitis (GEN) Additional Instructions: follow up with Dr Sheikh in 2days Follow up with DR Davis next 08/21/17 Referrals: Elie Davis MD [Staff Provider] - Sanford Sheikh MD [Family Provider] - Rupesh Welsh MD [Staff Provider] -
--- NOTE | 2017-08-10 19:55 | CP.PCM.PN ---
Subjective - Date & Time of Evaluation Date of Evaluation: 08/10/17 Time of Evaluation: 14:00 - Subjective Subjective: Sitting up and is awake and alert. Feels well Objective - Vital Signs/Intake and Output Vital Signs (last 24 hours): Temp Pulse Resp BP Pulse Ox 97.9 F 71 19 125/76 100 08/10/17 16:26 08/10/17 17:29 08/10/17 16:26 08/10/17 17:29 08/10/17 16:26 Intake and Output: 08/10/17 08/11/17 18:59 06:59 Intake Total 780 Output Total 380 Balance 400 - Medications Medications: Current Medications Carvedilol (Coreg) 3.125 mg PO Q12 [facility] [place] Last Admin: 08/10/17 17:29 Dose: 3.125 mg Cyanocobalamin (Vitamin B12 1000 Mcg Tab) 1,000 mcg PO DAILY [facility] [place] Last Admin: 08/10/17 15:32 Dose: 1,000 mcg Ergocalciferol (Drisdol 50,000 Intl Units Cap) 1 cap PO Q7D [facility] [place] Last Admin: 08/10/17 17:31 Dose: 1 cap Ferrous Sulfate (Feosol) 325 mg PO BID [facility] [place] Last Admin: 08/10/17 17:29 Dose: 325 mg Folic Acid (Folic Acid) 1 mg PO DAILY [facility] [place] Last Admin: 08/10/17 15:33 Dose: 1 mg Furosemide (Lasix) 40 mg PO DAILY [facility] [place] Last Admin: 08/10/17 17:29 Dose: 40 mg Gabapentin (Neurontin) 300 mg PO TID [facility] [place] Last Admin: 08/10/17 17:30 Dose: 300 mg Ciprofloxacin (Cipro 400mg/200ml Dsw) 400 mg in 200 mls @ 200 mls/hr IVPB Q12 [facility] [place] PRN Reason: Protocol Last Admin: 08/10/17 09:55 Dose: 200 mls/hr Metronidazole (Flagyl 500mg/100ml Ns) 100 mls @ 100 mls/hr IVPB Q8 [facility] [place] Last Admin: 08/10/17 17:29 Dose: Not Given Ondansetron HCl (Zofran Inj) 4 mg IVP Q6 PRN PRN Reason: Nausea/Vomiting Last Admin: 08/10/17 19:41 Dose: 4 mg Pantoprazole Sodium (Protonix Ec Tab) 40 mg PO DAILY [facility] [place] Last Admin: 08/10/17 15:31 Dose: 40 mg Rifaximin (Xifaxan) 550 mg PO BID [facility] [place] PRN Reason: Protocol Last Admin: 08/10/17 17:30 Dose: 550 mg Spironolactone (Aldactone) 50 mg PO BID [facility] [place] Last Admin: 08/10/17 17:28 Dose: 50 mg Thiamine HCl (Vitamin B1 Tab) 100 mg PO DAILY [facility] [place] Last Admin: 08/10/17 15:30 Dose: 100 mg Thiamine HCl (Vitamin B1 Tab) 100 mg PO DAILY [facility] [place] Last Admin: 08/10/17 15:33 Dose: Not Given - Labs Labs: 08/10/17 04:20 08/10/17 04:20 PT 14.7 Seconds (9.8-13.1) H 08/06/17 15:12 INR 1.3 (0.9-1.2) H 08/06/17 15:12 APTT 32.4 Seconds (25.6-37.1) 08/06/17 15:12 - Head Exam Head Exam: ATRAUMATIC - Eye Exam Eye Exam: Normal appearance - ENT Exam ENT Exam: Normal Exam - Neck Exam Neck Exam: Normal Inspection - Respiratory Exam Respiratory Exam: Clear to Ausculation Bilateral - Cardiovascular Exam Cardiovascular Exam: REGULAR RHYTHM - GI/Abdominal Exam GI & Abdominal Exam: Distended, Normal Bowel Sounds Additional comments: moderately distended Assessment and Plan (1) Acute blood loss anemia Assessment & Plan: No bleeding since band placed 3 days ago. Status: Acute (2) Ascites due to alcoholic cirrhosis Assessment & Plan: On furosemide 40 po QD, Spirinolactone 50 mg po BID, and salt/fluid restriction. F/u as outpatient with [facility] liver clinic or with me. Status: Chronic
[2017-08-10 20:13] VITALS: BP 121/77; PULSE 93; RESP 16; TEMP 98.2
--- NOTE | 2017-08-11 06:16 | PQF GENQUE ---
This form is a permanent part of the medical record 08/10/17 Dr. Sheikh, PLEASE CLARIFY IF THE MALNUTRITION IS FOR THIS ADMISSION. IF YES PLEASE CLARIFY THE DEGREE. 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 Documentation of Hypoalbuminemia due to protein calorie malnutrition status Chronic. Total Protein: 7.3-6.1, Albumin 3.8-3.0, BMI 27, Dietary consult. Clarification of your documentation is requested to better reflect the severity of illness and intensity of treatment of your patient. Indicators present [] Specify: [X ] Liver cirrhosis [] Specify: [] [] Specify: [] [] Specify: [] Location in the medical record that reflects the above clinical findings: [] Treatment Provided: [x] supportive PHYSICIAN'S RESPONSE Based on your medical judgment of the clinical indicators outlined above please clarify the following: [] Practitioner response [] If unable to determine, please check the box, sign and date. Present On Admission (POA) Indicator: [] Present at the time of admission [] Not present at the time of admission [] Clinically Undetermined In responding to this query, please exercise your independent professional judgment. The fact that a question is asked does not imply that any particular answer is desired or expected. Thank you for your clarification on this documentation. If you have any questions please call:[phone] * Thank you, Shayy Gtz RN [facility]
== END 2017-08-10 21:20 | disposition home or self-care (01) | DRG 432 ==
LOC: H.ER 15:28 → UNDOADMOB 18:39 → H.ERHOLD 18:39 → H.MEDSURG1 21:45 → H.ERHOLD 21:45 → H.MEDSURG1 08-06 11:40 → OBSVTOIN 08-07 09:05 → INTOOBSV 08-07 09:05 → H.MEDSURG1 08-07 13:42 → H.TEL 08-07 13:42
PROVIDERS: ADMIT Internal Medicine; ATTEND Internal Medicine
PROC: 30233N1 Transfusion of Nonautologous Red Blood Cells into Peripheral Vein, Percutaneous Approach (ICD-10-PCS; 2017-08-06)
PROC: 0DB98ZX Excision of Duodenum, Via Natural or Artificial Opening Endoscopic, Diagnostic (ICD-10-PCS; 2017-08-07)
PROC: 0DB38ZX Excision of Lower Esophagus, Via Natural or Artificial Opening Endoscopic, Diagnostic (ICD-10-PCS; 2017-08-07)
PROC: 06L38CZ Occlusion of Esophageal Vein with Extraluminal Device, Via Natural or Artificial Opening Endoscopic (ICD-10-PCS; principal; 2017-08-07 08:00)
DX: K70.31 Alcoholic cirrhosis of liver with ascites (principal); I85.11 Secondary esophageal varices with bleeding; D69.6 Thrombocytopenia, unspecified; K76.6 Portal hypertension; D62 Acute posthemorrhagic anemia; E88.09 Other disorders of plasma-protein metabolism, not elsewhere classified; E44.1 Mild protein-calorie malnutrition; B19.20 Unspecified viral hepatitis C without hepatic coma; F17.200 Nicotine dependence, unspecified, uncomplicated; I10 Essential (primary) hypertension; I20.9 Angina pectoris, unspecified; K52.9 Noninfective gastroenteritis and colitis, unspecified; F10.20 Alcohol dependence, uncomplicated; F32.9 Major depressive disorder, single episode, unspecified; F41.9 Anxiety disorder, unspecified; Z87.81 Personal history of (healed) traumatic fracture; Z79.899 Other long term (current) drug therapy; R07.89 Other chest pain; Z68.27 Body mass index [BMI] 27.0-27.9, adult